=== PATIENT | male | born 1960 | race Caucasian/White ===

== ENCOUNTER 2016-07-09 07:22 | Outpatient (RCR) | payer SELFPAY ==
[~2016-07-09 07:22] MED LIST: AMLO10TA PO; AMLO10TA2 PO; AMLO10TA4 PO; ASPI-266 PO; ASPI-587 PO; ASPI-999 PO; ATEN100T88 PO; ATOR20TA66 PO; ATOR40TA PO; ATOR40TA70 PO; CEFU500T PO; CLON1PAT22 TD; CLOP75TA PO; CLOP75TA28 PO; CYCL10TA9 PO; DIPH25TA2 PO; DOXA2TAB2 PO; DXZS2T PO; DXZS4T PO; HYDR-3583 PO; HYDR-3714 PO; HYDR-3812 PO; HYDR25TA4 PO; IBUP-30 PO; LISI-552 PO; LISI1TAB8 PO; LISI40TA PO; LOVA40TA2 PO; LSNP20T PO; MELA1TAB9 PO; METH4TAB PO; METO-274 PO; METO-451 PO; METO100T2 PO; METO50TA2 PO; NAPR-591 PO; NEBI20TA2 PO; NF-MET200T PO; NFCHLORT25 PO; NITR0.4T SL; NITR0.4T3 SL; OMG1KC PO; PRD20T PO; SUCR1TAB36 PO; SULF1TAB38 PO; TRAM50TA2 PO; TRIA1CAP4 PO
--- NOTE | 2016-07-09 13:53 | Diagnostic Imaging Report ---
Renal duplex ultrasound. INDICATION: Uncontrolled hypertension. FINDINGS: The right kidney is 10.9 cm and the left kidney is 9.5 cm in length. There is no hydronephrosis or focal lesion. Renal artery velocities are on the right side 228, 196, and 176 cm/s from proximal to distal and on the left 205, 124, and 113 cm/s from proximal to distal. This compares to abdominal aortic flow velocity of 111 cm/s. Renal artery to aortic ratios are up to 2 on the right side and 1.8 on the left. The resistive index in the right kidney is in the range of 0.64-0.7 and on the left side 0.60-0.66. IMPRESSION: Elevated velocities in the renal arteries bilaterally suggestive of underlying mild renal artery stenosis. Dictated by: Dictated on workstation # [id number]
[2016-07-15] MEDS ORDERED: LISI40TA PO (13:07)
[2016-07-15] MEDS ORDERED: AMLO10TA2 PO (13:07)
[2016-09-28] MEDS ORDERED: ATOR40TA PO (17:17)
[2016-09-28] MEDS ORDERED: AMLO10TA4 PO (20:16)
[2016-10-05] MEDS ORDERED: AMLO10TA4 PO (01:12)
== END 2016-10-07 | disposition home or self-care (01) ==
LOC: RAD 07:22
PROVIDERS: ATTEND Internal Medicine Cardiovascular Disease
DX: I10 Essential (primary) hypertension (principal); I25.10 Atherosclerotic heart disease of native coronary artery without angina pectoris; I46.2 Cardiac arrest due to underlying cardiac condition; Z72.0 Tobacco use
CPT/HCPCS: 93975

== ENCOUNTER 2016-08-28 08:39 | Outpatient (RCR) | payer SELFPAY ==
[2016-08-28 09:24] LABS: ALANINE AMINOTRANSFERASE 27 U/L (0-55); ALBUMIN 4.2 G/DL (3.2-4.5); ANION GAP 9 MMOL/L (5-14); ASPARTATE AMINO TRANSFERASE 21 U/L (5-34); BILIRUBIN,TOTAL 0.3 MG/DL (0.1-1.0); BLOOD UREA NITROGEN 16 MG/DL (7-18); BUN/CREATININE RATIO 14; CARBON DIOXIDE 24 MMOL/L (21-32); CHLORIDE 106 MMOL/L (98-107); CREATININE SERUM 1.14 MG/DL (0.60-1.30); GFR ESTIMATED > 60; GLUCOSE 117 MG/DL (70-105); POTASSIUM 4.2 MMOL/L (3.6-5.0); SODIUM 139 MMOL/L (135-145); TOTAL PROTEIN 6.9 G/DL (6.4-8.2)
[2016-08-29 06:55] LABS: NUMBER HOURS COLLECT 24 HOURS; NUMBER HOURS COLLECTED 24 HOURS; UR VOL 1750 ML; URINE VOLUME CAT 1750 ML; URINE VOLUME REF 1750 ML
[2016-09-02 08:08] LABS: CREATININE SEROTONIN 1698 MG/D (800-2100)
[2016-09-02 08:09] LABS: 5 HIAA SEROTONIN URINE MG/L 2.3 MG/L; 5 HIAA SEROTONIN URINE RATIO 2 mg/gCR (0-14); 5HIAA CREATININE 97 MG/DL
[2016-09-02 08:10] LABS: 5 HIAA URINE INTERPRETATION SEE FOOTNOTE; VMA 24 HOUR URINE 2.2 MG/L; VMA/CREATININE 97 MG/DL
[2016-09-02 08:11] LABS: VMA CREATININE RATIO 2 MG/GCR (0-6); VMA URINE INTERPRETATION SEE FOOTNOTE
[2016-09-02 08:12] LABS: CREATININE VMA TIMED 24 HOUR 1698 MG/D (800-2100)
[2016-09-08 08:34] LABS: CREAT/CORTI URINE REF LAB 1820 MG/DAY (800-2100)
[2016-09-08 08:35] LABS: CORTISOL CREATININE RATIO URIN 27.12 ug/g CRT
[2016-09-08 08:36] LABS: CORTISOL INTERP SEE FOOTNOTE; CREATININE URINE REF MG/DL 104 MG/DL
[2016-09-09 11:27] LABS: EPINEPHERINE URINE 10 H UG/DAY (1-7)
[2016-09-09 11:28] LABS: NOREPINEPHRINE RATIO 48 H UG/G CRT (0-45)
[2016-09-09 11:29] LABS: CATECHOLAMINES URINE INTERP SEE FOOTNOTE; DOPAMINE RATIO 139 UG/G CRT (0-250)
[2016-09-09 11:31] LABS: CREATININE CAT FR MG/DL 102 MG/DL
[2016-09-09 11:33] LABS: CREATININE CATECHOLAMINES MG/D 1820 MG/D (800-2100)
[2016-09-09 11:44] LABS: NOREPINEPHRINE RANDOM URINE 47 ug/L
[2016-09-28] MEDS ORDERED: ATOR40TA PO (17:17)
[2016-09-28] MEDS ORDERED: AMLO10TA4 PO (20:16)
[2016-10-05] MEDS ORDERED: AMLO10TA4 PO (01:12)
== END 2016-11-24 | disposition home or self-care (01) ==
LOC: LAB 08:39
PROVIDERS: ATTEND Internal Medicine Cardiovascular Disease
DX: I10 Essential (primary) hypertension (principal); E78.4 Other hyperlipidemia; Z86.73 Personal history of transient ischemic attack (TIA), and cerebral infarction without residual deficits; I65.23 Occlusion and stenosis of bilateral carotid arteries; I25.10 Atherosclerotic heart disease of native coronary artery without angina pectoris; Z72.0 Tobacco use
CPT/HCPCS: 36415; 80053; 82088; 82384; 82530; 82570; 83497; 83789; 84585

== ENCOUNTER 2016-09-28 16:29 | Emergency (ER) | payer SELFPAY ==
[~2016-09-28] VITALS: Ht 182.9 cm; Wt 83.9 kg
[2016-09-28] MEDS ORDERED: ATOR40TA PO (17:17)
--- NOTE | 2016-09-28 17:59 | ED Headache ---
General Chief Complaint: Head/Cervical Problems Stated Complaint: HEADACHE Nursing Triage Note: AMB TO ROOM C/O CHRONIC HEADACH B/P UP TODAY CAN'T AFFORD ALL HIS MEDS HE SUPPOSE TO TAKE. Nursing Sepsis Screen: No Definite Risk Source: patient (AROLDO OREILLY DO) History of Present Illness Time seen by provider: 17:35 Initial Comments PT ARRIVES VIA POV FROM HOME C/O HEADACHE HAS CHRONIC HEADACHES FROM ELEVATED BP PT IS SUPPOSED TO BE ON MULTIPLE MEDICATIONS FOR BP, BUT CANNOT AFFORD ALL OF THEM, SO ONLY TAKES SOME OF THEM PT HAS BEEN HERE MULTIPLE TIMES FOR THIS SAME PROBLEM--LAST VISIT WAS 09/05/16, AND WAS SEEN AT [facility] ON 09/11/16, AND ALSO SAW DR. MCGARRY ON 09/11/16 FOR FOLLOW UP. HE WAS GIVEN AN ADDITIONAL 2 MORE RX'S, WHICH PT COULD NOT FILL. PT HAS BEEN PRESCRIBED DOXAZOSIN, AMLODIPINE, LISINOPRIL, TOPROL, TRIAM/HCTZ, ATORVASTATIN, CLOPIDOGREL, LIPITOR. HAS NOT BEEN ABLE TO FILL AMLODIPINE OR ATORVASTATIN, OR THE 2 NEW BP MEDICATIONS. HE ALSO HAS NOT FILLED HIS HYDROCODONE OR CYCLOBENZAPRINE. NO CHEST PAIN NO SHORTNESS OF BREATH NO DIZZINESS HAS HAD SOME BLURRED VISION HAS CHRONIC TINGLING IN FINGERS FROM NECK PROBLEMS NO NAUSEA/VOMITING PCP:[facility], DR. BELLA CARDIOLOGY: DR. MCGARRY (AROLDO OREILLY DO) Allergies and Home Medications Allergies Coded Allergies: clonidine (Verified Adverse Reaction, Unknown, 09/28/16) CATAPRESS PATCH HAS RED AREA AT SITE. Home Medications Amlodipine Besylate 10 Mg Tablet 10 MG PO DAILY (Reported) Amlodipine Besylate 10 Mg Tablet #30 10 MG PO DAILY Prescribed by: GISELLA ALFONSO on 09/28/16 2016 Aspirin 81 Mg Tab.chew 81 MG PO DAILY (Reported) Atorvastatin Calcium 40 Mg Tablet 40 MG PO HS (Reported) Atorvastatin Calcium 40 Mg Tablet 40 MG PO (Reported) Clopidogrel Bisulfate 75 Mg Tablet 75 MG PO DAILY (Reported) Diphenhydramine HCl 25 Mg Tablet 50 MG PO HS PRN PRN SLEEP (Reported) TAKES 2 (25 MG) TABLETS Doxazosin Mesylate 2 Mg Tablet 2 MG PO HS (Reported) Hydrocodone/Acetaminophen 1 Each Tablet 1 TAB PO Q6H PRN PRN PAIN (Reported) Lisinopril 40 Mg Tablet 40 MG PO DAILY (Reported) Metoprolol Succinate 200 Mg Tab 200 MG PO DAILY (Reported) Nitroglycerin 0.4 Mg Tab.subl 0.4 MG SL UD PRN PRN CHEST PAIN (Reported) Triamterene/Hydrochlorothiazid 1 Each Capsule 1 CAP PO DAILY (Reported) Constitutional: no symptoms reportedNo dizziness Eyes: See HPI Blurred Vision Ears, Nose, Mouth, Throat: no symptoms reported Respiratory: no symptoms reported Cardiovascular: no symptoms reported Gastrointestinal: no symptoms reported Genitourinary: no symptoms reported Musculoskeletal: no symptoms reported Skin: no symptoms reported Psychiatric/Neurological: See HPI HeadacheDenies Seizure (AROLDO OREILLY DO) Past Nwdhnbn-Pvensu-Qmyrpk Hx Patient Social History Alcohol Use: Past History (HISTORY OF ABUSE, NONE FOR YEARS) Recreational Drug Use: Yes (THC, COCAINE., METH IN PAST, DENIES IV USE) Smoking Status: Current Everyday Smoker (2 PPD IN PAST, NOW 1/2 PPD) Type Used: Cigarettes Recent Foreign Travel: No Contact w/Someone Who Travel: No Recent Infectious Disease Expo: No Recent Hopitalizations: Yes Physical Abuse Screen: No Sexual Abuse: No (AROLDO OREILLY DO) Immunizations Up To Date Tetanus Booster (TDap): Unknown Date of Influenza Vaccine: Jun 18, 2016 (AROLDO OREILLY DO) Seasonal Allergies Seasonal Allergies: No (AROLDO OREILLY DO) Surgeries HX Surgeries: Yes (BACK SURGERY ( ANTERIOR APPROACH) , CARPAL TUNNEL) Surgeries: Adenoidectomy, Cardiac, Defibrillator, Orthopedic, Pacemaker, Tonsillectomy, Vasectomy (AROLDO OREILLY DO) Respiratory Hx Respiratory Disorders: No (AROLDO OREILLY DO) Cardiovascular Hx Cardiac Disorders: Yes (heart catheter May 2015 with moderate disease- cardiac arrest with [place]) Cardiac Disorders: Coronary Artery Disease, Heart Attack, High Cholesterol, Hypertension (AROLDO OREILLY DO) Neurological Hx Neurological Disorders: Yes Neurological Disorders: Headaches /Migraines, TIA (AROLDO OREILLY DO) Reproductive System Hx Reproductive Disorders: No Sexually Transmitted Disease: No HIV/AIDS: No (AROLDO OREILLY DO) Genitourinary Hx Genitourinary Disorders: No (AROLDO OREILLY DO) Gastrointestinal Hx Gastrointestinal Disorders: Yes Gastrointestinal Disorders: Pancreatitis (AROLDO OREILLY DO) Musculoskeletal Hx Musculoskeletal Disorders: Yes (BACK PAIN, BACK SURGERY, CARPAL TUNNEL SURGERY) Musculoskeletal Disorders: Chronic Back Pain (AROLDO OREILLY DO) Endocrine Hx Endocrine Disorders: No (AROLDO OREILLY DO) HEENT HX ENT Disorders: No (AROLDO OREILLY DO) Cancer Hx Cancer: No (AROLDO OREILLY DO) Psychosocial Hx Psychiatric Problems: No (AROLDO OREILLY DO) Integumentary HX Skin/Integumentary Disorder: No (AROLDO OREILLY DO) Blood Transfusions Hx Blood Disorders: No Adverse Reaction to a Blood Tr: No (DENILSONAROLDOSedrick Alexandra DO) Family Medical History Significant Family History: No Pertinent Family Hx Family Medial History: Cardiovascular disease (AROLDO OREILLY DO) Family Medial History: Cardiovascular disease (GISELLA ALFONSO DO) Physical Exam Vital Signs Vital Sign - Last 12Hours 09/28/16 17:02 Temp 98.4 Pulse 82 Resp 18 B/P 238/136 Pulse Ox 97 O2 Delivery Room Air (GISELLA ALFONSO DO) Vital Signs Capillary Refill : Greater Than 3 Seconds (AROLDO OREILLY DO) General Appearance: WD/WN no apparent distress other (STRONG ODOR OF CIGARETTES) HEENT: other (POOR DENTITION) Neck: non-tender full range of motion supple normal inspection Cardiovascular: normal peripheral pulses regular rate, rhythm no edema no JVD no murmur Respiratory: chest non-tender normal breath sounds no respiratory distress no accessory muscle use Gastrointestinal: normal bowel sounds non tender soft no organomegaly no pulsatile mass Back: normal inspection no CVA tenderness no vertebral tenderness Extremities: normal range of motion non-tender normal inspection no pedal edema no calf tenderness normal capillary refill Psychiatric: alert oriented x 3 [place] Nerves: normal hearing normal speech PERRL Coordination/Gait: normal gait Motor/Sensory: no motor deficit no sensory deficit no pronator drift Skin: normal color warm/dry (AROLDO OREILLY DO) Date of ETT Placement: February 24, 2016 Time of ETT Placement: 1314 (AROLDO OREILLY DO) Progress/Results/Core Measures Results/Orders Lab Results Laboratory Tests Test 09/28/16 17:09 09/28/16 19:10 Range/Units Activated Partial Thromboplast Time 26 24-35 SEC Alanine Aminotransferase (ALT/SGPT) 40 0-55 U/L Albumin 4.5 3.2-4.5 G/DL Alkaline Phosphatase 109 40-136 U/L Anion Gap 12 5-14 MMOL/L Aspartate Amino Transf (AST/SGOT) 22 5-34 U/L BUN/Creatinine Ratio 17 Basophils # (Auto) 0.0 0.0-0.1 10^3/uL Basophils (%) (Auto) 0 0-10 % Blood Urea Nitrogen 17 7-18 MG/DL Calcium Level 9.1 8.5-10.1 MG/DL Carbon Dioxide Level 19 L 21-32 MMOL/L Chloride Level 108 H 98-107 MMOL/L Creatinine 1.02 0.60-1.30 MG/DL Eosinophils # (Auto) 0.1 0.0-0.3 10^3/uL Eosinophils (%) (Auto) 1 0-10 % Estimat Glomerular Filtration Rate > 60 Glucose Level 107 H 70-105 MG/DL Hematocrit 50 40-54 % Hemoglobin 17.1 13.3-17.7 G/DL INR Comment 0.9 0.8-1.4 Lymphocytes # (Auto) 3.5 1.0-4.0 X 10^3 Lymphocytes (%) (Auto) 35 12-44 % Magnesium Level 2.3 1.8-2.4 MG/DL Mean Corpuscular Hemoglobin 31 25-34 PG Mean Corpuscular Hemoglobin Concent 35 32-36 G/DL Mean Corpuscular Volume 90 80-99 FL Mean Platelet Volume 9.1 7.4-10.4 FL Monocytes # (Auto) 0.9 0.0-1.0 X 10^3 Monocytes (%) (Auto) 9 0-12 % Neutrophils # (Auto) 5.4 1.8-7.8 X 10^3 Neutrophils (%) (Auto) 54 42-75 % Platelet Count 369 130-400 10^3/uL Potassium Level 4.3 3.6-5.0 MMOL/L Prothrombin Time 11.4 L 12.2-14.7 SEC Red Blood Count 5.53 4.35-5.85 10^6/uL Red Cell Distribution Width 14.9 H 10.0-14.5 % Sodium Level 139 135-145 MMOL/L Total Bilirubin 0.3 0.1-1.0 MG/DL Total Protein 7.5 6.4-8.2 G/DL Troponin I < 0.30 <0.30 NG/ML White Blood Count 10.0 4.3-11.0 10^3/uL Urine Bacteria NEGATIVE /HPF Urine Bilirubin NEGATIVE NEGATIVE Urine Casts NONE /LPF Urine Clarity CLEAR Urine Color YELLOW Urine Crystals NONE /LPF Urine Culture Indicated NO Urine Glucose (UA) NEGATIVE NEGATIVE Urine Ketones NEGATIVE NEGATIVE Urine Leukocyte Esterase NEGATIVE NEGATIVE Urine Mucus NEGATIVE /LPF Urine Nitrite NEGATIVE NEGATIVE Urine Protein 2+ H NEGATIVE Urine RBC NONE /HPF Urine RBC (Auto) 1+ H NEGATIVE Urine Specific Page 1.020 1.016-1.022 Urine Squamous Epithelial Cells RARE /HPF Urine Urobilinogen NORMAL NORMAL MG/DL Urine WBC RARE /HPF Urine pH 5 5-9 (GISELLA ALFONSO DO) My Orders Orders-GISELLA ALFONSO DO Labetalol Injection (Normodyne Injection (09/28/16 19:00) Ketorolac Injection (Toradol Injection) (09/28/16 19:00) Amlodipine Tablet (Norvasc Tablet) (09/28/16 19:45) Butorphanol Injection (Stadol Injection) (09/28/16 19:45) (GISELLA ALFONSO DO) Medications Given in ED (GISELLA ALFONSO DO) Vital Signs/I&O Vital Sign - Last 12Hours 09/28/16 09/28/16 09/28/16 17:02 18:46 20:37 Temp 98.4 Pulse 82 73 75 Resp 18 18 18 B/P 238/136 188/115 Pulse Ox 97 98 98 O2 Delivery Room Air Room Air (GISELLA ALFONSO DO) Blood Pressure Mean: 170 Progress Note : Progress Note 1800--CARE TURNED OVER TO DR. ALFONSO, ALL STUDIES PENDING (AROLDO OREILLY DO) Progress Note : Progress Note Much improved p/ able to get BP down and c/ the Stadol. Really needs to get the Rx filled for the Norvasc and add it to his current regimen. Dose was given here prior to discharge. (GISELLA ALFONSO DO) ECG Initial ECG Impression Date: Sep 28, 2016 Initial ECG Impression Time: 18:20 Initial ECG Rate: 89 Initial ECG Rhythm: Normal Sinus Initial ECG Intervals: QT Initial ECG Comparisson: Unchanged Comment BRODIE; LVH (GISELLA ALFONSO DO) Departure Impression Impression: Primary Impression: Acute headache Additional Impression: Hypertensive urgency Disposition: 01 HOME, SELF-CARE Condition: Improved Departure-Patient Inst. Decision time for Depature: 20:15 (GISELLA ALFONSO DO) Referrals: MARGARITA BELLA MD (PCP/Family) Primary Care Physician Patient Instructions: Headache, Adult (DC), High Blood Pressure (DC) Scripts Amlodipine Besylate (Norvasc)10 Mg [id number] Mg PO DAILY #30 TAB Ref 0 Prov:GISELLA ALFONSO DO 09/28/16 AROLDO OREILLY DO Sep 28, 2016 17:59 GISELLA ALFONSO DO Sep 28, 2016 19:22 Impression Impression: Primary Impression: Acute headache Additional Impression: Hypertensive urgency Disposition: HOME, SELF-CARE Condition: Improved Departure-Patient Inst. Decision time for Depature: 20:15 (GISELLA ALFONSO DO) Referrals: MARGARITA BELLA MD (PCP/Family) Primary Care Physician Patient Instructions: Headache, Adult (DC), High Blood Pressure (DC) Scripts Amlodipine Besylate (Norvasc)10 Mg [id number] Mg PO DAILY #30 TAB Ref 0 Prov:GISELLA ALFONSO DO 09/28/16 AROLDO OREILLY DO Sep 28, 2016 17:59 GISELLA ALFONSO DO Sep 28, 2016 19:22
[2016-09-28] MEDS ORDERED: meTOprolol 5 MG/5 ML (LOPRESSOR) VIAL IV ONE (18:00)
[2016-09-28] MEDS ORDERED: ENALAPRILAT 2.5 MG/2 ML (VASOTEC) VIAL IV ONE (18:00)
[2016-09-28] MEDS ORDERED: LABETALOL HCL 20 MG/4 ML VIAL IV ONE ×2 (18:15→19:00)
[2016-09-28 18:16] LABS: BASOPHILS % (AUTO) 0 % (0-10); EOSINOPHILS # (AUTO) 0.1 10^3/uL (0.0-0.3); EOSINOPHILS % (AUTO) 1 % (0-10); LYMPHOCYTES # (AUTO) 3.5 X 10^3 (1.0-4.0); LYMPHOCYTES % (AUTO) 35 % (12-44); MEAN CORPUSCULAR HEMOGLOBIN 31 PG (25-34); MEAN CORPUSCULAR HGB CONC 35 G/DL (32-36); MEAN CORPUSCULAR VOLUME 90 FL (80-99); MEAN PLATELET VOLUME 9.1 FL (7.4-10.4); MONOCYTES # (AUTO) 0.9 X 10^3 (0.0-1.0); MONOCYTES % (AUTO) 9 % (0-12); NEUTROPHILS # (AUTO) 5.4 X 10^3 (1.8-7.8); NEUTROPHILS % (AUTO) 54 % (42-75); PLATELET COUNT 369 10^3/uL (130-400); RED BLOOD COUNT 5.53 10^6/uL (4.35-5.85); RED CELL DISTRIBUTION WIDTH 14.9 % (10.0-14.5)
[2016-09-28 18:25] LABS: INR 0.9 (0.8-1.4); PROTHROMBIN TIME PATIENT 11.4 SEC (12.2-14.7)
[2016-09-28 18:35] LABS: ALANINE AMINOTRANSFERASE 40 U/L (0-55); ALBUMIN 4.5 G/DL (3.2-4.5); ANION GAP 12 MMOL/L (5-14); ASPARTATE AMINO TRANSFERASE 22 U/L (5-34); BILIRUBIN,TOTAL 0.3 MG/DL (0.1-1.0); BLOOD UREA NITROGEN 17 MG/DL (7-18); BUN/CREATININE RATIO 17; CALCIUM 9.1 MG/DL (8.5-10.1); CARBON DIOXIDE 19 MMOL/L (21-32); CHLORIDE 108 MMOL/L (98-107); CREATININE SERUM 1.02 MG/DL (0.60-1.30); GFR ESTIMATED > 60; GLUCOSE 107 MG/DL (70-105); MAGNESIUM 2.3 MG/DL (1.8-2.4); POTASSIUM 4.3 MMOL/L (3.6-5.0); SODIUM 139 MMOL/L (135-145); TOTAL PROTEIN 7.5 G/DL (6.4-8.2)
[2016-09-28 18:41] LABS: TROPONIN I < 0.30 NG/ML (<0.30)
[2016-09-28 18:46] VITALS: BP 188/115
[2016-09-28] MEDS ORDERED: KETOROLAC 30 MG/ML VIAL IVP ONE (19:00)
[2016-09-28 19:20] LABS: BILIRUBIN,URINE NEGATIVE (NEGATIVE); KETONES,URINE NEGATIVE (NEGATIVE); LEUKOCYTE ESTERASE ,URINE NEGATIVE (NEGATIVE); NITRITE,URINE NEGATIVE (NEGATIVE); PH,URINE 5 (5-9); PROTEIN,URINE 2+ (NEGATIVE); UROBILINOGEN,URINE NORMAL (NORMAL)
[2016-09-28 19:29] LABS: SQUAMOUS EPITHELIAL CELL,UR RARE /HPF; WBC,URINE RARE /HPF
[2016-09-28] MEDS ORDERED: BUTORPHANOL INJ 2 MG/ML (STADOL) VIAL IV ONE (19:45)
[2016-09-28] MEDS ORDERED: amLODIPine 5 MG (NORVASC) TAB PO ONE (19:45)
[2016-09-28] MEDS ORDERED: AMLO10TA4 PO (20:16)
[2016-09-28 20:37] VITALS: BP 151/115
== END 2016-09-28 20:36 | disposition home or self-care (01) ==
LOC: EDUNIT# 16:29 → ER 16:30
DX: R51 Headache (principal); I16.0 Hypertensive urgency; I25.10 Atherosclerotic heart disease of native coronary artery without angina pectoris; F17.210 Nicotine dependence, cigarettes, uncomplicated; Z79.899 Other long term (current) drug therapy; Z95.810 Presence of automatic (implantable) cardiac defibrillator
CPT/HCPCS: 36415; 80053; 81000; 83735; 84484; 85025; 85610; 85730; 93005; 93041; 96374; 96375; 96376

== ENCOUNTER 2016-10-04 23:23 | Emergency (ER) | payer SELFPAY ==
[~2016-10-04] VITALS: Ht 182.9 cm; Wt 83.9 kg
--- NOTE | 2016-10-04 23:39 | ED Abdominal Pain ---
General Chief Complaint: Abdominal/GI Problems Stated Complaint: AB PAIN Source of Information: Patient, RN Notes Reviewed Exam Limitations: No Limitations History of Present Illness Time Seen By Provider: 23:39 Initial Comments Patient c/o upper abdominal pain that feels like his previous cases of pancreatitis. (+) N, but no vomiting. Patient well known for his hypertension and non-compliance c/ treatment/meds. Timing/Duration: 4-6 Hours Severity/Quality: Severe, Sharp, Stabbing Location: RUQ, LUQ, Epigastric Radiation: Back Activities at Onset: Rest Modifying Factors: Improves With Other (none) Associated Symptoms: Other ((+) nausea, (-) vomiting) Allergies and Home Medications Allergies Coded Allergies: clonidine (Verified Adverse Reaction, Unknown, 09/28/16) CATAPRESS PATCH HAS RED AREA AT SITE. Home Medications Amlodipine Besylate 10 Mg Tablet #30 10 MG PO DAILY Prescribed by: GISELLA ALFONSO on 09/28/162015 Amlodipine Besylate 10 Mg Tablet #30 10 MG PO DAILY Prescribed by: GISELLA ALFONSO on 10/05/16 0112 Aspirin 81 Mg Tab.chew 81 MG PO DAILY (Reported) Atorvastatin Calcium 40 Mg Tablet 40 MG PO HS (Reported) Clopidogrel Bisulfate 75 Mg Tablet 75 MG PO DAILY (Reported) Diphenhydramine HCl 25 Mg Tablet 50 MG PO HS PRN PRN SLEEP (Reported) TAKES 2 (25 MG) TABLETS Doxazosin Mesylate 2 Mg Tablet 2 MG PO HS (Reported) Hydrocodone/Acetaminophen 1 Each Tablet 1 TAB PO Q6H PRN PRN PAIN (Reported) Lisinopril 40 Mg Tablet 40 MG PO DAILY (Reported) Metoprolol Succinate 200 Mg Tab 200 MG PO DAILY (Reported) Nitroglycerin 0.4 Mg Tab.subl 0.4 MG SL UD PRN PRN CHEST PAIN (Reported) Triamterene/Hydrochlorothiazid 1 Each Capsule 1 CAP PO DAILY (Reported) Review of Systems Constitutional: see HPI Gastrointestinal: See HPI Abdominal Pain Nausea All Other Systems Reviewed Negative Unless Noted: Yes Past Jeesnng-Rpwklx-Fghffk Hx Patient Social History Type Used: Cigarettes Recent Foreign Travel: No Contact w/Someone Who Travel: No Recent Hopitalizations: Yes Immunizations Up To Date Tetanus Booster (TDap): Unknown Date of Influenza Vaccine: Jun 18, 2016 Seasonal Allergies Seasonal Allergies: No Surgeries HX Surgeries: Yes (BACK SURGERY ( ANTERIOR APPROACH) , CARPAL TUNNEL) Surgeries: Adenoidectomy, Cardiac, Defibrillator, Orthopedic, Pacemaker, Tonsillectomy, Vasectomy Respiratory Hx Respiratory Disorders: No Cardiovascular Hx Cardiac Disorders: Yes (heart catheter May 2015 with moderate disease- cardiac arrest with [place]) Cardiac Disorders: Coronary Artery Disease, Heart Attack, High Cholesterol, Hypertension Neurological Hx Neurological Disorders: Yes Neurological Disorders: Headaches /Migraines, TIA Reproductive System Hx Reproductive Disorders: No Sexually Transmitted Disease: No HIV/AIDS: No Genitourinary Hx Genitourinary Disorders: No Gastrointestinal Hx Gastrointestinal Disorders: Yes Gastrointestinal Disorders: Pancreatitis Musculoskeletal Hx Musculoskeletal Disorders: Yes (BACK PAIN, BACK SURGERY, CARPAL TUNNEL SURGERY) Musculoskeletal Disorders: Chronic Back Pain Endocrine Hx Endocrine Disorders: No HEENT HX ENT Disorders: No Cancer Hx Cancer: No Psychosocial Hx Psychiatric Problems: No Integumentary HX Skin/Integumentary Disorder: No Blood Transfusions Hx Blood Disorders: No Adverse Reaction to a Blood Tr: No Family Medical History Significant Family History: No Pertinent Family Hx Family Medial History: Cardiovascular disease Physical Exam Vital Signs Capillary Refill : General Appearance: WD/WN moderate distress Respiratory: no respiratory distress Cardiovascular: regular rate, rhythm Gastrointestinal: No distended, guarding (mild)No rebound, tenderness ( primarily epigastric) Rectal: deferred Neurologic/Psychiatric: no motor/sensory deficits alert oriented x 3 depressed affect Skin: warm/dry Date of ETT Placement: February 24, 2016 Time of ETT Placement: 1314 Progress/Results/Core Measures Results/Orders Lab Results Laboratory Tests Test 10/04/16 23:40 10/05/16 00:45 Range/Units Alanine Aminotransferase (ALT/SGPT) 34 0-55 U/L Albumin 4.5 3.2-4.5 G/DL Alkaline Phosphatase 116 40-136 U/L Anion Gap 12 5-14 MMOL/L Aspartate Amino Transf (AST/SGOT) 21 5-34 U/L BUN/Creatinine Ratio 19 Basophils # (Auto) 0.0 0.0-0.1 10^3/uL Basophils (%) (Auto) 0 0-10 % Blood Urea Nitrogen 23 H 7-18 MG/DL Calcium Level 9.8 8.5-10.1 MG/DL Carbon Dioxide Level 22 21-32 MMOL/L Chloride Level 106 98-107 MMOL/L Creatinine 1.19 0.60-1.30 MG/DL Eosinophils # (Auto) 0.2 0.0-0.3 10^3/uL Eosinophils (%) (Auto) 2 0-10 % Estimat Glomerular Filtration Rate > 60 Glucose Level 123 H 70-105 MG/DL Hematocrit 50 40-54 % Hemoglobin 16.7 13.3-17.7 G/DL Lipase 46 8-78 U/L Lymphocytes # (Auto) 4.6 H 1.0-4.0 X 10^3 Lymphocytes (%) (Auto) 34 12-44 % Mean Corpuscular Hemoglobin 30 25-34 PG Mean Corpuscular Hemoglobin Concent 34 32-36 G/DL Mean Corpuscular Volume 90 80-99 FL Mean Platelet Volume 9.3 7.4-10.4 FL Monocytes # (Auto) 1.2 H 0.0-1.0 X 10^3 Monocytes (%) (Auto) 9 0-12 % Neutrophils # (Auto) 7.7 1.8-7.8 X 10^3 Neutrophils (%) (Auto) 56 42-75 % Platelet Count 349 130-400 10^3/uL Potassium Level 4.0 3.6-5.0 MMOL/L Red Blood Count 5.50 4.35-5.85 10^6/uL Red Cell Distribution Width 15.0 H 10.0-14.5 % Sodium Level 140 135-145 MMOL/L Total Bilirubin 0.2 0.1-1.0 MG/DL Total Protein 7.5 6.4-8.2 G/DL White Blood Count 13.7 H 4.3-11.0 10^3/uL Urine Bacteria TRACE /HPF Urine Bilirubin NEGATIVE NEGATIVE Urine Casts NONE /LPF Urine Clarity CLEAR Urine Color YELLOW Urine Crystals NONE /LPF Urine Culture Indicated NO Urine Glucose (UA) NEGATIVE NEGATIVE Urine Ketones NEGATIVE NEGATIVE Urine Leukocyte Esterase 1+ H NEGATIVE Urine Mucus SMALL H /LPF Urine Nitrite NEGATIVE NEGATIVE Urine Protein 2+ H NEGATIVE Urine RBC NONE /HPF Urine RBC (Auto) NEGATIVE NEGATIVE Urine Specific [place] 1.025 H 1.016-1.022 Urine Squamous Epithelial Cells RARE /HPF Urine Urobilinogen NORMAL NORMAL MG/DL Urine WBC RARE /HPF Urine pH 5 5-9 My Orders Orders-GISELLA ALFONSO DO Saline Lock/Iv-Start (10/04/16 23:39) Cbc With Automated Diff (10/04/16 23:39) Comprehensive Metabolic Panel (10/04/16 23:39) Lipase (10/04/16 23:39) Ua Culture If Indicated (10/04/16 23:39) Hydralazine Injection (Apresoline Inject (10/05/16 00:00) Ketorolac Injection (Toradol Injection) (10/05/16 00:00) Iv Push Synthetic Filament Extruder Ed (10/04/16 ) Medications Given in ED Vital Signs/I&O Departure Impression Impression: Primary Impression: ABDOMINAL PAIN, UNSPECIFIED SITE Additional Impression: Hypertensive urgency Disposition: 01 HOME, SELF-CARE Condition: Stable Departure-Patient Inst. Decision time for Depature: 01:11 Referrals: MARGARITA BELLA MD (PCP/Family) Primary Care Physician Patient Instructions: Acute Abdomen (Belly Pain), Adult (DC) Scripts Amlodipine Besylate (Norvasc)10 Mg [id number] Mg PO DAILY #30 TAB Ref 0 Prov:GISELLA ALFONSO DO 10/05/16 GISELLA ALFONSO DO Oct 04, 2016 23:39 Temp 98.0 Pulse 85 Resp 18 B/P 235/131 Pulse Ox 98 Departure Impression Impression: Primary Impression: ABDOMINAL PAIN, UNSPECIFIED SITE Additional Impression: Hypertensive urgency Disposition: HOME, SELF-CARE Condition: Stable Departure-Patient Inst. Decision time for Depature: 01:11 Referrals: MARGARITA BELLA MD (PCP/Family) Primary Care Physician Patient Instructions: Acute Abdomen (Belly Pain), Adult (DC) Scripts Amlodipine Besylate (Norvasc)10 Mg [id number] Mg PO DAILY #30 TAB Ref 0 Prov:GISELLA ALFONSO DO 10/05/16 GISELLA ALFONSO DO Oct 04, 2016 23:39
[2016-10-05] MEDS ORDERED: KETOROLAC 30 MG/ML VIAL IVP ONE
[2016-10-05] MEDS ORDERED: hydrALAZINE (APESOLINE) 20 MG/ML VIAL IV ONE
[2016-10-05 00:06] LABS: BASOPHILS % (AUTO) 0 % (0-10); EOSINOPHILS # (AUTO) 0.2 10^3/uL (0.0-0.3); EOSINOPHILS % (AUTO) 2 % (0-10); LYMPHOCYTES # (AUTO) 4.6 X 10^3 (1.0-4.0); LYMPHOCYTES % (AUTO) 34 % (12-44); MEAN CORPUSCULAR HEMOGLOBIN 30 PG (25-34); MEAN CORPUSCULAR HGB CONC 34 G/DL (32-36); MEAN CORPUSCULAR VOLUME 90 FL (80-99); MEAN PLATELET VOLUME 9.3 FL (7.4-10.4); MONOCYTES # (AUTO) 1.2 X 10^3 (0.0-1.0); MONOCYTES % (AUTO) 9 % (0-12); NEUTROPHILS # (AUTO) 7.7 X 10^3 (1.8-7.8); NEUTROPHILS % (AUTO) 56 % (42-75); PLATELET COUNT 349 10^3/uL (130-400); WHITE BLOOD COUNT 13.7 10^3/uL (4.3-11.0)
[2016-10-05 00:17] LABS: CARBON DIOXIDE 22 MMOL/L (21-32); CHLORIDE 106 MMOL/L (98-107); SODIUM 140 MMOL/L (135-145)
[2016-10-05 00:18] LABS: ALANINE AMINOTRANSFERASE 34 U/L (0-55); ALBUMIN 4.5 G/DL (3.2-4.5); ANION GAP 12 MMOL/L (5-14); ASPARTATE AMINO TRANSFERASE 21 U/L (5-34); BILIRUBIN,TOTAL 0.2 MG/DL (0.1-1.0); BLOOD UREA NITROGEN 23 MG/DL (7-18); BUN/CREATININE RATIO 19; CALCIUM 9.8 MG/DL (8.5-10.1); CREATININE SERUM 1.19 MG/DL (0.60-1.30); GFR ESTIMATED > 60; GLUCOSE 123 MG/DL (70-105); LIPASE 46 U/L (8-78); TOTAL PROTEIN 7.5 G/DL (6.4-8.2)
[2016-10-05 00:53] LABS: BILIRUBIN,URINE NEGATIVE (NEGATIVE); KETONES,URINE NEGATIVE (NEGATIVE); LEUKOCYTE ESTERASE ,URINE 1+ (NEGATIVE); NITRITE,URINE NEGATIVE (NEGATIVE); PH,URINE 5 (5-9); PROTEIN,URINE 2+ (NEGATIVE); UROBILINOGEN,URINE NORMAL (NORMAL)
[2016-10-05 01:02] LABS: SQUAMOUS EPITHELIAL CELL,UR RARE /HPF; WBC,URINE RARE /HPF
[2016-10-05] MEDS ORDERED: AMLO10TA4 PO (01:12)
[2016-10-05 01:15] VITALS: BP 185/103
== END 2016-10-05 01:17 | disposition home or self-care (01) ==
LOC: EDUNIT# 23:23 → ER 23:25
DX: R10.84 Generalized abdominal pain (principal); I16.0 Hypertensive urgency; Z79.82 Long term (current) use of aspirin; Z79.02 Long term (current) use of antithrombotics/antiplatelets; Z79.899 Other long term (current) drug therapy; Z95.810 Presence of automatic (implantable) cardiac defibrillator
CPT/HCPCS: 36415; 80053; 81000; 83690; 85025; 96374; 96375

== ENCOUNTER 2018-01-02 14:08 | Day surgery (SDC) | payer OTHER ==
[~2018-01-02] VITALS: Ht 182.9 cm; Wt 92.1 kg
[~2018-01-02 14:08] MED LIST changes: +ACHD5005 PO; -HYDR-3812 PO; -METO-274 PO; +METO-395 PO; +METO100T12 PO; -METO100T2 PO; +METO50TA15 PO; -METO50TA2 PO; -NITR0.4T3 SL; +NITR0.4T42 SL
--- OUTSIDE RECORDS SUMMARY | 2018-01-02 14:12 | XMS REPORT ---
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 Active 487819367 Problem Cervical disc disease M50.90 Active 291595358 Problem Malignant hypertension I10 Active 17414319 Problem Hypertension I10 Active 99331209 Problem Coronary artery disease involving [place] coronary artery of [place] heart without angina pectoris I25.10 Active 4172656429208 Problem Hyperlipidemia E78.5 Active 27193914 ALLERGIES Unknown Allergies SOCIAL HISTORY No smoking Hx information available PLAN OF CARE VITAL SIGNS MEDICATIONS Medication Instructions Dosage Frequency Start Date End Date Duration Status Amlodipine Besylate 10 MG TAKE ONE TABLET BY MOUTH ONCE DAILY 30 Active Metoprolol Succinate ER 200 mg Orally 3 times a day 1 tablet 8h Active RESULTS No Results PROCEDURES No Known procedures IMMUNIZATIONS No Known Immunizations
--- OUTSIDE RECORDS SUMMARY | 2018-01-02 14:12 | XMS REPORT ---
Author Author MARGARITA BELLA [facility] Address [address] [place] [address] Care Team Providers Care Sales Project Manager Name Role Phone MARGARITA BELLA Unavailable PROBLEMS Type Condition ICD9-CM Code [id number] Code Onset Dates Condition Status SNOMED Code Problem Hypertension I10 Active 93891696 Problem Hyperlipidemia E78.5 Active 90970073 Problem Malignant hypertension I10 Active 00298245 Problem Other chronic pain G89.29 Active 46665121 Problem Lumbago with sciatica, right side M54.41 Active 887560987638949 Problem Cervical disc disease M50.90 Active 893467663 Problem Coronary artery disease involving [place] coronary artery of [place] heart without angina pectoris I25.10 Active 0210002806962 Problem Lumbago with sciatica, left side M54.42 Active 332983249 Problem Drug-induced erectile dysfunction N52.2 Active 270986133 ALLERGIES No Information SOCIAL HISTORY Never Assessed PLAN OF CARE VITAL SIGNS MEDICATIONS Unknown Medications RESULTS No Results PROCEDURES No Known procedures IMMUNIZATIONS No Known Immunizations MEDICAL (GENERAL) HISTORY Type Description Date Medical History headache Medical History hypertension Medical History cervical spine stenosis Medical History Myocardial Infarction Surgical History tonsillectomy Surgical History back surgery Surgical History neuroplasty with transposition of median nerve at carpal tunnel Surgical History defibrillator placement 2015 Hospitalization History back surgery 2005 Hospitalization History HTN 02/2014 Hospitalization History [facility] for a headache 12/2015 Hospitalization History HI 02/2016 Hospitalization History Uncontrolled HTN, chest pain. 06/20/2016 Hospitalization History Malignant HTN, Headache,Vomiting 06/24/2016
--- OUTSIDE RECORDS SUMMARY | 2018-01-02 14:12 | XMS REPORT ---
Author Author MARGARITA BELLA [facility] Address [address] [place] [address] Care Team Providers Care Nail Specialist Name Role Phone MARGARITA BELLA Unavailable PROBLEMS Type Condition ICD9-CM Code [id number] Code Onset Dates Condition Status SNOMED Code Problem Drug-induced erectile dysfunction N52.2 Active 016634924 Problem Cervical disc disease M50.90 Active 236442285 Problem Malignant hypertension I10 Active 07018040 Problem Hypertension I10 Active 72448850 Problem Coronary artery disease involving [place] coronary artery of [place] heart without angina pectoris I25.10 Active 9607806361506 Problem Hyperlipidemia E78.5 Active 08780199 ALLERGIES Unknown Allergies SOCIAL HISTORY No smoking Hx information available PLAN OF CARE VITAL SIGNS MEDICATIONS Medication Instructions Dosage Frequency Start Date End Date Duration Status Metoprolol Succinate ER 200 mg Orally 3 times a day 1 tablet 8h Active Amlodipine Besylate 5 MG Orally Once a day 2 tablet 24h Active Clopidogrel Bisulfate 75 MG Orally Once a day 1 tablet 24h Active Lipitor 40 mg Orally Once a day 1 tablet 24h Active Doxazosin Mesylate 2 MG Orally Once a day 1 tablet 24h Active Lisinopril 40 mg Orally Once a day 1 tablet 24h Active Triamterene-HCTZ 37.5-25 MG Orally Once a day 1 capsule in the morning 24h Active RESULTS No Results PROCEDURES No Known procedures IMMUNIZATIONS No Known Immunizations
--- OUTSIDE RECORDS SUMMARY | 2018-01-02 14:12 | XMS REPORT ---
Author Author GREG NEAL [facility] Address [address] [place] [address] Care Team Providers Care Rodeo Performer Name Role Phone GREG NEAL Unavailable PROBLEMS Type Condition ICD9-CM Code [id number] Code Onset Dates Condition Status SNOMED Code Problem Cervical disc disease M50.90 Active 227670007 Problem Coronary artery disease involving [place] coronary artery of [place] heart without angina pectoris I25.10 Active 6520370164048 Problem Hypertension I10 Active 13843665 Problem Hyperlipidemia E78.5 Active 56339207 Problem Malignant hypertension I10 Active 01920000 ALLERGIES Unknown Allergies SOCIAL HISTORY No smoking Hx information available PLAN OF CARE VITAL SIGNS MEDICATIONS Medication Instructions Dosage Frequency Start Date End Date Duration Status Clopidogrel Bisulfate 75 MG Orally Once a day 1 tablet 24h Active Lisinopril 40 MG TAKE ONE TABLET BY MOUTH ONCE DAILY 30 Active Amlodipine Besylate 10 MG Orally Once a day 1 tablet 24h 30 Active DiphenhydrAMINE HCl 50 mg Orally Once a day 2 tablets 24h Active Aspir-81 81 MG Orally Once a day 1 tablet 24h Active Hydrocodone-Acetaminophen 5-325 MG Orally 4 times a day 1 tablet as needed 6h 28 Active Lipitor 40 MG Orally Once a day 1 tablet 24h Active Nitrostat 0.4 MG Sublingual PRN chest pain, may repeat q 5 min x 1 1 tablet 3 times a day 30 days Active Doxazosin Mesylate 2 MG Orally Once a day 1 tablet 24h Active Metoprolol Succinate ER 100 MG Orally Once a day 1 tablet 24h Active RESULTS No Results PROCEDURES No Known procedures IMMUNIZATIONS No Known Immunizations
--- OUTSIDE RECORDS SUMMARY | 2018-01-02 14:13 | XMS REPORT ---
Author Author MARGARITA BELLA [facility] Address [address] [place] [address] Care Team Providers Care Government Service Executive Name Role Phone MARGARITA BELLA Unavailable PROBLEMS Type Condition ICD9-CM Code MFE14-CP Code Onset Dates Condition Status SNOMED Code Problem Hypertension I10 Active 30776793 Problem Hyperlipidemia E78.5 Active 04143017 Problem Malignant hypertension I10 Active 06551259 Problem Other chronic pain G89.29 Active 27350530 Problem Lumbago with sciatica, right side M54.41 Active 072171511395248 Problem Cervical disc disease M50.90 Active 741853268 Problem Coronary artery disease involving [place] coronary artery of [place] heart without angina pectoris I25.10 Active 3107166002180 Problem Lumbago with sciatica, left side M54.42 Active 352594806 Problem Drug-induced erectile dysfunction N52.2 Active 801520961 ALLERGIES No Information SOCIAL HISTORY Never Assessed PLAN OF CARE VITAL SIGNS MEDICATIONS Medication Instructions Dosage Frequency Start Date End Date Duration Status Hydrocodone-Acetaminophen 5-325 MG Orally every 6 hrs 1 tablet as needed 6h Feb, Mar, 28 days Active RESULTS No Results PROCEDURES No Known procedures IMMUNIZATIONS No Known Immunizations MEDICAL (GENERAL) HISTORY Type Description Date Medical History headache Medical History hypertension Medical History cervical spine stenosis Medical History Myocardial Infarction Surgical History tonsillectomy Surgical History back surgery Surgical History neuroplasty with transposition of median nerve at carpal tunnel Surgical History defibrillator placement 2016 Hospitalization History back surgery 2005 Hospitalization History HT[place] 02/2014 [facility]ization [facility] 12/2015 Hospitalization History [place] 02/2016 Hospitalization History Uncontrolled HTN, chest pain. 06/20/2016 Hospitalization History Malignant HTN, Headache,Vomiting 06/24/2016
--- OUTSIDE RECORDS SUMMARY | 2018-01-02 14:13 | XMS REPORT ---
Author MARGARITA Hatch [facility] eClinicalWorks Address Unknown Phone Unavailable Care Team Providers Care Gift Manager Name Role Phone MARGARITA BELLA CP Unavailable Allergies No Known Allergies Problems Problem Type Condition Code Onset Dates Condition Status Problem CAD (coronary artery disease) 414.00 Active Problem Hyperlipidemia 272.4 Active Problem Hypertension I10 Active Problem Nondependent tobacco use disorder 305.1 Active Assessment Other dorsalgia M54.89 Active Medications Medication Code System Code Instructions Start Date End Date Status Dosage Hydrocodone-Acetaminophen [facility] [address]-72 5-325 MG Orally, every 6 hrs 1 tablet as needed Results No Known Results Summary Purpose eClinicalWorks Submission
--- OUTSIDE RECORDS SUMMARY | 2018-01-02 14:14 | XMS REPORT ---
Author MARGARITA Hatch [facility] eClinicalWorks Address Unknown Phone Unavailable Care Team Providers Care Medical Records Receptionist Name Role Phone MARGARITA BELLA CP Unavailable Allergies, Adverse Reactions, Alerts Substance Reaction Event Type Morphine Sulfate vomiting Drug Allergy Seehcgrm-GFN-9 blisters, itching and redness Drug Allergy Problems Problem Type Condition Code Onset Dates Condition Status Assessment Malignant hypertension I10 Active Assessment Cervical disc disease M50.90 Active Problem Coronary artery disease involving [place] coronary artery of [place] heart without angina pectoris I25.10 Active Problem Hyperlipidemia E78.5 Active Problem Cervical disc disease M50.90 Active Assessment Hypertension I10 Active Assessment Hyperlipidemia E78.5 Active Problem Malignant hypertension I10 Active Problem Hypertension I10 Active Medications Medication Code System Code Instructions Start Date End Date Status Dosage Lisinopril [facility] 10517601267 40 MG TAKE ONE TABLET BY MOUTH ONCE DAILY Aspir-81 [facility] [address]-87 81 MG Orally Once a day 1 tablet Hydrocodone-Acetaminophen [facility] 60364856388 5-325 MG Orally 4 times a day 1 tablet as needed Lipitor [facility] [address]-02 40 MG Orally Once a day 1 tablet Clopidogrel Bisulfate [facility] [address]-23 75 MG Orally Once a day 1 tablet Doxazosin Mesylate [facility] [address]-80 2 MG Orally Once a day 1 tablet DiphenhydrAMINE HCl [facility] [address]-82 50 mg Orally Once a day 2 tablets Metoprolol Succinate ER [facility] [address]-87 200 MG Orally Once a day 1 tablet Cyclobenzaprine HCl [facility] [address]-20 10 mg Orally hs Jul 01, 2016 1 tablet Amlodipine Besylate [facility] 06229474550 10 MG Orally Once a day 1 tablet Triamterene-HCTZ [facility] [address]-75 37.5-25 MG Orally Once a day 1 capsule in the morning Nitrostat [facility] [address]-28 0.4 MG Sublingual PRN chest pain, may repeat q 5 min x 1 1 tablet 3 times a day Procedures Procedure Coding System Code Date Office Visit, Est Pt., Level 2 CPT-4 30671 Jul 01, 2016 Vital Signs Date/Time: Jul 01, 2016 Cardiac Monitoring Heart Rate 80 bpm Weight 186.3 lbs Height 72 in BMI 25.26 Index Blood Pressure Diastolic 94 mmHg Blood Pressure Systolic 164 mmHg Results No Known Results Summary Purpose eClinicalWorks Submission
--- OUTSIDE RECORDS SUMMARY | 2018-01-02 14:14 | XMS REPORT ---
Author Author MARGARITA BELLA [facility] eClinicalWorks Address Unknown Phone Unavailable Care Team Providers Care Cable Weaver Name Role Phone MARGARITA BELLA CP Unavailable Allergies No Known Allergies Problems Problem Type Condition ICD-9 Code Onset Dates Condition Status Problem Hyperlipidemia 272.4 Active Problem Nondependent tobacco use disorder 305.1 Active Problem CAD (coronary artery disease) 414.00 Active Problem Unspecified essential hypertension 401.9 Active Medications Medication Code System Code Instructions Start Date End Date Status Dosage Doxazosin Mesylate [facility] [address]-28 2 MG Orally Once a day 1/2 tablet Doxazosin Mesylate [facility] [address]-34 4 MG Orally Once a day 1 tablet in the pm Hydrochlorothiazide [facility] [address]-86 25 MG Orally Once a day May 23, 2015 1 tablet Nitrostat [facility] [address]-33 0.4 MG Sublingual PRN chest pain, may repeat q 5 min x 1 1 tablet 3 times a day Results No Known Results Summary Purpose eClinicalWorks Submission
--- OUTSIDE RECORDS SUMMARY | 2018-01-02 14:14 | XMS REPORT ---
Author MARGARITA Hatch Organization eClinicalWorks Address Unknown Phone Unavailable Care Team Providers Care Christmas Tree Grader Name Role Phone MARGARITA BELLA CP Unavailable Allergies, Adverse Reactions, Alerts Substance Reaction Event Type N.K.D.A. Info Not Available Non Drug Allergy Problems Problem Type Condition Code Onset Dates Condition Status Problem CAD (coronary artery disease) 414.00 Active Problem Hyperlipidemia 272.4 Active Problem Hypertension I10 Active Problem Nondependent tobacco use disorder 305.1 Active Assessment Hypertension I10 Active Medications Medication Code System Code Instructions Start Date End Date Status Dosage Nitrostat [facility] [address]-92 0.4 MG Sublingual PRN chest pain, may repeat q 5 min x 1 1 tablet 3 times a day Melatonin [facility] [address] 1 MG Orally Once a day 2 tablets at bedtime as needed with food Aspir-81 [facility] [address]-44 81 MG Orally Once a day 1 tablet Amlodipine Besylate [facility] [address]-17 10 MG Orally Once a day 1 tablet Lisinopril [facility] [address]-63 40 MG Orally Once a day 1 tablet Cyclobenzaprine HCl [facility] [address]-79 10 MG Orally Three times a day 1 tablet as needed Gmazalfu-PCL-6 [facility] [address]-79 0.3 MG/24HR Transdermal Weekly Oct 22, 2015 1 patch to skin Hydrocodone-Acetaminophen [facility] [address]-78 5-325 MG Orally, Must be seen for more refills every 6 hrs 1 tablet as needed Procedures Procedure Coding System Code Date Office Visit, Est Pt., Level 3 CPT-4 83797 Oct 22, 2015 Vital Signs Date/Time: Oct 22, 2015 Temperature 98.3 F Weight 195 lbs Height 72 in BMI 26.44 Index Blood Pressure Diastolic 110 mmHg Blood Pressure Systolic 210 mmHg Cardiac Monitoring Heart Rate 90 bpm Results No Known Results Summary Purpose eClinicalWorks Submission
--- OUTSIDE RECORDS SUMMARY | 2018-01-02 14:14 | XMS REPORT ---
Author Author MARGARITA BELLA [facility] Address [address] [place] [address] Care Team Providers Care Pourer Off Name Role Phone MARGARITA BELLA Unavailable PROBLEMS Type Condition ICD9-CM Code NDL89-NN Code Onset Dates Condition Status SNOMED Code Problem Hypertension I10 Active 30413628 Problem Hyperlipidemia E78.5 Active 23113614 Problem Malignant hypertension I10 Active 28029924 Problem Other chronic pain G89.29 Active 99934514 Problem Lumbago with sciatica, right side M54.41 Active 813548165455869 Problem Cervical disc disease M50.90 Active 986570568 Problem Coronary artery disease involving [place] coronary artery of [place] heart without angina pectoris I25.10 Active 0976273523654 Problem Lumbago with sciatica, left side M54.42 Active 197554116 Problem Drug-induced erectile dysfunction N52.2 Active 574322480 ALLERGIES Substance Reaction Event Type Date Status Morphine Sulfate vomiting Drug Allergy January, Active [place]-NFK-6 blisters, itching and redness Drug Allergy January, Active SOCIAL HISTORY Never Assessed PLAN OF CARE Activity Details Follow Up 6 Months Reason: VITAL SIGNS Height 72 in 2017-02-06 Weight 193.6 lbs 2017-02-06 Temperature 98.5 degrees Fahrenheit 2017-02-06 Heart Rate 92 bpm 2017-02-06 Respiratory Rate 18 2017-02-06 BMI 26.25 kg/m2 2017-02-06 Blood pressure systolic 190 mmHg 2017-02-06 Blood pressure diastolic 121 mmHg 2017-02-06 MEDICATIONS Medication Instructions Dosage Frequency Start Date End Date Duration Status Lisinopril 40 mg Orally Once a day 1 tablet 24h Active Lipitor 40 mg Orally Once a day 1 tablet 24h Active Amlodipine Besylate 5 MG Orally Once a day 2 tablet 24h Active Triamterene-HCTZ 37.5-25 MG Orally Once a day 1 capsule in the morning 24h Active Gabapentin 300 MG Orally Three times a day 1 capsule 8h 15 Aug, 2016 30 days Active Doxazosin Mesylate 2 MG [...] defibrillator placement 2015 Hospitalization History back surgery 2004 Hospitalization History [place] 02/2014 [facility] 12/2015 Hospitalization History [place] 02/2016 Hospitalization History Uncontrolled HTN, chest pain. 06/20/2016 Hospitalization History Malignant HTN, Headache,Vomiting 06/24/2016
--- OUTSIDE RECORDS SUMMARY | 2018-01-02 14:14 | XMS REPORT ---
Author MARGARITA Hatch [facility] eClinicalWorks Address Unknown Phone Unavailable Care Team Providers Care Stave Log Cut Off Saw Operator Name Role Phone MARGARITA BELLA CP Unavailable Allergies, Adverse Reactions, Alerts Substance Reaction Event Type Owcakmuf-DVH-2 blisters, itching and redness Drug Allergy Problems Problem Type Condition Code Onset Dates Condition Status Assessment Hyperlipidemia E78.5 Active Problem Malignant hypertension I10 Active Problem Hypertension I10 Active Problem Hyperlipidemia E78.5 Active Problem Nondependent tobacco use disorder 305.1 Active Assessment Hypertension I10 Active Problem CAD (coronary artery disease) 414.00 Active Problem Hyperlipidemia 272.4 Active Medications Medication Code System Code Instructions Start Date End Date Status Dosage Hydrocodone-Acetaminophen [facility] [address]-29 5-325 MG Orally, every 6 hrs 1 tablet as needed Nitrostat [facility] [address]-01 0.4 MG Sublingual PRN chest pain, may repeat q 5 min x 1 1 tablet 3 times a day Lisinopril [facility] [address]-22 40 MG Orally Once a day 1 tablet Cyclobenzaprine HCl [facility] [address]-98 10 MG Orally Three times a day 1 tablet as needed Melatonin [facility] [address]32 1 MG Orally Once a day 2 tablets at bedtime as needed with food Bystolic [facility] [address]-23 20 MG Orally Once a day December 18, 2015 1 tablet Aspir-81 [facility] [address]-10 81 MG Orally Once a day 1 tablet Amlodipine Besylate [facility] [address]-24 10 MG Orally Once a day 1 tablet Lovastatin [facility] [address]-04 40 mg Orally Once a day January 18, 2016 1 tablet with a meal Hydrochlorothiazide [facility] [address]-03 25 MG Orally Once a day December 18, 2015 1 tablet Procedures Procedure Coding System Code Date Office Visit, Est Pt., Level 3 CPT-4 09148 January 18, 2016 Vital Signs Date/Time: January 18, 2016 Temperature 98.3 F Weight 181.2 lbs Height 72 in BMI 24.57 Index Blood Pressure Diastolic 110 mmHg Blood Pressure Systolic 164 mmHg Cardiac Monitoring Heart Rate 96 bpm Results No Known Results Summary Purpose eClinicalWorks Submission
--- OUTSIDE RECORDS SUMMARY | 2018-01-02 14:14 | XMS REPORT ---
Author Author MARGARITA BELLA [facility] Address [address] [place] [address] Care Team Providers Care Supervisor Dog License Officer Name Role Phone MARGARITA BELLA Unavailable PROBLEMS Type Condition ICD9-CM Code EUY20-LS Code Onset Dates Condition Status SNOMED Code Problem Drug-induced erectile dysfunction N52.2 Active 207757007 Problem Cervical disc disease M50.90 Active 819086317 Problem Malignant hypertension I10 Active 59914415 Problem Hypertension I10 Active 52247578 Problem Coronary artery disease involving [place] coronary artery of [place] heart without angina pectoris I25.10 Active 1351637600669 Problem Hyperlipidemia E78.5 Active 61578131 ALLERGIES No Information SOCIAL HISTORY Never Assessed PLAN OF CARE VITAL SIGNS MEDICATIONS Medication Instructions Dosage Frequency Start Date End Date Duration Status Hydrocodone-Acetaminophen 5-325 MG Orally 4 times a day 1 tablet 6h Oct 28 Active RESULTS No Results PROCEDURES No Known [...] ER for a headache 12/2015 Hospitalization History [place] 02/2016 Hospitalization History Uncontrolled HTN, chest pain. 06/20/2016 Hospitalization History Malignant HTN, Headache,Vomiting 06/24/2016
--- OUTSIDE RECORDS SUMMARY | 2018-01-02 14:14 | XMS REPORT ---
Author Author MARGARITA BELLA [facility] eClinicalWorks Address Unknown Phone Unavailable Care Team Providers Care Vehicle Sales Professional Name Role Phone MARGARITA BELLA CP Unavailable Allergies No Known Allergies Problems Problem Type Condition Code Onset Dates Condition Status Problem Hyperlipidemia 272.4 Active Problem Nondependent tobacco use disorder 305.1 Active Problem CAD (coronary artery disease) 414.00 Active Problem Unspecified essential hypertension 401.9 Active Medications Medication Code System Code Instructions Start Date End Date Status Dosage Hydrocodone-Acetaminophen [facility] [address]-09 5-325 MG Orally every 6 hrs 1 tablet as needed Results No Known Results Summary Purpose eClinicalWorks Submission
--- OUTSIDE RECORDS SUMMARY | 2018-01-02 14:15 | XMS REPORT ---
Author Author AUBREY RAMOS Organization [facility] Address [address] [place] [address] Care Team Providers Care Ld Teacher Name Role Phone RICHARD AUBREY Unavailable PROBLEMS Type Condition ICD9-CM Code NPH79-FR Code Onset Dates Condition Status SNOMED Code Problem Cervical disc disease M50.90 Active 650455743 Problem Coronary artery disease involving [place] coronary artery of [place] heart without angina pectoris I25.10 Active 7653114881180 Problem Hypertension I10 Active 21895164 Problem Hyperlipidemia E78.5 Active 34036468 Problem Malignant hypertension I10 Active 78412693 ALLERGIES Unknown Allergies SOCIAL HISTORY No smoking Hx information available PLAN OF CARE VITAL SIGNS MEDICATIONS Medication Instructions Dosage Frequency Start Date End Date Duration Status Doxazosin Mesylate 2 MG Orally Once a day 1 tablet 24h Active Lipitor 40 MG Orally Once a day 1 tablet 24h Active Metoprolol Succinate ER 200 MG Orally Once a day 1 tablet 24h Active Lisinopril 40 MG TAKE ONE TABLET BY MOUTH ONCE DAILY 30 Active DiphenhydrAMINE HCl 50 mg Orally Once a day 2 tablets 24h Active Hydrocodone-Acetaminophen 5-325 MG Orally 4 times a day 1 tablet as needed 6h 28 Active Triamterene-HCTZ 37.5-25 MG Orally Once a day 1 capsule in the morning 24h Active Nitrostat 0.4 MG Sublingual PRN chest pain, may repeat q 5 min x 1 1 tablet 3 times a day 30 days Active Amlodipine Besylate 10 MG Orally Once a day 1 tablet 24h 30 Active Aspir-81 81 MG Orally Once a day 1 tablet 24h Active Clopidogrel Bisulfate 75 MG Orally Once a day 1 tablet 24h Active RESULTS No Results PROCEDURES No Known procedures IMMUNIZATIONS No Known Immunizations
--- OUTSIDE RECORDS SUMMARY | 2018-01-02 14:15 | XMS REPORT ---
Author MARGARITA Hatch [facility] eClinicalWorks Address Unknown Phone Unavailable Care Team Providers Care Teaching Specialists Name Role Phone MARGARITA BELLA CP Unavailable Allergies No Known Allergies Problems Problem Type Condition Code Onset Dates Condition Status Problem Coronary artery disease involving [place] coronary artery of [place] heart without angina pectoris I25.10 Active Problem Hyperlipidemia E78.5 Active Problem Cervical disc disease M50.90 Active Assessment Coronary artery disease involving [place] coronary artery of [place] heart without angina pectoris I25.10 Active Assessment Hypertension I10 Active Problem Malignant hypertension I10 Active Problem Hypertension I10 Active Medications No Known Medications Procedures Procedure Coding System Code Date ASSAY OF MAGNESIUM CPT-4 70015 Jul 03, 2016 VENIPUNCT, ROUTINE* CPT-4 32261 Jul 03, 2016 BASIC METABOLIC PANEL CPT-4 19034 Jul 03, 2016 Results Name Result Date Reference Range Unit Abnormality Flag BMP ----Calcium, Serum 9.2 [id number] 8.7-10.2 mg/dL ----Carbon Dioxide, Total 25 [id number] 18-29 mmol/L ----Creatinine, Serum 1.16 [id number] 0.76-1.27 mg/dL ----eGFR If NonAfricn Am 70 [id number] >59 mL/min/1.73 ----eGFR If Africn Am 81 [id number] >59 mL/min/1.73 ----BUN/Creatinine Ratio 12 [id number] 9-20 ----Sodium, Serum 140 [id number] 134-144 mmol/L ----Potassium, Serum 4.4 [id number] 3.5-5.2 mmol/L ----Chloride, Serum 99 97222275 97-108 mmol/L ----Glucose, Serum 116 [id number] 65-99 mg/dL H ----BUN 14 [id number] 6-24 mg/dL ROUTINE VENIPUNCTURE MAGNESIUM, SERUM ----Magnesium, Serum 2.3 [id number] 1.6-2.3 mg/dL Summary Purpose eClinicalWorks Submission
--- OUTSIDE RECORDS SUMMARY | 2018-01-02 14:15 | XMS REPORT ---
Author Author MARGARITA BELLA [facility] Address [address] [place] [address] Care Team Providers Care Prism Measurer Name Role Phone MARGARITA BELLA Unavailable PROBLEMS Type Condition ICD9-CM Code AAJ06-LF Code Onset Dates Condition Status SNOMED Code Problem Drug-induced erectile dysfunction N52.2 Active 903554779 Problem Cervical disc disease M50.90 Active 163975130 Problem Malignant hypertension I10 Active 75134050 Problem Hypertension I10 Active 05836606 Problem Coronary artery disease involving [place] coronary artery of [place] heart without angina pectoris I25.10 Active 5393886756702 Problem Hyperlipidemia E78.5 Active 59113069 ALLERGIES Substance Reaction Event Type Date Status Morphine Sulfate vomiting Drug Allergy Aug, Active Mgphtlgt-KWO-9 blisters, itching and redness Drug Allergy Aug, Active SOCIAL HISTORY No smoking Hx information available PLAN OF CARE Activity Details Follow Up 3 Months Reason: VITAL SIGNS Height 72 in 2016-09-11 Weight 194.6 lbs 2016-09-11 Temperature 98.1 degrees Fahrenheit 2016-09-11 Heart Rate 96 bpm 2016-09-11 Respiratory Rate 18 2016-09-11 BMI 26.39 kg/m2 2016-09-11 Blood pressure systolic 210 mmHg 2016-09-11 Blood pressure diastolic 140 mmHg 2016-09-11 MEDICATIONS Medication Instructions Dosage Frequency Start Date End Date Duration Status Clopidogrel Bisulfate 75 MG Orally Once a day 1 tablet 24h Active Doxazosin Mesylate 2 MG Orally Once a day 1 tablet 24h Active Aspir-81 81 MG Orally Once a day 1 tablet 24h Active Nitrostat 0.4 MG Sublingual PRN chest pain, may repeat q 5 min x 1 1 tablet 3 times a day 30 days Active Triamterene-HCTZ 37.5-25 MG Orally Once a day 1 capsule in the morning 24h Active Hydrocodone-Acetaminophen 5-325 MG Orally 4 times a day 1 tablet 6h 28 Active Melatonin 1 MG Orally Once a day 2 tablets at bedtime as needed with food 24h Active Lipitor 40 MG Orally Once a day 1 tablet 24h Active DiphenhydrAMINE HCl 50 mg Orally Once a day 2 tablets 24h Active Metoprolol Succinate ER 200 mg Orally 3 times a day 1 tablet 8h Active Lisinopril 40 MG TAKE ONE TABLET BY MOUTH ONCE DAILY 30 Active Cyclobenzaprine HCl 10 mg Orally hs 1 tablet Jun, Active Gabapentin 300 MG Orally Three times a day 1 capsule 8h Aug, Active Amlodipine Besylate 10 MG TAKE ONE TABLET BY MOUTH ONCE DAILY 30 Active RESULTS No Results PROCEDURES Procedure Date Ordered Related Diagnosis Body Site Office Visit, Est Pt., Level 2 Sep 11, 2016 IMMUNIZATIONS No Known Immunizations
--- OUTSIDE RECORDS SUMMARY | 2018-01-02 14:15 | XMS REPORT ---
Author MARGARITA Hatch [facility] eClinicalWorks Address Unknown Phone Unavailable Care Team Providers Care Cutting Department Supervisor Name Role Phone MARGARITA BELLA CP Unavailable Allergies No Known Allergies Problems Problem Type Condition Code Onset Dates Condition Status Problem Hyperlipidemia E78.5 Active Problem Malignant hypertension I10 Active Problem Coronary artery disease involving [place] coronary artery of [place] heart without angina pectoris I25.10 Active Problem Hypertension I10 Active Medications Medication Code System Code Instructions Start Date End Date Status Dosage Hydrocodone-Acetaminophen [facility] 63530724600 5-325 MG TAKE ONE TABLET BY MOUTH EVERY 6 HOURS NEEDED Results No Known Results Summary Purpose eClinicalWorks Submission
--- OUTSIDE RECORDS SUMMARY | 2018-01-02 14:15 | XMS REPORT ---
Author Author MARGARITA BELLA [facility] eClinicalWorks Address Unknown Phone Unavailable Care Team Providers Care Field Interviewer Name Role Phone MARGARITA BELLA CP Unavailable Allergies No Known Allergies Problems Problem Type Condition Code Onset Dates Condition Status Problem Hyperlipidemia 272.4 Active Problem Nondependent tobacco use disorder 305.1 Active Problem CAD (coronary artery disease) 414.00 Active Problem Unspecified essential hypertension 401.9 Active Medications Medication Code System Code Instructions Start Date End Date Status Dosage Hydrocodone-Acetaminophen [facility] [address]-83 5-325 MG Orally, Must be seen for more refills every 6 hrs 1 tablet as needed Results No Known Results Summary Purpose eClinicalWorks Submission
--- OUTSIDE RECORDS SUMMARY | 2018-01-02 14:16 | XMS REPORT ---
Author Author MARGARITA BELLA [facility] eClinicalWorks Address Unknown Phone Unavailable Care Team Providers Care Sprigger Name Role Phone MARGARITA BELLA CP Unavailable Allergies No Known Allergies Problems Problem Type Condition ICD-9 Code Onset Dates Condition Status Problem Hyperlipidemia 272.4 Active Problem Nondependent tobacco use disorder 305.1 Active Problem CAD (coronary artery disease) 414.00 Active Problem Unspecified essential hypertension 401.9 Active Medications Medication Code System Code Instructions Start Date End Date Status Dosage Hydrocodone-Acetaminophen [facility] [address]-16 5-325 MG Orally every 6 hrs 1 tablet as needed Results No Known Results Summary Purpose eClinicalWorks Submission
--- OUTSIDE RECORDS SUMMARY | 2018-01-02 14:16 | XMS REPORT ---
Author MARGARITA Hatch Organization eClinicalWorks Address Unknown Phone Unavailable Care Team Providers Care Sales Promotion Director Name Role Phone MARGARITA BELLA CP Unavailable Allergies No Known Allergies Problems Problem Type Condition Code Onset Dates Condition Status Problem CAD (coronary artery disease) 414.00 Active Problem Hyperlipidemia 272.4 Active Problem Hypertension I10 Active Problem Nondependent tobacco use disorder 305.1 Active Assessment Other dorsalgia M54.89 Active Medications No Known Medications Results No Known Results Summary Purpose eClinicalWorks Submission
--- OUTSIDE RECORDS SUMMARY | 2018-01-02 14:16 | XMS REPORT ---
Author Author MARGARITA BELLA [facility] eClinicalWorks Address Unknown Phone Unavailable Care Team Providers Care Copper Plate Lithographer Name Role Phone MARGARITA BELLA CP Unavailable Allergies No Known Allergies Problems Problem Type Condition ICD-9 Code Onset Dates Condition Status Problem Hyperlipidemia 272.4 Active Problem Nondependent tobacco use disorder 305.1 Active Problem CAD (coronary artery disease) 414.00 Active Problem Unspecified essential hypertension 401.9 Active Medications Medication Code System Code Instructions Start Date End Date Status Dosage Hydrocodone-Acetaminophen [facility] [address]-31 5-325 MG Orally every 6 hrs 1 tablet as needed Results No Known Results Summary Purpose eClinicalWorks Submission
--- OUTSIDE RECORDS SUMMARY | 2018-01-02 14:17 | XMS REPORT ---
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 295534041 Problem Cervical disc disease M50.90 Active 051612983 Problem Malignant hypertension I10 Active 72170138 Problem Hypertension I10 Active 22632857 Problem Coronary artery disease involving [place] coronary artery of [place] heart without angina pectoris I25.10 Active 8219767327529 Problem Hyperlipidemia E78.5 Active 96207586 ALLERGIES Unknown Allergies SOCIAL HISTORY No smoking Hx information available PLAN OF CARE VITAL SIGNS MEDICATIONS Medication Instructions Dosage Frequency Start Date End Date Duration Status Hydrocodone-Acetaminophen 5-325 MG Orally 4 times a day 1 tablet 6h 15 Aug 28 Active RESULTS No Results PROCEDURES No Known procedures IMMUNIZATIONS No Known Immunizations
--- OUTSIDE RECORDS SUMMARY | 2018-01-02 14:17 | XMS REPORT ---
Author MARGARITA Hatch [facility] eClinicalWorks Address Unknown Phone Unavailable Care Team Providers Care Quality Assurance Supervisor Trim Name Role Phone MARGARITA BELLA CP Unavailable Allergies No Known Allergies Problems Problem Type Condition Code Onset Dates Condition Status Problem Coronary artery disease involving [place] coronary artery of [place] heart without angina pectoris I25.10 Active Problem Hyperlipidemia E78.5 Active Problem Cervical disc disease M50.90 Active Problem Malignant hypertension I10 Active Problem Hypertension I10 Active Medications Medication Code System Code Instructions Start Date End Date Status Dosage Hydrocodone-Acetaminophen [facility] 73643515591 5-325 MG Orally 4 times a day 1 tablet as needed Results No Known Results Summary Purpose eClinicalWorks Submission
--- OUTSIDE RECORDS SUMMARY | 2018-01-02 14:17 | XMS REPORT ---
Author Author MARGARITA BELLA Organization eClinicalWorks Address Unknown Phone Unavailable Care Team Providers Care Software Programmer Name Role Phone MARGARITA BELLA CP Unavailable Allergies No Known Allergies Problems Problem Type Condition Code Onset Dates Condition Status Problem Hyperlipidemia 272.4 Active Problem Nondependent tobacco use disorder 305.1 Active Problem CAD (coronary artery disease) 414.00 Active Problem Unspecified essential hypertension 401.9 Active Medications No Known Medications Vital Signs Date/Time: May 23, 2015 Blood Pressure Diastolic 110 mmHg Blood Pressure Systolic 220 mmHg Height 72 in Results No Known Results Summary Purpose eClinicalWorks Submission
--- OUTSIDE RECORDS SUMMARY | 2018-01-02 14:18 | XMS REPORT ---
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 499216254 Problem Cervical disc disease M50.90 Active 684767939 Problem Malignant hypertension I10 Active 37723522 Problem Hypertension I10 Active 51736668 Problem Coronary artery disease involving [place] coronary artery of [place] heart without angina pectoris I25.10 Active 6899802481900 Problem Hyperlipidemia E78.5 Active 90902559 ALLERGIES Unknown Allergies SOCIAL HISTORY No smoking Hx information available PLAN OF CARE VITAL SIGNS MEDICATIONS Medication Instructions Dosage Frequency Start Date End Date Duration Status Hydrocodone-Acetaminophen 5-325 MG Orally 4 times a day 1 tablet 6h Sep 28 Active RESULTS No Results PROCEDURES No Known procedures IMMUNIZATIONS No Known Immunizations
--- OUTSIDE RECORDS SUMMARY | 2018-01-02 14:18 | XMS REPORT ---
Author Author MARGARITA BELLA [facility] Address [address] [place] [address] Care Team Providers Care Handle And Vent Machine Operator Name Role Phone MARGARITA BELLA Unavailable PROBLEMS Type Condition ICD9-CM Code [id number] Code Onset Dates Condition Status SNOMED Code Problem Coronary artery disease involving [place] coronary artery of [place] heart without angina pectoris I25.10 Active 1427617528794 Problem Hyperlipidemia E78.5 Active 34484262 Problem Malignant hypertension I10 Active 44142667 Problem Hypertension I10 Active 83269360 ALLERGIES Unknown Allergies SOCIAL HISTORY No smoking Hx information available PLAN OF CARE VITAL SIGNS MEDICATIONS Medication Instructions Dosage Frequency Start Date End Date Duration Status Hydrocodone-Acetaminophen 5-325 MG Orally 4 times a day 1 tablet as needed 6h 28 Active RESULTS No Results PROCEDURES No Known procedures IMMUNIZATIONS No Known Immunizations
--- OUTSIDE RECORDS SUMMARY | 2018-01-02 14:18 | XMS REPORT ---
Author Author MARGARITA BELLA [facility] eClinicalWorks Address Unknown Phone Unavailable Care Team Providers Care General Freight Agent Name Role Phone MARGARITA BELLA CP Unavailable Allergies, Adverse Reactions, Alerts Substance Reaction Event Type N.K.D.A. Info Not Available Non Drug Allergy Problems Problem Type Condition ICD-9 Code Onset Dates Condition Status Problem Hyperlipidemia 272.4 Active Problem Nondependent tobacco use disorder 305.1 Active Problem CAD (coronary artery disease) 414.00 Active Problem Unspecified essential hypertension 401.9 Active Assessment Unspecified essential hypertension 401.9 Active Medications Medication Code System Code Instructions Start Date End Date Status Dosage Amlodipine Besylate [facility] [address]-72 10 MG Orally Once a day 1 tablet Cyclobenzaprine HCl [facility] [address]-99 10 MG Orally Three times a day 1 tablet as needed Hydrochlorothiazide [facility] [address]-39 25 MG Orally Once a day May 23, 2015 1 tablet Doxazosin Mesylate [facility] [address]-02 2 MG Orally Once a day 1/2 tablet Melatonin [facility] 54484-[address]50 1 MG Orally Once a day 2 tablets at bedtime as needed with food Lovastatin [facility] [address]-63 40 MG Orally Once a day 1 tablet with evening meal Aspir-81 [facility] [address]-23 81 MG Orally Once a day 1 tablet Nitrostat [facility] [address]-14 0.4 MG Sublingual PRN chest pain, may repeat q 5 min x 1 1 tablet 3 times a day Hydrocodone-Acetaminophen [facility] [address]-14 5-325 MG Orally every 6 hrs 1 tablet as needed Doxazosin Mesylate [facility] [address]-00 4 MG Orally Once a day 1 tablet in the pm Atenolol [facility] [address]-12 100 MG Orally Once a day 1 tablet Lisinopril [facility] [address]-14 40 MG Orally Once a day 1 tablet Procedures Procedure Coding System Code Date Office Visit, Est Pt., Level 2 CPT-4 43138 May 25, 2015 Vital Signs Date/Time: May 25, 2015 Temperature 98.6 F Weight 182.4 lbs Height 72 in BMI 24.74 Index Blood Pressure Diastolic 120 mmHg Blood Pressure Systolic 190 mmHg Cardiac Monitoring Heart Rate 84 bpm Results No Known Results Summary Purpose eClinicalWorks Submission
--- OUTSIDE RECORDS SUMMARY | 2018-01-02 14:18 | XMS REPORT ---
Author MARGARITA Hatch [facility] eClinicalWorks Address Unknown Phone Unavailable Care Team Providers Care Director Of Officiating Name Role Phone MARGARITA BELLA CP Unavailable [...] Instructions Start Date End Date Status Dosage Aspir-81 [facility] [address]-56 81 MG Orally Once a day 1 tablet Nitrostat [facility] [address]-52 0.4 MG Sublingual PRN chest pain, may repeat q 5 min x 1 1 tablet 3 times a day Hydrocodone-Acetaminophen [facility] [address]-75 5-325 MG Orally, Must be seen for more refills every 6 hrs 1 tablet as needed Melatonin [facility] [address] 1 MG Orally Once a day 2 tablets at bedtime as needed with food Procedures Procedure Coding System Code Date Office Visit, Est Pt., Level 3 CPT-4 12162 Sep 17, 2015 Vital Signs Date/Time: Sep 17, 2015 Temperature 98.0 F Weight 166 lbs Height 72 in BMI 22.51 Index Blood Pressure Diastolic 118 mmHg Blood Pressure Systolic 210 mmHg Cardiac Monitoring Heart Rate 90 bpm Results No Known Results Summary Purpose eClinicalWorks Submission
--- OUTSIDE RECORDS SUMMARY | 2018-01-02 14:18 | XMS REPORT ---
Author MARGARITA Hatch [facility] eClinicalWorks Address Unknown Phone Unavailable Care Team Providers Care Target Aircraft Controller Name Role Phone MARGARITA BELLA CP Unavailable Allergies No Known Allergies Problems Problem Type Condition Code Onset Dates Condition Status Problem Hyperlipidemia E78.5 Active Problem Malignant hypertension I10 Active Problem Coronary artery disease involving [place] coronary artery of [place] heart without angina pectoris I25.10 Active Problem Hypertension I10 Active Assessment Other dorsalgia M54.89 Active Medications Medication Code System Code Instructions Start Date End Date Status Dosage Hydrocodone-Acetaminophen [facility] 29767406530 5-325 MG TAKE ONE TABLET BY MOUTH EVERY 6 HOURS NEEDED Results No Known Results Summary Purpose eClinicalWorks Submission
--- OUTSIDE RECORDS SUMMARY | 2018-01-02 14:18 | XMS REPORT ---
Author Author MARGARITA BELLA [facility] Address [address] [place] [address] Care Team Providers Care Solderer Assembler Name Role Phone MARGARITA BELLA Unavailable PROBLEMS Type Condition ICD9-CM Code INA86-YM Code Onset Dates Condition Status SNOMED Code Problem Hypertension I10 Active 66278161 Problem Hyperlipidemia E78.5 Active 87540150 Problem Malignant hypertension I10 Active 38939479 Problem Other chronic pain G89.29 Active 50799146 Problem Lumbago with sciatica, right side M54.41 Active 402436660659687 Problem Cervical disc disease M50.90 Active 251473572 Problem Coronary artery disease involving [place] coronary artery of [place] heart without angina pectoris I25.10 Active 6393388199900 Problem Lumbago with sciatica, left side M54.42 Active 142576859 Problem 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
--- OUTSIDE RECORDS SUMMARY | 2018-01-02 14:18 | XMS REPORT ---
Author Author MARGARITA BELLA [facility] eClinicalWorks Address Unknown Phone Unavailable Care Team Providers Care Assistant Merchandise Manager Name Role Phone MARGARITA BELLA CP Unavailable Allergies No Known Allergies Problems Problem Type Condition Code Onset Dates Condition Status Problem Hyperlipidemia 272.4 Active Problem Nondependent tobacco use disorder 305.1 Active Problem CAD (coronary artery disease) 414.00 Active Problem Unspecified essential hypertension 401.9 Active Medications Medication Code System Code Instructions Start Date End Date Status Dosage Hydrocodone-Acetaminophen [facility] [address]-22 5-325 MG Orally, Must be seen for more refills every 6 hrs 1 tablet as needed Results No Known Results Summary Purpose eClinicalWorks Submission
--- OUTSIDE RECORDS SUMMARY | 2018-01-02 14:19 | XMS REPORT ---
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 Name Role Phone MARGARITA BELLA Unavailable PROBLEMS Type Condition ICD9-CM Code DPI76-RY Code Onset Dates Condition Status SNOMED Code Problem Hypertension I10 Active 30601276 Problem Hyperlipidemia E78.5 Active 54254858 Problem Malignant hypertension I10 Active 82651996 Problem Other chronic pain G89.29 Active 55514747 Problem Lumbago with sciatica, right side M54.41 Active 493136490562959 Problem Cervical disc disease M50.90 Active 509008896 Problem Coronary artery disease involving [place] coronary artery of [place] heart without angina pectoris I25.10 Active 8411155396776 Problem Lumbago with sciatica, left side M54.42 Active 918527827 Problem Drug-induced erectile dysfunction N52.2 Active 524193165 ALLERGIES No Information ENCOUNTERS Encounter Location Date Diagnosis [place] [id number] [address] 92523- 7915 Nov, Malignant hypertension I10 [place] [id number] [place] [address] 65785- 1108 19 Nov, 2017 [place] [id number] [place] [address] 60316- 3267 Nov, Malignant hypertension I10 ; Hyperlipidemia E78.5 and Coronary artery disease involving [place] coronary artery of [place] heart without angina pectoris I25.10 [facility] [id number] [place] [address] 52639- 5242 14 Nov, 2017 Other dorsalgia M54.89 [place] [id number] [place] [address] 20298- 3137 15 Oct, 2017 Other dorsalgia M54.89 [place] [id number] [address] 6727 14 Oct, 2017 [facility] [id number] [address] 657717- 4262 Sep, Other dorsalgia M54.89 [facility] [id number] [place] [address] 98162 2546 Aug, Other dorsalgia M54.89 [facility] [id number] [place] [address] 44093- 2746 Jul, Other dorsalgia M54.89 [facility] [id number] [place] [address] 47961- 4626 Jun, Other dorsalgia M54.89 [facility] [id number] [place] [address] 42170- 0984 Jun, Cervical disc disease M50.90 ; Lumbago with sciatica, left side M54.42 ; Lumbago with sciatica, right side M54.41 and Other chronic pain G89.29 [facility] [id number] [place] [address] 14084- 0551 May, Other dorsalgia M54.89 [facility] [id number] [place] [address] 271855- 3687 Apr, Other dorsalgia M54.89 [facility] [id number] [place] [address] 678020- 5836 Apr, Other dorsalgia M54.89 [facility] [address], [place] [address]- 4531 Mar, Other dorsalgia M54.89 [facility] [id number] [place] [address] 333559- 9436 Feb, [facility] [address] 6[address] Feb, [facility] [id number] [place] [address] 54844- 8642 Feb, [facility] [address], [place] [address]- 5592 January, Cervical disc disease M50.90 ; Coronary artery disease involving [place] coronary artery of [place] heart without angina pectoris I25.10 and Drug-induced erectile dysfunction N52.2 [facility] [address], [place] [address]- 0359 Oct, Other dorsalgia M54.89 [facility] [address] [id number] [address]- 7915 Sep, Other dorsalgia M54.89 [facility] [address] [id number] [address] 7381 Aug, [facility] [place] [address] [facility] [id number] [place] [id number] Aug, [facility] [id number] [place] [address] 75651- 0553 Aug, Cervical disc disease M50.90 [facility] [address], [place] [address]- 8233 Aug, Other dorsalgia M54.89 [facility] [address], [place] [address]- 1368 Jun, [facility] [address], [place] [address]- 2774 Jun, Coronary artery disease involving [place] coronary artery of [place] heart without angina pectoris I25.10 and Hypertension I10 [facility] [id number] [address]- 5496 Jun, Hypertension I10 ; Hyperlipidemia E78.5 ; Malignant hypertension I10 and Cervical disc disease M50.90 [facility] [address], [place] [address]- 2983 May, [facility] [address], [place] [address]- 6193 May, [facility] [address], [place] [address]- 0664 May, [facility] [id number] [place] [address] 12625- 1225 Apr, [facility] [id number] [place] [address] 21855- 4487 Mar, Other dorsalgia M54.89 [facility] [id number] [place] [address] 93975- 8096 Mar, [facility] [id number] [place] [address] 25601- 9232 Feb, Other dorsalgia M54.89 [facility] [id number] [place] [address] 21399- 8525 Feb, Coronary artery disease involving [place] coronary artery of [place] heart without angina pectoris I25.10 and Hypertension I10 [facility] [id number] [place] [address] 35797- 3087 January, Other dorsalgia M54.89 [facility] [id number] [place] [address] 14797- 0260 Dec, Hypertension I10 and Hyperlipidemia E78.5 [facility] [id number] [place] [address] 42808- 9287 Dec, Other dorsalgia M54.89 [facility] [id number] [place] [address] 27805- 0449 Nov, Malignant hypertension I10 [facility] [id number] [place] [address] 32558- 4935 Nov, Other dorsalgia M54.89 [facility] [id number] [place] [address] 84427- 5394 Oct, Other dorsalgia M54.89 [facility] [address], [place] [address]- 2573 Sep, Hypertension I10 [facility] [address], [place] [address]- 5802 Sep, Other dorsalgia M54.89 [facility] [id number] [place] [address] 46506- 3136 Aug, Hypertension I10 [facility] [address], [place] [address] 2546 Aug, [facility] [id number] [place] [address] 56186 2546 Jul, [facility] [address], [place] [address] 2545 Jun, [facility] [id number] [address] 41632- 9196 May, [facility] [id number] [address] 40250- 3666 Apr, Unspecified essential hypertension 401.9 [facility] [address], [place] [address]- 7526 Apr, [facility] [id number] [place] [address] 11193- 7066 Apr, [facility] [address], [place] [address]- 1522 Apr, [facility] [address], [place] [address]- 8158 Mar, [facility] [address], [place] [address] 2547 Feb, [facility] [address], [place] [address]- 7212 Feb, Unspecified essential hypertension 401.9 and Pancreatitis 577.0 [facility] [address], [place] [address] 2546 Feb, [facility] [address], [place] [address]- 4796 January, CAD (coronary artery disease) 414.00 ; Hyperlipidemia 272.4 ; Unspecified essential hypertension 401.9 ; Chronic pancreatitis 577.1 and Chronic back pain 724.5 [facility] [address] [place] [address] 60589- 5666 January, CAD (coronary artery disease) 414.00 ; Chronic pancreatitis 577.1 ; Chronic back pain 724.5 ; Hyperlipidemia 272.4 and Unspecified essential hypertension 401.9 [facility] [id number] [place] [address] 52827- 9116 Dec, [facility] [address], [place] [address]- 8536 Dec, [facility] [id number] [address] 97385- 0966 Nov, [facility] [id number] [address] 83282- 1046 Nov, [facility] [id number] [address]- 1956 Nov, [facility] [address], [place] [address]- 2882 Nov, [facility] [address], [place] [address]- 0766 Nov, [facility] [address], [place] [address]- 1386 Oct, [facility] [address], [place] [address]- 7966 Oct, [facility] [address], [place] [address]- 9446 Oct, [facility] [address], [place] [address]- 4046 Oct, [facility] [address], [place] [address]- 5356 Oct, [facility] [place] [facility] [address] [id number] [place] [address]- 7857 Oct, 2014 [facility] [place] [facility] [address] [id number] [place] [address]- 3036 Oct, 2014 [facility] [place] [facility] [address] [id number] [place] 1466 Oct, 2014 [facility] [place] [facility] [address] [id number] [place] [address]- 0562 Oct, 2014 [facility] [place] [facility] [address] [id number] [place] [address]- 6734 Oct, 2014 [facility] [place] [facility] [address] [id number] [place] [address]- 9165 Oct, 2014 [facility] [place] [facility] [address] [id number] [place] [address]- 6190 Oct, [facility] [place] [facility] [address] [id number] [place] [address]- 8152 Sep, [facility] [place] [facility] [address] [id number] [place] [address]- 1169 Sep, [facility] [place] [facility] [address] [id number] [place] [address]- 8340 Sep, [facility] [place] [facility] [address] [id number] [place] [address]- 8048 Sep, [facility] [place] [facility] [address] [id number] [place] [address]- 7004 Sep, [facility] [place] [facility] [address] [id number] [place] [address]- 9697 Sep, [facility] [place] [facility] [address] [id number] [place] [address]- 6344 Sep, [facility] [place] [facility] [address] [id number] [place] 4109 Sep, [facility] [place] [facility] [address] [id number] [place] [address]- 9483 Sep, [facility] [place] [facility] [address] [id number] [place] [address]- 0073 Sep, [facility] [place] [facility] [address] [id number] [place] [address]- 0102 Jul, [facility] [place] [facility] [address] [id number] [place] [address]- 3489 Jul, [facility] [place] [facility] [address] [id number] [place] [address]- 5375 Jul, [facility] [place] [facility] [address] [id number] [place] [address]- 5242 Jul, [facility] [place] [facility] [address] [id number] [place] [address]- 8780 Jul, [facility] [place] [facility] [address] [id number] [place] [address]- 0118 Jul, [facility] [place] [facility] [address] [id number] [place] [address]- 9130 Jun, [facility] [place] [facility] [address] [id number] [place] [address]- 6631 Jun, [facility] [place] [facility] [address] [id number] [place] [address]- 5736 Jun, [facility] [place] [facility] [address] [id number] [place] [address]- 9187 Jun, [facility] [place] [facility] [address] [id number], [place] [address]- 7398 Jun, [facility] [place] [facility] [address] [id number] [place] [address]- 7698 Jun, [facility] [place] [facility] [address] [id number] [place] [address]- 0316 Jun, [facility] [place] [facility] [address] [id number], [place] [address]- 7769 Jun, [facility] [place] [facility] [address] [id number] [place] [address]- 0070 17 Jun, 2014 [facility] [place] [facility] [address] [id number] [place] [address]- 2162 Jun, [facility] [place] [facility] [address] [id number] [place] 4232 Jun, [facility] [place] [facility] [address] [id number] [place] [address]- 5353 Jun, [facility] [place] [facility] [address] [id number] [place] [address]- 7853 Jun, [facility] [place] [facility] [address] [id number] [place] [address]- 9367 Jun, [facility] [place] [facility] [address] [id number] [place] [address]- 9956 Jun, [facility] [place] [facility] [address] [id number] [place] [address]- 3400 May, [facility] [place] [facility] [address] [id number] [place] [address]- 7428 22 May, 2014 [facility] [place] [facility] [address] [id number] [place] [address]- 6526 15 May, 2014 [facility] [place] [facility] [address] [id number] [place] [address]- 0589 15 May, 2014 [facility] [place] [facility] [address] [id number] [place] [address]- 0855 Apr, [facility] [place] [facility] [address] [id number] [place] [address]- 7809 Apr, [facility] [place] [facility] [address] [id number] [place] [address]- 5115 Apr, [facility] [place] [facility] [address] [id number] [place] [address]- 5364 Apr, [facility] [place] [facility] [address] [id number] [place] [address]- 2724 Mar, [facility] [place] [facility] [address] [id number] [place] [address]- 5103 Mar, [facility] [place] [facility] [address] [id number] [place] [address]- 2769 Mar, [facility] [place] [facility] [address] [id number] [place] [address]- 4332 Mar, [facility] [place] [facility] [address] [id number] [place] [address]- 7460 Feb, [facility] [place] [facility] [address] [id number] [place] [address]- 2782 Feb, [facility] [place] [facility] [address] [id number] [place] [address]- 0442 Feb, [facility] [place] [facility] [address] [id number] [place] [address]- 4955 Feb, [facility] [place] [facility] [address] [id number] [place] [address]- 3710 Feb, [facility] [place] [facility] [address] [id number] [place] [address]- 0604 Feb, [facility] [place] [facility] [address] [id number] [place] [address]- 5535 Feb, [facility] [place] [facility] [address] [id number] [place] [address]- 7892 Feb, [facility] [place] [facility] [address] [id number], [place] [address]- 1591 Feb, [facility] [place] [facility] [address] [id number] [place] [address]- 4472 Feb, [facility] [place] [facility] [address] [id number] [place] [address]- 1818 January, [facility] [place] [facility] [address] [id number] [place] [address]- 1510 January, [facility] [place] [facility] [address] [id number] [place] [address]- 1922 January, [facility] [place] [facility] [address] [id number] [place] [address]- 9635 January, [facility] [place] [facility] [address] [id number] [place] [address]- 1740 January, [facility] [place] [facility] [address] [id number] [place] [address]- 6935 January, [facility] [place] [facility] [address] [id number] [place] [address]- 5050 January, [facility] [place] [facility] [address] [id number] [place] [address]- 3220 January, [facility] [place] [facility] [address] [id number] [place] [address]- 1793 Dec, [facility] [place] [facility] [address] [id number] [place] [address]- 6839 Dec, [facility] [place] [facility] [address] [id number] [place] [address]- 6050 Dec, [facility] [place] [facility] [address] [id number] [place] [address]- 0051 Dec, [facility] [place] [facility] [address] [id number] [place] [address]- 5107 Nov, [facility] [place] [facility] [address] [id number] [place] [address]- 7998 Nov, [facility] [place] [facility] [address] [id number] [place] [address]- 2242 Nov, [facility] [place] [facility] [address] [id number] [place] [address]- 1949 Nov, [facility] [place] [facility] [address] [id number] [place] [address]- 2394 Oct, [facility] [place] [facility] [address] [id number] [place] [address]- 6636 Oct, [facility] [id number] [address]- 4693 Oct, [facility] [address] [facility] [id number] [address]- 8987 Oct, [facility] [id number], [place] [address]- 4647 Sep, [facility] [address] [facility] [id number], [place] [address]- 3736 Sep, [facility] [id number], [place] [address]- 3862 Sep, [facility] [address] [facility] [id number]- 5377 Sep, [facility] [address] [place] [address]- 8573 Aug, [facility] [address], [place] [address]- 5720 Aug, [facility] [id number] [address]- 5794 Aug, [facility] [id number], [place] [address]- 9458 Aug, IMMUNIZATIONS No Known Immunizations SOCIAL HISTORY Never Assessed REASON FOR VISIT Controlled Med Refill PLAN OF CARE VITAL SIGNS MEDICATIONS Medication Instructions Dosage Frequency Start Date End Date Duration Status Hydrocodone-Acetaminophen 5-325 MG Orally every 6 hrs 1 tablet as needed 6h Mar, 28 days Active RESULTS No Results PROCEDURES No Known procedures INSTRUCTIONS MEDICATIONS ADMINISTERED No Known Medications MEDICAL (GENERAL) HISTORY Type Description Date Medical History headache Medical History hypertension Medical History cervical spine stenosis Medical History Myocardial Infarction Surgical History tonsillectomy Surgical History back surgery Surgical History neuroplasty with transposition of median nerve at carpal tunnel Surgical History defibrillator placement 2016 Hospitalization History back surgery 2005 Hospitalization History HTN 02/2014 Hospitalization History [facility] headache 12/2015 Hospitalization History [place] 02/2016 Hospitalization History Uncontrolled HTN, chest pain. 06/20/2016 Hospitalization History Malignant HTN, Headache,Vomiting 06/24/2016
--- OUTSIDE RECORDS SUMMARY | 2018-01-02 14:22 | XMS REPORT | Continuity of Care Document ---
Author Author [facility] Address Unknown Phone Unavailable Allergies Active Description Code Type Severity Reaction Onset Reported/Identified Relationship to Patient Clinical Status Yes No Known Drug Allergies [id number] Drug Allergy Unknown N/A 02/20/2010 Yes clonidine [id number] Drug Allergy Unknown N/A 09/28/2016 Medications There is no data. Problems Date Dx Coded Attending Type Code Diagnosis Diagnosed By 02/20/2010 Ot 680.1 CARBUNCLE OF NECK 02/20/2010 Ot 682.1 CELLULITIS OF NECK 02/20/2010 Ot 704.8 HAIR DISEASES NEC 02/20/2010 Ot V06.1 DIPHTHERIA- TETANUS-PERTUSSIS, COMBINED [ 09/15/2013 MARGARITA BELLA MD 305.1 NONDEPENDENT TOBACCO USE DISORDER 09/15/2013 MARGARITA BELLA MD 401.9 UNSPECIFIED ESSENTIAL HYPERTENSION 09/15/2013 MARGARITA BELLA MD 305.1 NONDEPENDENT TOBACCO USE DISORDER 09/15/2013 MARGARITA BELLA MD 401.9 UNSPECIFIED ESSENTIAL HYPERTENSION 09/15/2013 GREG NEAL DO K 305.1 NONDEPENDENT TOBACCO USE DISORDER 09/15/2013 GREG NEAL DO K 401.9 UNSPECIFIED ESSENTIAL HYPERTENSION 09/15/2013 MARGARITA BELLA MD 305.1 NONDEPENDENT TOBACCO USE DISORDER 09/15/2013 MARGARITA BELLA MD 401.9 UNSPECIFIED ESSENTIAL HYPERTENSION 09/15/2013 MARGARITA BELLA MD 305.1 NONDEPENDENT TOBACCO USE DISORDER 09/15/2013 MARGARITA BELLA MD 401.9 UNSPECIFIED ESSENTIAL HYPERTENSION 09/15/2013 MARGARITA BELLA MD 305.1 NONDEPENDENT TOBACCO USE DISORDER 09/15/2013 MARGARITA BELLA MD 401.9 UNSPECIFIED ESSENTIAL HYPERTENSION 09/15/2013 GREG NELA DO K 305.1 NONDEPENDENT TOBACCO USE DISORDER 09/15/2013 GREG NEAL DO K 401.9 UNSPECIFIED ESSENTIAL HYPERTENSION 09/15/2013 MARGARITA BELLA MD 305.1 NONDEPENDENT TOBACCO USE DISORDER 09/15/2013 SHAYNE HARE, MARGARITA 401.9 UNSPECIFIED ESSENTIAL HYPERTENSION 09/15/2013 MARGARITA BELLA MD 305.1 NONDEPENDENT TOBACCO USE DISORDER 09/15/2013 MARGARITA BELLA MD 401.9 UNSPECIFIED ESSENTIAL HYPERTENSION 09/15/2013 MARGARITA BELLA MD 305.1 NONDEPENDENT TOBACCO USE DISORDER 09/15/2013 MARGARITA BELLA MD 401.9 UNSPECIFIED ESSENTIAL HYPERTENSION 09/15/2013 MARGARITA BELLA MD 305.1 NONDEPENDENT TOBACCO USE DISORDER 09/15/2013 MARGARITA BELLA MD 401.9 UNSPECIFIED ESSENTIAL HYPERTENSION 09/15/2013 MARGARITA BELLA MD 305.1 NONDEPENDENT TOBACCO USE DISORDER 09/15/2013 MARGARITA BELLA MD 401.9 UNSPECIFIED ESSENTIAL HYPERTENSION 09/15/2013 MARGARITA BELLA MD 305.1 NONDEPENDENT TOBACCO USE DISORDER 09/15/2013 MARGARITA BELLA MD 401.9 UNSPECIFIED ESSENTIAL HYPERTENSION 09/15/2013 VAL JOHNSON GREG K 305.1 NONDEPENDENT TOBACCO USE DISORDER 09/15/2013 VAL JOHNSON GREG K 401.9 UNSPECIFIED ESSENTIAL HYPERTENSION 09/15/2013 MARGARITA BELLA MD 305.1 NONDEPENDENT TOBACCO USE DISORDER 09/15/2013 MARGARITA BELLA MD 401.9 UNSPECIFIED ESSENTIAL HYPERTENSION 09/15/2013 MARGARITA BELLA MD 305.1 NONDEPENDENT TOBACCO USE DISORDER 09/15/2013 MARGARITA BELLA MD 401.9 UNSPECIFIED ESSENTIAL HYPERTENSION 09/15/2013 MARGARITA BELLA MD 305.1 NONDEPENDENT TOBACCO USE DISORDER 09/15/2013 MARGARITA BELLA MD 401.9 UNSPECIFIED ESSENTIAL HYPERTENSION 09/15/2013 MARGARITA BELLA MD 305.1 NONDEPENDENT TOBACCO USE DISORDER 09/15/2013 MARGARITA BELLA MD 401.9 UNSPECIFIED ESSENTIAL HYPERTENSION 09/15/2013 MARGARITA BELLA MD 305.1 NONDEPENDENT TOBACCO USE DISORDER 09/15/2013 MARGARITA BELLA MD 401.9 UNSPECIFIED ESSENTIAL HYPERTENSION 10/17/2013 MARGARITA BELLA MD 786.50 UNSPECIFIED CHEST PAIN 10/17/2013 VAL JOHNSON GREG K 786.50 UNSPECIFIED CHEST PAIN 10/17/2013 MARGARITA BELLA MD 786.50 UNSPECIFIED CHEST PAIN 10/17/2013 SHAYNE HARE, MARGARITA 786.50 UNSPECIFIED CHEST PAIN 10/17/2013 SHAYNE HARE, MARGARITA 786.50 UNSPECIFIED CHEST PAIN 10/17/2013 GREG NEAL DO 786.50 UNSPECIFIED CHEST PAIN 10/17/2013 SHAYNE HARE, MARGARITA 786.50 UNSPECIFIED CHEST PAIN 10/17/2013 SHAYNE HARE, MARGARITA 786.50 UNSPECIFIED CHEST PAIN 10/17/2013 SHAYNE HARE, MARGARITA 786.50 UNSPECIFIED CHEST PAIN 10/17/2013 SHAYNE HARE, MARGARITA 786.50 UNSPECIFIED CHEST PAIN 10/17/2013 SHAYNE HARE, MARGARITA 786.50 UNSPECIFIED CHEST PAIN 10/17/2013 SHAYNE HARE, MARGARITA 786.50 UNSPECIFIED CHEST PAIN 10/17/2013 GREG ENAL DO 786.50 UNSPECIFIED CHEST PAIN 10/17/2013 SHAYNE HARE, MARGARITA 786.50 UNSPECIFIED CHEST PAIN 10/17/2013 SHAYNE HARE, MARGARITA 786.50 UNSPECIFIED CHEST PAIN 10/17/2013 SHAYNE HARE, MARGARITA 786.50 UNSPECIFIED CHEST PAIN 10/17/2013 SHAYNE HARE, MARGARITA 786.50 UNSPECIFIED CHEST PAIN 10/17/2013 SHAYNE HARE, MARGARITA 786.50 UNSPECIFIED CHEST PAIN 10/20/2013 VAL JOHNSON, GREG Nasrin Ot 272.4 HYPERLIPIDEMIA NEC/NOS 10/20/2013 VAL JOHNSON, GREG K Ot 288.60 LEUKOCYTOSIS, UNSPECIFIED 10/20/2013 VAL JOHNSON GREG K Ot 305.1 TOBACCO USE DISORDER 10/20/2013 VAL JOHNSON GREG K Ot 401.9 HYPERTENSION NOS 10/20/2013 VAL JOHNSON GREG K Ot 715.90 OSTEOARTHROS NOS-UNSPEC 10/20/2013 VAL JOHNSON GREG K Ot 786.59 CHEST PAIN NEC 10/20/2013 VAL JOHNSON GREG K Ot 790.29 OTHER ABNORMAL GLUCOSE 12/05/2013 MARGARITA BELLA MD 729.2 NEURALGIA NEURITIS AND RADICULITIS UNSPECIFIED 12/05/2013 MARGARITA BELLA MD 729.2 NEURALGIA NEURITIS AND RADICULITIS UNSPECIFIED 12/05/2013 GREG NEAL DO 729.2 NEURALGIA NEURITIS AND RADICULITIS UNSPECIFIED 12/05/2013 MARGARITA BELLA MD 729.2 NEURALGIA NEURITIS AND RADICULITIS UNSPECIFIED 12/05/2013 SHAYNE HARE, MARGARITA 729.2 NEURALGIA NEURITIS AND RADICULITIS UNSPECIFIED 12/05/2013 MARGARITA BELLA MD 729.2 NEURALGIA NEURITIS AND RADICULITIS UNSPECIFIED 12/05/2013 MARGARITA BELLA MD 729.2 NEURALGIA NEURITIS AND RADICULITIS UNSPECIFIED 12/05/2013 SHAYNE HARE, MARGARITA 729.2 NEURALGIA NEURITIS AND RADICULITIS UNSPECIFIED 12/05/2013 MARGARITA BELLA MD9.2 NEURALGIA NEURITIS AND RADICULITIS UNSPECIFIED 12/05/2013 GREG NEAL DO 729.2 NEURALGIA NEURITIS AND RADICULITIS UNSPECIFIED 12/05/2013 SHAYNE HARE, MARGARITA Pires9.2 NEURALGIA NEURITIS AND RADICULITIS UNSPECIFIED 12/05/2013 SHAYNE HARE, MARGARITA 729.2 NEURALGIA NEURITIS AND RADICULITIS UNSPECIFIED 12/05/2013 SHAYNE HARE, MARGARITA Pires9.2 NEURALGIA NEURITIS AND RADICULITIS UNSPECIFIED 12/05/2013 MARGARITA BELLA MD9.2 NEURALGIA NEURITIS AND RADICULITIS UNSPECIFIED 12/05/2013 MARGARITA BELLA MD9.2 NEURALGIA NEURITIS AND RADICULITIS UNSPECIFIED 02/23/2014 MARGARITA BELLA MD Ot 288.60 LEUKOCYTOSIS, UNSPECIFIED 02/23/2014 MARGARITA BELLA MD Ot 305.1 TOBACCO USE DISORDER 02/23/2014 MARGARITA BELLA MD Ot 401.9 HYPERTENSION NOS 02/23/2014 MARGARITA BELLA MD Ot 721.0 CERVICAL SPONDYLOSIS 02/23/2014 MARGARITA BELLA MD Ot 722.4 CERVICAL DISC DEGEN 03/10/2014 MARGARITA BELLA MD 578.1 BLOOD IN STOOL 03/10/2014 MARGARITA BELLA MD 578.1 BLOOD IN STOOL 03/10/2014 MARGARITA BELLA MD 578.1 BLOOD IN STOOL 03/10/2014 MARGARITA BELLA MD 578.1 BLOOD IN STOOL 03/10/2014 MARGARITA BELLA MD 578.1 BLOOD IN STOOL 03/10/2014 GREG NEAL DO 578.1 BLOOD IN STOOL 03/10/2014 MARGARITA BELLA MD 578.1 BLOOD IN STOOL 03/10/2014 MARGARITA BELLA MD 578.1 BLOOD IN STOOL 03/10/2014 MARGARITA BELLA MD 578.1 BLOOD IN STOOL 03/10/2014 MARGARITA BELLA MD 578.1 BLOOD IN STOOL 03/10/2014 MARGARITA BELLA MD 578.1 BLOOD IN STOOL 03/13/2014 MINGO MCBRIDE MD Ot 053.9 HERPES ZOSTER NOS 03/13/2014 MINGO MCBRIDE MD Ot 272.4 HYPERLIPIDEMIA NEC/NOS 03/13/2014 MINGO MCBRIDE MD Ot 276.1 HYPOSMOLALITY 03/13/2014 MINGO MCBRIDE MD Ot 288.60 LEUKOCYTOSIS, UNSPECIFIED 03/13/2014 MINGO MCBRIDE MD Ot 305.1 TOBACCO USE DISORDER 03/13/2014 MINGO MCBRIDE MD Ot 401.9 HYPERTENSION NOS 03/13/2014 MINGO MCBRIDE MD, Ot 789.06 ABDOMINAL PAIN, EPIGASTRIC 03/16/2014 MARGARITA BELLA MD 789.06 ABDOMINAL PAIN EPIGASTRIC 03/16/2014 MARGARITA BELLA MD 789.06 ABDOMINAL PAIN EPIGASTRIC 03/16/2014 MARGARITA BELLA MD 789.06 ABDOMINAL PAIN EPIGASTRIC 03/16/2014 MARGARITA BELLA MD 789.06 ABDOMINAL PAIN EPIGASTRIC 03/16/2014 MARGARITA BELLA MD 789.06 ABDOMINAL PAIN EPIGASTRIC 03/16/2014 GREG NEAL DO 789.06 ABDOMINAL PAIN EPIGASTRIC 03/16/2014 MARGARITA BELLA MD 789.06 ABDOMINAL PAIN EPIGASTRIC 03/16/2014 MARGARITA BELLA MD 789.06 ABDOMINAL PAIN EPIGASTRIC 03/16/2014 MARGARITA BELLA MD 789.06 ABDOMINAL PAIN EPIGASTRIC 03/16/2014 MARGARITA BELLA MD9.06 ABDOMINAL PAIN EPIGASTRIC 03/16/2014 MARGARITA BELLA MD 789.06 ABDOMINAL PAIN EPIGASTRIC 04/26/2014 MANDY CHARLTON DO Ot 569.3 RECTAL ANAL HEMORRHAGE 05/11/2014 MARGARITA BELLA MD 796.2 ELEVATED BLOOD PRESSURE READING WITHOUT DIAGNOSIS OF HYPERTENSION 05/11/2014 MARGARITA BELLA MD 796.2 ELEVATED BLOOD PRESSURE READING WITHOUT DIAGNOSIS OF HYPERTENSION 05/11/2014 GREG NEAL DO Nasrin 796.2 ELEVATED BLOOD PRESSURE READING WITHOUT DIAGNOSIS OF HYPERTENSION 05/11/2014 MARGARITA BELLA MD 796.2 ELEVATED BLOOD PRESSURE READING WITHOUT DIAGNOSIS OF HYPERTENSION 05/11/2014 MARGARITA BELLA MD 796.2 ELEVATED BLOOD PRESSURE READING WITHOUT DIAGNOSIS OF HYPERTENSION 05/11/2014 MARGARITA BELLA MD 796.2 ELEVATED BLOOD PRESSURE READING WITHOUT DIAGNOSIS OF HYPERTENSION 05/11/2014 MARGARITA BELLA MD 796.2 ELEVATED BLOOD PRESSURE READING WITHOUT DIAGNOSIS OF HYPERTENSION 05/11/2014 MARGARITA BELLA MD 796.2 ELEVATED BLOOD PRESSURE READING WITHOUT DIAGNOSIS OF HYPERTENSION 07/13/2014 GREG NEAL DO Nasrin 719.40 PAIN IN JOINT SITE UNSPECIFIED 07/13/2014 MARGARITA BELLA MD 719.40 PAIN IN JOINT SITE UNSPECIFIED 07/13/2014 MARGARITA BELLA MD 719.40 PAIN IN JOINT SITE UNSPECIFIED 07/13/2014 MARGARITA BELLA MD 719.40 PAIN IN JOINT SITE UNSPECIFIED 07/13/2014 MARGARITA BELLA MD 719.40 PAIN IN JOINT SITE UNSPECIFIED 07/13/2014 MARGARITA BELLA MD 719.40 PAIN IN JOINT SITE UNSPECIFIED 07/31/2014 MALATHI MCDONOUGH L Ot 288.60 LEUKOCYTOSIS, UNSPECIFIED 07/31/2014 MALATHI MCDONOUGH Ot 401.9 HYPERTENSION NOS 07/31/2014 MALATHI MCDONOUGH Ot 723.1 CERVICALGIA 07/31/2014 MALATHI MCDONOUGH Ot 784.0 HEADACHE 01/03/2015 ZEFERINO HARE FACMasoud, ALI FACP CCDS Ot 305.1 TOBACCO USE DISORDER 01/03/2015 ZEFERINO HARE FACMasoud, ALI FACP CCDS Ot 401.9 HYPERTENSION NOS 01/03/2015 ZEFERINO HARE FACC, ALI FACP CCDS Ot 414.01 CORONARY ATHEROSCLEROSIS OF [place] CORON 01/04/2015 MARGARITA BELLA MD 723.0 SPINAL STENOSIS IN CERVICAL REGION 01/11/2015 MARGARITA BELLA MD Ot 721.0 01/11/2015 MARGARITA BELLA MD Ot 729.2 01/11/2015 MARGARITA BELLA MD Ot 729.5 01/11/2015 MARGARITA BELLA MD Ot 782.0 01/11/2015 SHAYNE HARE, MARGARITA Johnsno Ot 793.7 01/11/2015 SHAYNE HARE, MARGARITA Johnson Ot 401.9 01/11/2015 SHAYNE HARE, MARGARITA Johnson Ot 575.8 01/11/2015 SHAYNE HARE, MARGARITA Johnson Ot 789.00 01/11/2015 SHAYNE HARE, MARGARITA Johnson Ot 577.0 01/11/2015 SHAYNE HARE, MARGARITA Johnson Ot 789.00 01/11/2015 LATESHA JOHNSON MANDY Martita Ot V72.84 01/11/2015 MARGARITA BELLA MD Ot 401.9 02/15/2015 AUBREY RAMOS MD Ot 272.4 02/15/2015 AUBREY RAMOS MD Ot 305.1 02/15/2015 AUBREY RAMOS MD Ot 401.9 02/15/2015 AUBREY RAMOS MD Ot 577.0 02/15/2015 AUBREY RAMOS MD Ot 790.29 02/16/2015 AUBREY RAMOS MD Ot 272.4 HYPERLIPIDEMIA NEC/NOS 02/16/2015 AUBREY RAMOS MD Ot 305.1 TOBACCO USE DISORDER 02/16/2015 AUBREY RAMOS MD Ot 401.9 HYPERTENSION NOS 02/16/2015 AUBREY RAMOS MD Ot 414.01 CORONARY ATHEROSCLEROSIS OF [place] CORON 02/16/2015 AUBREY RAMOS MD Ot 577.0 ACUTE PANCREATITIS 02/16/2015 AUBREY RAMOS MD Ot 790.29 OTHER ABNORMAL GLUCOSE 03/13/2015 MARGARITA BELLA MD Ot 401.9 03/22/2015 MARGARITA BELLA MD Ot 401.9 12/31/2015 Ot F17.210 NICOTINE DEPENDENCE, CIGARETTES, UNCOMPL 12/31/2015 Ot I10 ESSENTIAL ( PRIMARY) HYPERTENSION 12/31/2015 Ot R51 HEADACHE 02/22/2016 MARGARITA BELLA MD Ot 721.0 CERVICAL SPONDYLOSIS 02/22/2016 MARGARITA BELLA MD Ot 729.2 NEURALGIA/NEURITIS NOS 02/22/2016 MARGARITA BELLA MD Ot 729.5 PAIN IN LIMB 02/22/2016 HUERTER MD, MARGARITA F Ot 782.0 SKIN SENSATION DISTURB 02/22/2016 MARGARITA BELLA MD Ot 793.7 NOSP (ABN) FINDINGS ON RADIOLOGICAL OT 02/22/2016 MARGARITA BELLA MD Ot 401.9 HYPERTENSION NOS 02/22/2016 MARGARITA BELLA MD Ot 575.8 DIS OF GALLBLADDER NEC 02/22/2016 MARGARITA BELLA MD Ot 789.00 ABDOMINAL PAIN, UNSPECIFIED SITE 02/22/2016 MARGARITA BELLA MD Ot 577.0 ACUTE PANCREATITIS 02/22/2016 MARGARITA BELLA MD Ot 789.00 ABDOMINAL PAIN, UNSPECIFIED SITE 02/22/2016 MANDY CHARLTON DO Ot V72.84 EXAM PRE-OPERATIVE NOS 02/22/2016 MARGARITA BELLA MD Ot 401.9 HYPERTENSION NOS 02/24/2016 MARGARITA BELLA MD Ot 721.0 CERVICAL SPONDYLOSIS 02/24/2016 MARGARITA BELLA MD Ot 729.2 NEURALGIA/NEURITIS NOS 02/24/2016 MARGARITA BELLA MD Ot 729.5 PAIN IN LIMB 02/24/2016 MARGARITA BELLA MD Ot 782.0 SKIN SENSATION DISTURB 02/24/2016 MARGARITA BELLA MD Ot 793.7 NOSP (ABN) FINDINGS ON RADIOLOGICAL OT 02/24/2016 MARGARITA BELLA MD Ot 401.9 HYPERTENSION NOS 02/24/2016 MARGARITA BELLA MD Ot 575.8 DIS OF GALLBLADDER NEC 02/24/2016 MARGARITA BELLA MD Ot 789.00 ABDOMINAL PAIN, UNSPECIFIED SITE 02/24/2016 MARGARITA BELLA MD Ot 577.0 ACUTE PANCREATITIS 02/24/2016 MARGARITA BELLA MD Ot 789.00 ABDOMINAL PAIN, UNSPECIFIED SITE 02/24/2016 MANDY CHARLTON DO Ot V72.84 EXAM PRE-OPERATIVE NOS 02/24/2016 MARGARITA BELLA MD Ot 401.9 HYPERTENSION NOS 02/24/2016 MARGARITA BELLA MD Ot 721.0 CERVICAL SPONDYLOSIS 02/24/2016 MARGARITA BELLA MD Ot 729.2 NEURALGIA/NEURITIS NOS 02/24/2016 MARGARITA BELLA MD Ot 729.5 PAIN IN LIMB 02/24/2016 MARGARITA BELLA MD Ot 782.0 SKIN SENSATION DISTURB 02/24/2016 MARGARITA BELLA MD Ot 793.7 NOSP (ABN) FINDINGS ON RADIOLOGICAL OT 02/24/2016 MARGARITA BELLA MD Ot 401.9 HYPERTENSION NOS 02/24/2016 MARGARITA BELLA MD Ot 575.8 DIS OF GALLBLADDER NEC 02/24/2016 MARGARITA BELLA MD Ot 789.00 ABDOMINAL PAIN, UNSPECIFIED SITE 02/24/2016 MARGARITA BELLA MD Ot 577.0 ACUTE PANCREATITIS 02/24/2016 MARGARITA BELLA MD Ot 789.00 ABDOMINAL PAIN, UNSPECIFIED SITE 02/24/2016 LATESHA JOHNSON MANDY Martita Ot V72.84 EXAM PRE-OPERATIVE NOS 02/24/2016 MARGARTIA BELLA MD Ot 401.9 HYPERTENSION NOS 02/24/2016 ROBBIE ALDANA MD Ot E87.2 ACIDOSIS 02/24/2016 ROBBIE ALDANA MD Ot I46.9 CARDIAC ARREST, CAUSE UNSPECIFIED 02/24/2016 ROBBIE ALDANA MD Ot N28.9 DISORDER OF KIDNEY AND URETER, UNSPECIFI 02/24/2016 ROBBIE ALDANA MD Ot N39.0 URINARY TRACT INFECTION, SITE NOT SPECIF 02/24/2016 ROBBIE ALDANA MD Ot R68.0 HYPOTHERMIA, NOT ASSOCIATED W LOW ENVIRO 02/24/2016 ROBBIE ALDANA MD Ot R79.89 OTHER SPECIFIED ABNORMAL FINDINGS OF BLO 02/26/2016 ROBBIE ALDANA MD Ot E87.2 ACIDOSIS 02/26/2016 ROBBIE ALDANA MD Ot I46.9 CARDIAC ARREST, CAUSE UNSPECIFIED 02/26/2016 ROBBIE ALDANA MD Ot N28.9 DISORDER OF KIDNEY AND URETER, UNSPECIFI 02/26/2016 ROBBIE ALDANA MD Ot N39.0 URINARY TRACT INFECTION, SITE NOT SPECIF 02/26/2016 ROBBIE ALDANA MD Ot R68.0 HYPOTHERMIA, NOT ASSOCIATED W LOW ENVIRO 02/26/2016 ROBBIE ALDANA MD Ot R79.89 OTHER SPECIFIED ABNORMAL FINDINGS OF BLO 02/26/2016 ROBBIE ALDANA MD Ot E87.2 ACIDOSIS 02/26/2016 ROBBIE ALDANA MD Ot I46.9 CARDIAC ARREST, CAUSE UNSPECIFIED 02/26/2016 ROBBIE ALDANA MD Ot N28.9 DISORDER OF KIDNEY AND URETER, UNSPECIFI 02/26/2016 ROBBIE ALDANA MD Ot N39.0 URINARY TRACT INFECTION, SITE NOT SPECIF 02/26/2016 ROBBIE ALDANA MD Ot R68.0 HYPOTHERMIA, NOT ASSOCIATED W LOW ENVIRO 02/26/2016 ROBBIE ALDANA MD Ot R79.89 OTHER SPECIFIED ABNORMAL FINDINGS OF BLO 03/19/2016 ROBBIE ALDANA MD Ot E87.2 ACIDOSIS 03/19/2016 ROBBIE ALDANA MD Ot I46.9 CARDIAC ARREST, CAUSE UNSPECIFIED 03/19/2016 ROBBIE ALDANA MD Ot N28.9 DISORDER OF KIDNEY AND URETER, UNSPECIFI 03/19/2016 ROBBIE ALDANA MD Ot N39.0 URINARY TRACT INFECTION, SITE NOT SPECIF 03/19/2016 ROBBIE ALDANA MD Ot R68.0 HYPOTHERMIA, NOT ASSOCIATED W LOW ENVIRO 03/19/2016 ROBBIE ALDANA MD Ot R79.89 OTHER SPECIFIED ABNORMAL FINDINGS OF BLO 04/03/2016 MARGARITA BELLA MD Ot 721.0 CERVICAL SPONDYLOSIS 04/03/2016 MARGARITA BELLA MD Ot 729.2 NEURALGIA/NEURITIS NOS 04/03/2016 MARGARITA BELLA MD Ot 729.5 PAIN IN LIMB 04/03/2016 MARGARITA BELLA MD Ot 782.0 SKIN SENSATION DISTURB 04/03/2016 MARGARITA BELLA MD Ot 793.7 NOSP (ABN) FINDINGS ON RADIOLOGICAL OT 04/03/2016 MARGARITA BELLA MD Ot 401.9 HYPERTENSION NOS 04/03/2016 MARGARITA BELLA MD Ot 575.8 DIS OF GALLBLADDER NEC 04/03/2016 MARGARITA BELLA MD Ot 789.00 ABDOMINAL PAIN, UNSPECIFIED SITE 04/03/2016 MARGARITA BELLA MD Ot 577.0 ACUTE PANCREATITIS 04/03/2016 MARGARITA BELLA MD Ot 789.00 ABDOMINAL PAIN, UNSPECIFIED SITE 04/03/2016 MANDY CHARLTON DO Ot V72.84 EXAM PRE-OPERATIVE NOS 04/03/2016 MARGARITA BELLA MD Ot 401.9 HYPERTENSION NOS 04/03/2016 MARGARITA BELLA MD Ot 721.0 CERVICAL SPONDYLOSIS 04/03/2016 MARGARITA BELLA MD Ot 729.2 NEURALGIA/NEURITIS NOS 04/03/2016 MARGARITA BELLA MD Ot 729.5 PAIN IN LIMB 04/03/2016 MARGARITA BELLA MD Ot 782.0 SKIN SENSATION DISTURB 04/03/2016 MARGARITA BELLA MD Ot 793.7 NOSP (ABN) FINDINGS ON RADIOLOGICAL OT 04/03/2016 MARGARITA BELLA MD Ot 401.9 HYPERTENSION NOS 04/03/2016 MARGARITA BELLA MD Ot 575.8 DIS OF GALLBLADDER NEC 04/03/2016 MARGARITA EBLLA MD Ot 789.00 ABDOMINAL PAIN, UNSPECIFIED SITE 04/03/2016 MARGARITA BELLA MD Ot 577.0 ACUTE PANCREATITIS 04/03/2016 MARGARITA BELLA MD Ot 789.00 ABDOMINAL PAIN, UNSPECIFIED SITE 04/03/2016 MANDY CHARLTON DO Ot V72.84 EXAM PRE-OPERATIVE NOS 04/03/2016 SHAYNE HARE, MARGARITA Johnson Ot 401.9 HYPERTENSION NOS 04/04/2016 YORDY MOSES MD Ot E78.5 HYPERLIPIDEMIA, UNSPECIFIED 04/04/2016 YORDY MOSES MD Ot F17.210 NICOTINE DEPENDENCE, CIGARETTES, UNCOMPL 04/04/2016 YORDY MOSES MD Ot I12.9 HYPERTENSIVE CHRONIC KIDNEY DISEASE W ST 04/04/2016 YORDY MOSES MD Ot I25.10 ATHSCL HEART DISEASE OF [place] CORONARY 04/04/2016 OYRDY MOSES MD Ot N18.3 CHRONIC KIDNEY DISEASE, STAGE 3 (MODERAT 04/04/2016 MARGARITA BELLA MD Ot 721.0 CERVICAL SPONDYLOSIS 04/04/2016 MARGARITA BELLA MD Ot 729.2 NEURALGIA/NEURITIS NOS 04/04/2016 MARGARITA BELLA MD Ot 729.5 PAIN IN LIMB 04/04/2016 MARGARITA BELLA MD Ot 782.0 SKIN SENSATION DISTURB 04/04/2016 MARGARITA BELLA MD Ot 793.7 NOSP (ABN) FINDINGS ON RADIOLOGICAL OT 04/04/2016 MARGARITA BELLA MD Ot 401.9 HYPERTENSION NOS 04/04/2016 MARGARITA BELLA MD Ot 575.8 DIS OF GALLBLADDER NEC 04/04/2016 MARGARITA BELLA MD Ot 789.00 ABDOMINAL PAIN, UNSPECIFIED SITE 04/04/2016 MARGARITA BELLA MD Ot 577.0 ACUTE PANCREATITIS 04/04/2016 MARGARITA BELLA MD Ot 789.00 ABDOMINAL PAIN, UNSPECIFIED SITE 04/04/2016 MANDY CHARLTON DO Ot V72.84 EXAM PRE-OPERATIVE NOS 04/04/2016 MARGARITA BELLA MD Ot 401.9 HYPERTENSION NOS 04/04/2016 MARGARITA BELLA MD Ot 721.0 CERVICAL SPONDYLOSIS 04/04/2016 MARGARITA BELLA MD Ot 729.2 NEURALGIA/NEURITIS NOS 04/04/2016 MARGARITA BELLA MD Ot 729.5 PAIN IN LIMB 04/04/2016 MARGARITA BELLA MD Ot 782.0 SKIN SENSATION DISTURB 04/04/2016 MARGARITA BELLA MD Ot 793.7 NOSP (ABN) FINDINGS ON RADIOLOGICAL OT 04/04/2016 MAGRARITA BELLA MD Ot 401.9 HYPERTENSION NOS 04/04/2016 MARGARITA BELLA MD Ot 575.8 DIS OF GALLBLADDER NEC 04/04/2016 MARGARITA BELLA MD Ot 789.00 ABDOMINAL PAIN, UNSPECIFIED SITE 04/04/2016 MARGARITA BELLA MD Ot 577.0 ACUTE PANCREATITIS 04/04/2016 MARGARITA BELLA MD Ot 789.00 ABDOMINAL PAIN, UNSPECIFIED SITE 04/04/2016 MANDY CHARLTON DO Ot V72.84 EXAM PRE-OPERATIVE NOS 04/04/2016 MARGARITA BELLA MD Ot 401.9 HYPERTENSION NOS 04/05/2016 ROBBIE ALDANA MD Ot E87.2 ACIDOSIS 04/05/2016 ROBBIE ALDANA MD Ot I46.9 CARDIAC ARREST, CAUSE UNSPECIFIED 04/05/2016 ROBBIE ALDANA MD Ot N28.9 DISORDER OF KIDNEY AND URETER, UNSPECIFI 04/05/2016 ROBBIE ALDANA MD Ot N39.0 URINARY TRACT INFECTION, SITE NOT SPECIF 04/05/2016 ROBBIE ALDANA MD Ot R68.0 HYPOTHERMIA, NOT ASSOCIATED W LOW ENVIRO 04/05/2016 ROBBIE ALDANA MD Ot R79.89 OTHER SPECIFIED ABNORMAL FINDINGS OF BLO 04/10/2016 MARGARITA BELLA MD Ot 721.0 CERVICAL SPONDYLOSIS 04/10/2016 MARGARITA BELLA MD Ot 729.2 NEURALGIA/NEURITIS NOS 04/10/2016 MARGARITA BELLA MD Ot 729.5 PAIN IN LIMB 04/10/2016 MARGARITA BELLA MD Ot 782.0 SKIN SENSATION DISTURB 04/10/2016 MARGARITA BELLA MD Ot 793.7 NOSP (ABN) FINDINGS ON RADIOLOGICAL OT 04/10/2016 MARGARITA BELLA MD Ot 401.9 HYPERTENSION NOS 04/10/2016 MARGARITA BELLA MD Ot 575.8 DIS OF GALLBLADDER NEC 04/10/2016 MARGARITA BELLA MD Ot 789.00 ABDOMINAL PAIN, UNSPECIFIED SITE 04/10/2016 MARGARITA BELLA MD Ot 577.0 ACUTE PANCREATITIS 04/10/2016 MARGARITA BELLA MD Ot 789.00 ABDOMINAL PAIN, UNSPECIFIED SITE 04/10/2016 MANDY CHARLTON DO Ot V72.84 EXAM PRE-OPERATIVE NOS 04/10/2016 MARGARITA BELLA MD Ot 401.9 HYPERTENSION NOS 04/11/2016 ZEFERINO HARE FACC, DAMARIS FACP CCDS Ot I12.9 HYPERTENSIVE CHRONIC KIDNEY DISEASE W ST 04/11/2016 ZEFERINO HRAE FACC, DAMARIS MOP CCDS Ot I25.10 ATHSCL HEART DISEASE OF [place] CORONARY 04/11/2016 ZEFERINO HARE FACC, DAMARIS MOP CCDS Ot I49.01 VENTRICULAR FIBRILLATION 04/11/2016 ZEFERINO HARE FACC, DAMARIS MOP CCDS Ot N18.3 CHRONIC KIDNEY DISEASE, STAGE 3 (MODERAT 04/11/2016 ZEFERINO HARE FACC, DAMARIS MOP CCDS Ot Z72.0 TOBACCO USE 04/11/2016 ZEFERINO HARE FACC, DAMARIS FACP CCDS Ot Z79.899 OTHER PERINATAL EDUCATOR (CURRENT) DRUG THERAPY 04/11/2016 ZEFERINO HARE FACC, ALI FACP CCDS Ot 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 05/07/2016 ZEFERINO HARE FACC, ALI FACP CCDS Ot I12.9 HYPERTENSIVE CHRONIC KIDNEY DISEASE W ST 05/07/2016 ZEFERINO HARE FACC, ALI FACP CCDS Ot I25.10 ATHSCL HEART DISEASE OF [place] CORONARY 05/07/2016 ZEFERINO HARE FACC, ALI FACP CCDS Ot I49.01 VENTRICULAR FIBRILLATION 05/07/2016 ZEFERINO MD FACC, ALI FACP CCDS Ot N18.3 CHRONIC KIDNEY DISEASE, STAGE 3 (MODERAT 05/07/2016 ZEFERINO HARE FACC, ALI FACP CCDS Ot Z72.0 TOBACCO USE 05/07/2016 ZEFERINO HARE FACC, ALI FACP CCDS Ot Z79.899 OTHER PERINATAL EDUCATOR (CURRENT) DRUG THERAPY 05/07/2016 ZEFERINO HARE FACC, ALI FACP CCDS Ot 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 05/09/2016 ZEFERINO HARE FACC, ALI FACP CCDS Ot I12.9 HYPERTENSIVE CHRONIC KIDNEY DISEASE W ST 05/09/2016 ZEFERINO HARE FACC, ALI FACP CCDS Ot I25.10 ATHSCL HEART DISEASE OF [place] CORONARY 05/09/2016 ZEFERINO HARE FACC, ALI FACP CCDS Ot I49.01 VENTRICULAR FIBRILLATION 05/09/2016 ZEFERINO HARE FACC, ALI FACP CCDS Ot N18.3 CHRONIC KIDNEY DISEASE, STAGE 3 (MODERAT 05/09/2016 ZEFERINO HARE FACC, ALI FACP CCDS Ot Z72.0 TOBACCO USE 05/09/2016 ZEFERINO HARE FACC, ALI FACP CCDS Ot Z79.899 OTHER PERINATAL EDUCATOR (CURRENT) DRUG THERAPY 05/09/2016 ZEFERINO HARE FACC, ALI FACP CCDS Ot 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 06/14/2016 PANCHITO GONG LOOM SETTER FOURDRINIER Ot I10 ESSENTIAL (PRIMARY) HYPERTENSION 06/14/2016 PANCHITO GONG APRN Ot K29.70 GASTRITIS, UNSPECIFIED, WITHOUT BLEEDING 06/14/2016 PANCHITO GONG APRN Ot R10.13 EPIGASTRIC PAIN 06/14/2016 PANCHITO GONG LOOM SETTER FOURDRINIER Ot Z79.899 OTHER PERINATAL EDUCATOR (CURRENT) DRUG THERAPY 06/16/2016 PANCHITO GONG LOOM SETTER FOURDRINIER Ot I10 ESSENTIAL (PRIMARY) HYPERTENSION 06/16/2016 PANCHITO GONG LOOM SETTER FOURDRINIER Ot K29.70 GASTRITIS, UNSPECIFIED, WITHOUT BLEEDING 06/16/2016 PANCHITO GONG LOOM SETTER FOURDRINIER Ot R10.13 EPIGASTRIC PAIN 06/16/2016 PANCHITO GONG LOOM SETTER FOURDRINIER Ot Z79.899 OTHER JAIL (CURRENT) DRUG THERAPY 06/20/2016 MARGARITA BELLA MD Ot 721.0 CERVICAL SPONDYLOSIS 06/20/2016 MARGARITA BELLA MD Ot 729.2 NEURALGIA/NEURITIS NOS 06/20/2016 MARGARITA BELLA MD Ot 729.5 PAIN IN LIMB 06/20/2016 MARGARITA BELLA MD Ot 782.0 SKIN SENSATION DISTURB 06/20/2016 MARGARITA BELLA MD Ot 793.7 NOSP (ABN) FINDINGS ON RADIOLOGICAL OT 06/20/2016 MARGARITA BELLA MD Ot 401.9 HYPERTENSION NOS 06/20/2016 MARGARITA BELLA MD Ot 575.8 DIS OF GALLBLADDER NEC 06/20/2016 MARGARITA BELLA MD Ot 789.00 ABDOMINAL PAIN, UNSPECIFIED SITE 06/20/2016 MARGARITA BELLA MD Ot 577.0 ACUTE PANCREATITIS 06/20/2016 MARGARITA BELLA MD Ot 789.00 ABDOMINAL PAIN, UNSPECIFIED SITE 06/20/2016 MANDY CHARLTON DO Ot V72.84 EXAM PRE-OPERATIVE NOS 06/20/2016 MARGARITA BELLA MD Ot 401.9 HYPERTENSION NOS 06/20/2016 GREG NEAL DO Ot E78.5 HYPERLIPIDEMIA, UNSPECIFIED 06/20/2016 GREG NEAL DO Ot F17.210 NICOTINE DEPENDENCE, CIGARETTES, UNCOMPL 06/20/2016 GREG NEAL DO Ot I12.9 HYPERTENSIVE CHRONIC KIDNEY DISEASE W ST 06/20/2016 GREG NEAL DO Ot I25.10 ATHSCL HEART DISEASE OF [place] CORONARY 06/20/2016 GREG NEAL DO Ot I25.2 OLD MYOCARDIAL INFARCTION 06/20/2016 GREG NEAL DO Ot N18.2 CHRONIC KIDNEY DISEASE, STAGE 2 (MILD) 06/20/2016 GREG NEAL DO Ot R07.9 CHEST PAIN, UNSPECIFIED 06/20/2016 GREG NEAL DO Ot Z95.810 PRESENCE OF AUTOMATIC (IMPLANTABLE) CARD 06/25/2016 AUBREY RAMOS MD Ot E78.5 HYPERLIPIDEMIA, UNSPECIFIED 06/25/2016 AUBREY RAMOS MD Ot F17.210 NICOTINE DEPENDENCE, CIGARETTES, UNCOMPL 06/25/2016 AUBREY RAMOS MD Ot I12.9 HYPERTENSIVE CHRONIC KIDNEY DISEASE W ST 06/25/2016 AUBREY RAMOS MD Ot I25.10 ATHSCL HEART DISEASE OF [place] CORONARY 06/25/2016 AUBREY RAMOS MD Ot I25.2 OLD MYOCARDIAL INFARCTION 06/25/2016 AUBREY RAMOS MD Ot N18.3 CHRONIC KIDNEY DISEASE, STAGE 3 (MODERAT 07/11/2016 ZEFERINO HARE FACC, ALI FACP CCDS Ot I10 ESSENTIAL (PRIMARY) HYPERTENSION 07/11/2016 ZEFERINO HARE FACC, ALI FACP CCDS Ot I25.10 ATHSCL HEART DISEASE OF [place] CORONARY 07/11/2016 ZEFERINO HARE FACC, ALI FACP CCDS Ot I46.2 CARDIAC ARREST DUE TO UNDERLYING CARDIAC 07/11/2016 ZEFERINO HARE FACC, ALI FACP CCDS Ot Z72.0 TOBACCO USE 07/15/2016 ZEFERINO HARE FACC, ALI FACP CCDS Ot I10 ESSENTIAL (PRIMARY) HYPERTENSION 07/15/2016 ZEFERINO HARE FACC, ALI FACP CCDS Ot I25.10 ATHSCL HEART DISEASE OF [place] CORONARY 07/15/2016 ZEFERINO HARE FACC, ALI FACP CCDS Ot I46.2 CARDIAC ARREST DUE TO UNDERLYING CARDIAC 07/15/2016 ZEFERINO HARE FACC, ALI FACP CCDS Ot Z72.0 TOBACCO USE 07/15/2016 KAROLINA CHRISTOPHER [employer]ER STATION Ot F17.210 NICOTINE DEPENDENCE, CIGARETTES, UNCOMPL 07/15/2016 KAROLINA CHRISTOPHER [employer] STATION Ot I12.9 HYPERTENSIVE CHRONIC KIDNEY DISEASE W ST 07/15/2016 KAROLINA CHRISTOPHER L [employer]IE[employer] CONTR[employer]ER STATION Ot I25.10 ATHSCL HEART DISEASE OF [place] CORONARY 07/15/2016 KAROLINA CHRISTOPHER L [employer]IEF CONTRO[employer]ER STATION Ot I70.1 ATHEROSCLEROSIS OF RENAL ARTERY 07/15/2016 KAROLINA CHRISTOPHER L [employer]IE[employer]ER STATION Ot N18.3 CHRONIC KIDNEY DISEASE, STAGE 3 (MODERAT 07/15/2016 BAIMA, KAROLINA L [employer]IE[employer]ER STATION Ot Z79.899 OTHER JAIL (CURRENT) DRUG THERAPY 07/15/2016 BAIMA, KAROLINA L [employer]IE[employer]ER [employer] Ot Z86.73 PRSNL HX OF TIA (TIA), AND CEREB INFRC W 07/15/2016 BAIMA, KAROLINA L [employer]ER STATION Ot Z95.810 PRESENCE OF AUTOMATIC (IMPLANTABLE) CARD 08/15/2016 BAIMA, KAROLINA L [employer]IE[employer]ER [employer] Ot F17.210 NICOTINE DEPENDENCE, CIGARETTES, UNCOMPL 08/15/2016 BAIMA, KAROLINA L [employer]IEF CONTRO[employer]ER STATION Ot I12.9 HYPERTENSIVE CHRONIC KIDNEY DISEASE W ST 08/15/2016 BAIMA, KAROLINA L [employer]IEF CONTR[employer]ER STATION Ot I25.10 ATHSCL HEART DISEASE OF [place] CORONARY 08/15/2016 BAIMA, KAROLINA L [employer]IEF [employer]ER STATION Ot I70.1 ATHEROSCLEROSIS OF RENAL ARTERY 08/15/2016 BAIMA, KAROLINA L [employer]IEF CONTR[employer]ER STATION Ot N18.3 CHRONIC KIDNEY DISEASE, STAGE 3 (MODERAT 08/15/2016 BAIMA, KAROLINA L [employer]IE[employer]ER STATION Ot Z79.899 OTHER JAIL (CURRENT) DRUG THERAPY 08/15/2016 BAIMA, KAROLINA L [employer]IE[employer]ER [employer] Ot Z86.73 PRSNL HX OF TIA (TIA), AND CEREB INFRC W 08/15/2016 BAIMA, KAROLINA L [employer]IE[employer]ATION Ot Z95.810 PRESENCE OF AUTOMATIC (IMPLANTABLE) CARD 08/26/2016 ZEFERINO HARE FACC, DAMARIS FACP CCDS Ot I10 ESSENTIAL (PRIMARY) HYPERTENSION 08/26/2016 ZEFERINO HARE FACC, DAMARIS FACP CCDS Ot I25.10 ATHSCL HEART DISEASE OF [place] CORONARY 08/26/2016 ZEFERINO HARE FACC, DAMARIS FACP CCDS Ot I46.2 CARDIAC ARREST DUE TO UNDERLYING CARDIAC 08/26/2016 ZEFERINO HARE FACC, DAMARIS FACP CCDS Ot Z72.0 TOBACCO USE 09/05/2016 ROHANBARBARA Farmer [employer]ER STATION Ot F17.210 NICOTINE DEPENDENCE, CIGARETTES, UNCOMPL 09/05/2016 ROHAN, BARBARA [employer]ER ST[employer] Ot G44.209 TENSION-TYPE HEADACHE, UNSPECIFIED, NOT 09/05/2016 ROHAN, BARBARA [employer]IEF CONTR[employer]ER STATION Ot I10 ESSENTIAL (PRIMARY) HYPERTENSION 09/05/2016 ROHAN, BARBARA [employer]IEF CONTR[employer]ER STATION Ot R51 HEADACHE 09/05/2016 ROHAN, BARBARA [employer]IEF CONTR[employer]ER STATION Ot Z79.02 JAIL (CURRENT) USE OF ANTITHROMBOTI 09/05/2016 ROHAN, BARBARA [employer]IE[employer]ER STATION Ot Z79.82 PERINATAL EDUCATOR (CURRENT) USE OF ASPIRIN 09/05/2016 ROHAN, BARBARA [employer]IEF [employer]ER STATION Ot Z79.899 OTHER PERINATAL EDUCATOR (CURRENT) DRUG THERAPY 09/07/2016 ROHAN, BARBARA [employer]IE[employer]ER ST[employer] Ot F17.210 NICOTINE DEPENDENCE, CIGARETTES, UNCOMPL 09/07/2016 ROHAN, BARBARA [employer]ER STATION Ot G44.209 TENSION-TYPE HEADACHE, UNSPECIFIED, NOT 09/07/2016 ROHAN, BARBARA [employer]IEF CONTRO[employer]ER STATION Ot I10 ESSENTIAL (PRIMARY) HYPERTENSION 09/07/2016 ROHAN, BARBARA [employer]IEF CONTRO[employer]ER STATION Ot R51 HEADACHE 09/07/2016 ROHAN, BARBARA [employer]IEF CONTRO[employer]ER STATION Ot Z79.02 JAIL (CURRENT) USE OF ANTITHROMBOTI 09/07/2016 ROHAN, BARBARA [employer]IEF [employer]ER STATION Ot Z79.82 PERINATAL EDUCATOR (CURRENT) USE OF ASPIRIN 09/07/2016 ROHAN, BARBARA [employer]IEF CONTR[employer]ER STATION Ot Z79.899 OTHER PERINATAL EDUCATOR (CURRENT) DRUG THERAPY 09/16/2016 ZEFERINO HARE FACC, ALI FACP CCDS Ot E27.5 ADRENOMEDULLARY HYPERFUNCTION 09/16/2016 ZEFERINO HARE FACC, ALI FACP CCDS Ot F17.210 NICOTINE DEPENDENCE, CIGARETTES, UNCOMPL 09/16/2016 ZEFERINO HARE FACC, ALI FACP CCDS Ot I10 ESSENTIAL (PRIMARY) HYPERTENSION 09/16/2016 ZEFERINO HARE FACC, ALI FACP CCDS Ot I25.10 ATHSCL HEART DISEASE OF [place] CORONARY 09/16/2016 ZEFERINO HARE FACC, ALI FACP CCDS Ot I65.23 OCCLUSION AND STENOSIS OF [place]ILATERAL [place] 09/16/2016 ZEFERINO HARE FACC, ALI FACP CCDS Ot E27.5 ADRENOMEDULLARY HYPERFUNCTION 09/16/2016 ZEFERINO HARE FACC, ALI FACP CCDS Ot F17.210 NICOTINE DEPENDENCE, CIGARETTES, UNCOMPL 09/16/2016 ZEFERINO HARE FACC, ALI FACP CCDS Ot I10 ESSENTIAL (PRIMARY) HYPERTENSION 09/16/2016 ZEFERINO HARE FACC, ALI FACP CCDS Ot I25.10 ATHSCL HEART DISEASE OF [place] CORONARY 09/16/2016 ZEFERINO HARE FACC, ALI FACP CCDS Ot I65.23 OCCLUSION AND STENOSIS OF BILATERAL [place] 09/28/2016 AROLDO OREILLY DO Ot F17.210 NICOTINE DEPENDENCE, CIGARETTES, UNCOMPL 09/28/2016 DENILSON DO, AROLDO K Ot I16.0 HYPERTENSIVE URGENCY 09/28/2016 DENILSON DO, AROLDO K Ot I25.10 ATHSCL HEART DISEASE OF [place] CORONARY 09/28/2016 DENILSON DO, AROLDO K Ot R51 HEADACHE 09/28/2016 DENILSON DOBIENVENIDOA K Ot Z79.899 OTHER JAIL (CURRENT) DRUG THERAPY 09/28/2016 DENILSON DOBIENVENIDOA K Ot Z95.810 PRESENCE OF AUTOMATIC (IMPLANTABLE) CARD 09/30/2016 DENILSON DOBIENVENIDOA K Ot F17.210 NICOTINE DEPENDENCE, CIGARETTES, UNCOMPL 09/30/2016 DENILSON DOBIENVENIDOA K Ot I16.0 HYPERTENSIVE URGENCY 09/30/2016 DENILSON DO, AROLDO K Ot I25.10 ATHSCL HEART DISEASE OF [place] CORONARY 09/30/2016 DENILSON DOBIENVENIDOA K Ot R51 HEADACHE 09/30/2016 DENILSON DOBIENVENIDOA K Ot Z79.899 OTHER JAIL (CURRENT) DRUG THERAPY 09/30/2016 DENILSON DOBIENVENIDOA K Ot Z95.810 PRESENCE OF AUTOMATIC (IMPLANTABLE) CARD 10/05/2016 GISELLA ALFONSO DO Ot I16.0 HYPERTENSIVE URGENCY 10/05/2016 GISELLA ALFONSO DO Ot R10.84 GENERALIZED ABDOMINAL PAIN 10/05/2016 GISELLA ALFONSO DO Ot Z79.02 JAIL (CURRENT) USE OF ANTITHROMBOTI 10/05/2016 GISELLA ALFONSO DO Ot Z79.82 JAIL (CURRENT) USE OF ASPIRIN 10/05/2016 GISELLA ALFONSO DO, Ot Z79.899 OTHER PERINATAL EDUCATOR (CURRENT) DRUG THERAPY 10/05/2016 GISELLA ALFONSO DO Ot Z95.810 PRESENCE OF AUTOMATIC (IMPLANTABLE) CARD 10/06/2016 GISELLA ALFONSO DO Ot I16.0 HYPERTENSIVE URGENCY 10/06/2016 GISELLA ALFONSO DO Ot R10.84 GENERALIZED ABDOMINAL PAIN 10/06/2016 GISELLA ALFONSO DO Ot Z79.02 PERINATAL EDUCATOR (CURRENT) USE OF ANTITHROMBOTI 10/06/2016 GISELLA ALFONSO DO Ot Z79.82 JAIL (CURRENT) USE OF ASPIRIN 10/06/2016 GISELLA ALFONSO DO Ot Z79.899 OTHER JAIL (CURRENT) DRUG THERAPY 10/06/2016 NATY DO GISELLA Martita Ot Z95.810 PRESENCE OF AUTOMATIC (IMPLANTABLE) CARD 10/07/2016 ZEFERINO HARE FACC, DAMARIS FACP CCDS Ot I10 ESSENTIAL (PRIMARY) HYPERTENSION 10/07/2016 ZEFERINO HARE FACC, ALI FACP CCDS Ot I25.10 ATHSCL HEART DISEASE OF [place] CORONARY 10/07/2016 ZEFERINO HARE FACC, ALI FACP CCDS Ot I46.2 CARDIAC ARREST DUE TO UNDERLYING CARDIAC 10/07/2016 ZEFERINO HARE FACC, ALI FACP CCDS Ot Z72.0 TOBACCO USE 11/24/2016 ZEFERINO HARE FACC, ALI FACP CCDS Ot E78.4 OTHER HYPERLIPIDEMIA 11/24/2016 ZEFERINO HARE FACC, ALI FACP CCDS Ot I10 ESSENTIAL (PRIMARY) HYPERTENSION 11/24/2016 ZEFERINO HARE FACC, ALI FACP CCDS Ot I25.10 ATHSCL HEART DISEASE OF [place] CORONARY 11/24/2016 ZEFERINO HARE FACC, DAMARIS FACP CCDS Ot I65.23 OCCLUSION AND STENOSIS OF [place]ILATERAL [place] 11/24/2016 ZEFERINO HARE FACC, ALI FACP CCDS Ot Z72.0 TOBACCO USE 11/24/2016 ZEFERINO HARE FACC, ALI FACP CCDS Ot Z86.73 PRSNL HX OF TIA (TIA), AND CEREB INFRC W 11/25/2016 ZEFERINO HARE FACC ALI FACP CCDS Ot E78.4 OTHER HYPERLIPIDEMIA 11/25/2016 ZEFERINO HARE FACC, ALI FACP CCDS Ot I10 ESSENTIAL (PRIMARY) HYPERTENSION 11/25/2016 ZEFERINO HARE FACC, ALI FACP CCDS Ot I25.10 ATHSCL HEART DISEASE OF [place] CORONARY 11/25/2016 ZEFERINO HARE FACC, ALI FACP CCDS Ot I65.23 OCCLUSION AND STENOSIS OF [place]ILATERAL [place] 11/25/2016 ZEFERINO HARE FACC, ALI FACP CCDS Ot Z72.0 TOBACCO USE 11/25/2016 ZEFERINO HARE FACC, ALI FACP CCDS Ot Z86.73 PRSNL HX OF TIA (TIA), AND CEREB INFRC W 02/10/2017 ZEFERINO HARE FACC, ALI FACP CCDS Ot E27.5 ADRENOMEDULLARY HYPERFUNCTION 02/10/2017 ZEFERINO HARE FACC, ALI FACP CCDS Ot F17.210 NICOTINE DEPENDENCE, CIGARETTES, UNCOMPL 02/10/2017 ZEFERINO HARE [facility], ALI FACP CCDS Ot I10 ESSENTIAL (PRIMARY) HYPERTENSION 02/10/2017 ZEFERINO HARE [facility], ALI FACP CCDS Ot I25.10 ATHSCL HEART DISEASE OF [place] CORONARY 02/10/2017 ZEFERINO HARE [facility], ALI FACP CCDS Ot I65.23 OCCLUSION AND STENOSIS OF [place]ILATERAL [place] 02/13/2017 ZEFERINO HARE [facility], ALI FACP CCDS Ot E27.5 ADRENOMEDULLARY HYPERFUNCTION 02/13/2017 ZEFERINO MD [facility], ALI FACP CCDS Ot F17.210 NICOTINE DEPENDENCE, CIGARETTES, UNCOMPL 02/13/2017 ZEFERINO HARE [facility], ALI FACP CCDS Ot I10 ESSENTIAL (PRIMARY) HYPERTENSION 02/13/2017 ZEFERINO HARE [facility], ALI FACP CCDS Ot I25.10 ATHSCL HEART DISEASE OF [place] CORONARY 02/13/2017 ZEFERINO HARE [facility], ALI FACP CCDS Ot I65.23 OCCLUSION AND STENOSIS OF [place]ILATERAL [place] 03/14/2017 ROHAN, BARBARA CHIEF CONTROLLER STATION Ot F17.210 NICOTINE DEPENDENCE, CIGARETTES, UNCOMPL 03/14/2017 ROHAN, BARBARA [employer]IEF CONTRO[employer]ER STATION Ot G44.209 TENSION-TYPE HEADACHE, UNSPECIFIED, NOT 03/14/2017 ROHAN, BARBARA CHIEF CONTRO[employer]ER STATION Ot I10 ESSENTIAL (PRIMARY) HYPERTENSION 03/14/2017 ROHAN, BARBARA CHIEF CONTROLLER STATION Ot R51 HEADACHE 03/14/2017 ROHAN, BARBARA CHIEF CONTROLLER STATION Ot Z79.02 PERINATAL EDUCATOR (CURRENT) USE OF ANTITHROMBOTI 03/14/2017 ROHAN BARBARA CHIEF CONTROLLER STATION Ot Z79.82 JAIL (CURRENT) USE OF ASPIRIN 03/14/2017 ROHAN BARBARA CHIEF CONTROLLER STATION Ot Z79.899 OTHER PERINATAL EDUCATOR (CURRENT) DRUG THERAPY Procedures Code Description Performed By Performed On GFR CALC (RESULT ONLY) 09/15/2013 94772 CMP 09/15/2013 10624 ROUTINE VENIPUNCTURE 10/17/2013 86557 EKG, TRACING 10/17/[id number] GFR CALC (RESULT ONLY) 10/17/2013 53620 BMP 10/17/2013 32292 MRI SPINE (CERVICAL) W/O CONTRAST 12/26/2013 2000F BLOOD PRESSURE CHECK 02/16/2014 General S Mandy Charlton 03/10/2014 45915 HIDA SCAN 03/15/2014 66493 US GALLBLADDER ULTRASOUND 03/22/2014 85130 ROUTINE VENIPUNCTURE 07/13/2014 [id number] GFR CALC (RESULT ONLY) 07/14/2014 40637 CMP 07/14/2014 00492 CRP 07/14/2014 01378 ROUTINE VENIPUNCTURE 07/18/2014 57319 URIC ACID 07/18/2014 74701 CRP 07/18/2014 32303 RA FACTOR 07/19/2014 63601 ASO 07/19/2014 ANAANA TWYLA ANALYZER (SCREEN) 07/19/2014 28091 ROUTINE VENIPUNCTURE 08/01/2014 48792 US RENAL ARTERY DOPPLER 08/01/2014 86017 CBC 08/01/2014 Cardiolog Zeferino, Ali 11/13/2014 37.22 01/02/2015 88.45 01/02/2015 88.53 01/02/2015 88.56 01/02/2015 Results Test Result Range Complete blood count (CBC) with automated white blood cell (WBC) differential - 06/14/16 14:54 Blood leukocytes automated count (number/volume) 9.9 10*3/uL 4.3-11.0 Blood erythrocytes automated count (number/volume) 5.01 10*6/uL 4.35-5.85 Venous blood hemoglobin measurement (mass/volume) 15.3 g/dL 13.3-17.7 Blood hematocrit (volume fraction) 44 % 40-54 Automated erythrocyte mean corpuscular volume 89 [foz_us] 80-99 Automated erythrocyte mean corpuscular hemoglobin (mass per erythrocyte) 31 pg 25-34 Automated erythrocyte mean corpuscular hemoglobin concentration measurement ( mass/volume) 35 g/dL 32-36 Automated erythrocyte distribution width ratio 14.5 % 10.0-14.5 Automated blood platelet count (count/volume) 408 10*3/uL 130-400 Automated blood platelet mean volume measurement 8.8 [foz_us] 7.4-10.4 Automated blood neutrophils/100 leukocytes 66 % 42-75 Automated blood lymphocytes/100 leukocytes 27 % 12-44 Blood monocytes/100 leukocytes 6 % 0-12 Automated blood eosinophils/100 leukocytes 1 % 0-10 Automated blood basophils/100 leukocytes 0 % 0-10 Blood neutrophils automated count (number/volume) 6.5 10*3 1.8-7.8 Blood lymphocytes automated count (number/volume) 2.7 10*3 1.0-4.0 Blood monocytes automated count (number/volume) 0.6 10*3 0.0-1.0 Automated eosinophil count 0.1 10*3/uL 0.0-0.3 Automated blood basophil count (count/volume) 0.0 10*3/uL 0.0-0.1 Comprehensive metabolic panel - 06/14/16 14:54 Serum or plasma sodium measurement (moles/volume) 138 mmol/L 135-145 Serum or plasma potassium measurement (moles/volume) 4.0 mmol/L 3.6-5.0 Serum or plasma chloride measurement (moles/volume) 107 mmol/L 98-107 Carbon dioxide 19 mmol/L 21-32 Serum or plasma anion gap determination (moles/volume) 12 mmol/L 5-14 Serum or plasma urea nitrogen measurement (mass/volume) 11 mg/dL 7-18 Serum or plasma creatinine measurement (mass/volume) 1.08 mg/dL 0.60-1.30 Serum or plasma urea nitrogen/creatinine mass ratio 10 NRG Serum or plasma creatinine measurement with calculation of estimated glomerular filtration rate > NRG Serum or plasma glucose measurement (mass/volume) 154 mg/dL 70-105 Serum or plasma calcium measurement (mass/volume) 9.4 mg/dL 8.5-10.1 Serum or plasma total bilirubin measurement (mass/volume) 0.2 mg/dL 0.1-1.0 Serum or plasma alkaline phosphatase measurement (enzymatic activity/volume) 113 U/L 40-136 Serum or plasma aspartate aminotransferase measurement (enzymatic activity/ volume) 18 U/L 5-34 Serum or plasma alanine aminotransferase measurement (enzymatic activity/volume ) 27 U/L 0-55 Serum or plasma protein measurement (mass/volume) 7.6 g/dL 6.4-8.2 Serum or plasma albumin measurement (mass/volume) 4.5 g/dL 3.2-4.5 Serum or plasma troponin i.cardiac measurement (mass/volume) - 06/14/16 14:54 Serum or plasma troponin i.cardiac measurement (mass/volume) < ng/ mL <0.30 Serum or plasma amylase measurement (enzymatic activity/volume) - 06/14/16 14: 54 Serum or plasma amylase measurement (enzymatic activity/volume) 48 U /L 25-125 Lipase - 06/14/16 14:54 Lipase 10 U/L 8-78 Complete urinalysis with reflex to culture - 06/14/16 15:10 Urine color determination YELLOW NRG Urine clarity determination CLEAR NRG Urine pH measurement by test strip 6 5-9 Specific gravity of urine by test strip 1.010 1.016- 1.022 Urine protein assay by test strip, semi-quantitative NEGATIVE NEGATIVE Urine glucose detection by automated test strip NEGATIVE NEGATIVE Erythrocytes detection in urine sediment by light microscopy NEGATIVE NEGATIVE Urine ketones detection by automated test strip NEGATIVE NEGATIVE Urine nitrite detection by test strip NEGATIVE NEGATIVE Urine total bilirubin detection by test strip NEGATIVE NEGATIVE Urine urobilinogen measurement by automated test strip (mass/volume) NORMAL NORMAL Urine leukocyte esterase detection by dipstick NEGATIVE NEGATIVE Automated urine sediment erythrocyte count by microscopy (number/high power field) NONE NRG Automated urine sediment leukocyte count by microscopy (number/high power field ) NONE NRG Bacteria detection in urine sediment by light microscopy NEGATIVE NRG Squamous epithelial cells detection in urine sediment by light microscopy RARE NRG Crystals detection in urine sediment by light microscopy NONE NRG Casts detection in urine sediment by light microscopy NONE NRG Mucus detection in urine sediment by light microscopy NEGATIVE NRG Complete urinalysis with reflex to culture NO NRG PT panel in platelet poor plasma by coagulation assay - 06/19/16 16:50 Prothrombin time (PT) in platelet poor plasma by coagulation assay 12.4 s 12.2-14.7 INR in platelet poor plasma or blood by coagulation assay 1.0 0.8-1.4 Activated partial thromboplastin time (aPTT) in platelet poor plasma bycoagulation assay - 06/19/16 16:50 Activated partial thromboplastin time (aPTT) in platelet poor plasma bycoagulation assay 27 s 24-35 Serum or plasma ethanol measurement (mass/volume) - 06/19/16 16:50 Serum or plasma ethanol measurement (mass/volume) 15 mg/dL <10 Complete blood count (CBC) with automated white blood cell (WBC) differential - 06/19/16 16:56 Blood leukocytes automated count (number/volume) 10.8 10*3/uL 4.3-11.0 Blood erythrocytes automated count (number/volume) 4.86 10*6/uL 4.35-5.85 Venous blood hemoglobin measurement (mass/volume) 14.9 g/dL 13.3-17.7 Blood hematocrit (volume fraction) 43 % 40-54 Automated erythrocyte mean corpuscular volume 89 [foz_us] 80-99 Automated erythrocyte mean corpuscular hemoglobin (mass per erythrocyte) 31 pg 25-34 Automated erythrocyte mean corpuscular hemoglobin concentration measurement ( mass/volume) 35 g/dL 32-36 Automated erythrocyte distribution width ratio 14.5 % 10.0-14.5 Automated blood platelet count (count/volume) 437 10*3/uL 130-400 Automated blood platelet mean volume measurement 8.9 [foz_us] 7.4-10.4 Automated blood neutrophils/100 leukocytes 62 % 42-75 Automated blood lymphocytes/100 leukocytes 30 % 12-44 Blood monocytes/100 leukocytes 7 % 0-12 Automated blood eosinophils/100 leukocytes 1 % 0-10 Automated blood basophils/100 leukocytes 0 % 0-10 Blood neutrophils automated count (number/volume) 6.7 10*3 1.8-7.8 Blood lymphocytes automated count (number/volume) 3.3 10*3 1.0-4.0 Blood monocytes automated count (number/volume) 0.7 10*3 0.0-1.0 Automated eosinophil count 0.1 10*3/uL 0.0-0.3 Automated blood basophil count (count/volume) 0.0 10*3/uL 0.0-0.1 Comprehensive metabolic panel - 06/19/16 16:56 Serum or plasma sodium measurement (moles/volume) 139 mmol/L 135-145 Serum or plasma potassium measurement (moles/volume) 4.1 mmol/L 3.6-5.0 Serum or plasma chloride measurement (moles/volume) 107 mmol/L 98-107 Carbon dioxide 23 mmol/L 21-32 Serum or plasma anion gap determination (moles/volume) 9 mmol/L 5-14 Serum or plasma urea nitrogen measurement (mass/volume) 13 mg/dL 7-18 Serum or plasma creatinine measurement (mass/volume) 1.16 mg/dL 0.60-1.30 Serum or plasma urea nitrogen/creatinine mass ratio 11 NRG Serum or plasma creatinine measurement with calculation of estimated glomerular filtration rate > NRG Serum or plasma glucose measurement (mass/volume) 104 mg/dL 70-105 Serum or plasma calcium measurement (mass/volume) 9.5 mg/dL 8.5-10.1 Serum or plasma total bilirubin measurement (mass/volume) 0.3 mg/dL 0.1-1.0 Serum or plasma alkaline phosphatase measurement (enzymatic activity/volume) 99 U/L 40-136 Serum or plasma aspartate aminotransferase measurement (enzymatic activity/ volume) 13 U/L 5-34 Serum or plasma alanine aminotransferase measurement (enzymatic activity/volume ) 21 U/L 0-55 Serum or plasma protein measurement (mass/volume) 7.1 g/dL 6.4-8.2 Serum or plasma albumin measurement (mass/volume) 4.3 g/dL 3.2-4.5 Magnesium - 06/19/16 16:56 Magnesium 2.4 mg/dL 1.8-2.4 Serum or plasma creatine kinase measurement (enzymatic activity/volume) - 06/19 16:56 Serum or plasma creatine kinase measurement (enzymatic activity/volume) 55 U/L 30-200 Serum or plasma creatine kinase MB measurement (enzymatic activity/volume) - 16:56 Serum or plasma creatine kinase MB measurement (enzymatic activity/volume) 0.7 ng/mL <6.6 Serum or plasma troponin i.cardiac measurement (mass/volume) - 06/19/16 16:56 Serum or plasma troponin i.cardiac measurement (mass/volume) < ng/ mL <0.30 Serum or plasma amylase measurement (enzymatic activity/volume) - 06/19/16 16: 56 Serum or plasma amylase measurement (enzymatic activity/volume) 77 U /L 25-125 Serum or plasma lithium measurement (moles/volume) - 06/19/16 16:56 BNP level 27.8 pg/mL <100.0 Urine drug screening test - 06/19/16 18:45 Urine phencyclidine detection by screening method NEGATIVE NEGATIVE Urine benzodiazepines detection by screening method NEGATIVE NEGATIVE Urine cocaine detection NEGATIVE NEGATIVE Urine amphetamines detection by screening method NEGATIVE NEGATIVE Urine methamphetamine detection by screening method NEGATIVE NEGATIVE Urine cannabinoids detection by screening method NEGATIVE NEGATIVE Urine opiates detection by screening method POSITIVE NEGATIVE Urine barbiturates detection POSITIVE NEGATIVE Screening urine tricyclic antidepressants detection NEGATIVE NEGATIVE Urine methadone detection by screening method NEGATIVE NEGATIVE Urine oxycodone detection NEGATIVE NEGATIVE Urine propoxyphene detection NEGATIVE NEGATIVE Urine buprenophrine screen NEGATIVE NEGATIVE Complete urinalysis with reflex to culture - 06/19/16 18:45 Urine color determination YELLOW NRG Urine clarity determination CLEAR NRG Urine pH measurement by test strip 6 5-9 Specific gravity of urine by test strip 1.015 1.016- 1.022 Urine protein assay by test strip, semi-quantitative 1+ NEGATIVE Urine glucose detection by automated test strip NEGATIVE NEGATIVE Erythrocytes detection in urine sediment by light microscopy NEGATIVE NEGATIVE Urine ketones detection by automated test strip NEGATIVE NEGATIVE Urine nitrite detection by test strip NEGATIVE NEGATIVE Urine total bilirubin detection by test strip NEGATIVE NEGATIVE Urine urobilinogen measurement by automated test strip (mass/volume) NORMAL NORMAL Urine leukocyte esterase detection by dipstick NEGATIVE NEGATIVE Automated urine sediment erythrocyte count by microscopy (number/high power field) NONE NRG Automated urine sediment leukocyte count by microscopy (number/high power field ) NONE NRG Bacteria detection in urine sediment by light microscopy NONE NRG Crystals detection in urine sediment by light microscopy NONE NRG Casts detection in urine sediment by light microscopy NONE NRG Mucus detection in urine sediment by light microscopy TRACE NRG Complete urinalysis with reflex to culture NO NRG Serum or plasma troponin i.cardiac measurement (mass/volume) - 06/19/16 22:39 Serum or plasma troponin i.cardiac measurement (mass/volume) < ng/ mL <0.30 Myoglobin, serum - 06/19/16 22:39 Myoglobin, serum 32.8 ng/mL 10.0-92.0 Complete blood count (CBC) with automated white blood cell (WBC) differential - 06/20/16 03:28 Blood leukocytes automated count (number/volume) 12.1 10*3/uL 4.3-11.0 Blood erythrocytes automated count (number/volume) 4.84 10*6/uL 4.35-5.85 Venous blood hemoglobin measurement (mass/volume) 14.7 g/dL 13.3-17.7 Blood hematocrit (volume fraction) 43 % 40-54 Automated erythrocyte mean corpuscular volume 90 [foz_us] 80-99 Automated erythrocyte mean corpuscular hemoglobin (mass per erythrocyte) 30 pg 25-34 Automated erythrocyte mean corpuscular hemoglobin concentration measurement ( mass/volume) 34 g/dL 32-36 Automated erythrocyte distribution width ratio 14.9 % 10.0-14.5 Automated blood platelet count (count/volume) 429 10*3/uL 130-400 Automated blood platelet mean volume measurement 8.7 [foz_us] 7.4-10.4 Automated blood neutrophils/100 leukocytes 60 % 42-75 Automated blood lymphocytes/100 leukocytes 31 % 12-44 Blood monocytes/100 leukocytes 7 % 0-12 Automated blood eosinophils/100 leukocytes 1 % 0-10 Automated blood basophils/100 leukocytes 0 % 0-10 Blood neutrophils automated count (number/volume) 7.3 10*3 1.8-7.8 Blood lymphocytes automated count (number/volume) 3.7 10*3 1.0-4.0 Blood monocytes automated count (number/volume) 0.9 10*3 0.0-1.0 Automated eosinophil count 0.1 10*3/uL 0.0-0.3 Automated blood basophil count (count/volume) 0.0 10*3/uL 0.0-0.1 Comprehensive metabolic panel - 06/20/16 03:28 Serum or plasma sodium measurement (moles/volume) 142 mmol/L 135-145 Serum or plasma potassium measurement (moles/volume) 4.4 mmol/L 3.6-5.0 Serum or plasma chloride measurement (moles/volume) 104 mmol/L 98-107 Carbon dioxide 26 mmol/L 21-32 Serum or plasma anion gap determination (moles/volume) 12 mmol/L 5-14 Serum or plasma urea nitrogen measurement (mass/volume) 16 mg/dL 7-18 Serum or plasma creatinine measurement (mass/volume) 1.09 mg/dL 0.60-1.30 Serum or plasma urea nitrogen/creatinine mass ratio 15 NRG Serum or plasma creatinine measurement with calculation of estimated glomerular filtration rate > NRG Serum or plasma glucose measurement (mass/volume) 144 mg/dL 70-105 Serum or plasma calcium measurement (mass/volume) 9.4 mg/dL 8.5-10.1 Serum or plasma total bilirubin measurement (mass/volume) 0.3 mg/dL 0.1-1.0 Serum or plasma alkaline phosphatase measurement (enzymatic activity/volume) 94 U/L 40-136 Serum or plasma aspartate aminotransferase measurement (enzymatic activity/ volume) 15 U/L 5-34 Serum or plasma alanine aminotransferase measurement (enzymatic activity/volume ) 19 U/L 0-55 Serum or plasma protein measurement (mass/volume) 6.7 g/dL 6.4-8.2 Serum or plasma albumin measurement (mass/volume) 4.0 g/dL 3.2-4.5 Lipid 1996 panel - 06/20/16 03:28 Serum or plasma triglyceride measurement (mass/volume) 401 mg/dL <150 Serum or plasma cholesterol measurement (mass/volume) 258 mg/dL < 200 Serum or plasma cholesterol in HDL measurement (mass/volume) 31 mg/ dL 40-60 Cholesterol in LDL [mass/volume] in serum or plasma by direct assay 154 mg/dL 1-129 Serum or plasma cholesterol in VLDL measurement (mass/volume) 80 mg/ dL 5-40 Complete blood count (CBC) with automated white blood cell (WBC) differential - 06/24/16 19:12 Blood leukocytes automated count (number/volume) 12.8 10*3/uL 4.3-11.0 Blood erythrocytes automated count (number/volume) 5.15 10*6/uL 4.35-5.85 Venous blood hemoglobin measurement (mass/volume) 15.6 g/dL 13.3-17.7 Blood hematocrit (volume fraction) 45 % 40-54 Automated erythrocyte mean corpuscular volume 88 [foz_us] 80-99 Automated erythrocyte mean corpuscular hemoglobin (mass per erythrocyte) 30 pg 25-34 Automated erythrocyte mean corpuscular hemoglobin concentration measurement ( mass/volume) 35 g/dL 32-36 Automated erythrocyte distribution width ratio 14.7 % 10.0-14.5 Automated blood platelet count (count/volume) 414 10*3/uL 130-400 Automated blood platelet mean volume measurement 8.8 [foz_us] 7.4-10.4 Automated blood neutrophils/100 leukocytes 64 % 42-75 Automated blood lymphocytes/100 leukocytes 27 % 12-44 Blood monocytes/100 leukocytes 8 % 0-12 Automated blood eosinophils/100 leukocytes 1 % 0-10 Automated blood basophils/100 leukocytes 0 % 0-10 Blood neutrophils automated count (number/volume) 8.2 10*3 1.8-7.8 Blood lymphocytes automated count (number/volume) 3.4 10*3 1.0-4.0 Blood monocytes automated count (number/volume) 1.0 10*3 0.0-1.0 Automated eosinophil count 0.1 10*3/uL 0.0-0.3 Automated blood basophil count (count/volume) 0.0 10*3/uL 0.0-0.1 PT panel in platelet poor plasma by coagulation assay - 06/24/16 19:12 Prothrombin time (PT) in platelet poor plasma by coagulation assay 12.2 s 12.2-14.7 INR in platelet poor plasma or blood by coagulation assay 0.9 0.8-1.4 Activated partial thromboplastin time (aPTT) in platelet poor plasma bycoagulation assay - 06/24/16 19:12 Activated partial thromboplastin time (aPTT) in platelet poor plasma bycoagulation assay 29 s 24-35 Comprehensive metabolic panel - 06/24/16 19:12 Serum or plasma sodium measurement (moles/volume) 137 mmol/L 135-145 Serum or plasma potassium measurement (moles/volume) 4.3 mmol/L 3.6-5.0 Serum or plasma chloride measurement (moles/volume) 105 mmol/L 98-107 Carbon dioxide 20 mmol/L 21-32 Serum or plasma anion gap determination (moles/volume) 12 mmol/L 5-14 Serum or plasma urea nitrogen measurement (mass/volume) 10 mg/dL 7-18 Serum or plasma creatinine measurement (mass/volume) 1.09 mg/dL 0.60-1.30 Serum or plasma urea nitrogen/creatinine mass ratio 9 NRG Serum or plasma creatinine measurement with calculation of estimated glomerular filtration rate > NRG Serum or plasma glucose measurement (mass/volume) 108 mg/dL 70-105 Serum or plasma calcium measurement (mass/volume) 9.7 mg/dL 8.5-10.1 Serum or plasma total bilirubin measurement (mass/volume) 0.4 mg/dL 0.1-1.0 Serum or plasma alkaline phosphatase measurement (enzymatic activity/volume) 104 U/L 40-136 Serum or plasma aspartate aminotransferase measurement (enzymatic activity/ volume) 16 U/L 5-34 Serum or plasma alanine aminotransferase measurement (enzymatic activity/volume ) 19 U/L 0-55 Serum or plasma protein measurement (mass/volume) 7.7 g/dL 6.4-8.2 Serum or plasma albumin measurement (mass/volume) 4.6 g/dL 3.2-4.5 Magnesium - 06/24/16 19:12 Magnesium 2.5 mg/dL 1.8-2.4 Serum or plasma troponin i.cardiac measurement (mass/volume) - 06/24/16 19:12 Serum or plasma troponin i.cardiac measurement (mass/volume) < ng/ mL <0.30 Myoglobin, serum - 06/24/16 19:12 Myoglobin, serum 31.4 ng/mL 10.0-92.0 THYROID STIMULATING HORMONE - 06/24/16 19:12 THYROID STIMULATING HORMONE 0.47 u[iU]/mL 0.35-4.94 Serum or plasma thyroxine (T4) free measurement (mass/volume) - 06/24/16 19:12 Serum or plasma thyroxine (T4) free measurement (mass/volume) 1.19 ng/dL 0.70-1.48 Urine drug screening test - 06/24/16 19:45 Urine phencyclidine detection by screening method NEGATIVE NEGATIVE Urine benzodiazepines detection by screening method NEGATIVE NEGATIVE Urine cocaine detection NEGATIVE NEGATIVE Urine amphetamines detection by screening method NEGATIVE NEGATIVE Urine methamphetamine detection by screening method NEGATIVE NEGATIVE Urine cannabinoids detection by screening method NEGATIVE NEGATIVE Urine opiates detection by screening method POSITIVE NEGATIVE Urine barbiturates detection NEGATIVE NEGATIVE Screening urine tricyclic antidepressants detection NEGATIVE NEGATIVE Urine methadone detection by screening method NEGATIVE NEGATIVE Urine oxycodone detection NEGATIVE NEGATIVE Urine propoxyphene detection NEGATIVE NEGATIVE Urine buprenophrine screen NEGATIVE NEGATIVE Complete urinalysis with reflex to culture - 06/24/16 19:45 Urine color determination YELLOW NRG Urine clarity determination CLEAR NRG Urine pH measurement by test strip 7 5-9 Specific gravity of urine by test strip 1.005 1.016- 1.022 Urine protein assay by test strip, semi-quantitative NEGATIVE NEGATIVE Urine glucose detection by automated test strip NEGATIVE NEGATIVE Erythrocytes detection in urine sediment by light microscopy NEGATIVE NEGATIVE Urine ketones detection by automated test strip NEGATIVE NEGATIVE Urine nitrite detection by test strip NEGATIVE NEGATIVE Urine total bilirubin detection by test strip NEGATIVE NEGATIVE Urine urobilinogen measurement by automated test strip (mass/volume) NORMAL NORMAL Urine leukocyte esterase detection by dipstick NEGATIVE NEGATIVE Automated urine sediment erythrocyte count by microscopy (number/high power field) NONE NRG Automated urine sediment leukocyte count by microscopy (number/high power field ) RARE NRG Bacteria detection in urine sediment by light microscopy NEGATIVE NRG Squamous epithelial cells detection in urine sediment by light microscopy RARE NRG Crystals detection in urine sediment by light microscopy NONE NRG Casts detection in urine sediment by light microscopy NONE NRG Mucus detection in urine sediment by light microscopy NEGATIVE NRG Complete urinalysis with reflex to culture NO NRG Methicillin resistant Staphylococcus aureus (MRSA) screening culture - 00:10 Methicillin resistant Staphylococcus aureus (MRSA) screening culture NEG NRG Complete blood count (CBC) with automated white blood cell (WBC) differential - 06/25/16 04:20 Blood leukocytes automated count (number/volume) 9.6 10*3/uL 4.3-11.0 Blood erythrocytes automated count (number/volume) 4.83 10*6/uL 4.35-5.85 Venous blood hemoglobin measurement (mass/volume) 14.6 g/dL 13.3-17.7 Blood hematocrit (volume fraction) 43 % 40-54 Automated erythrocyte mean corpuscular volume 89 [foz_us] 80-99 Automated erythrocyte mean corpuscular hemoglobin (mass per erythrocyte) 30 pg 25-34 Automated erythrocyte mean corpuscular hemoglobin concentration measurement ( mass/volume) 34 g/dL 32-36 Automated erythrocyte distribution width ratio 14.8 % 10.0-14.5 Automated blood platelet count (count/volume) 421 10*3/uL 130-400 Automated blood platelet mean volume measurement 8.9 [foz_us] 7.4-10.4 Automated blood neutrophils/100 leukocytes 41 % 42-75 Automated blood lymphocytes/100 leukocytes 47 % 12-44 Blood monocytes/100 leukocytes 10 % 0-12 Automated blood eosinophils/100 leukocytes 2 % 0-10 Automated blood basophils/100 leukocytes 0 % 0-10 Blood neutrophils automated count (number/volume) 3.9 10*3 1.8-7.8 Blood lymphocytes automated count (number/volume) 4.5 10*3 1.0-4.0 Blood monocytes automated count (number/volume) 1.0 10*3 0.0-1.0 Automated eosinophil count 0.2 10*3/uL 0.0-0.3 Automated blood basophil count (count/volume) 0.0 10*3/uL 0.0-0.1 Whole blood basic metabolic panel - 06/25/16 04:20 Serum or plasma sodium measurement (moles/volume) 141 mmol/L 135-145 Serum or plasma potassium measurement (moles/volume) 3.7 mmol/L 3.6-5.0 Serum or plasma chloride measurement (moles/volume) 107 mmol/L 98-107 Carbon dioxide 22 mmol/L 21-32 Serum or plasma anion gap determination (moles/volume) 12 mmol/L 5-14 Serum or plasma urea nitrogen measurement (mass/volume) 12 mg/dL 7-18 Serum or plasma creatinine measurement (mass/volume) 1.02 mg/dL 0.60-1.30 Serum or plasma urea nitrogen/creatinine mass ratio 12 NRG Serum or plasma creatinine measurement with calculation of estimated glomerular filtration rate > NRG Serum or plasma glucose measurement (mass/volume) 109 mg/dL 70-105 Serum or plasma calcium measurement (mass/volume) 9.2 mg/dL 8.5-10.1 Serum or plasma phosphate measurement (mass/volume) - 06/25/16 04:20 Serum or plasma phosphate measurement (mass/volume) 3.5 mg/dL 2.3-4.7 Magnesium - 06/25/16 04:20 Magnesium 2.5 mg/dL 1.8-2.4 Lipid 1996 panel - 06/25/16 04:20 Serum or plasma triglyceride measurement (mass/volume) 326 mg/dL <150 Serum or plasma cholesterol measurement (mass/volume) 255 mg/dL < 200 Serum or plasma cholesterol in HDL measurement (mass/volume) 30 mg/ dL 40-60 Cholesterol in LDL [mass/volume] in serum or plasma by direct assay 162 mg/dL 1-129 Serum or plasma cholesterol in VLDL measurement (mass/volume) 65 mg/ dL 5-40 Basic Metabolic Panel (8) - 07/03/16 13:36 Glucose, Serum 116 mg/dL 65-99 BUN 14 mg/dL 6-24 Creatinine, Serum 1.16 mg/dL 0.76-1.27 eGFR If NonAfricn Am 70 mL/min/1.73 >59 eGFR If Africn Am 81 mL/min/1.73 >59 BUN/Creatinine Ratio 12 9-20 Sodium, Serum 140 mmol/L 134-144 Potassium, Serum 4.4 mmol/L 3.5-5.2 Chloride, Serum 99 mmol/L 97-108 Carbon Dioxide, Total 25 mmol/L 18-29 Calcium, Serum 9.2 mg/dL 8.7-10.2 Magnesium, Serum - 07/03/16 13:36 Magnesium, Serum 2.3 mg/dL 1.6-2.3 Automated blood complete blood count (hemogram) panel - 07/15/16 12:32 Blood leukocytes automated count (number/volume) 11.1 10*3/uL 4.3-11.0 Blood erythrocytes automated count (number/volume) 5.15 10*6/uL 4.35-5.85 Venous blood hemoglobin measurement (mass/volume) 15.9 g/dL 13.3-17.7 Blood hematocrit (volume fraction) 47 % 40-54 Automated erythrocyte mean corpuscular volume 91 [foz_us] 80-99 Automated erythrocyte mean corpuscular hemoglobin (mass per erythrocyte) 31 pg 25-34 Automated erythrocyte mean corpuscular hemoglobin concentration measurement ( mass/volume) 34 g/dL 32-36 Automated erythrocyte distribution width ratio 15.6 % 10.0-14.5 Automated blood platelet count (count/volume) 321 10*3/uL 130-400 Automated blood platelet mean volume measurement 8.9 [foz_us] 7.4-10.4 PT panel in platelet poor plasma by coagulation assay - 07/15/16 12:32 Prothrombin time (PT) in platelet poor plasma by coagulation assay 11.8 s 12.2-14.7 INR in platelet poor plasma or blood by coagulation assay 0.9 0.8-1.4 Activated partial thromboplastin time (aPTT) in platelet poor plasma bycoagulation assay - 07/15/16 12:32 Activated partial thromboplastin time (aPTT) in platelet poor plasma bycoagulation assay 26 s 24-35 Comprehensive metabolic panel - 07/15/16 12:32 Serum or plasma sodium measurement (moles/volume) 139 mmol/L 135-145 Serum or plasma potassium measurement (moles/volume) 4.3 mmol/L 3.6-5.0 Serum or plasma chloride measurement (moles/volume) 106 mmol/L 98-107 Carbon dioxide 23 mmol/L 21-32 Serum or plasma anion gap determination (moles/volume) 10 mmol/L 5-14 Serum or plasma urea nitrogen measurement (mass/volume) 15 mg/dL 7-18 Serum or plasma creatinine measurement (mass/volume) 1.05 mg/dL 0.60-1.30 Serum or plasma urea nitrogen/creatinine mass ratio 14 NRG Serum or plasma creatinine measurement with calculation of estimated glomerular filtration rate > NRG Serum or plasma glucose measurement (mass/volume) 103 mg/dL 70-105 Serum or plasma calcium measurement (mass/volume) 9.4 mg/dL 8.5-10.1 Serum or plasma total bilirubin measurement (mass/volume) 0.4 mg/dL 0.1-1.0 Serum or plasma alkaline phosphatase measurement (enzymatic activity/volume) 110 U/L 40-136 Serum or plasma aspartate aminotransferase measurement (enzymatic activity/ volume) 13 U/L 5-34 Serum or plasma alanine aminotransferase measurement (enzymatic activity/volume ) 24 U/L 0-55 Serum or plasma protein measurement (mass/volume) 7.3 g/dL 6.4-8.2 Serum or plasma albumin measurement (mass/volume) 4.3 g/dL 3.2-4.5 Lipid 1996 panel - 07/15/16 12:32 Serum or plasma triglyceride measurement (mass/volume) 327 mg/dL <150 Serum or plasma cholesterol measurement (mass/volume) 244 mg/dL < 200 Serum or plasma cholesterol in HDL measurement (mass/volume) 37 mg/ dL 40-60 Cholesterol in LDL [mass/volume] in serum or plasma by direct assay 142 mg/dL 1-129 Serum or plasma cholesterol in VLDL measurement (mass/volume) 65 mg/ dL 5-40 Methicillin resistant Staphylococcus aureus (MRSA) screening culture - 12:32 Methicillin resistant Staphylococcus aureus (MRSA) screening culture NEG NRG 24 hour urine cortisol free measurement (mass/volume) - 08/28/16 08:00 Urine creatinine measurement (mass/volume) 104 mg/dL NRG Timed urine creatinine measurement(moles/volume) 1820 mg 800-2100 Urine cortisol free measurement (mass/volume) 49.4 % <= 60.0 24 hour urine free cortisol measurement by radioimmunoassay (mass/time) 28.20 ug/L NRG Urine cortisol/creatinine ratio 27.12 ug/g{Cre} NRG Cortisol [interpretation] in serum or plasma--1 hour post dose corticotropin SEE FOOTNOTE NRG Complete blood count (CBC) with automated white blood cell (WBC) differential - 09/05/16 16:45 Blood leukocytes automated count (number/volume) 10.2 10*3/uL 4.3-11.0 Blood erythrocytes automated count (number/volume) 5.29 10*6/uL 4.35-5.85 Venous blood hemoglobin measurement (mass/volume) 16.2 g/dL 13.3-17.7 Blood hematocrit (volume fraction) 49 % 40-54 Automated erythrocyte mean corpuscular volume 92 [foz_us] 80-99 Automated erythrocyte mean corpuscular hemoglobin (mass per erythrocyte) 31 pg 25-34 Automated erythrocyte mean corpuscular hemoglobin concentration measurement ( mass/volume) 33 g/dL 32-36 Automated erythrocyte distribution width ratio 15.9 % 10.0-14.5 Automated blood platelet count (count/volume) 326 10*3/uL 130-400 Automated blood platelet mean volume measurement 9.1 [foz_us] 7.4-10.4 Automated blood neutrophils/100 leukocytes 60 % 42-75 Automated blood lymphocytes/100 leukocytes 32 % 12-44 Blood monocytes/100 leukocytes 8 % 0-12 Automated blood eosinophils/100 leukocytes 1 % 0-10 Automated blood basophils/100 leukocytes 0 % 0-10 Blood neutrophils automated count (number/volume) 6.1 10*3 1.8-7.8 Blood lymphocytes automated count (number/volume) 3.2 10*3 1.0-4.0 Blood monocytes automated count (number/volume) 0.8 10*3 0.0-1.0 Automated eosinophil count 0.1 10*3/uL 0.0-0.3 Automated blood basophil count (count/volume) 0.0 10*3/uL 0.0-0.1 PT panel in platelet poor plasma by coagulation assay - 09/05/16 16:45 Prothrombin time (PT) in platelet poor plasma by coagulation assay 13.4 s 12.2-14.7 INR in platelet poor plasma or blood by coagulation assay 1.1 0.8-1.4 Activated partial thromboplastin time (aPTT) in platelet poor plasma bycoagulation assay - 09/05/16 16:45 Activated partial thromboplastin time (aPTT) in platelet poor plasma bycoagulation assay 27 s 24-35 Comprehensive metabolic panel - 09/05/16 16:45 Serum or plasma sodium measurement (moles/volume) 138 mmol/L 135-145 Serum or plasma potassium measurement (moles/volume) 4.2 mmol/L 3.6-5.0 Serum or plasma chloride measurement (moles/volume) 107 mmol/L 98-107 Carbon dioxide 21 mmol/L 21-32 Serum or plasma anion gap determination (moles/volume) 10 mmol/L 5-14 Serum or plasma urea nitrogen measurement (mass/volume) 12 mg/dL 7-18 Serum or plasma creatinine measurement (mass/volume) 0.98 mg/dL 0.60-1.30 Serum or plasma urea nitrogen/creatinine mass ratio 12 NRG Serum or plasma creatinine measurement with calculation of estimated glomerular filtration rate > NRG Serum or plasma glucose measurement (mass/volume) 98 mg/dL 70-105 Serum or plasma calcium measurement (mass/volume) 9.3 mg/dL 8.5-10.1 Serum or plasma total bilirubin measurement (mass/volume) 0.5 mg/dL 0.1-1.0 Serum or plasma alkaline phosphatase measurement (enzymatic activity/volume) 105 U/L 40-136 Serum or plasma aspartate aminotransferase measurement (enzymatic activity/ volume) 22 U/L 5-34 Serum or plasma alanine aminotransferase measurement (enzymatic activity/volume ) 36 U/L 0-55 Serum or plasma protein measurement (mass/volume) 7.2 g/dL 6.4-8.2 Serum or plasma albumin measurement (mass/volume) 4.3 g/dL 3.2-4.5 Magnesium - 09/05/16 16:45 Magnesium 2.2 mg/dL 1.8-2.4 Serum or plasma creatine kinase measurement (enzymatic activity/volume) - 09/05 16:45 Serum or plasma creatine kinase measurement (enzymatic activity/volume) 69 U/L 30-200 Serum or plasma creatine kinase MB measurement (enzymatic activity/volume) - 16:45 Serum or plasma creatine kinase MB measurement (enzymatic activity/volume) 0.9 ng/mL <6.6 Serum or plasma troponin i.cardiac measurement (mass/volume) - 09/05/16 16:45 Serum or plasma troponin i.cardiac measurement (mass/volume) < ng/ mL <0.30 Serum or plasma thyrotropin measurement by detection limit <=0.05 miu/l (units/ volume) - 09/05/16 16:45 Serum or plasma thyrotropin measurement by detection limit <=0.05 miu/l (units/ volume) 0.52 u[iU]/mL 0.35-4.94 Complete blood count (CBC) with automated white blood cell (WBC) differential - 09/28/16 17:09 Blood leukocytes automated count (number/volume) 10.0 10*3/uL 4.3-11.0 Blood erythrocytes automated count (number/volume) 5.53 10*6/uL 4.35-5.85 Venous blood hemoglobin measurement (mass/volume) 17.1 g/dL 13.3-17.7 Blood hematocrit (volume fraction) 50 % 40-54 Automated erythrocyte mean corpuscular volume 90 [foz_us] 80-99 Automated erythrocyte mean corpuscular hemoglobin (mass per erythrocyte) 31 pg 25-34 Automated erythrocyte mean corpuscular hemoglobin concentration measurement ( mass/volume) 35 g/dL 32-36 Automated erythrocyte distribution width ratio 14.9 % 10.0-14.5 Automated blood platelet count (count/volume) 369 10*3/uL 130-400 Automated blood platelet mean volume measurement 9.1 [foz_us] 7.4-10.4 Automated blood neutrophils/100 leukocytes 54 % 42-75 Automated blood lymphocytes/100 leukocytes 35 % 12-44 Blood monocytes/100 leukocytes 9 % 0-12 Automated blood eosinophils/100 leukocytes 1 % 0-10 Automated blood basophils/100 leukocytes 0 % 0-10 Blood neutrophils automated count (number/volume) 5.4 10*3 1.8-7.8 Blood lymphocytes automated count (number/volume) 3.5 10*3 1.0-4.0 Blood monocytes automated count (number/volume) 0.9 10*3 0.0-1.0 Automated eosinophil count 0.1 10*3/uL 0.0-0.3 Automated blood basophil count (count/volume) 0.0 10*3/uL 0.0-0.1 PT panel in platelet poor plasma by coagulation assay - 09/28/16 17:09 Prothrombin time (PT) in platelet poor plasma by coagulation assay 11.4 s 12.2-14.7 INR in platelet poor plasma or blood by coagulation assay 0.9 0.8-1.4 Activated partial thromboplastin time (aPTT) in platelet poor plasma bycoagulation assay - 09/28/16 17:09 Activated partial thromboplastin time (aPTT) in platelet poor plasma bycoagulation assay 26 s 24-35 Comprehensive metabolic panel - 09/28/16 17:09 Serum or plasma sodium measurement (moles/volume) 139 mmol/L 135-145 Serum or plasma potassium measurement (moles/volume) 4.3 mmol/L 3.6-5.0 Serum or plasma chloride measurement (moles/volume) 108 mmol/L 98-107 Carbon dioxide 19 mmol/L 21-32 Serum or plasma anion gap determination (moles/volume) 12 mmol/L 5-14 Serum or plasma urea nitrogen measurement (mass/volume) 17 mg/dL 7-18 Serum or plasma creatinine measurement (mass/volume) 1.02 mg/dL 0.60-1.30 Serum or plasma urea nitrogen/creatinine mass ratio 17 NRG Serum or plasma creatinine measurement with calculation of estimated glomerular filtration rate > NRG Serum or plasma glucose measurement (mass/volume) 107 mg/dL 70-105 Serum or plasma calcium measurement (mass/volume) 9.1 mg/dL 8.5-10.1 Serum or plasma total bilirubin measurement (mass/volume) 0.3 mg/dL 0.1-1.0 Serum or plasma alkaline phosphatase measurement (enzymatic activity/volume) 109 U/L 40-136 Serum or plasma aspartate aminotransferase measurement (enzymatic activity/ volume) 22 U/L 5-34 Serum or plasma alanine aminotransferase measurement (enzymatic activity/volume ) 40 U/L 0-55 Serum or plasma protein measurement (mass/volume) 7.5 g/dL 6.4-8.2 Serum or plasma albumin measurement (mass/volume) 4.5 g/dL 3.2-4.5 Magnesium - 09/28/16 17:09 Magnesium 2.3 mg/dL 1.8-2.4 Serum or plasma troponin i.cardiac measurement (mass/volume) - 09/28/16 17:09 Serum or plasma troponin i.cardiac measurement (mass/volume) < ng/ mL <0.30 Complete urinalysis with reflex to culture - 09/28/16 19:10 Urine color determination YELLOW NRG Urine clarity determination CLEAR NRG Urine pH measurement by test strip 5 5-9 Specific gravity of urine by test strip 1.020 1.016- 1.022 Urine protein assay by test strip, semi-quantitative 2+ NEGATIVE Urine glucose detection by automated test strip NEGATIVE NEGATIVE Erythrocytes detection in urine sediment by light microscopy 1+ NEGATIVE Urine ketones detection by automated test strip NEGATIVE NEGATIVE Urine nitrite detection by test strip NEGATIVE NEGATIVE Urine total bilirubin detection by test strip NEGATIVE NEGATIVE Urine urobilinogen measurement by automated test strip (mass/volume) NORMAL NORMAL Urine leukocyte esterase detection by dipstick NEGATIVE NEGATIVE Automated urine sediment erythrocyte count by microscopy (number/high power field) NONE NRG Automated urine sediment leukocyte count by microscopy (number/high power field ) RARE NRG Bacteria detection in urine sediment by light microscopy NEGATIVE NRG Squamous epithelial cells detection in urine sediment by light microscopy RARE NRG Crystals detection in urine sediment by light microscopy NONE NRG Casts detection in urine sediment by light microscopy NONE NRG Mucus detection in urine sediment by light microscopy NEGATIVE NRG Complete urinalysis with reflex to culture NO NRG Complete blood count (CBC) with automated white blood cell (WBC) differential - 10/04/16 23:40 Blood leukocytes automated count (number/volume) 13.7 10*3/uL 4.3-11.0 Blood erythrocytes automated count (number/volume) 5.50 10*6/uL 4.35-5.85 Venous blood hemoglobin measurement (mass/volume) 16.7 g/dL 13.3-17.7 Blood hematocrit (volume fraction) 50 % 40-54 Automated erythrocyte mean corpuscular volume 90 [foz_us] 80-99 Automated erythrocyte mean corpuscular hemoglobin (mass per erythrocyte) 30 pg 25-34 Automated erythrocyte mean corpuscular hemoglobin concentration measurement ( mass/volume) 34 g/dL 32-36 Automated erythrocyte distribution width ratio 15.0 % 10.0-14.5 Automated blood platelet count (count/volume) 349 10*3/uL 130-400 Automated blood platelet mean volume measurement 9.3 [foz_us] 7.4-10.4 Automated blood neutrophils/100 leukocytes 56 % 42-75 Automated blood lymphocytes/100 leukocytes 34 % 12-44 Blood monocytes/100 leukocytes 9 % 0-12 Automated blood eosinophils/100 leukocytes 2 % 0-10 Automated blood basophils/100 leukocytes 0 % 0-10 Blood neutrophils automated count (number/volume) 7.7 10*3 1.8-7.8 Blood lymphocytes automated count (number/volume) 4.6 10*3 1.0-4.0 Blood monocytes automated count (number/volume) 1.2 10*3 0.0-1.0 Automated eosinophil count 0.2 10*3/uL 0.0-0.3 Automated blood basophil count (count/volume) 0.0 10*3/uL 0.0-0.1 Comprehensive metabolic panel - 10/04/16 23:40 Serum or plasma sodium measurement (moles/volume) 140 mmol/L 135-145 Serum or plasma potassium measurement (moles/volume) 4.0 mmol/L 3.6-5.0 Serum or plasma chloride measurement (moles/volume) 106 mmol/L 98-107 Carbon dioxide 22 mmol/L 21-32 Serum or plasma anion gap determination (moles/volume) 12 mmol/L 5-14 Serum or plasma urea nitrogen measurement (mass/volume) 23 mg/dL 7-18 Serum or plasma creatinine measurement (mass/volume) 1.19 mg/dL 0.60-1.30 Serum or plasma urea nitrogen/creatinine mass ratio 19 NRG Serum or plasma creatinine measurement with calculation of estimated glomerular filtration rate > NRG Serum or plasma glucose measurement (mass/volume) 123 mg/dL 70-105 Serum or plasma calcium measurement (mass/volume) 9.8 mg/dL 8.5-10.1 Serum or plasma total bilirubin measurement (mass/volume) 0.2 mg/dL 0.1-1.0 Serum or plasma alkaline phosphatase measurement (enzymatic activity/volume) 116 U/L 40-136 Serum or plasma aspartate aminotransferase measurement (enzymatic activity/ volume) 21 U/L 5-34 Serum or plasma alanine aminotransferase measurement (enzymatic activity/volume ) 34 U/L 0-55 Serum or plasma protein measurement (mass/volume) 7.5 g/dL 6.4-8.2 Serum or plasma albumin measurement (mass/volume) 4.5 g/dL 3.2-4.5 Lipase - 10/04/16 23:40 Lipase 46 U/L 8-78 Complete urinalysis with reflex to culture - 10/05/16 00:45 Urine color determination YELLOW NRG Urine clarity determination CLEAR NRG Urine pH measurement by test strip 5 5-9 Specific gravity of urine by test strip 1.025 1.016- 1.022 Urine protein assay by test strip, semi-quantitative 2+ NEGATIVE Urine glucose detection by automated test strip NEGATIVE NEGATIVE Erythrocytes detection in urine sediment by light microscopy NEGATIVE NEGATIVE Urine ketones detection by automated test strip NEGATIVE NEGATIVE Urine nitrite detection by test strip NEGATIVE NEGATIVE Urine total bilirubin detection by test strip NEGATIVE NEGATIVE Urine urobilinogen measurement by automated test strip (mass/volume) NORMAL NORMAL Urine leukocyte esterase detection by dipstick 1+ NEGATIVE Automated urine sediment erythrocyte count by microscopy (number/high power field) NONE NRG Automated urine sediment leukocyte count by microscopy (number/high power field ) RARE NRG Bacteria detection in urine sediment by light microscopy TRACE NRG Squamous epithelial cells detection in urine sediment by light microscopy RARE NRG Crystals detection in urine sediment by light microscopy NONE NRG Casts detection in urine sediment by light microscopy NONE NRG Mucus detection in urine sediment by light microscopy SMALL NRG Complete urinalysis with reflex to culture NO NRG [facility] - 12/14/17 11:54 GLUCOSE 102 mg/dL 65-99 UREA NITROGEN (BUN) 18 mg/dL 7-25 CREATININE 1.22 mg/dL 0.70-1.33 eGFR NON-AFR. YEMENI 65 mL/min/1.73m2 > OR=60 eGFR 75 mL/min/1.73m2 > OR=60 BUN/CREATININE RATIO NOT APPLICABLE (calc) 6-22 SODIUM 138 mmol/L 135-146 POTASSIUM 4.9 mmol/L 3.5-5.3 CHLORIDE 105 mmol/L 98-110 CARBON DIOXIDE 26 mmol/L 20-31 CALCIUM 9.9 mg/dL 8.6-10.3 PROTEIN, TOTAL 7.6 g/dL 6.1-8.1 ALBUMIN 4.5 g/dL 3.6-5.1 GLOBULIN 3.1 g/dL (calc) 1.9-3.7 ALBUMIN/GLOBULIN RATIO 1.5 (calc) 1.0-2.5 BILIRUBIN, TOTAL 0.4 mg/dL 0.2-1.2 ALKALINE PHOSPHATASE 108 U/L 40-115 AST 16 U/L 10-35 ALT 21 U/L 9-46 Encounters ACCT No. Visit Date/Time Discharge Status Pt. Type Provider Facility Loc./Unit Complaint [id number] 01/04/2015 15:01:00 01/04/2015 23:59:59 CLS Outpatient MARGARITA BELLA MD [id number] 11/13/2014 07:56:00 11/13/2014 23:59:59 CLS Outpatient MARGARITA BELLA MD [id number] 09/29/2014 13:47:00 09/29/2014 23:59:59 CLS Outpatient MARGARITA BELLA MD [id number] 08/01/2014 15:11:00 08/01/2014 23:59:59 CLS Outpatient MARGARITA BELLA MD [id number] 07/18/2014 16:07:00 07/18/2014 23:59:59 [place] Outpatient MARGARITA BELLA MD [id number] 07/13/2014 16:30:00 07/13/2014 23:59:59 CLS Outpatient GREG NEAL DO [id number] 06/19/2014 16:34:00 06/19/2014 23:59:59 CLS Outpatient MARGARITA BELLA MD [id number] 05/11/2014 10:36:00 05/11/2014 23:59:59 CLS Outpatient MARGARITA BELLA MD [id number] 04/06/2014 16:06:00 04/06/2014 23:59:59 CLS Outpatient MARGARITA BELLA MD [id number] 04/03/2014 09:44:00 04/03/2014 23:59:59 CLS Outpatient MARGARITA BELLA MD [id number] 03/10/2014 10:40:00 03/10/2014 23:59:59 CLS Outpatient MARGARITA BELLA MD [id number] 02/21/2014 16:21:00 02/21/2014 23:59:59 CLS Outpatient MARGARITA BELLA MD [id number] 02/16/2014 15:43:00 02/16/2014 23:59:59 CLS Outpatient GREG NEAL DO [id number] 12/26/2013 15:38:00 12/26/2013 23:59:59 CLS Outpatient MARGARITA BELLA MD [id number] 12/05/2013 13:13:00 12/05/2013 23:59:59 CLS Outpatient MARGARITA BELLA MD [id number] 11/14/2013 15:04:00 11/14/2013 23:59:59 CLS Outpatient MARGARITA BELLA MD [id number] 11/07/2013 11:34:00 11/07/2013 23:59:59 CLS Outpatient GREG NEAL DO [id number] 10/17/2013 14:52:00 10/17/2013 23:59:59 CLS Outpatient MARGARITA BELLA MD [id number] 09/15/2013 14:36:00 09/15/2013 23:59:59 [place] [id number] 12/14/2017 10:40:00 12/14/2017 23:59:59 CLS Outpatient MARGARITA BELLA MD [facility] [id number] 12/14/2017 10:40:00 Document Registration [id number] 11/25/2016 00:09:00 11/25/2016 23:59:59 CLS Preadmit ZEFERINO HARE FACC, DAMARIS FACToni CCDS [facility] LAB HTN,HLP,HX OF TIA'S,CAD,CAROTID ARTERIAL DISEASE [id number] 08/28/2016 08:39:00 11/24/2016 00:01:00 DIS Outpatient ZEFERINO HARE FACC, DAMARIS FACP CCDS [facility] LAB HTN,HLP,HX OF TIA'S,CAD,CAROTID ARTERIAL DISEASE [id number] 10/08/2016 07:00:00 10/08/2016 23:59:59 CLS Preadmit ZEFERINO HARE FACC, DAMARIS FACP CCDS [facility] RAD HTN,CAD,CARDIAC ARREST [id number] 07/09/2016 07:22:00 10/07/2016 00:01:00 DIS Outpatient ZEFERINO HARE FACC, DAMARIS FACP CCDS [facility] RAD HTN,CAD, CARDIAC ARREST [id number] 10/04/2016 23:25:00 10/05/2016 01:17:00 DIS Emergency NATY JOHNSONGISELLA [facility] ER AB PAIN [id number] 09/28/2016 16:30:00 09/28/2016 20:36:00 DIS Emergency DENILSON AROLDO JOHNSON [facility] ER HEADACHE [id number] 09/15/2016 07:57:00 09/15/2016 23:59:59 CLS Outpatient ZEFERINO HARE FACC, DAMARIS FACToni CCDS [facility] RAD PHEOCHROMOCYTOMA,HTN [id number] 09/05/2016 14:05:00 09/05/2016 20:25:00 DIS Outpatient BARBARA MADRIGALP [facility] ER ELEV BP/HEADACHE [id number] 07/15/2016 12:01:00 07/15/2016 18:05:00 DIS Outpatient KAROLINA CHRISTOPHER [employer] [facility] CATH UNCONTROLLED HTN, RENAL ARTERY STENOSIS [id number] 06/24/2016 22:25:00 06/25/2016 15:37:00 DIS Inpatient AUBREY RAMOS MD [facility] ICU MALIGNENT HTN,HEADACHE, VOMITING [id number] 06/19/2016 19:30:00 06/20/2016 14:40:00 DIS Inpatient GREG NEAL DO [facility] ICU UNCONTROLLED HTN,CHEST PAIN [id number] 06/14/2016 14:33:00 06/14/2016 17:01:00 DIS Emergency PANCHITO GONG LOOM SETTER FOURDRINIER [facility] ER ABD PAIN/HIGH BP [id number] 04/10/2016 07:04:00 04/11/2016 13:52:00 DIS Outpatient ZEFERINO HARE FACC, DAMARIS MEDINA CCDS [facility] CARDIAC ARREST D/T VENTRICULAR FIBRILLATION,CAD [id number] 04/03/2016 21:03:00 04/04/2016 13:35:00 DIS Inpatient YORDY MOSES MD [facility] ICU MALIGNANT HDV [id number] 02/24/2016 12:52:00 02/24/2016 15:42:00 DIS Emergency ROBBIE ALDANA MD [facility] ER POST CODE [id number] 02/14/2015 17:09:00 02/16/2015 11:45:00 DIS Inpatient AUBREY RAMOS MD [facility] 4TH ACUTE PANCREATITIS, UNCONTROLLED HTN [id number] 01/02/2015 16:28:00 01/03/2015 14:35:00 DIS Inpatient ZEFERINO HARE FACC, DAMARIS MEDINA CCDS [facility] CSD CP,HTN,HLP [id number] 08/10/2014 09:52:00 08/10/2014 23:59:59 CLS Outpatient MARGARITA BELLA MD [facility] RAD RESISTANT HTN,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 [id number] 07/31/2014 09:37:00 07/31/2014 14:26:00 DIS Emergency MALATHI MCDONOUGH [facility] ER HEADACHE [id number] 04/26/2014 12:09:00 04/26/2014 15:35:00 DIS Outpatient MANDY CHARLTON DO [facility] RECTAL BLEEDING [id number] 04/20/2014 07:30:00 04/20/2014 23:59:59 CLS Outpatient MANDY CHARLTON DO [facility] PREOP RECTAL BLEEDING [id number] 03/22/2014 07:59:00 03/22/2014 23:59:59 CLS Outpatient MARGARITA BELLA MD [facility] RAD PANCREATITIS [id number] 03/15/2014 11:38:00 03/15/2014 23:59:59 CLS Outpatient MARGARITA BELLA MD [facility] CARD ACUTE PANCREATITIS,ABD PAIN,HYPERTENSION [id number] 03/11/2014 21:05:00 03/13/2014 12:03:00 DIS Inpatient MINGO MCBRIDE MD [facility] 4TH ACUTE PANCREATITIS [id number] 02/21/2014 18:14:00 02/23/2014 14:30:00 DIS Inpatient MARGARITA BELLA MD [facility] CSD HYPERTENSION [id number] 01/03/2014 15:15:00 01/03/2014 23:59:59 CLS Outpatient MARGARITA BELLA MD [facility] RAD NECK PAIN,PAIN AND PARAESTHIESIA L ARM [id number] 10/19/2013 12:07:00 10/20/2013 18:20:00 DIS Inpatient GREG NEAL DO [facility] CSD CHEST PAIN HTN [id number] 01/02/2018 14:09:00 ACT Emergency JOVAN HARE, ROBBIE Gomes [facility] ER CP [id number] 12/31/2015 05:56:00 Document Registration [id number] 02/20/2010 17:08:00 Document Registration [id number] 07/04/2016 10:05:00 Document Registration
[2018-01-02 14:37] LABS: BASOPHILS % (AUTO) 0 % (0-10); EOSINOPHILS # (AUTO) 0.1 10^3/uL (0.0-0.3); EOSINOPHILS % (AUTO) 1 % (0-10); HEMATOCRIT 45 % (40-54); HEMOGLOBIN 15.2 G/DL (13.3-17.7); LYMPHOCYTES # (AUTO) 3.6 X 10^3 (1.0-4.0); LYMPHOCYTES % (AUTO) 39 % (12-44); MEAN CORPUSCULAR HEMOGLOBIN 31 PG (25-34); MEAN CORPUSCULAR HGB CONC 34 G/DL (32-36); MEAN CORPUSCULAR VOLUME 91 FL (80-99); MEAN PLATELET VOLUME 8.8 FL (7.4-10.4); MONOCYTES # (AUTO) 0.5 X 10^3 (0.0-1.0); MONOCYTES % (AUTO) 6 % (0-12); NEUTROPHILS % (AUTO) 54 % (42-75); PLATELET COUNT 358 10^3/uL (130-400); RED BLOOD COUNT 4.96 10^6/uL (4.35-5.85); RED CELL DISTRIBUTION WIDTH 14.4 % (10.0-14.5); WHITE BLOOD COUNT 9.2 10^3/uL (4.3-11.0)
[2018-01-02 14:41] LABS: PROTHROMBIN TIME PATIENT 13.1 SEC (12.2-14.7)
[2018-01-02 14:51] LABS: ALANINE AMINOTRANSFERASE 59 U/L (0-55); ALBUMIN 4.5 GM/DL (3.2-4.5); ALKALINE PHOSPHATASE 113 U/L (40-136); BILIRUBIN,TOTAL 0.4 MG/DL (0.1-1.0); BUN/CREATININE RATIO 14; CALCIUM 9.6 MG/DL (8.5-10.1); CARBON DIOXIDE 23 MMOL/L (21-32); CHLORIDE 107 MMOL/L (98-107); CREATININE SERUM 1.08 MG/DL (0.60-1.30); GFR ESTIMATED > 60; GLUCOSE 112 MG/DL (70-105); MAGNESIUM 2.2 MG/DL (1.8-2.4); SODIUM 141 MMOL/L (135-145); TOTAL PROTEIN 7.4 GM/DL (6.4-8.2)
[2018-01-02 14:58] LABS: MYOGLOBIN SERUM 45.4 NG/ML (10.0-92.0)
[2018-01-02] MEDS ORDERED: ASPIRIN 81 MG CHEW (CHILDREN'S ASA) PO ONE (15:15)
--- NOTE | 2018-01-02 15:24 | Diagnostic Imaging Report ---
Portable erect AP chest at 3:06 p.m. INDICATION: Chest pain. FINDINGS: The mild cardiomegaly noted on the prior exam of 06/25/2016 is again evident and no different. The left-sided defibrillator device seen previously also appears stable. The lungs are clear. There is no evidence for failure, pneumonia or pleural effusion. Mediastinum is not widened. The osseous structures are intact. IMPRESSION: There is no evidence for an acute cardiopulmonary abnormality. Dictated by: Dictated on workstation # [id number]
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
--- NOTE | 2018-01-02 16:34 | Consultation-Cardiology ---
HPI-Cardiology Cardiology Consultation Date of Consultation 01/02/18 Date of Admission Time Seen by Provider: 16:33 Indication: chest pain HPI 57 years old gentleman with history of ventricular fibrillation and sudden cardiac , for the last week has been having recurrent episodes of chest pain, had a syncopal episode last week and appeared to be secondary to ventricular fibrillation and received a shock from his defibrillator, yesterday he was called by Dr. Bernal staff and asked to go to the emergency room, patient went to where he was advised to be transferred to [place]. Patient signed AGAINST MEDICAL ADVICE and drove himself here. He is not having active chest pain but has been having recurrent episodes of chest pain described it as dull in nature in the retrosternal area not related to exertion, having shortness of breath and dizziness and lightheadedness. One syncopal episode last week Home Medications & Allergies Allergies: Coded Allergies: clonidine (Verified Adverse Reaction, Unknown, 09/28/16) CATAPRESS PATCH HAS RED AREA AT SITE. Home Medication List Reviewed: Yes [id number] Hx Patient Social History Alcohol Use: Denies Use Recreational Drug Use: No Smoking Status: Current Everyday Smoker Type Used: Cigarettes Recent Foreign Travel: No Recent Infectious Disease Expo: No Recent Hopitalizations: No Immunizations Up To Date Tetanus Booster (TDap): Unknown Date of Influenza Vaccine: Jun 18, 2016 Past Medical History Past medical history as discussed below Family Medical History Significant Family History: No Pertinent Family Hx Family Medical Hx Noncontributory to his current condition Family History: Cardiovascular disease Constitutional: see HPI, malaise EENTM: see HPI, no symptoms reported Respiratory: see HPI, No cough, dyspnea on exertion, No hemoptysis, No orthopnea, No phlegm, No short of breath, No stridor, No wheezing, No other Cardiovascular: see HPI, chest pain, No edema, No Hx of Intervention, No palpitations, syncope, No vascular heart diseas, No other Gastrointestinal: no symptoms reported, see HPI Genitourinary: no symptoms reported, see HPI Musculoskeletal: see HPI Skin: no symptoms reported, see HPI Psychiatric/Neurological: No Symptoms Reported, See HPI Reviewed Test Results Reviewed Test Results Lab Laboratory Tests Test 01/02/18 14:24 Range/Units White Blood Count 9.2 4.3-11.0 10^3/uL Red Blood Count 4.96 4.35-5.85 10^6/uL Hemoglobin 15.2 13.3-17.7 G/DL Hematocrit 45 40-54 % Mean Corpuscular Volume 91 80-99 FL Mean Corpuscular Hemoglobin 31 25-34 PG Mean Corpuscular Hemoglobin Concent 34 32-36 G/DL Red Cell Distribution Width 14.4 10.0-14.5 % Platelet Count 358 130-400 10^3/uL Mean Platelet Volume 8.8 7.4-10.4 FL Neutrophils (%) (Auto) 54 42-75 % Lymphocytes (%) (Auto) 39 12-44 % Monocytes (%) (Auto) 6 0-12 % Eosinophils (%) (Auto) 1 0-10 % Basophils (%) (Auto) 0 0-10 % Neutrophils # (Auto) 5.0 1.8-7.8 X 10^3 Lymphocytes # (Auto) 3.6 1.0-4.0 X 10^3 Monocytes # (Auto) 0.5 0.0-1.0 X 10^3 Eosinophils # (Auto) 0.1 0.0-0.3 10^3/uL Basophils # (Auto) 0.0 0.0-0.1 10^3/uL Prothrombin Time 13.1 12.2-14.7 SEC INR Comment 1.0 0.8-1.4 Activated Partial Thromboplast Time 28 24-35 SEC Sodium Level 141 135-145 MMOL/L Potassium Level 4.0 3.6-5.0 MMOL/L Chloride Level 107 98-107 MMOL/L Carbon Dioxide Level 23 21-32 MMOL/L Anion Gap 11 5-14 MMOL/L Blood Urea Nitrogen 15 7-18 MG/DL Creatinine 1.08 0.60-1.30 MG/DL Estimat Glomerular Filtration Rate > 60 BUN/Creatinine Ratio 14 Glucose Level 112 H 70-105 MG/DL Calcium Level 9.6 8.5-10.1 MG/DL Magnesium Level 2.2 1.8-2.4 MG/DL Total Bilirubin 0.4 0.1-1.0 MG/DL Aspartate Amino Transf (AST/SGOT) 25 5-34 U/L Alanine Aminotransferase (ALT/SGPT) 59 H 0-55 U/L Alkaline Phosphatase 113 40-136 U/L Myoglobin 45.4 10.0-92.0 NG/ML Troponin I < 0.30 <0.30 NG/ML Total Protein 7.4 6.4-8.2 GM/DL Albumin 4.5 3.2-4.5 GM/DL Physical Exam Vital Signs Vital Signs - First Documented 01/02/18 14:08 Temp 98.0 Pulse 90 Resp 18 B/P (MAP) 136/102 (113) Pulse Ox 100 O2 Delivery Room Air Capillary Refill : Less Than 3 Seconds General Appearance: No Apparent Distress, WD/WN Eyes: Bilateral Eye Normal Inspection, Bilateral Eye PERRL, Bilateral Eye EOMI HEENT: PERRL/EOMI, TMs Normal, Normal ENT Inspection, Pharynx Normal Neck: Full Range of Motion, Normal Inspection, Non Tender, Supple, Carotid Bruit Respiratory: Chest Non Tender, Lungs Clear, Normal Breath Sounds, No Accessory Muscle Use, No Respiratory Distress Cardiovascular: Regular Rate, Rhythm, No Edema, No Gallop, No JVD, No Murmur, Normal Peripheral Pulses Gastrointestinal: Normal Bowel Sounds, No Organomegaly, No Pulsatile Mass, Non Tender, Soft Back: Normal Inspection, No CVA Tenderness, No Vertebral Tenderness Extremity: Normal Capillary Refill, Normal Inspection, Normal Range of Motion, Non Tender, No Calf Tenderness, No Pedal Edema Neurologic/Psychiatric: Alert, Oriented x3, No Motor/Sensory Deficits, Normal Mood/Affect Skin: Normal Color, Warm/Dry Lymphatic: No Adenopathy A/P-Cardiology Admission Diagnosis Chest pain nonspecific etiology Ventricular fibrillation Coronary artery disease Hypertension Hyperlipidemia Assessment/Plan Chest pain nonspecific etiology, has been having recurrent episodes of chest pain for the past few days. Status post syncope. Syncope, patient had ventricular fibrillation and a shock from his defibrillator occurred last week. Since then has been having chest pain on and off Coronary artery disease, had a cardiac catheterization done by Dr. Claudy STANLEY at [place] on February 27, 2016 showing moderate noncritical coronary artery disease with ejection fraction 40% History of ventricular fibrillation and cardiac arrest in January 2016 with prolonged hospitalization in [place]. History of hypertension, difficult to control with history of noncompliance with medication, questionable history of pheochromocytoma with elevated epinephrine and norepinephrine in 24 hour urine collection, patient was referred for endocrinology evaluation. History of renal artery stenosis mild to moderate by angiogram done by Dr. Bernal Chronic kidney disease stage II to 3, continue to monitor renal function Tobaccoism, patient was educated on smoking cessation History of TIA reported to have an episode in 2011. No recent episodes. Hyperlipidemia, continue to monitor lipids History of mild carotid stenosis, nonobstructive disease YORDY MOSES MD Jan 02, 2018 16:34
--- OUTSIDE RECORDS SUMMARY | 2018-01-02 16:42 | XMS REPORT | Continuity of Care Document ---
Author Author [facility] Address Unknown Phone Unavailable Allergies Active Description Code Type Severity Reaction Onset Reported/Identified Relationship to Patient Clinical Status Yes No Known Drug Allergies [id number] Drug Allergy Unknown N/A 02/20/2010 Yes clonidine [id number] Drug Allergy Unknown N/A 09/28/2016 Medications There [...] NONDEPENDENT TOBACCO USE DISORDER 09/15/2013 SHAYNE HARE, MAGRARITA 401.9 UNSPECIFIED ESSENTIAL HYPERTENSION 09/15/2013 MARGARITA BELLA [...] FACP CCDS Ot 414.01 CORONARY ATHEROSCLEROSIS OF [place] CORON 01/04/2015 MARGARITA BLELA MD 723.0 SPINAL STENOSIS IN CERVICAL REGION 01/11/2015 MARGARITA BELLA MD Ot 721.0 01/11/2015 MARGARITA BELLA MD Ot 729.2 01/11/2015 MARGARITA BELLA MD Ot 729.5 01/11/2015 MARGARITA BELLA MD Ot 782.0 01/11/2015 SHAYNE HARE, MARGARITA Johnson Ot 793.7 01/11/2015 SHAYNE HARE, MARGARITA Johnson [...] RAMOS MD Ot 414.01 CORONARY ATHEROSCLEROSIS OF [place] CORON 02/16/2015 AUBREY RAMOS MD Ot 577.0 [...] Martita Ot V72.84 EXAM PRE-OPERATIVE NOS 02/24/2016 MARGARITA [...] MD Ot I25.10 ATHSCL HEART DISEASE OF [place] CORONARY 04/04/2016 YORDY MOSES MD Ot N18.3 CHRONIC KIDNEY DISEASE, [...] 401.9 HYPERTENSION NOS 04/11/2016 ZEFERINO HARE FACC, KAYLEE FACP CCDS Ot I12.9 HYPERTENSIVE CHRONIC KIDNEY DISEASE W ST 04/11/2016 ZEFERINO HARE FACC, KAYLEE MOP CCDS Ot I25.10 ATHSCL HEART DISEASE OF [place] CORONARY 04/11/2016 ZEFERINO HARE FACC, KAYLEE MOP CCDS Ot I49.01 VENTRICULAR FIBRILLATION 04/11/2016 ZEFERINO HARE FACC, KAYLEE MOP CCDS Ot N18.3 CHRONIC KIDNEY DISEASE, STAGE 3 (MODERAT 04/11/2016 ZEFERINO HARE FACC, KAYLEE MOP CCDS Ot Z72.0 TOBACCO USE 04/11/2016 ZEFERINO HARE FACC, KAYLEE FACP CCDS Ot Z79.899 OTHER DIRECTOR OF PROPERTY MANAGEMENT (CURRENT) DRUG THERAPY 04/11/2016 ZEFERINO HARE FACC, ALI FACP CCDS Ot 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 05/07/2016 ZEFERINO HARE FACC, ALI FACP CCDS Ot I12.9 HYPERTENSIVE CHRONIC KIDNEY DISEASE W ST 05/07/2016 ZEFERINO HARE FACC, ALI FACP CCDS Ot I25.10 ATHSCL HEART DISEASE OF [place] CORONARY 05/07/2016 ZEFERINO HARE FACC, ALI FACP CCDS Ot I49.01 VENTRICULAR FIBRILLATION 05/07/2016 ZEFERINO MD FACC, ALI FACP CCDS Ot N18.3 CHRONIC KIDNEY DISEASE, STAGE 3 (MODERAT 05/07/2016 ZEFERINO HARE FACC, ALI FACP CCDS Ot Z72.0 TOBACCO USE 05/07/2016 ZEFERINO HARE FACC, ALI FACP CCDS Ot Z79.899 OTHER DIRECTOR OF PROPERTY MANAGEMENT (CURRENT) DRUG THERAPY 05/07/2016 ZEFERINO HARE FACC, ALI FACP CCDS Ot 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 05/09/2016 ZEFERINO HARE FACC, ALI FACP CCDS Ot I12.9 HYPERTENSIVE CHRONIC KIDNEY DISEASE W ST 05/09/2016 ZEFERINO HARE FACC, ALI FACP CCDS Ot I25.10 ATHSCL HEART DISEASE OF [place] CORONARY 05/09/2016 ZEFERINO HARE FACC, ALI FACP CCDS Ot I49.01 VENTRICULAR FIBRILLATION 05/09/2016 ZEFERINO HARE FACC, ALI FACP CCDS Ot N18.3 CHRONIC KIDNEY DISEASE, STAGE 3 (MODERAT 05/09/2016 ZEFERINO HARE FACC, ALI FACP CCDS Ot Z72.0 TOBACCO USE 05/09/2016 ZEFERINO HARE FACC, ALI FACP CCDS Ot Z79.899 OTHER DIRECTOR OF PROPERTY MANAGEMENT (CURRENT) DRUG THERAPY 05/09/2016 ZEFERINO HARE FACC, ALI FACP CCDS Ot 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 06/14/2016 PANCHITO GONG BOWLING ALLEY MANAGER Ot I10 ESSENTIAL (PRIMARY) HYPERTENSION 06/14/2016 PANCHITO GONG APRN Ot K29.70 GASTRITIS, UNSPECIFIED, WITHOUT BLEEDING 06/14/2016 PANCHITO GONG APRN Ot R10.13 EPIGASTRIC PAIN 06/14/2016 PANCHITO GONG BOWLING ALLEY MANAGER Ot Z79.899 OTHER DIRECTOR OF PROPERTY MANAGEMENT (CURRENT) DRUG THERAPY 06/16/2016 PANCHITO GONG BOWLING ALLEY MANAGER Ot I10 ESSENTIAL (PRIMARY) HYPERTENSION 06/16/2016 PANCHITO GONG BOWLING ALLEY MANAGER Ot K29.70 GASTRITIS, UNSPECIFIED, WITHOUT BLEEDING 06/16/2016 PANCHITO GONG BOWLING ALLEY MANAGER Ot R10.13 EPIGASTRIC PAIN 06/16/2016 PANCHITO GONG BOWLING ALLEY MANAGER Ot Z79.899 OTHER [facility] (CURRENT) DRUG THERAPY 06/20/2016 MARGARITA BELLA MD [...] DO Ot I25.10 ATHSCL HEART DISEASE OF [place] CORONARY 06/20/2016 GREG NEAL DO Ot I25.2 [...] MD Ot I25.10 ATHSCL HEART DISEASE OF [place] CORONARY 06/25/2016 AUBREY RAMOS MD Ot I25.2 OLD MYOCARDIAL INFARCTION 06/25/2016 AUBREY RAMOS MD Ot N18.3 CHRONIC KIDNEY DISEASE, STAGE 3 (MODERAT 07/11/2016 ZEFERINO HARE FACC, ALI FACP CCDS Ot I10 ESSENTIAL (PRIMARY) HYPERTENSION 07/11/2016 ZEFERINO HARE FACC, ALI FACP CCDS Ot I25.10 ATHSCL HEART DISEASE OF [place] CORONARY 07/11/2016 ZEFERINO HARE FACC, ALI FACP CCDS Ot I46.2 CARDIAC ARREST DUE TO UNDERLYING CARDIAC 07/11/2016 ZEFERINO HARE FACC, ALI FACP CCDS Ot Z72.0 TOBACCO USE 07/15/2016 ZEFERINO HARE FACC, ALI FACP CCDS Ot I10 ESSENTIAL (PRIMARY) HYPERTENSION 07/15/2016 ZEFERINO HARE FACC, ALI FACP CCDS Ot I25.10 ATHSCL HEART DISEASE OF [place] CORONARY 07/15/2016 ZEFERINO HARE FACC, ALI FACP CCDS Ot I46.2 CARDIAC ARREST DUE TO UNDERLYING CARDIAC 07/15/2016 ZEFERINO HARE FACC, ALI FACP CCDS Ot Z72.0 TOBACCO USE 07/15/2016 KAROLINA CHRISTOPHER SHIP RIGGER Ot F17.210 NICOTINE DEPENDENCE, CIGARETTES, UNCOMPL 07/15/2016 KAROLINA CHRISTOPHER SHIP RIGGER Ot I12.9 HYPERTENSIVE CHRONIC KIDNEY DISEASE W ST 07/15/2016 KAROLINA CHRISTOPHER L SHIP RIGGER Ot I25.10 ATHSCL HEART DISEASE OF [place] CORONARY 07/15/2016 KAROLINA CHRISTOPHER L SHIP RIGGER Ot I70.1 ATHEROSCLEROSIS OF RENAL ARTERY 07/15/2016 KAROLINA CHRISTOPHER L SHIP RIGGER Ot N18.3 CHRONIC KIDNEY DISEASE, STAGE 3 (MODERAT 07/15/2016 BAIMA, KAROLINA L SHIP RIGGER Ot Z79.899 OTHER [facility] (CURRENT) DRUG THERAPY 07/15/2016 BAIMA, KAROLINA L SHIP RIGGER Ot Z86.73 PRSNL HX OF TIA (TIA), AND CEREB INFRC W 07/15/2016 BAIMA, KAROLINA L SHIP RIGGER Ot Z95.810 PRESENCE OF AUTOMATIC (IMPLANTABLE) CARD 08/15/2016 BAIMA, KAROLINA L SHIP RIGGER Ot F17.210 NICOTINE DEPENDENCE, CIGARETTES, UNCOMPL 08/15/2016 BAIMA, KAROLINA L SHIP RIGGER Ot I12.9 HYPERTENSIVE CHRONIC KIDNEY DISEASE W ST 08/15/2016 BAIMA, KAROLINA L SHIP RIGGER Ot I25.10 ATHSCL HEART DISEASE OF [place] CORONARY 08/15/2016 BAIMA, KAROLINA L SHIP RIGGER Ot I70.1 ATHEROSCLEROSIS OF RENAL ARTERY 08/15/2016 BAIMA, KAROLINA L SHIP RIGGER Ot N18.3 CHRONIC KIDNEY DISEASE, STAGE 3 (MODERAT 08/15/2016 BAIMA, KAROLINA L SHIP RIGGER Ot Z79.899 OTHER [facility] (CURRENT) DRUG THERAPY 08/15/2016 BAIMA, KAROLINA L SHIP RIGGER Ot Z86.73 PRSNL HX OF TIA (TIA), AND CEREB INFRC W 08/15/2016 BAIMA, KAROLINA L SHIP RIGGER Ot Z95.810 PRESENCE OF AUTOMATIC (IMPLANTABLE) CARD 08/26/2016 ZEFERINO HARE FACC, KAYLEE FACP CCDS Ot I10 ESSENTIAL (PRIMARY) HYPERTENSION 08/26/2016 ZEFERINO HARE FACC, KAYLEE FACP CCDS Ot I25.10 ATHSCL HEART DISEASE OF [place] CORONARY 08/26/2016 ZEFERINO HARE FACC, KAYLEE FACP CCDS Ot I46.2 CARDIAC ARREST DUE TO UNDERLYING CARDIAC 08/26/2016 ZEFERINO HARE FACC, KAYLEE FACP CCDS Ot Z72.0 TOBACCO USE 09/05/2016 ROHANBARBARA Farmer SHIP RIGGER Ot F17.210 NICOTINE DEPENDENCE, CIGARETTES, UNCOMPL 09/05/2016 ROHAN, BARBARA SHIP RIGGER Ot G44.209 TENSION-TYPE HEADACHE, UNSPECIFIED, NOT 09/05/2016 ROHAN, BARBARA SHIP RIGGER Ot I10 ESSENTIAL (PRIMARY) HYPERTENSION 09/05/2016 ROHAN, BARBARA SHIP RIGGER Ot R51 HEADACHE 09/05/2016 ROHAN, BARBARA SHIP RIGGER Ot Z79.02 [facility] (CURRENT) USE OF ANTITHROMBOTI 09/05/2016 ROHAN, BARBARA SHIP RIGGER Ot Z79.82 DIRECTOR OF PROPERTY MANAGEMENT (CURRENT) USE OF ASPIRIN 09/05/2016 ROHAN, BARBARA SHIP RIGGER Ot Z79.899 OTHER DIRECTOR OF PROPERTY MANAGEMENT (CURRENT) DRUG THERAPY 09/07/2016 ROHAN, BARBARA SHIP RIGGER Ot F17.210 NICOTINE DEPENDENCE, CIGARETTES, UNCOMPL 09/07/2016 ROHAN, BARBARA SHIP RIGGER Ot G44.209 TENSION-TYPE HEADACHE, UNSPECIFIED, NOT 09/07/2016 ROHAN, BARBARA SHIP RIGGER Ot I10 ESSENTIAL (PRIMARY) HYPERTENSION 09/07/2016 ROHAN, BARBARA SHIP RIGGER Ot R51 HEADACHE 09/07/2016 ROHAN, BARBARA SHIP RIGGER Ot Z79.02 [facility] (CURRENT) USE OF ANTITHROMBOTI 09/07/2016 ROHAN, BARBARA SHIP RIGGER Ot Z79.82 DIRECTOR OF PROPERTY MANAGEMENT (CURRENT) USE OF ASPIRIN 09/07/2016 ROHAN, BARBARA SHIP RIGGER Ot Z79.899 OTHER DIRECTOR OF PROPERTY MANAGEMENT (CURRENT) DRUG THERAPY 09/16/2016 ZEFERINO HARE FACC, ALI FACP CCDS Ot E27.5 ADRENOMEDULLARY HYPERFUNCTION 09/16/2016 ZEFERINO HARE FACC, ALI FACP CCDS Ot F17.210 NICOTINE DEPENDENCE, CIGARETTES, UNCOMPL 09/16/2016 ZEFERINO HARE FACC, ALI FACP CCDS Ot I10 ESSENTIAL (PRIMARY) HYPERTENSION 09/16/2016 ZEFERINO HARE FACC, ALI FACP CCDS Ot I25.10 ATHSCL HEART DISEASE OF [place] CORONARY 09/16/2016 ZEFERINO HARE FACC, ALI FACP [...] CCDS Ot I25.10 ATHSCL HEART DISEASE OF [place] CORONARY 09/16/2016 ZEFERINO HARE FACC, ALI FACP CCDS Ot I65.23 OCCLUSION AND STENOSIS OF BILATERAL [place] 09/28/2016 AROLDO OREILLY DO Ot F17.210 NICOTINE DEPENDENCE, CIGARETTES, UNCOMPL 09/28/2016 DENILSON DO, AROLDO K Ot I16.0 HYPERTENSIVE URGENCY 09/28/2016 DENILSON DO, AROLDO K Ot I25.10 ATHSCL HEART DISEASE OF [place] CORONARY 09/28/2016 DENILSON DO, AROLDO K Ot R51 HEADACHE 09/28/2016 DENILSON DOBIENVENIDOA K Ot Z79.899 OTHER [facility] (CURRENT) DRUG THERAPY 09/28/2016 DENILSON DOBIENVENIDOA K Ot Z95.810 PRESENCE OF AUTOMATIC (IMPLANTABLE) CARD 09/30/2016 DENILSON DOBIENVENIDOA K Ot F17.210 NICOTINE DEPENDENCE, CIGARETTES, UNCOMPL 09/30/2016 DENILSON DOBIENVENIDOA K Ot I16.0 HYPERTENSIVE URGENCY 09/30/2016 DENILSON DO, AROLDO K Ot I25.10 ATHSCL HEART DISEASE OF [place] CORONARY 09/30/2016 DENILSON DOBIENVENIDOA K Ot R51 HEADACHE 09/30/2016 DENILSON DOBIENVENIDOA K Ot Z79.899 OTHER [facility] (CURRENT) DRUG THERAPY 09/30/2016 DENILSON DOBIENVENIDOA K Ot Z95.810 PRESENCE OF AUTOMATIC (IMPLANTABLE) CARD 10/05/2016 GISELLA ALFONSO DO Ot I16.0 HYPERTENSIVE URGENCY 10/05/2016 GISELLA ALFONSO DO Ot R10.84 GENERALIZED ABDOMINAL PAIN 10/05/2016 GISELLA ALFONSO DO Ot Z79.02 [facility] (CURRENT) USE OF ANTITHROMBOTI 10/05/2016 GISELLA ALFONSO DO Ot Z79.82 [facility] (CURRENT) USE OF ASPIRIN 10/05/2016 GISELLA ALFONSO DO, Ot Z79.899 OTHER DIRECTOR OF PROPERTY MANAGEMENT (CURRENT) DRUG THERAPY 10/05/2016 GISELLA ALFONSO DO Ot Z95.810 PRESENCE OF AUTOMATIC (IMPLANTABLE) CARD 10/06/2016 GISELLA ALFONSO DO Ot I16.0 HYPERTENSIVE URGENCY 10/06/2016 GISELLA ALFONSO DO Ot R10.84 GENERALIZED ABDOMINAL PAIN 10/06/2016 GISELLA ALFONSO DO Ot Z79.02 DIRECTOR OF PROPERTY MANAGEMENT (CURRENT) USE OF ANTITHROMBOTI 10/06/2016 GISELLA ALFONSO DO Ot Z79.82 [facility] (CURRENT) USE OF ASPIRIN 10/06/2016 GISELLA ALFONSO DO Ot Z79.899 OTHER [facility] (CURRENT) DRUG THERAPY 10/06/2016 NATY DO GISELLA Martita Ot Z95.810 PRESENCE OF AUTOMATIC (IMPLANTABLE) CARD 10/07/2016 ZEFERINO HARE FACC, KAYLEE FACP CCDS Ot I10 ESSENTIAL (PRIMARY) HYPERTENSION 10/07/2016 ZEFERINO HARE FACC, ALI FACP CCDS Ot I25.10 ATHSCL HEART DISEASE OF [place] CORONARY 10/07/2016 ZEFERINO HARE FACC, ALI FACP CCDS Ot I46.2 CARDIAC ARREST DUE TO UNDERLYING CARDIAC 10/07/2016 ZEFERINO HARE FACC, ALI FACP CCDS Ot Z72.0 TOBACCO USE 11/24/2016 ZEFERINO HARE FACC, ALI FACP CCDS Ot E78.4 OTHER HYPERLIPIDEMIA 11/24/2016 ZEFERINO HARE FACC, ALI FACP CCDS Ot I10 ESSENTIAL (PRIMARY) HYPERTENSION 11/24/2016 ZEFERINO HARE FACC, ALI FACP CCDS Ot I25.10 ATHSCL HEART DISEASE OF [place] CORONARY 11/24/2016 ZEFERINO HARE FACC, KAYLEE FACP CCDS Ot I65.23 OCCLUSION AND STENOSIS [...] CCDS Ot I25.10 ATHSCL HEART DISEASE OF [place] CORONARY 11/25/2016 ZEFERINO HARE FACC, ALI FACP [...] NICOTINE DEPENDENCE, CIGARETTES, UNCOMPL 02/10/2017 ZEFERINO HARE FACC, KAYLEE FACP CCDS Ot I10 ESSENTIAL (PRIMARY) HYPERTENSION 02/10/2017 ZEFERINO HARE FACC, KAYLEE FACP CCDS Ot I25.10 ATHSCL HEART DISEASE OF [place] CORONARY 02/10/2017 ZEFERINO HARE FACC, KAYLEE FACP CCDS Ot I65.23 OCCLUSION AND STENOSIS OF BILATERAL [place] 02/13/2017 ZEFERINO HARE FACC, KAYLEE FACP CCDS Ot E27.5 ADRENOMEDULLARY HYPERFUNCTION 02/13/2017 ZEFERINO HARE FACC, ALI FACP CCDS Ot F17.210 NICOTINE DEPENDENCE, CIGARETTES, UNCOMPL 02/13/2017 ZEFERINO AHRE FACC, ALI FACP CCDS Ot I10 ESSENTIAL (PRIMARY) HYPERTENSION 02/13/2017 ZEFERINO HARE FACC, KAYLEE FACP CCDS Ot I25.10 ATHSCL HEART DISEASE OF [place] CORONARY 02/13/2017 ZEFERINO HARE FACC, KAYLEE FACP CCDS Ot I65.23 OCCLUSION AND STENOSIS OF BILATERAL [place] 03/14/2017 ROHAN BARBARA SHIP RIGGER Ot F17.210 NICOTINE DEPENDENCE, CIGARETTES, UNCOMPL 03/14/2017 ROHAN, BARBARA SHIP RIGGER Ot G44.209 TENSION-TYPE HEADACHE, UNSPECIFIED, NOT 03/14/2017 ROHAN, BARBARA SHIP RIGGER Ot I10 ESSENTIAL (PRIMARY) HYPERTENSION 03/14/2017 ROHAN BARBARA SHIP RIGGER Ot R51 HEADACHE 03/14/2017 ROHAN, BARBARA SHIP RIGGER Ot Z79.02 DIRECTOR OF PROPERTY MANAGEMENT (CURRENT) USE OF ANTITHROMBOTI 03/14/2017 ROHAN BARBARA SHIP RIGGER Ot Z79.82 [facility] (CURRENT) USE OF ASPIRIN 03/14/2017 ROHAN BARBARA SHIP RIGGER Ot Z79.899 OTHER DIRECTOR OF PROPERTY MANAGEMENT (CURRENT) DRUG THERAPY 01/02/2018 ZEFERINO HARE FACC, KAYLEE MOP CCDS Ot I10 ESSENTIAL (PRIMARY) HYPERTENSION 01/02/2018 ZEFERINO HARE FACC, KAYLEE FACP CCDS Ot I25.10 ATHSCL HEART DISEASE OF [place] CORONARY 01/02/2018 ZEFERINO HARE FACC, KAYLEE FACP CCDS Ot I46.2 CARDIAC ARREST DUE TO UNDERLYING CARDIAC 01/02/2018 ZEFERINO HARE FACC, KAYLEE FACP CCDS Ot Z72.0 TOBACCO USE 01/02/2018 ZEFERINO HARE FACC, KAYLEE FACP CCDS Ot E78.4 OTHER HYPERLIPIDEMIA 01/02/2018 ZEFERINO HARE FACC, [facility]E [facility] I10 ESSENTIAL (PRIMARY) HYPERTENSION 01/02/2018 ZEFERINO HARE FACC, [facility] Ot I25.10 ATHSCL HEART DISEASE OF [place] CORONARY 01/02/2018 KAYLEE BERNAL MD, FACC [facility] CCDS Ot I65.23 OCCLUSION AND STENOSIS OF BILATERAL [place] 01/02/2018 KAYLEE BERNAL MD, FACC, FACP CCDS Ot Z72.0 TOBACCO USE 01/02/2018 ZEFERINO HARE FACC, [facility]E [facility] Ot Z86.73 PRSNL HX OF TIA (TIA), AND CEREB INFRC W Procedures Code Description Performed By Performed On GFR CALC (RESULT ONLY) 09/15/2013 10770 CMP 09/15/2013 59850 ROUTINE VENIPUNCTURE 10/17/2013 24738 EKG, TRACING 10/17/20130461752 GFR CALC (RESULT ONLY) 10/17/2013 68866 BMP 10/17/2013 63217 MRI SPINE (CERVICAL) W/O CONTRAST 12/26/2013 2000F BLOOD PRESSURE CHECK 02/16/2014 General S Mandy Charlton 03/10/2014 98081 HIDA SCAN 03/15/2014 01628 US GALLBLADDER ULTRASOUND 03/22/2014 35278 ROUTINE VENIPUNCTURE 07/13/20143946202 GFR CALC (RESULT ONLY) 07/14/2014 06552 CMP 07/14/2014 66975 CRP 07/14/2014 21866 ROUTINE VENIPUNCTURE 07/18/2014 44442 URIC ACID 07/18/2014 28475 CRP 07/18/2014 67176 RA FACTOR 07/19/2014 33865 ASO 07/19/2014 ANAANA TWYLA ANALYZER (SCREEN) 07/19/2014 45361 ROUTINE VENIPUNCTURE 08/01/2014 73576 US RENAL ARTERY DOPPLER 08/01/2014 20500 CBC 08/01/2014 Cardiolog Kaylee Bernal 11/13/2014 37.22 01/02/2015 88.45 01/02/2015 88.53 01/02/2015 [...] urinalysis with reflex to culture NO NRG CMP - 12/14/17 11:54 GLUCOSE 102 mg/dL 65-99 [...] 16 U/L 10-35 ALT 21 U/L 9-46 Complete blood count (CBC) with automated white blood cell (WBC) differential - 01/02/18 14:24 Blood leukocytes automated count (number/volume) 9.2 10*3/uL 4.3-11.0 Blood erythrocytes automated count (number/volume) 4.96 10*6/uL 4.35-5.85 Venous blood hemoglobin measurement (mass/volume) 15.2 g/dL 13.3-17.7 Blood hematocrit (volume fraction) 45 % 40-54 Automated erythrocyte mean corpuscular volume 91 [foz_us] 80-99 Automated erythrocyte mean corpuscular hemoglobin (mass per erythrocyte) 31 pg 25-34 Automated erythrocyte mean corpuscular hemoglobin concentration measurement ( mass/volume) 34 g/dL 32-36 Automated erythrocyte distribution width ratio 14.4 % 10.0-14.5 Automated blood platelet count (count/volume) 358 10*3/uL 130-400 Automated blood platelet mean volume measurement 8.8 [foz_us] 7.4-10.4 Automated blood neutrophils/100 leukocytes 54 % 42-75 Automated blood lymphocytes/100 leukocytes 39 % 12-44 Blood monocytes/100 leukocytes 6 % 0-12 Automated blood eosinophils/100 leukocytes 1 % 0-10 Automated blood basophils/100 leukocytes 0 % 0-10 Blood neutrophils automated count (number/volume) 5.0 10*3 1.8-7.8 Blood lymphocytes automated count (number/volume) 3.6 10*3 1.0-4.0 Blood monocytes automated count (number/volume) 0.5 10*3 0.0-1.0 Automated eosinophil count 0.1 10*3/uL 0.0-0.3 Automated blood basophil count (count/volume) 0.0 10*3/uL 0.0-0.1 PT panel in platelet poor plasma by coagulation assay - 01/02/18 14:24 Prothrombin time (PT) in platelet poor plasma by coagulation assay 13.1 s 12.2-14.7 INR in platelet poor plasma or blood by coagulation assay 1.0 0.8-1.4 Activated partial thromboplastin time (aPTT) in platelet poor plasma bycoagulation assay - 01/02/18 14:24 Activated partial thromboplastin time (aPTT) in platelet poor plasma bycoagulation assay 28 s 24-35 Comprehensive metabolic panel - 01/02/18 14:24 Serum or plasma sodium measurement (moles/volume) 141 mmol/L 135-145 Serum or plasma potassium measurement (moles/volume) 4.0 mmol/L 3.6-5.0 Serum or plasma chloride measurement (moles/volume) 107 mmol/L 98-107 Carbon dioxide 23 mmol/L 21-32 Serum or plasma anion gap determination (moles/volume) 11 mmol/L 5-14 Serum or plasma urea nitrogen measurement (mass/volume) 15 mg/dL 7-18 Serum or plasma creatinine measurement (mass/volume) 1.08 mg/dL 0.60-1.30 Serum or plasma urea nitrogen/creatinine mass ratio 14 NRG Serum or plasma creatinine measurement with calculation of estimated glomerular filtration rate > NRG Serum or plasma glucose measurement (mass/volume) 112 mg/dL 70-105 Serum or plasma calcium measurement (mass/volume) 9.6 mg/dL 8.5-10.1 Serum or plasma total bilirubin measurement (mass/volume) 0.4 mg/dL 0.1-1.0 Serum or plasma alkaline phosphatase measurement (enzymatic activity/volume) 113 U/L 40-136 Serum or plasma aspartate aminotransferase measurement (enzymatic activity/ volume) 25 U/L 5-34 Serum or plasma alanine aminotransferase measurement (enzymatic activity/volume ) 59 U/L 0-55 Serum or plasma protein measurement (mass/volume) 7.4 g/dL 6.4-8.2 Serum or plasma albumin measurement (mass/volume) 4.5 g/dL 3.2-4.5 Magnesium - 01/02/18 14:24 Magnesium 2.2 mg/dL 1.8-2.4 Serum or plasma troponin i.cardiac measurement (mass/volume) - 01/02/18 14:24 Serum or plasma troponin i.cardiac measurement (mass/volume) < ng/ mL <0.30 Myoglobin, serum - 01/02/18 14:24 Myoglobin, serum 45.4 ng/mL 10.0-92.0 Encounters ACCT No. Visit Date/Time Discharge Status Pt. Type Provider Facility Loc./Unit Complaint [id number] 01/04/2015 15:01:00 01/04/2015 23:59:59 CLS Outpatient MARGARITA BELLA MD [id number] 11/13/2014 07:56:00 11/13/2014 23:59:59 CLS Outpatient MARGARITA BELLA MD [id number] 09/29/2014 13:47:00 09/29/2014 23:59:59 CLS Outpatient MARGARITA BELLA MD [id number] 08/01/2014 15:11:00 08/01/2014 23:59:59 CLS Outpatient MARGARITA BELLA MD [id number] 07/18/2014 16:07:00 07/18/2014 23:59:59 CLS Outpatient MARGARITA BELLA MD [id number] 07/13/2014 16:30:00 07/13/2014 23:59:59 CLS Outpatient GREG NEAL DO [id number] 06/19/2014 16:34:00 06/19/2014 23:59:59 CLS Outpatient MARGARITA BELLA MD [id number] 05/11/2014 10:36:00 05/11/2014 23:59:59 CLS Outpatient MARGARITA BELLA MD [id number] 04/06/2014 16:06:00 04/06/2014 23:59:59 CLS Outpatient MARGARITA BELLA MD [id number] 04/03/2014 09:44:00 04/03/2014 23:59:59 CLS Outpatient MARGARITA BELLA MD [id number] 03/10/2014 10:40:00 03/10/2014 23:59:59 CLS Outpatient MARGARITA BELLA MD [id number] 02/21/2014 16:21:00 02/21/2014 23:59:59 CLS Outpatient MARGARITA BELLA MD [id number] 02/16/2014 15:43:00 02/16/2014 23:59:59 CLS Outpatient GREG NEAL DO [id number] 12/26/2013 15:38:00 12/26/2013 23:59:59 CLS Outpatient MARGARITA BELLA MD [id number] 12/05/2013 13:13:00 12/05/2013 23:59:59 CLS Outpatient MARGARITA BELLA MD [id number] 11/14/2013 15:04:00 11/14/2013 23:59:59 CLS Outpatient MARGARITA BELLA MD [id number] 11/07/2013 11:34:00 11/07/2013 23:59:59 CLS Outpatient GREG NEAL DO [id number] 10/17/2013 14:52:00 10/17/2013 23:59:59 CLS Outpatient MARGARITA BELLA MD [id number] 09/15/2013 14:36:00 09/15/2013 23:59:59 [place] [id number] 12/14/2017 10:40:00 12/14/2017 23:59:59 CLS Outpatient MARGARITA BELLA MD [facility] [id number] 12/14/2017 10:40:00 Document Registration [id number] 11/25/2016 00:09:00 11/25/2016 23:59:59 CLS Preadmit ZEFERINO HARE FACC, KAYLEE MEDINA CCDS [facility] LAB HTN,HLP,HX OF TIA'S,CAD,CAROTID ARTERIAL DISEASE [id number] 08/28/2016 08:39:00 11/24/2016 00:01:00 DIS Outpatient ZEFERINO HARE FACC, KAYLEE MEDINA CCDS [facility] LAB HTN,HLP,HX OF TIA'S,CAD,CAROTID ARTERIAL DISEASE [id number] 10/08/2016 07:00:00 10/08/2016 23:59:59 CLS Preadmit ZEFERINO HARE FACC, KAYLEE MEDINA CCDS [facility] RAD HTN,CAD,CARDIAC ARREST [id number] 07/09/2016 07:22:00 10/07/2016 00:01:00 DIS Outpatient ZEFERINO HARE FACC, KAYLEE FACP CCDS [facility] RAD HTN,CAD, CARDIAC ARREST [id number] 10/04/2016 23:25:00 10/05/2016 01:17:00 DIS Emergency NATY DOGISELLA [facility] ER AB PAIN [id number] 09/28/2016 16:30:00 09/28/2016 20:36:00 DIS Emergency DENILSON JOHNSON AROLDO Nasrin [facility] ER HEADACHE [id number] 09/15/2016 07:57:00 09/15/2016 23:59:59 CLS Outpatient ZEFERINO HARE FACC, KAYLEE FACToni CCDS [facility] RAD PHEOCHROMOCYTOMA,HTN [id number] 09/05/2016 14:05:00 09/05/2016 20:25:00 DIS Outpatient BARBARA MARDIGAL [facility] ER ELEV BP/HEADACHE [id number] 07/15/2016 12:01:00 07/15/2016 18:05:00 DIS Outpatient KAROLINA CHRISTOPHERP [facility] CATH UNCONTROLLED HTN, RENAL ARTERY STENOSIS [id number] 06/24/2016 22:25:00 06/25/2016 15:37:00 DIS Inpatient AUBREY RAMOS MD [facility] ICU MALIGNENT HTN,HEADACHE, VOMITING [id number] 06/19/2016 19:30:00 06/20/2016 14:40:00 DIS Inpatient GREG NEAL DO [facility] ICU UNCONTROLLED HTN,CHEST PAIN [id number] 06/14/2016 14:33:00 06/14/2016 17:01:00 DIS Emergency PANCHITO GONG APRN [facility] ER ABD PAIN/HIGH BP [id number] 04/10/2016 07:04:00 04/11/2016 13:52:00 DIS Outpatient ZEFERINO HARE FACC, KAYLEE MEDINA CCDS [facility] SDC CARDIAC ARREST D/T VENTRICULAR FIBRILLATION,CAD [id number] 04/03/2016 21:03:00 04/04/2016 13:35:00 DIS Inpatient YORDY MOSES MD [facility] ICU MALIGNANT HDV [id number] 02/24/2016 12:52:00 02/24/2016 15:42:00 DIS Emergency ROBBIE ALDANA MD [facility] ER POST CODE [id number] 02/14/2015 17:09:00 02/16/2015 11:45:00 DIS Inpatient AUBREY RAMOS MD [facility] 4TH ACUTE PANCREATITIS, UNCONTROLLED HTN [id number] 01/02/2015 16:28:00 01/03/2015 14:35:00 DIS Inpatient KAYLEE BERNAL MD, FACC, FACP CCDS [facility] CSD CP,HTN,HLP [id number] 08/10/2014 09:52:00 08/10/2014 23:59:59 CLS Outpatient MARGARITA BELLA MD [facility] RAD RESISTANT HTN,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 [id number] 07/31/2014 09:37:00 07/31/2014 14:26:00 DIS Emergency SARAH CARVALHOMALATHI [facility] ER HEADACHE [id number] 04/26/2014 12:09:00 04/26/2014 15:35:00 DIS Outpatient MANDY CHARLTON DO [facility] SDC RECTAL BLEEDING [id number] 04/20/2014 07:30:00 04/20/2014 23:59:59 CLS Outpatient CHARLTON MANDY JOHNSON [facility] PREOP RECTAL BLEEDING [id number] 03/22/2014 07:59:00 03/22/2014 23:59:59 CLS Outpatient MARGARITA BELLA MD [facility] RAD PANCREATITIS [id number] 03/15/2014 11:38:00 03/15/2014 23:59:59 CLS Outpatient MARGARITA BELLA MD [facility] CARD ACUTE PANCREATITIS,ABD PAIN,HYPERTENSION [id number] 03/11/2014 21:05:00 03/13/2014 12:03:00 DIS Inpatient MINGO MCBRIDE MD [facility] 4TH ACUTE PANCREATITIS [id number] 02/21/2014 18:14:00 02/23/2014 14:30:00 DIS Inpatient MARGARITA BELLA MD [facility] CSD HYPERTENSION [id number] 01/03/2014 15:15:00 01/03/2014 23:59:59 CLS Outpatient MARGARITA BELLA MD [facility] RAD NECK PAIN,PAIN AND PARAESTHIESIA L ARM [id number] 10/19/2013 12:07:00 10/20/2013 18:20:00 DIS Inpatient GREG NEAL DO [facility] CSD CHEST PAIN HTN [id number] 01/02/2018 16:24:00 ACT Inpatient GREG NEAL DO [facility] ICU DEFIBRILLATOR DISCHARGE [id number] 12/31/2015 05:56:00 Document Registration [id number] 02/20/2010 17:08:00 Document Registration [id number] 07/04/2016 10:05:00 Document Registration
[2018-01-02 17:20] VITALS: BP 188/103
[2018-01-02] MEDS: CARVEDILOL 12.5 MG (COREG) TABLET PO SCH (17:35)
[2018-01-02] MEDS ORDERED: NEBI20TA2 PO (17:48)
[2018-01-02] MEDS ORDERED: GABA600T2 PO (17:48)
[2018-01-02 18:30] VITALS: BP 169/92
[2018-01-02 20:00] VITALS: BP 124/70
[2018-01-02 23:55] VITALS: BP 137/69
[2018-01-03] VITALS (13 sets, daily range): BP systolic 137–169; BP diastolic 68–93
[2018-01-03] MEDS ORDERED: HYDROcodone/APAP 5 MG/325 MG (LORTAB) TAB PO PRN (03:45)
[2018-01-03 04:11] LABS: HEMOGLOBIN 14.3 G/DL (13.3-17.7); MEAN PLATELET VOLUME 9.2 FL (7.4-10.4); RED BLOOD COUNT 4.72 10^6/uL (4.35-5.85); RED CELL DISTRIBUTION WIDTH 14.3 % (10.0-14.5); WHITE BLOOD COUNT 8.6 10^3/uL (4.3-11.0)
[2018-01-03 04:26] LABS: PROTHROMBIN TIME PATIENT 13.2 SEC (12.2-14.7)
[2018-01-03 04:37] LABS: ALANINE AMINOTRANSFERASE 45 U/L (0-55); ALKALINE PHOSPHATASE 96 U/L (40-136); BILIRUBIN,TOTAL 0.3 MG/DL (0.1-1.0); BUN/CREATININE RATIO 14; CARBON DIOXIDE 24 MMOL/L (21-32); CHLORIDE 107 MMOL/L (98-107); CHOLESTEROL 186 MG/DL (< 200); CREATININE SERUM 1.16 MG/DL (0.60-1.30); GFR ESTIMATED > 60; GLUCOSE 98 MG/DL (70-105); HDL CHOLESTEROL 33 MG/DL (40-60); MAGNESIUM 2.2 MG/DL (1.8-2.4); POTASSIUM 4.3 MMOL/L (3.6-5.0); SODIUM 140 MMOL/L (135-145); TOTAL PROTEIN 6.5 GM/DL (6.4-8.2); TRIGLYCERIDES 153 MG/DL (<150); VLDL CHOLESTEROL 31 MG/DL (5-40)
[2018-01-03] MEDS ORDERED: NS IV 1000 ML 1,000 ML IV SCH (08:15)
--- NOTE | 2018-01-03 08:20 | Cardiology Progress Note ---
Subjective Date Seen by Provider: Jan 03, 2018 Time Seen by Provider: 08:17 Subjective/Events-last exam Patient is sitting in a chair, feeling well. Denied any chest pain at this time. ICD interrogation reviewed and appear that he had appropriate shock for sudden episode. Review of Systems General: No Chills, No Night Sweats, No Fatigue, No Malaise, No Appetite, No Other HEENT: No Head Aches, No Visual Changes, No Eye Pain, No Ear Pain, No Dysphasia , No Sinus Congestion, No Post Nasal Drip, No Sore Throat, No Other Pulmonary: No Dyspnea, No Cough, No Pleuritic Chest Pain, No Other Cardiovascular: No: Chest Pain, Palpitations, Orthopnea, Paroxysmal Noc. Dyspnea, Edema, Lt Headedness, Other Objective-Cardiology Exam Last Set of Vital Signs Vital Signs 01/03/18 01/03/18 03:55 04:00 Temp 97.4 Pulse 55 Resp 16 B/P (MAP) 137/74 (95) Pulse Ox 94 O2 Delivery Room Air Capillary Refill : Less Than 3 Seconds I&O Intake and Output 01/03/18 00:00 Intake Total 350 ml Balance 350 ml Intake Oral 350 ml # Voids 2 Daily Weight Change No General: Alert, Oriented X3, Cooperative HEENT: Atraumatic, PERRLA Neck: Supple, No JVD, No Thyromegaly Lungs: Clear to Auscultation, Normal Air Movement Heart: Regular Rate, Normal S1, Normal S2, No Murmurs Abdomen: Normal Bowel Sounds, Soft, No Tenderness, No Hepatosplenomegaly, No Masses Extremities: No Clubbing, No Cyanosis, No Edema, Normal Pulses, No Tenderness/ Swelling Skin: No Rashes, No Breakdown, No Significant Lesion Neuro: Normal Gait, Normal Speech, Strength at 5/5 X4 Ext, Normal Tone, Sensation Intact Psych/Mental Status: Mental Status NL, Mood NL Results Lab Laboratory Tests 01/02/18 14:24 01/03/18 03:45 A/P-Cardiology Admission Diagnosis Chest pain nonspecific etiology Ventricular fibrillation Coronary artery disease Hypertension Hyperlipidemia Assessment/Plan Chest pain nonspecific etiology, has been having recurrent episodes of chest pain for the past few days. Status post syncope secondary to ventricular fibrillation and shock from his defibrillator. Planning to proceed with cardiac catheterization Syncope, patient had ventricular fibrillation and a shock from his defibrillator occurred on December 30, 2017 received appropriate shock from his defibrillator. Coronary artery disease, had a cardiac catheterization done by Dr. Nieves at [place] on February 27, 2016 showing moderate noncritical coronary artery disease with ejection fraction 40%, planning to repeat cardiac catheterization History of ventricular fibrillation and cardiac arrest in January 2016 with prolonged hospitalization in [place], another episode occurred on December 30, 2017 , received appropriate shock. History of hypertension, difficult to control with history of noncompliance with medication, questionable history of pheochromocytoma with elevated epinephrine and norepinephrine in 24 hour urine collection, patient was referred for endocrinology evaluation. History of renal artery stenosis mild to moderate by angiogram done by Dr. Bernal Chronic kidney disease stage II to 3, continue to monitor renal function Tobaccoism, patient was educated on smoking cessation History of TIA reported to have an episode in 2011. No recent episodes. Hyperlipidemia, continue to monitor lipids History of mild carotid stenosis, nonobstructive disease History of noncompliance with medications Clinical Quality Measures DVT/VTE Risk/Contraindication: Risk Factor Score Per Nursin RFS Level Per Nursing on Admit: 2=Moderate YORDY MOSES MD Jan 03, 2018 08:20
--- NOTE | 2018-01-03 08:21 | Cardiac Procedure Note-CS/ASA ---
Pre-Procedure Note Pre-Op Procedure Note H&P Reviewed The H&P was reviewed, patient examined and no changes noted. Date H&P Reviewed: Jan 03, 2018 Time H&P Reviewed: 08:20 Conscious Sedation Pre-Proced Time Reviewed: 08:20 ASA Class: 3 Airway Mallampati Classification: (barrow appropriate class) I. II. III, IV Lungs Heart ASA score ASA 1: a normal healthy patient ASA 2: a patient with a mild systemic disease (mid diabetes, controlled hypertension, obesity x ASA 3: a patient with a severe systemic disease that limits activity (angina , COPD, prior Myocardial infarction) ASA 4: a patient with an incapacitating disease that is a constant threat to life (CHF, renal failure) ASA 5: a moribund patient not expected to survive 24 hrs. (ruptured aneurysm) ASA 6: a declared brain patient whose organs are being harvested. For emergent operations, add the letter E after the classification Grade 3 Sedation Plan: Analgesia, Amnesia, Plan communicated to team members, Discussed options with patient/fam, Discussed risks with patient/fam Note The patient is an appropriate candidate to undergo the planned procedure, sedation, and anesthesia. The patient immediately re-assessed prior to indication. YORDY MOSES MD Jan 03, 2018 08:21
[2018-01-03] MEDS ORDERED: LIDOCAINE 1% INJ 50 ML (XYLOCAINE) VIAL ONE (08:25)
[2018-01-03] MEDS ORDERED: MIDAZOLAM 5 MG/5 ML (VERSED) VIAL ONE (08:26)
[2018-01-03] MEDS ORDERED: VERAPAMIL 5 MG/2 ML (CALAN) VIAL IV ONE (08:26)
[2018-01-03] MEDS ORDERED: fentaNYL INJECTION 100 MCG/2 ML AMP ONE (08:26)
[2018-01-03] MEDS ORDERED: HEParin 1000 UNIT/ML (10ML VIAL) FOR BOLUS ONE (08:26)
[2018-01-03] MEDS ORDERED: HEParin (CATH LAB) 2,000 ML IV ONE (08:26)
[2018-01-03] MEDS ORDERED: NITRO DRIP 25000 MCG/D5W 250 ML IV ONE (08:27)
[2018-01-03] MEDS: CARVEDILOL 12.5 MG (COREG) TABLET PO SCH ×2 (09:00→20:08)
[2018-01-03] MEDS ORDERED: GABAPENTIN 600 MG (NEURONTIN) TAB PO SCH ×2 (09:00→13:00)
[2018-01-03] MEDS ORDERED: ASPIRIN E.C. 325 MG (ECOTRIN) TABLET PO SCH (09:00)
[2018-01-03] MEDS ORDERED: ENOXAPARIN 100 MG/1 ML (LOVENOX) SYR ONE (09:39)
[2018-01-03] MEDS ORDERED: CLOPIDOGREL 300 MG (PLAVIX) TABLET PO ONE (10:38)
[2018-01-03] MEDS ORDERED: ASPIRIN 81 MG CHEW (CHILDREN'S ASA) ONE (10:39)
[2018-01-03] MEDS: NS IV 1000 ML 1,000 ML IV SCH ×2 (10:41→20:10)
[2018-01-03] MEDS ORDERED: NITROGLYCERIN 0.4 MG SL TABS BTL 25'S SL PRN (10:45)
[2018-01-03] MEDS ORDERED: PATIENT MAY USE OWN MEDS, ALL PO SCH (10:45)
--- NOTE | 2018-01-03 10:53 | Cardiac Cath Report ---
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 The patient signed the consent and then he was placed on the cardiac catheterization laboratory. Groin and wrist was prepped SL fashion local anesthesia was used. Sheath placed in the radial artery, diagnostic angiogram was done using Ronald catheter, left ventriculogram was done. Patient had subtotal occlusion of the right coronary artery decided to proceed with percutaneous intervention. I was unable to advance the guide through the brachial area, I decided to proceed from the groin, 6 [place] sheath was placed in the right femoral artery, patient was given 70 mg of Lovenox IV FR guide was used to access the right coronary artery, I was unable to advance the wire through the subtotal occlusion, used BMW wire. I used 2.020 mm balloon for support, I was able to advance the wire to the distal right coronary artery but was unable to advance the balloon. After multiple attempts I exchanged the balloon into 1.5 x12 millimeter bur balloon, advanced with multiple inflation then I used 2.520 mm balloon and did multiple inflation then proceeded with the first stent deployment at the distal right coronary artery using Alpine 2.533 mm deployed successfully, proximal to the stent there was still significant stenosis at used 2.528 mm overlapping stent, kept having dampening of the pressure at the ostium of the right coronary artery I decided to deploy a third stent 2.7528 extending from the ostium, postdilatation proximally was up to 3 mm and distally up to 2.75 mm with excellent results. I used total of 190 ml of contrast, decided to stage the LAD for later point At the end of the procedure the sheath was removed. Closure device Was used of the groin, vascular band was used to the wrist. FINDINGS: Hemodynamics LV 142/22, end-diastolic pressure of 22 Aorta 156/85 mean of 110 ANATOMY: Left Main has mild disease nonobstructive disease Left Anterior Descending has moderate to severe stenosis at the proximal/ostial LAD, will need intervention at a later point Left Circumflex has mfmi-ay-yuvkjhlf disease nonobstructive disease Right Coronory Artery his dominant artery with subtotal occlusion, collateral filling the distal right from the left system. Complex intervention with multiple balloons and stent, using 3 overlapping alpine stent extending from the ostium to the distal right coronary artery starting with 2.7528 followed by 2.5 x 28 and 2.5 x 33 with excellent results. Moderate disease at the distal small branches. LV Gram was done showing prominent left ventricle with mild diffuse left ventricular hypokinesia estimated ejection fraction 45 percent CONCLUSION: 1. Subtotal occlusion of the right coronary artery, complex intervention with multiple balloons and stent deployment extending from the ostium of the right coronary artery to the distal portion using 3 Alpine stents at the ostium 2.75 28, mid 2.5 x 28 and distal 2.5 x 33 expanded at the ostium to 3.0 mm and distally to 2.75 with excellent result, mild to moderate disease distally. 2. Moderate to severe proximal/ostial LAD stenosis that was staged to be intervened on at a later point during this admission 3. Qmhd-yc-dpaqtbqa disease otherwise 4. Prominent left ventricle with mild diffuse left ventricular hypokinesia, ejection fraction 45% 5. Severe hypertension during procedure DISCUSSION AND RECOMMENDATION: Continue maximizing medical therapy, patient will need evaluation for the LAD, possible FFR in addition to maximizing medical therapy Anesthesia Type: Conscious Sedation Estimated blood loss (mL): 20 ml Contrast Amount: 191 ml Total Radiation Dose: 2215 mGy Post-Procedure Diagnosis Post-operative diagnosis: Intraocular fibrillation Sudden cardiac Coronary artery disease Congestive heart failure, chronic left ventricle systolic dysfunction, ischemic cardiomyopathy YORDY MOSES MD Jan 03, 2018 10:53
[2018-01-03] MEDS: CLOPIDOGREL 75 MG (PLAVIX) TABLET PO SCH (12:16)
[2018-01-03] MEDS: GABAPENTIN 600 MG (NEURONTIN) TAB PO SCH ×2 (13:00→20:08)
--- NOTE | 2018-01-03 13:47 | History & Physicial (CHS) ---
HPI History of Present Illness: This is a 57 yo male with hx of CAD s/p cardiac arrest following AMI. 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 He does not remember the details of the event. He was contacted by Dr. Bernal's office and told that his defibrillator had discharge. Pt went to [facility] ER and left AMA and game to ER. He reports intermittent chest pain for the past couple of weeks. He has been admitted with plans for heart cath today by Dr. Flores. Source: patient Exam Limitations: no limitations Date seen by provider: Jan 03, 2018 Time Seen by Provider: 07:05 Attending Physician Klarissa Mathis DO PCP [place] MD Consult Date of Admission Jan 02, 2018 at 16:24 Home Medications Home Medications Reviewed patient Home Medication Reconciliation performed by pharmacy medication reconciliations insulation technician and/or nursing. Patients Allergies have been reviewed. Allergies Coded Allergies: clonidine (Verified Adverse Reaction, Unknown, 09/28/16) CATAPRESS PATCH HAS RED AREA AT SITE. WPO-[id number]-Lelcsv Hx Patient Social History Alcohol Use: Denies Use Recreational Drug Use: No Smoking Status: Current Everyday Smoker Type Used: Cigarettes Recent Foreign Travel: No Contact w/other who traveled: No Recent Hopitalizations: No Recent Infectious Disease Expo: No Physical Abuse Screen: No Sexual Abuse: No Immunizations Up To Date Tetanus Booster (TDap): Unknown Date of Influenza Vaccine: Jun 18, 2016 Past Medical History Past Medical History 1. HTN 2. DJD 3. Headache 4. Tobaccoism 5. Hx alcohol and illicit drug use 6. Coronary Artery Disease 7. 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 Hyperlipidemia 9. Reported history of rectal bleeding with normal colonoscopy with [facility] 04/10 10. Prediabetes- HgA1C 6.2 10/11 11. hx of cardiac arrest 01/2016; defibrillator placed Past Surgical History 1. Left Carpal tunnel with median nerve transposition 2. Tonsillectomy 3. Back surgery 2004 4.Cardiac Cath 01/[address] Bernal demonstrating moderate coronary artery disease without intervention required. 5. Colonsocopy- [facility] normal Family Medical History Significant Family History: No Pertinent Family Hx Family History: Cardiovascular disease Review of Systems (CHC) Constitutional: see HPI Reviewed Test Results Reviewed Test Results Lab Laboratory Tests 01/02/18 14:24: White Blood Count 9.2, Red Blood Count 4.96, Hemoglobin 15.2, Hematocrit 45, Mean Corpuscular Volume 91, Mean Corpuscular Hemoglobin 31, Mean Corpuscular Hemoglobin Concent 34, Red Cell Distribution Width 14.4, Platelet Count 358, Mean Platelet Volume 8.8, Neutrophils (%) (Auto) 54, Lymphocytes (%) (Auto) 39, Monocytes (%) (Auto) 6, Eosinophils (%) (Auto) 1, Basophils (%) (Auto) 0, Neutrophils # (Auto) 5.0, Lymphocytes # (Auto) 3.6, Monocytes # (Auto) 0.5, Eosinophils # (Auto) 0.1, Basophils # (Auto) 0.0, Prothrombin Time 13.1, INR Comment 1.0, Activated Partial Thromboplast Time 28, Sodium Level 141, Potassium Level 4.0, Chloride Level 107, Carbon Dioxide Level 23, Anion Gap 11, Blood Urea Nitrogen 15, Creatinine 1.08, Estimat Glomerular Filtration Rate > 60 , BUN/Creatinine Ratio 14, Glucose Level 112H, Calcium Level 9.6, Magnesium Level 2.2, Total Bilirubin 0.4, Aspartate Amino Transf (AST/SGOT) 25, Alanine Aminotransferase (ALT/SGPT) 59H, Alkaline Phosphatase 113, Myoglobin 45.4, Troponin I < 0.30, Total Protein 7.4, Albumin 4.5 01/02/18 23:15: Troponin I < 0.30 01/03/18 03:45: White Blood Count 8.6, Red Blood Count 4.72, Hemoglobin 14.3, Hematocrit 44, Mean Corpuscular Volume 92, Mean Corpuscular Hemoglobin 30, Mean Corpuscular Hemoglobin Concent 33, Red Cell Distribution Width 14.3, Platelet Count 360, Mean Platelet Volume 9.2, Prothrombin Time 13.2, INR Comment 1.0, Activated Partial Thromboplast Time 29, Sodium Level 140, Potassium Level 4.3, Chloride Level 107, Carbon Dioxide Level 24, Anion Gap 9, Blood Urea Nitrogen 16, Creatinine 1.16, Estimat Glomerular Filtration Rate > 60, BUN/Creatinine Ratio 14, Glucose Level 98, Calcium Level 9.0, Magnesium Level 2.2, Total Bilirubin 0.3, Aspartate Amino Transf (AST/SGOT) 20, Alanine Aminotransferase (ALT/SGPT) 45, Alkaline Phosphatase 96, Troponin I < 0.30, Total Protein 6.5, Albumin 4.0, Triglycerides Level 153H, Cholesterol Level 186, LDL Cholesterol Direct 130H, VLDL Cholesterol 31, HDL Cholesterol 33L Physical Exam-([facility]) Physical Exam Vital Signs VS - Last 72 Hours, by Label 01/02/18 01/02/18 01/02/18 01/02/18 14:08 16:34 17:20 18:30 Temp 98.0 98.1 Pulse 90 56 59 Resp 18 18 16 B/P (MAP) 136/102 (113) 171/96 188/103 (131) 169/92 (117) Pulse Ox 100 99 98 O2 Delivery Room Air Room Air 01/02/18 01/02/18 01/02/18 01/02/18 19:00 20:00 20:00 21:00 Temp 97.8 Pulse 63 59 Resp 18 B/P (MAP) 124/70 (88) Pulse Ox 96 96 96 O2 Delivery Room Air Room Air Room Air 01/02/18 01/02/18 01/03/18 01/03/18 23:55 23:55 01:00 03:55 Temp 97.2 97.4 Pulse 59 59 55 Resp 18 16 B/P (MAP) 137/69 (91) 137/74 (95) Pulse Ox 97 97 94 O2 Delivery Room Air Room Air Room Air 01/03/18 01/03/18 04:00 07:00 Pulse 57 Pulse Ox 94 O2 Delivery Room Air Capillary Refill : Less Than 3 Seconds General Appearance: WD/WN HEENT: PERRL/EOMI Respiratory: lungs clear, normal breath sounds Cardiovascular: regular rate, rhythm, no edema Gastrointestinal: non tender, soft Neurologic/Psychiatric: alert, normal mood/affect, oriented x 3 Assessment/Plan Assessment/Plan Admission Dx 1. Chest pain 2. CAD s/p cardiac arrest w/ defibrillator placement 3. ICD discharge this week Admission Status: Observation Assessment & Plan 1. Chest pain 2. CAD s/p cardiac arrest w/ defibrillator placement 3. ICD discharge this week Heart cath per Dr. Flores today. Home medications restarted by Dr. Flores. Clinical Quality Measures DVT/VTE Risk/Contraindication: Risk Factor Score Per Nursin RFS Level Per Nursing on Admit: 2=Moderate KLARISSA MATHIS DO Jan 03, 2018 13:47
[2018-01-03] MEDS ORDERED: ATOR20TA66 PO (14:58)
[2018-01-03] MEDS ORDERED: DOXA8TAB73 PO (14:58)
[2018-01-03] MEDS ORDERED: AMLO10TA2 PO (14:58)
[2018-01-03] MEDS ORDERED: HYDR-3816 PO (14:58)
[2018-01-03] MEDS ORDERED: NEBI20TA2 PO (14:58)
[2018-01-03] MEDS: HYDROcodone/APAP 7.5 MG/325 MG (LORTAB, LORCET PLUS) TABLET PO PRN (18:50)
[2018-01-03] MEDS: ATORVASTATIN 20 MG (LIPITOR) TABLET PO SCH (20:09)
[2018-01-03] MEDS: ATORVASTATIN 40 MG (LIPITOR) TABLET PO SCH (20:09)
[2018-01-03] MEDS ORDERED: ATORVASTATIN 40 MG (LIPITOR) TABLET PO SCH (21:00)
[2018-01-04] VITALS: BP 152/77
[2018-01-04 03:25] VITALS: BP 154/84
[2018-01-04 03:31] LABS: HEMOGLOBIN 14.3 G/DL (13.3-17.7); MEAN PLATELET VOLUME 8.7 FL (7.4-10.4); RED BLOOD COUNT 4.68 10^6/uL (4.35-5.85); WHITE BLOOD COUNT 7.3 10^3/uL (4.3-11.0)
[2018-01-04 03:49] LABS: CALCIUM 8.8 MG/DL (8.5-10.1); CREATININE SERUM 1.25 MG/DL (0.60-1.30); POTASSIUM 4.1 MMOL/L (3.6-5.0)
[2018-01-04] MEDS: GABAPENTIN 600 MG (NEURONTIN) TAB PO SCH ×3 (05:06→20:50)
[2018-01-04] MEDS: HYDROcodone/APAP 7.5 MG/325 MG (LORTAB, LORCET PLUS) TABLET PO PRN ×3 (05:06→20:48)
[2018-01-04] MEDS: NS IV 1000 ML 1,000 ML IV SCH ×2 (05:38→20:55)
[2018-01-04 08:00] VITALS: BP 136/79
[2018-01-04] MEDS: CARVEDILOL 12.5 MG (COREG) TABLET PO SCH ×2 (08:34→20:48)
[2018-01-04] MEDS: CLOPIDOGREL 75 MG (PLAVIX) TABLET PO SCH (08:34)
[2018-01-04] MEDS: ASPIRIN E.C. 81 MG (ECOTRIN) TAB PO SCH (08:34)
[2018-01-04] MEDS: lisINopril 40 MG (PRINIVIL) TABLET PO SCH (08:35)
[2018-01-04] MEDS: amLODIPine 10 MG (NORVASC) TAB PO SCH (08:35)
--- NOTE | 2018-01-04 08:48 | Progress Note-Cardiology ---
Cardiology SOAP Progress Note Subjective: In bed. Reports he is feeling better than at the time of admission. No c/o CP , palpitations, syncope or near syncope. C/O some mild to mod dyspnea with exertion. No c/o right groin discomfort. Objective: I&O/Vital Signs 01/04/18 01/04/18 01/04/18 01/04/18 07:00 08:00 08:30 08:30 Temp 97.2 Pulse 65 75 Resp 18 B/P (MAP) 136/79 (98) Pulse Ox 98 O2 Delivery Room Air Room Air Room Air 01/04/18 01/04/18 01/04/18 01/04/18 12:00 12:05 13:00 16:15 Temp 97.7 Pulse 62 62 Resp 18 B/P (MAP) 159/61 (93) Pulse Ox 97 O2 Delivery Room Air Room Air Room Air 01/04/18 16:40 Temp 97.5 Pulse 61 Resp 18 B/P (MAP) 157/90 (112) Pulse Ox 96 O2 Delivery Room Air 01/04/18 00:00 Intake Total 385 ml Output Total 950 ml Balance -565 ml Weight (Pounds): 209 Weight (Ounces): 0.0 Weight (Calculated Kilograms): 94.848123 Side: right Groin site without hematoma: Yes Condition: DP/PT pulses palpable, extremity w/d/p Bruising: mild bruising Constitutional: AAO x 3 Respiratory: No accessory muscle use, No respiratory distress, wheezing (exp), other (prolonged expiratory phase) Cardiovascular: regular rate-rhythm, No JVD, S1 and S2 Gastrointestional: No tender, soft, audible bowel sounds Extremities: no lower extremity edema bilateral Neurologic/Psychiatric: grossly intact Skin: No rash, No ulcerations Results/Procedures: Labs Laboratory Tests 01/04/18 03:20: White Blood Count 7.3, Red Blood Count 4.68, Hemoglobin 14.3, Hematocrit 43, Mean Corpuscular Volume 91, Mean Corpuscular Hemoglobin 31, Mean Corpuscular Hemoglobin Concent 34, Red Cell Distribution Width 14.0, Platelet Count 346, Mean Platelet Volume 8.7, Sodium Level 140, Potassium Level 4.1, Chloride Level 107, Carbon Dioxide Level 22, Anion Gap 11, Blood Urea Nitrogen 18, Creatinine 1.25, Estimat Glomerular Filtration Rate 59, BUN/Creatinine Ratio 14, Glucose Level 100, Calcium Level 8.8 Laboratory Tests 01/03/18 03:45 01/04/18 03:20 Procedures S/P cardiac cath with successful intervention on 01-03-[address] Flores A/P: Assessment: CAD - Cardiac cath of 01-03-[address] Flores: Subtotal occlusion of the right coronary artery, treated with 3 Alpine Xience stents 2.7528 ostial/prox, 2.5 x 28 mid, and 2.5 x 33 distal, expanded at the ostium to 3.0 mm and distally to 2.75; moderate disease in distal RCA. Moderate to severe proximal/ostial LAD and severe prox/mid stenoses of BINTA. Prominent left ventricle with mild diffuse left ventricular hypokinesia, ejection fraction 45%. Severe hypertension during procedure Syncope, patient had ventricular fibrillation and a shock from his defibrillator occurred on December 30, 2017 received appropriate shock from his defibrillator. History of ventricular fibrillation and cardiac arrest in January 2016 with prolonged hospitalization in [place], another episode occurred on December 30, 2017 , received appropriate shock. History of hypertension, difficult to control with history of noncompliance with medication, questionable history of pheochromocytoma with elevated epinephrine and norepinephrine in 24 hour urine collection, patient was referred for endocrinology evaluation. History of renal artery stenosis mild to moderate by angiogram done by Dr. Bernal Chronic kidney disease stage 2 to 3, continue to monitor renal function Tobaccoism, patient was educated on smoking cessation History of TIA reported to have an episode in 2011. No recent episodes. Hyperlipidemia - statin tx History of mild carotid stenosis, nonobstructive disease History of noncompliance with medications and medical instructions Plan: Continue current regimen including ASA, Plavix and statin Discussed his CV status with him and answered questions Intervention to LAD planned for tomorrow Discussed importance of medication and medical instruction compliance Advised immediate and complete smoking cessation Resume anti-hypertensive regimen - BB, CALLIE (-), and calcium channel venancio - adjust antihypertensives as indicated Monitor lab closely Physician Assessment Physician Assessment No cp or palp or syncope Lungs: good bilat air entry Cor: reg R wrist: swelling and bruising at site of radial a access R groin: swelling and bruising at site of fem a access A&R * As documented in our note above that I updated (italics) and as noted below * I reviewed his records and his cath films * I spoke with him and answered questions and discussed cath findings and interventions undertaken and interventions planned * Plan LAD intervention tomorrow and LCX intervention at a later date * Rationale, procedure, risks, benefits, potential complications, and alternatives of cath/PCI reviewed, including his additional risk of contrast nephropathy (given baseline CKD). He understands and provides informed consent KAROLINA CHRISTOPHER [facility] Jan 04, 2018 08:47 DAMARIS BERNAL MD [facility] Jan 04, 2018 18:42
[2018-01-04] MEDS ORDERED: lisINopril 40 MG (PRINIVIL) TABLET PO SCH (09:00)
[2018-01-04] MEDS ORDERED: amLODIPine 10 MG (NORVASC) TAB PO SCH (09:00)
[2018-01-04] MEDS: NICOTINE 21 MG (NICODERM) PATCH TD SCH (09:03)
[2018-01-04 12:00] VITALS: BP 159/61
--- NOTE | 2018-01-04 16:15 | Progress Note (SOAP) ---
Subjective Subjective/Events-last exam 57 yo M with known CAD with h/o IN with Cardiac Arrest that presented with worsening chest pain. Today states that pain is resolved and he is feeling much better. Has been up walking around ICU. Tolerating PO diet. Review of Systems Date Seen by Provider: Jan 04, 2018 Time Seen by Provider: 10:00 Pulmonary: No Dyspnea Cardiovascular: No: Chest Pain, Palpitations Musculoskeletal: arm pain (Right Arm from Cath site) Objective Exam Last Set of Vital Signs Vital Signs Date Time Temp Pulse Resp B/P (MAP) Pulse Ox O2 Delivery O2 Flow Rate FiO2 01/04/18 13:00 62 01/04/18 12:05 Room Air 01/04/18 12:00 97.7 18 159/61 (93) 97 Capillary Refill : Less Than 3 Seconds I&O Intake and Output 01/04/18 00:00 Intake Total 520 ml Output Total 950 ml Balance -430 ml Intake Oral 520 ml Output Urine Total 950 ml # Voids 3 General: Alert, Oriented X3, Cooperative, No Acute Distress Lungs: Clear to Auscultation, Normal Air Movement Heart: Regular Rate, No Murmurs Abdomen: Normal Bowel Sounds, Soft, No Tenderness, No Hepatosplenomegaly, No Masses Extremities: No Edema, No Tenderness/Swelling Skin: Other (Cath site C/D/I w/o hematoma) Results/Procedures Lab Laboratory Tests 01/04/18 03:20: White Blood Count 7.3, Red Blood Count 4.68, Hemoglobin 14.3, Hematocrit 43, Mean Corpuscular Volume 91, Mean Corpuscular Hemoglobin 31, Mean Corpuscular Hemoglobin Concent 34, Red Cell Distribution Width 14.0, Platelet Count 346, Mean Platelet Volume 8.7, Sodium Level 140, Potassium Level 4.1, Chloride Level 107, Carbon Dioxide Level 22, Anion Gap 11, Blood Urea Nitrogen 18, Creatinine 1.25, Estimat Glomerular Filtration Rate 59, BUN/Creatinine Ratio 14, Glucose Level 100, Calcium Level 8.8 Assessment/Plan Assessment/Plan Admission Status: Inpatient Order (span 2 midnights) Reason for Inpatient Admission: Requires additional cardiac procedures for stenting (1) Chest pain Status: Acute Assessment & Plan: - Known CAD with stenting yesterday, Dr Bernal plans to stent LAD tomorrow Qualifiers: (2) CAD (coronary artery disease) Status: Chronic Assessment & Plan: - See Above, Cardiology managing Qualifiers: Qualified Codes: I25.110 - Atherosclerotic heart disease of [place] coronary artery with unstable angina pectoris (3) CKD (chronic kidney disease) stage 2, GFR 60-89 ml/min Status: Chronic Assessment & Plan: - Given a large amount on contrast today - Discussed the importance of hydration today to help flush out contrast - Repeat BMP in AM (4) Hyperlipemia Status: Acute (5) Uncontrolled hypertension Status: Chronic (6) Tobacco abuse Status: Chronic Assessment & Plan: - Discussed the importance of cessation given severity of CAD Clinical Quality Measures DVT/VTE Risk/Contraindication: Risk Factor Score Per Nursin RFS Level Per Nursing on Admit: 2=Moderate POLINA BELTRAN MD Jan 04, 2018 16:15
[2018-01-04 16:40] VITALS: BP 157/90
[2018-01-04 20:00] VITALS: BP 139/69
[2018-01-04] MEDS: ATORVASTATIN 20 MG (LIPITOR) TABLET PO SCH (20:49)
[2018-01-04] MEDS: ATORVASTATIN 40 MG (LIPITOR) TABLET PO SCH (22:38)
[2018-01-05] VITALS (16 sets, daily range): BP systolic 108–169; BP diastolic 68–98
[2018-01-05 04:01] LABS: HEMOGLOBIN 14.8 G/DL (13.3-17.7); MEAN PLATELET VOLUME 9.2 FL (7.4-10.4); RED BLOOD COUNT 4.85 10^6/uL (4.35-5.85); RED CELL DISTRIBUTION WIDTH 13.9 % (10.0-14.5); WHITE BLOOD COUNT 7.5 10^3/uL (4.3-11.0)
[2018-01-05 04:19] LABS: BUN/CREATININE RATIO 17; CALCIUM 8.8 MG/DL (8.5-10.1); CARBON DIOXIDE 24 MMOL/L (21-32); CHLORIDE 109 MMOL/L (98-107); CREATININE SERUM 1.16 MG/DL (0.60-1.30); GFR ESTIMATED > 60; GLUCOSE 95 MG/DL (70-105); SODIUM 141 MMOL/L (135-145)
[2018-01-05] MEDS ORDERED: NS IV 1000 ML 1,000 ML IV SCH (06:00)
[2018-01-05] MEDS: CARVEDILOL 12.5 MG (COREG) TABLET PO SCH ×2 (08:31→20:21)
[2018-01-05] MEDS: NICOTINE 21 MG (NICODERM) PATCH TD SCH (08:31)
[2018-01-05] MEDS: ASPIRIN E.C. 81 MG (ECOTRIN) TAB PO SCH (08:32)
[2018-01-05] MEDS: NICOTINE PATCH REMOVAL TP SCH (08:33)
[2018-01-05] MEDS: CLOPIDOGREL 75 MG (PLAVIX) TABLET PO SCH (08:33)
[2018-01-05] MEDS: amLODIPine 10 MG (NORVASC) TAB PO SCH (08:39)
[2018-01-05] MEDS: lisINopril 40 MG (PRINIVIL) TABLET PO SCH (08:39)
[2018-01-05] MEDS: GABAPENTIN 600 MG (NEURONTIN) TAB PO SCH ×3 (08:40→20:20)
[2018-01-05] MEDS: NS IV 1000 ML 1,000 ML IV SCH ×3 (08:40→11:15)
[2018-01-05] MEDS: HYDROcodone/APAP 7.5 MG/325 MG (LORTAB, LORCET PLUS) TABLET PO PRN ×2 (08:52→20:21)
[2018-01-05] MEDS ORDERED: HEParin (CATH LAB) 2,000 ML IV ONE (09:06)
[2018-01-05] MEDS ORDERED: LIDOCAINE 1% INJ 50 ML (XYLOCAINE) VIAL ONE (09:08)
[2018-01-05] MEDS ORDERED: HEParin 1000 UNIT/ML (10ML VIAL) FOR BOLUS ONE (09:40)
[2018-01-05] MEDS ORDERED: diphenhydrAMINE 50 MG/ML INJ (BENADRYL) ONE (09:40)
[2018-01-05] MEDS ORDERED: MIDAZOLAM 5 MG/5 ML (VERSED) VIAL ONE (09:40)
[2018-01-05] MEDS ORDERED: fentaNYL INJECTION 100 MCG/2 ML AMP ONE (09:40)
[2018-01-05] MEDS ORDERED: NS IV 1000 ML 1,000 ML ONE (09:47)
--- NOTE | 2018-01-05 10:00 | Cardiac Procedure Note-CS/ASA ---
Pre-Procedure Note Pre-Op Procedure Note H&P Reviewed The H&P was reviewed, patient examined and no changes noted. Date H&P Reviewed: Jan 05, 2018 Time H&P Reviewed: 10:00 Conscious Sedation Pre-Proced Time Reviewed: 10:00 ASA Class: 3 Airway Mallampati Classification: ([place] appropriate class) I. II. III, IV Lungs Heart ASA score ASA 1: a normal healthy patient ASA 2: a patient with a mild systemic disease (mid diabetes, controlled hypertension, obesity ASA 3: a patient with a severe systemic disease that limits activity (angina , COPD, prior Myocardial infarction) ASA 4: a patient with an incapacitating disease that is a constant threat to life (CHF, renal failure) ASA 5: a moribund patient not expected to survive 24 hrs. (ruptured aneurysm) ASA 6: a declared brain patient whose organs are being harvested. For emergent operations, add the letter E after the classification Grade 2 Sedation Plan: Analgesia, Amnesia, Plan communicated to team members, Discussed options with patient/fam, Discussed risks with patient/fam Note The patient is an appropriate candidate to undergo the planned procedure, sedation, and anesthesia. The patient immediately re-assessed prior to indication. DAMARIS MCGARRY MD FACP FAC CCDS Jan 05, 2018 10:00
[2018-01-05] MEDS ORDERED: EPTIFIBATIDE BOLUS 20 ML IV ONE (10:13)
--- NOTE | 2018-01-05 10:35 | Progress Note (SOAP) ---
Subjective Subjective/Events-last exam No complaints of chest pain of shortness of breath this AM. Has been up walking around unit. NPO for procedure today Review of Systems Date Seen by Provider: Jan 05, 2018 Time Seen by Provider: 09:15 Pulmonary: No Dyspnea, No Cough Cardiovascular: No: Chest Pain, Palpitations, Edema Genitourinary: No Dysuria, Frequency, No Hematuria Musculoskeletal: No: shoulder pain, arm pain Objective Exam Last Set of Vital Signs Vital Signs Date Time Temp Pulse Resp B/P (MAP) Pulse Ox O2 Delivery O2 Flow Rate FiO2 01/05/18 08:02 Room Air 01/05/18 08:00 96.6 57 18 169/78 (108) 97 Capillary Refill : Less Than 3 Seconds I&O Intake and Output 01/05/18 00:00 Intake Total 1695 ml Balance 1695 ml Intake Oral 1695 ml # Voids 11 General: Alert, Oriented X3, Cooperative, No Acute Distress, Mild Distress Lungs: Clear to Auscultation, Normal Air Movement Heart: Regular Rate, No Murmurs Abdomen: Normal Bowel Sounds, Soft, No Tenderness, No Hepatosplenomegaly, No Masses Extremities: No Edema, No Tenderness/Swelling Results/Procedures Lab Laboratory Tests 01/05/18 03:00: White Blood Count 7.5, Red Blood Count 4.85, Hemoglobin 14.8, Hematocrit 44, Mean Corpuscular Volume 91, Mean Corpuscular Hemoglobin 31, Mean Corpuscular Hemoglobin Concent 34, Red Cell Distribution Width 13.9, Platelet Count 377, Mean Platelet Volume 9.2, Sodium Level 141, Potassium Level 4.0, Chloride Level 109H, Carbon Dioxide Level 24, Anion Gap 8, Blood Urea Nitrogen 20H, Creatinine 1.16, Estimat Glomerular Filtration Rate > 60, BUN/Creatinine Ratio 17, Glucose Level 95, Calcium Level 8.8 Assessment/Plan Assessment/Plan (1) Chest pain Status: Acute Assessment & Plan: - Cath today with Dr Bernal for LAD intervention Qualifiers: (2) CAD (coronary artery disease) Status: Chronic Assessment & Plan: - See Above, Cardiology managing Qualifiers: Qualified Codes: I25.110 - Atherosclerotic heart disease of [place] coronary artery with unstable angina pectoris (3) CKD (chronic kidney disease) stage 2, GFR 60-89 ml/min Status: Chronic Assessment & Plan: - Cr stable, will get contrast again today, Monitor Cr in AM (4) Hyperlipemia Status: Acute Assessment & Plan: - Continue daily Statin (5) Uncontrolled hypertension Status: Chronic (6) Tobacco abuse Status: Chronic Assessment & Plan: - Discussed the importance of cessation given severity of CAD Clinical Quality Measures DVT/VTE Risk/Contraindication: Risk Factor Score Per Nursin RFS Level Per Nursing on Admit: 2=Moderate POLINA BELTRAN MD Jan 05, 2018 10:35
[2018-01-05] MEDS ORDERED: NITRO DRIP 25000 MCG/D5W 250 ML IV ONE (10:40)
[2018-01-05] MEDS ORDERED: CLOPIDOGREL 75 MG (PLAVIX) TABLET ONE (11:05)
[2018-01-05] MEDS ORDERED: ASPIRIN 81 MG CHEW (CHILDREN'S ASA) ONE (11:06)
--- NOTE | 2018-01-05 11:08 | Progress Note-Cardiology ---
Cardiology SOAP Progress Note Subjective: No cp or palp or syncope Chronic exertional shortness of breath Chronic poor stamina and malaise Objective: I&O/Vital Signs 01/05/18 01/05/18 01/05/18 01/05/18 00:00 00:00 01:00 04:00 Temp 98.2 Pulse 58 60 Resp 18 B/P (MAP) 141/68 (92) Pulse Ox 97 O2 Delivery Room Air Room Air Room Air 01/05/18 01/05/18 01/05/18 01/05/18 04:00 07:00 08:00 08:00 Temp 97.8 96.6 Pulse 61 52 57 Resp 20 18 B/P (MAP) 146/70 (95) 169/78 (108) Pulse Ox 96 97 O2 Delivery Room Air Room Air Room Air 01/05/18 08:02 O2 Delivery Room Air 01/05/18 00:00 Intake Total 1270 ml Balance 1270 ml Weight (Pounds): 209 Weight (Ounces): 0.0 Weight (Calculated Kilograms): 94.828498 Side: right Groin site without hematoma: Yes Condition: DP/PT pulses palpable, extremity w/d/p Bruising: mild bruising Constitutional: AAO x 3 Respiratory: No accessory muscle use, No respiratory distress, wheezing (exp), other (prolonged expiratory phase) Cardiovascular: regular rate-rhythm, No JVD, S1 and S2 Gastrointestional: No tender, soft, audible bowel sounds Extremities: no lower extremity edema bilateral Neurologic/Psychiatric: grossly intact Skin: No rash, No ulcerations Results/Procedures: Labs Laboratory Tests 01/05/18 03:00: White Blood Count 7.5, Red Blood Count 4.85, Hemoglobin 14.8, Hematocrit 44, Mean Corpuscular Volume 91, Mean Corpuscular Hemoglobin 31, Mean Corpuscular Hemoglobin Concent 34, Red Cell Distribution Width 13.9, Platelet Count 377, Mean Platelet Volume 9.2, Sodium Level 141, Potassium Level 4.0, Chloride Level 109H, Carbon Dioxide Level 24, Anion Gap 8, Blood Urea Nitrogen 20H, Creatinine 1.16, Estimat Glomerular Filtration Rate > 60, BUN/Creatinine Ratio 17, Glucose Level 95, Calcium Level 8.8 Laboratory Tests 01/04/18 03:20 01/05/18 03:00 A/P: Assessment: CAD - Cardiac cath of 01-03-[address] Flores: Subtotal occlusion of the right coronary artery, treated with 3 Alpine Xience stents 2.7528 ostial/prox, 2.5 x 28 mid, and 2.5 x 33 distal, expanded at the ostium to 3.0 mm and distally to 2.75; moderate disease in distal RCA. Moderate to severe proximal/ostial LAD and mod to mod-sev prox/mid stenoses of [place]. Prominent left ventricle with mild diffuse left ventricular hypokinesia, ejection fraction 45%. Card cath 01-05-18: 90-95% prox/ostial LAD stenosis treated with Alp Xience 3x23 mm stent with good results; 60% mid to distal LAD not intervened on History of ventricular fibrillation and cardiac arrest in January 2016 with prolonged hospitalization in [place], another episode occurred on December 30, 2017 for which he received an appropriate shock. S/p ICD (single ch VDD) on 04/10/16, after cardiac cath by Dr Dr Aguilera at [facility] on 02/27/16 was reported to have shown moderate, noncritical CAD and LVEF approx 40%. The device is functioning normally on interrogation of Aug 2017 History of hypertension, difficult to control with history of noncompliance with medication, questionable history of pheochromocytoma with elevated epinephrine and norepinephrine in 24 hour urine collection, patient was referred for endocrinology evaluation. History of renal artery stenosis mild to moderate by angiogram done by Dr. Bernal Chronic kidney disease stage 2 to 3 Chronic tobacco use History of TIA reported to have an episode in 2011. No recent episodes. Hyperlipidemia - statin tx History of mild carotid stenosis, nonobstructive disease History of noncompliance with medications and medical instructions Plan: Continue current card regimen Risk factor mod reviewed Again advised to quit smoking Med compliance advised Continue tobias-cath hydration to reduce risk of contrast nephropathy Monitor labs DAMARIS BERNAL MD FACP FAC CCDS Jan 05, 2018 11:08
[2018-01-05] MEDS ORDERED: PATIENT MAY USE OWN MEDS, ALL PO SCH (11:30)
--- NOTE | 2018-01-05 14:23 | STRESS TEST ---
DATE OF SERVICE: 01/05/2018 The patient is a 57-year-old man who has had a history of cardiac arrest. Following most recent episode of ventricular fibrillation, from which he was appropriately resuscitated by his defibrillator, he underwent cardiac catheterization on 01/03/2018, which showed multivessel coronary artery disease. On 01/03/2018, he underwent multiple stent placements in a subtotally occluded right coronary artery with good results. He was also noted to have ostial and proximal left anterior descending artery stenosis for which he comes in for intervention today. Informed consent was obtained. DESCRIPTION OF PROCEDURE: He was brought to the cardiac catheterization laboratory in a fasting state. Right groin was prepared and draped in usual sterile fashion. Lidocaine 1% was used as local anesthesia. Modified Seldinger technique was used to advance a 7-Serbian sheath in the right femoral artery. A 7-Serbian JL4 guide catheter was used to engage the left coronary artery. We gave 8000 units of intravenous heparin and double bolus of Integrilin during the procedure. We advanced a BMW wire with moderate difficulty across the ostial and proximal lesion in the left anterior descending artery and the tip was placed in the distal vessel. We advanced a choice floppy wire into the left circumflex artery, obtuse marginal system and the tip was placed in the distal vessel. The left circumflex artery was wired because the left anterior descending artery lesion extends to the ostium of the left anterior descending artery and we wanted to protect the left circumflex, in case of complication. We carried out balloon angioplasty of the ostium and proximal left anterior descending artery with Emerge 2.5 x 30 mm balloon, which reduced the stenosis from approximately 95% to approximately 50%. The balloon was removed. We advanced Alpine Xience 3.0 x 23 mm stent. This was carefully positioned to cover the ostial and proximal left anterior descending artery without extending into the left anterior descending artery. The stent was deployed at 14 atmospheres. Subsequent angiography revealed 0% residual stenosis at the previous site of up to 95% stenosis in the ostial/proximal left anterior descending artery. The mid to distal left anterior descending artery has approximately 60% stenosis, which was not intervened on. The angioplasty equipment was removed. Angiography of the right femoral artery was carried out through the sheath. Mynx was used to achieve hemostasis. The patient tolerated the procedure well. CONCLUSIONS: Successful balloon angioplasty followed by drug-eluting stenting of the ostial and proximal left anterior descending artery. Alpine Xience 3.0 x 23 mm stent was used. Job ID: [id number] DocumentID: [id number] Dictated Date: 01/05/2018 11:29:10 Crown Pouncer Date: 01/05/2018 14:22:51 Dictated By: DAMARIS MCGARRY MD, MA, FACP, FACC,
[2018-01-05] MEDS: ATORVASTATIN 20 MG (LIPITOR) TABLET PO SCH (20:20)
[2018-01-05] MEDS: ATORVASTATIN 40 MG (LIPITOR) TABLET PO SCH (21:45)
[2018-01-06] VITALS: BP 141/82
[2018-01-06] MEDS: NS IV 1000 ML 1,000 ML IV SCH (03:22)
[2018-01-06 04:00] VITALS: BP 125/67
[2018-01-06 04:29] LABS: BASOPHILS % (AUTO) 0 % (0-10); EOSINOPHILS # (AUTO) 0.2 10^3/uL (0.0-0.3); EOSINOPHILS % (AUTO) 2 % (0-10); HEMATOCRIT 45 % (40-54); HEMOGLOBIN 15.2 G/DL (13.3-17.7); LYMPHOCYTES # (AUTO) 2.8 X 10^3 (1.0-4.0); LYMPHOCYTES % (AUTO) 31 % (12-44); MEAN CORPUSCULAR HEMOGLOBIN 31 PG (25-34); MEAN CORPUSCULAR HGB CONC 34 G/DL (32-36); MEAN CORPUSCULAR VOLUME 91 FL (80-99); MEAN PLATELET VOLUME 9.2 FL (7.4-10.4); MONOCYTES % (AUTO) 11 % (0-12); NEUTROPHILS % (AUTO) 55 % (42-75); PLATELET COUNT 363 10^3/uL (130-400); RED BLOOD COUNT 4.94 10^6/uL (4.35-5.85); RED CELL DISTRIBUTION WIDTH 13.8 % (10.0-14.5)
[2018-01-06 04:34] LABS: PROTHROMBIN TIME PATIENT 12.9 SEC (12.2-14.7)
[2018-01-06] MEDS: HYDROcodone/APAP 7.5 MG/325 MG (LORTAB, LORCET PLUS) TABLET PO PRN (04:35)
[2018-01-06 04:48] LABS: BILIRUBIN,TOTAL 0.4 MG/DL (0.1-1.0); CALCIUM 9.2 MG/DL (8.5-10.1); CREATININE SERUM 1.23 MG/DL (0.60-1.30); TOTAL PROTEIN 6.7 GM/DL (6.4-8.2)
[2018-01-06 07:00] VITALS: BP 131/69
--- NOTE | 2018-01-06 08:37 | Progress Note-Cardiology ---
Cardiology SOAP Progress Note Subjective: Feels well. No cp or palp or syncope Denies any significant groin or wrist or hand discomfort Objective: I&O/Vital Signs 01/05/18 01/06/18 01/06/18 01/06/18 21:00 00:00 00:00 01:00 Temp 96.9 Pulse 57 53 Resp 19 B/P (MAP) 141/82 (101) Pulse Ox 94 O2 Delivery Room Air Room Air Room Air 01/06/18 01/06/18 01/06/18 01/06/18 04:00 04:00 07:00 07:00 Temp 96.8 97.4 Pulse 60 65 65 Resp 19 20 B/P (MAP) 125/67 (86) 131/69 (89) Pulse Ox 96 98 O2 Delivery Room Air Room Air Room Air 01/06/18 00:00 Intake Total 1422 ml Output Total 1400 ml Balance 22 ml Weight (Pounds): 203 Weight (Ounces): 0.0 Weight (Calculated Kilograms): 92.742582 Side: right Groin site without hematoma: Yes Condition: DP/PT pulses palpable, extremity w/d/p Bruising: mild bruising Constitutional: AAO x 3 Respiratory: No accessory muscle use, No respiratory distress; wheezing (exp), other (prolonged expiratory phase) Cardiovascular: regular rate-rhythm; No JVD; S1 and S2 Gastrointestional: No tender; soft, audible bowel sounds Extremities: no lower extremity edema bilateral Neurologic/Psychiatric: grossly intact Skin: No rash, No ulcerations Results/Procedures: Labs Laboratory Tests 01/06/18 03:55: White Blood Count 9.0, Red Blood Count 4.94, Hemoglobin 15.2, Hematocrit 45, Mean Corpuscular Volume 91, Mean Corpuscular Hemoglobin 31, Mean Corpuscular Hemoglobin Concent 34, Red Cell Distribution Width 13.8, Platelet Count 363, Mean Platelet Volume 9.2, Neutrophils (%) (Auto) 55, Lymphocytes (%) (Auto) 31, Monocytes (%) (Auto) 11, Eosinophils (%) (Auto) 2, Basophils (%) (Auto) 0, Neutrophils # (Auto) 5.0, Lymphocytes # (Auto) 2.8, Monocytes # (Auto) 1.0, Eosinophils # (Auto) 0.2, Basophils # (Auto) 0.0, Prothrombin Time 12.9, INR Comment 1.0, Activated Partial Thromboplast Time 29, Sodium Level 140, Potassium Level 4.0, Chloride Level 108H, Carbon Dioxide Level 22, Anion Gap 10 , Blood Urea Nitrogen 21H, Creatinine 1.23, Estimat Glomerular Filtration Rate 60, BUN/Creatinine Ratio 17, Glucose Level 110H, Calcium Level 9.2, Total Bilirubin 0.4, Aspartate Amino Transf (AST/SGOT) 12, Alanine Aminotransferase ( ALT/SGPT) 25, Alkaline Phosphatase 89, Total Protein 6.7, Albumin 4.0 Laboratory Tests 01/05/18 03:00 01/06/18 03:55 A/P: Assessment: CAD - Cardiac cath of 01-03-[address] Flores (R radial and R fem access): Subtotal occlusion of the right coronary artery, treated with 3 Alpine Xience stents 2.75 x 28 ostial/prox, 2.5 x 28 mid, and 2.5 x 33 distal; moderate disease in distal RCA. Moderate to severe proximal/ostial LAD and mod to mod- sev prox/mid stenoses of [place]. Prominent left ventricle with mild diffuse left ventricular hypokinesia, ejection fraction 45%. Card cath 01-05-18: 90-95% prox/ ostial LAD stenosis treated with Alp Xience 3x23 mm stent with good results; 60 % mid to distal LAD not intervened on History of ventricular fibrillation and cardiac arrest in January 2016 with prolonged hospitalization in [place], another episode occurred on December 30, 2017 for which he received an appropriate shock. S/p ICD (single ch VDD) on 04/10/16, after cardiac cath by Dr Dr Aguilera at [facility] on 02/27/16 was reported to have shown moderate, noncritical CAD and LVEF approx 40%. The device is functioning normally on interrogation of Aug 2017 History of hypertension, difficult to control with history of noncompliance with medication, questionable history of pheochromocytoma with elevated epinephrine and norepinephrine in 24 hour urine collection, patient was referred for endocrinology evaluation. History of renal artery stenosis mild to moderate by angiogram done by Dr. Bernal Chronic kidney disease stage 2 to 3 Chronic tobacco use History of TIA reported to have an episode in 2011. No recent episodes. Hyperlipidemia - statin tx History of mild carotid stenosis, nonobstructive disease History of noncompliance with medications and medical instructions Plan: Continue current card regimen Risk factor mod reviewed Again advised to quit smoking Med compliance advised I reviewed and discussed with him in detail his card findings and interventions undertaken and treatment plan Outpt f/u is advised DAMARIS BERNAL MD FACP FACC CCDS Jan 06, 2018 08:37
[2018-01-06] MEDS ORDERED: ASPI-999 PO (08:40)
[2018-01-06] MEDS ORDERED: CLOP75TA28 PO (08:40)
--- NOTE | 2018-01-06 08:42 | Discharge Inst-Cardiology ---
Discharge Inst-Cardiac Discharge Medications New Medications: Aspirin (Aspirin) 81 Mg Tab.chew 81 MG PO DAILY for 90 Days, #90 TAB 3 Refills Clopidogrel Bisulfate (Clopidogrel) 75 Mg Tablet 75 MG PO DAILY for 90 Days, #90 TAB 3 Refills Continued Medications: Amlodipine Besylate (Amlodipine Besylate) 10 Mg Tablet 10 MG PO DAILY, TAB LAST FILLED 11/12/17 #30 Atorvastatin Calcium (Atorvastatin Calcium) 20 Mg Tablet 40 MG PO HS, TAB TAKES 2 (20 MG) TABLETS Diphenhydramine HCl (Sleep Aid) 25 Mg Tablet 50 MG PO HS PRN for SLEEP, TAB TAKES 2 (25 MG) TABLETS Gabapentin (Gabapentin) 600 Mg Tablet 600 MG PO TID, TAB LAST FILLED 08/18/17 #90 Hydrocodone/Acetaminophen (Hydrocodone-Acetamin 7.5-325) 1 Each Tablet 1 TAB PO Q6H PRN for PAIN-MODERATE Lisinopril (Lisinopril) 40 Mg Tablet 40 MG PO DAILY, TAB LAST FILLED 11/12/17 #30 Nebivolol HCl (Bystolic) 20 Mg Tablet 20 MG PO DAILY, TAB Nitroglycerin (Nitrostat) 0.4 Mg Tab.subl 0.4 MG SL UD PRN for CHEST PAIN, TAB Discontinued Medications: Doxazosin Mesylate (Doxazosin Mesylate) 8 Mg Tablet 8 MG PO BID Patient Instructions Patient Instructions: NO SMOKING DAMARIS MCGARRY MD FACP FAC CCDS Jan 06, 2018 08:41
--- NOTE | 2018-01-06 08:42 | Discharge Inst-Post CATH ---
Discharge Inst-CATH Post Cardiac Cath D/C Inst Follow Up/Plan F/u with Dr Bernal next week CARDIAC CATH DISCHARGE INSTRUCTIONS *Hold Metformin for 48 hours post heart cath. ACTIVITY * Go Home directly and rest. * Limit activity of the leg (or wrist if it was used) for 7 days including aerobics, swimming, jogging, bicycling, etc. * Restrict stair-climbing for 7 days if possible, if not, climb up with your non -cath leg, then bring together on the same step. * Avoid lifting, pushing, pulling or excessive movement of the affected extremity for 7 days. * Customary sexual activity may be resumed after 2 days-use caution not to use a position that strains or causes pain to the affected extremity. * No driving for 24 hours. * NO SMOKING. * Avoid straining for bowel movements for 7 days. * Gentle walking on level ground is allowed. * Returning to work will depend on the type of procedure and the results. Your doctor will discuss this with you. CALL YOUR DOCTOR FOR ANY OF THE FOLLOWING: *If bleeding from the puncture site occurs- Apply gentle pressure to site with clean cloth and call your doctor or EMS. * If a knot or lump forms under the skin, increases in size, or causes pain. * If bruising appears to be worsening or moving further down your leg instead of disappearing. * Temperature above 101 F. CARE OF YOUR GROIN INCISION; * Bruising or purple discoloration of the skin near the puncture site is common. * You may shower only, no bathtub bathing for 5 days. Be careful to avoid slipping as your leg may feel stiff. * If a closure device was used on your femoral artery, please see the attached guide regarding care of the device and your leg. * REMOVE the dressing from your groin the next day after your procedure in the shower. CARE OF YOUR WRIST INCISION; * Bruising or purple discoloration of the skin near the puncture site is common. * You may shower. * DO NOT submerge wrist. * Remove dressing in 24 hours. DAMARIS BERNAL MD FACP [facility] CCDS Jan 06, 2018 08:42
[2018-01-06] MEDS: CARVEDILOL 12.5 MG (COREG) TABLET PO SCH (08:44)
[2018-01-06] MEDS: NICOTINE 21 MG (NICODERM) PATCH TD SCH (08:44)
--- NOTE | 2018-01-06 08:45 | Cardiology Discharge Summary ---
Diagnosis/Chief Complaint Date of Admission Jan 02, 2018 at 16:50 Date of Discharge 01/06/18 Final/Discharge Diagnosis CAD - Cardiac cath of 01-03-[address] Flores (R radial and R fem access): Subtotal occlusion of the right coronary artery, treated with 3 Alpine Xience stents 2.75 x 28 ostial/prox, 2.5 x 28 mid, and 2.5 x 33 distal; moderate disease in distal RCA. Moderate to severe proximal/ostial LAD and mod to mod- sev prox/mid stenoses of BINTA. Prominent left ventricle with mild diffuse left ventricular hypokinesia, ejection fraction 45%. Card cath 01-05-[address] Bernal ( R fem access): 90-95% prox/ostial LAD stenosis treated with Alp Xience 3x23 mm stent with good results; 60% mid to distal LAD not intervened on History of ventricular fibrillation and cardiac arrest in January 2016 with prolonged hospitalization in [place], another episode occurred on December 30, 2017 for which he received an appropriate shock. S/p ICD (single ch VDD) on 04/10/16, after cardiac cath by Dr Dr Aguilera at [facility] on 02/27/16 was reported to have shown moderate, noncritical CAD and LVEF approx 40%. The device is functioning normally on interrogation of Aug 2017 History of hypertension, difficult to control with history of noncompliance with medication, questionable history of pheochromocytoma with elevated epinephrine and norepinephrine in 24 hour urine collection, patient was referred for endocrinology evaluation. History of renal artery stenosis mild to moderate by angiogram done by Dr. Bernal Chronic kidney disease stage 2 to 3 Chronic tobacco use History of TIA reported to have an episode in 2011. No recent episodes. Hyperlipidemia - statin tx History of mild carotid stenosis, nonobstructive disease History of noncompliance with medications and medical instructions Chief Complaint/HPI Chief Complaint/HPI For condition at discharge, please refer to our progress note of today's date BP is much improved after cor interventions; doxazosin has been d/c'd Outpat f/u is advised Discharge Summary Procedures Card cath and cor interventions Hospital Course Pending Labs Laboratory Tests 01/06/18 03:55: White Blood Count 9.0, Red Blood Count 4.94, Hemoglobin 15.2, Hematocrit 45, Mean Corpuscular Volume 91, Mean Corpuscular Hemoglobin 31, Mean Corpuscular Hemoglobin Concent 34, Red Cell Distribution Width 13.8, Platelet Count 363, Mean Platelet Volume 9.2, Neutrophils (%) (Auto) 55, Lymphocytes (%) (Auto) 31, Monocytes (%) (Auto) 11, Eosinophils (%) (Auto) 2, Basophils (%) (Auto) 0, Neutrophils # (Auto) 5.0, Lymphocytes # (Auto) 2.8, Monocytes # (Auto) 1.0, Eosinophils # (Auto) 0.2, Basophils # (Auto) 0.0, Prothrombin Time 12.9, INR Comment 1.0, Activated Partial Thromboplast Time 29, Sodium Level 140, Potassium Level 4.0, Chloride Level 108, Carbon Dioxide Level 22, Anion Gap 10, Blood Urea Nitrogen 21, Creatinine 1.23, Estimat Glomerular Filtration Rate 60, BUN/Creatinine Ratio 17, Glucose Level 110, Calcium Level 9.2, Total Bilirubin 0.4, Aspartate Amino Transf (AST/SGOT) 12, Alanine Aminotransferase (ALT/SGPT) 25, Alkaline Phosphatase 89, Total Protein 6.7, Albumin 4.0 Discussion & Recommendations Home Medications Reviewed patient Home Medication Reconciliation performed by pharmacy medication reconciliations home appliance technician and/or nursing. Patients Allergies have been reviewed. Discharge Home Medications: Reviewed and agree with Discharge Medication list on patient's Discharge Instruction sheet Instructions to patient/family F/u with Dr Bernal next week Clinical Quality Measures DVT/VTE Risk/Contraindication: Risk Factor Score Per Nursin RFS Level Per Nursing on Admit: 2=Moderate DAMARIS BERNAL MD FACP FAC CCDS Jan 06, 2018 08:45
[2018-01-06] MEDS: GABAPENTIN 600 MG (NEURONTIN) TAB PO SCH (08:46)
[2018-01-06] MEDS: lisINopril 40 MG (PRINIVIL) TABLET PO SCH (08:46)
[2018-01-06] MEDS: amLODIPine 10 MG (NORVASC) TAB PO SCH (08:47)
[2018-01-06] MEDS: NICOTINE PATCH REMOVAL TP SCH (08:47)
[2018-01-06] MEDS: CLOPIDOGREL 75 MG (PLAVIX) TABLET PO SCH (08:50)
[2018-01-06] MEDS: ASPIRIN E.C. 81 MG (ECOTRIN) TAB PO SCH (08:51)
--- NOTE | 2018-01-06 09:04 | CARDIAC CATHETERIZATION ---
DATE OF SERVICE: 01/05/2018 CORONARY INTERVENTION REPORT: The patient is a 57-year-old man who has had a history of cardiac arrest. Following most recent episode of ventricular fibrillation, from which he was appropriately resuscitated by his defibrillator, he underwent cardiac catheterization on 01/03/2018, which showed multivessel coronary artery disease. On 01/03/2018, he underwent multiple stent placements in a subtotally occluded right coronary artery with good results. He was also noted to have ostial and proximal left anterior descending artery stenosis for which he comes in for intervention today. Informed consent was obtained. DESCRIPTION OF PROCEDURE: He was brought to the cardiac catheterization laboratory in a fasting state. Right groin was prepared and draped in usual sterile fashion. Lidocaine 1% was used as local anesthesia. Modified Seldinger technique was used to advance a 7-Singaporean sheath in the right femoral artery. A 7-Singaporean JL4 guide catheter was used to engage the left coronary artery. We gave 8000 units of intravenous heparin and double bolus of Integrilin during the procedure. We advanced a BMW wire with moderate difficulty across the ostial and proximal lesion in the left anterior descending artery and the tip was placed in the distal vessel. We advanced a choice floppy wire into the left circumflex artery, obtuse marginal system and the tip was placed in the distal vessel. The left circumflex artery was wired because the left anterior descending artery lesion extends to the ostium of the left anterior descending artery and we wanted to protect the left circumflex, in case of complication. We carried out balloon angioplasty of the ostium and proximal left anterior descending artery with Emerge 2.5 x 30 mm balloon, which reduced the stenosis from approximately 95% to approximately 50%. The balloon was removed. We advanced Alpine Xience 3.0 x 23 mm stent. This was carefully positioned to cover the ostial and proximal left anterior descending artery without extending into the left anterior descending artery. The stent was deployed at 14 atmospheres. Subsequent angiography revealed 0% residual stenosis at the previous site of up to 95% stenosis in the ostial/proximal left anterior descending artery. The mid to distal left anterior descending artery has approximately 60% stenosis, which was not intervened on. The angioplasty equipment was removed. Angiography of the right femoral artery was carried out through the sheath. Mynx was used to achieve hemostasis. The patient tolerated the procedure well. CONCLUSIONS: Successful balloon angioplasty followed by drug-eluting stenting of the ostial and proximal left anterior descending artery. Marginizeine Xience 3.0 x 23 mm stent was used.
--- NOTE | 2018-01-07 22:55 | Discharge Summary ---
Diagnosis/Chief Complaint Date of Admission 01/03/2018 Date of Discharge 01/06/2018 Admission Diagnosis Admission Diagnosis Chest pain Defibrillator discharge Multivessel CAD CKD stage II HLD HTN Tobacco Abuse Discharge Diagnosis see above Chief Complaint/HPI Chief Complaint/HPI This is a 57 yo male with hx of CAD s/p cardiac arrest following AMI. 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 He does not remember the details of the event. He was contacted by Dr. Bernal's office and told that his defibrillator had discharge. Pt went to [facility] ER and left AMA and game to ER. He reports intermittent chest pain for the past couple of weeks. He has been admitted with plans for heart cath today by Dr. Flores. Discharge Summary-Simple/Stand Procedures Card cath and cor interventions Consultations Dr Flores and Dr Bernal Cardiology Discharge Physical Examination Allergies: Coded Allergies: clonidine (Verified Adverse Reaction, Unknown, 09/28/16) CATAPRESS PATCH HAS RED AREA AT SITE. Vitals & I&Os Vital Sign - Last 12Hours Date Time Temp Pulse Resp B/P (MAP) Pulse Ox O2 Delivery O2 Flow Rate FiO2 01/06/18 10:47 01/06/18 08:44 Room Air 01/06/18 07:00 97.4 65 20 98 General Appearance: Alert, Oriented X3, Cooperative, No Acute Distress HEENT: Mucous Memb Moist/[place] Respiratory: Clear to Auscultation, Normal Air Movement Cardiovascular: Regular Rate, No Murmurs Abdominal: Normal Bowel Sounds, Soft, No Tenderness, No Hepatosplenomegaly, No Masses Extremities: No Edema, No Tenderness/Swelling Skin: No Rashes Neuro: Normal Speech, Strength at 5/5 X4 Ext, Sensation Intact, Cranial Nerves 3-12 NL Psych/Mental Status: Mental Status NL, Mood NL Hospital Course See final discharge diagnosis. Discussion & Recommendations 57 yo M with known h/o Severe CAD with h/o Cardiac arrest after AMI. Presented to ER with chest pain x 12 hrs. Upon arrival was seen by Sandra and taken to helper animal laboratory with stent placement. Patient then was observed in ICU and taken back to helper animal laboratory 2 days later for additional intervention by Dr Bernal. Patient has known CKD and Cr remained stable after contrast. He was continued on Statin and ASA. Patient has defibrillator in place. We discussed the importance of cessation given his CAD history. Patient has follow up with cardiology next week with possible 3rd intervention at that time. Patient discharged home with close follow up with PCP at [facility] Discharge Condition at discharge Guarded Instructions to patient/family Please see electronic discharge instructions given to patient. Discharge Medications Reviewed and agree with Discharge Medication list on patient's Discharge Instruction sheet Clinical Quality Measures DVT/VTE Risk/Contraindication: Risk Factor Score Per Nursin RFS Level Per Nursing on Admit: 2=Moderate POLINA BELTRAN MD Jan 07, 2018 22:55
== END 2018-01-06 10:47 | disposition home or self-care (01) ==
LOC: EDUNIT# 14:08 → ER 14:09 → ICU 16:24 → UNDOADMOB 16:24 → ICU 16:50 → CATH 16:50 → ICU 16:55 → CATH 01-06 10:47 → UNDODISOB 01-06 10:47
PROVIDERS: ATTEND Family Medicine
DX: I25.10 Atherosclerotic heart disease of native coronary artery without angina pectoris (principal); I25.5 Ischemic cardiomyopathy; I49.01 Ventricular fibrillation; I13.0 Hypertensive heart and chronic kidney disease with heart failure and stage 1 through stage 4 chronic kidney disease, or unspecified chronic kidney disease; I50.22 Chronic systolic (congestive) heart failure; N18.2 Chronic kidney disease, stage 2 (mild); E78.5 Hyperlipidemia, unspecified; I70.1 Atherosclerosis of renal artery; R55 Syncope and collapse; F17.210 Nicotine dependence, cigarettes, uncomplicated; I25.2 Old myocardial infarction; Z86.73 Personal history of transient ischemic attack (TIA), and cerebral infarction without residual deficits; Z95.810 Presence of automatic (implantable) cardiac defibrillator; Z79.82 Long term (current) use of aspirin; Z79.899 Other long term (current) drug therapy
CPT/HCPCS: 36415; 71045; 80048; 80053; 80061; 83735; 83874; 84484; 85025; 85027; 85610; 85730; 93005; 93041; 93458

== ENCOUNTER 2018-03-30 07:30 | Day surgery (SDC) | payer OTHER ==
[2018-03-30] VITALS (11 sets, daily range): BP systolic 137–173; BP diastolic 76–101
[~2018-03-30 07:30] MED LIST changes: +DOXA8TAB73 PO; +GABA600T2 PO; +HYDR-3816 PO
[2018-03-30] MEDS ORDERED: NS IV 1000 ML 1,000 ML ONE (07:36)
[2018-03-30] MEDS ORDERED: HEParin (CATH LAB) 2,000 ML IV ONE (07:36)
[2018-03-30] MEDS ORDERED: LIDOCAINE 1% INJ 20 ML 20 ML VIAL ONE (07:36)
[2018-03-30] MEDS ORDERED: NS IV 1000 ML 1,000 ML IV SCH ×2 (07:45→09:05)
[2018-03-30 08:01] LABS: HEMOGLOBIN 16.2 G/DL (13.3-17.7); MEAN PLATELET VOLUME 9.2 FL (7.4-10.4); RED BLOOD COUNT 5.34 10^6/uL (4.35-5.85); RED CELL DISTRIBUTION WIDTH 14.9 % (10.0-14.5); WHITE BLOOD COUNT 9.8 10^3/uL (4.3-11.0)
[2018-03-30] MEDS ORDERED: AMLO10TA2 PO (08:14)
[2018-03-30] MEDS ORDERED: LISI40TA PO (08:15)
[2018-03-30] MEDS ORDERED: ATOR20TA66 PO (08:16)
[2018-03-30 08:18] LABS: PROTHROMBIN TIME PATIENT 12.8 SEC (12.2-14.7)
[2018-03-30] MEDS ORDERED: GABA600T2 PO (08:18)
[2018-03-30] MEDS ORDERED: DOXA2TAB2 PO (08:21)
[2018-03-30 08:22] LABS: ALBUMIN 4.4 GM/DL (3.2-4.5); BILIRUBIN,TOTAL 0.3 MG/DL (0.1-1.0); CALCIUM 9.2 MG/DL (8.5-10.1); CREATININE SERUM 1.31 MG/DL (0.60-1.30); POTASSIUM 4.3 MMOL/L (3.6-5.0); TOTAL PROTEIN 7.2 GM/DL (6.4-8.2)
[2018-03-30] MEDS ORDERED: CLOP75TA28 PO (08:22)
[2018-03-30] MEDS ORDERED: ASPI-586 PO (08:22)
[2018-03-30] MEDS ORDERED: fentaNYL INJECTION 100 MCG/2 ML AMP ONE (08:25)
[2018-03-30] MEDS ORDERED: diphenhydrAMINE 50 MG/ML INJ (BENADRYL) ONE (08:25)
[2018-03-30] MEDS ORDERED: MIDAZOLAM 5 MG/5 ML (VERSED) VIAL ONE (08:25)
--- NOTE | 2018-03-30 09:01 | Cardiac Procedure Note-CS/ASA ---
Pre-Procedure Note Pre-Op Procedure Note H&P Reviewed The H&P was reviewed, patient examined and no changes noted. Date H&P Reviewed: Mar 30, 2018 Time H&P Reviewed: 08:20 Conscious Sedation Pre-Proced Time Reviewed: 08:20 ASA Class: 3 Airway Mallampati Classification: ([place] appropriate class) I. II. III, IV Lungs Heart ASA score ASA 1: a normal healthy patient ASA 2: a patient with a mild systemic disease (mid diabetes, controlled hypertension, obesity ASA 3: a patient with a severe systemic disease that limits activity (angina , COPD, prior Myocardial infarction) ASA 4: a patient with an incapacitating disease that is a constant threat to life (CHF, renal failure) ASA 5: a moribund patient not expected to survive 24 hrs. (ruptured aneurysm) ASA 6: a declared brain patient whose organs are being harvested. For emergent operations, add the letter E after the classification Grade 2 Sedation Plan: Analgesia, Amnesia, Plan communicated to team members, Discussed options with patient/fam, Discussed risks with patient/fam Note The patient is an appropriate candidate to undergo the planned procedure, sedation, and anesthesia. The patient immediately re-assessed prior to indication. DAMARIS MCGARRY MD FACP FAC CCDS Mar 30, 2018 09:01
--- NOTE | 2018-03-30 09:05 | Discharge Inst-Post CATH ---
Discharge Inst-CATH Post Cardiac Cath D/C Inst Follow Up/Plan F/u with Dr Bernal in 6 weeks CARDIAC CATH DISCHARGE INSTRUCTIONS *Hold Metformin for 48 hours post heart cath. ACTIVITY * Go Home directly and rest. * Limit activity of the leg (or wrist if it was used) for 7 days including aerobics, swimming, jogging, bicycling, etc. * Restrict stair-climbing for 7 days if possible, if not, climb up with your non -cath leg, then bring together on the same step. * Avoid lifting, pushing, pulling or excessive movement of the affected extremity for 7 days. * Customary sexual activity may be resumed after 2 days-use caution not to use a position that strains or causes pain to the affected extremity. * No driving for 24 hours. * NO SMOKING. * Avoid straining for bowel movements for 7 days. * Gentle walking on level ground is allowed. * Returning to work will depend on the type of procedure and the results. Your doctor will discuss this with you. CALL YOUR DOCTOR FOR ANY OF THE FOLLOWING: *If bleeding from the puncture site occurs- Apply gentle pressure to site with clean cloth and call your doctor or EMS. * If a knot or lump forms under the skin, increases in size, or causes pain. * If bruising appears to be worsening or moving further down your leg instead of disappearing. * Temperature above 101 F. CARE OF YOUR GROIN INCISION; * Bruising or purple discoloration of the skin near the puncture site is common. * You may shower only, no bathtub bathing for 5 days. Be careful to avoid slipping as your leg may feel stiff. * If a closure device was used on your femoral artery, please see the attached guide regarding care of the device and your leg. * REMOVE the dressing from your groin the next day after your procedure in the shower. CARE OF YOUR WRIST INCISION; * Bruising or purple discoloration of the skin near the puncture site is common. * You may shower. * DO NOT submerge wrist. * Remove dressing in 24 hours. DAMARIS BERNAL MD [facility] CCDS Mar 30, 2018 09:05
--- NOTE | 2018-03-30 09:05 | Discharge Inst-Cardiology ---
Discharge Inst-Cardiac Discharge Medications Continued Medications: Amlodipine Besylate (Amlodipine Besylate) 10 Mg Tablet 10 MG PO DAILY, TAB Aspirin (Aspir 81) 81 Mg Tablet.dr 81 MG PO DAILY, TAB Atorvastatin Calcium (Atorvastatin Calcium) 20 Mg Tablet 20 MG PO DAILY, TAB Clopidogrel Bisulfate (Clopidogrel) 75 Mg Tablet 75 MG PO DAILY, TAB Diphenhydramine HCl (Sleep Aid) 25 Mg Tablet 50 MG PO HS PRN for SLEEP, TAB TAKES 2 (25 MG) TABLETS Doxazosin Mesylate (Doxazosin Mesylate) 2 Mg Tablet 2 MG PO HS, TAB Gabapentin (Gabapentin) 600 Mg Tablet 600 MG PO TID, TAB Hydrocodone/Acetaminophen (Hydrocodone-Acetamin 7.5-325) 1 Each Tablet 1 TAB PO Q6H PRN for PAIN-MODERATE Lisinopril (Lisinopril) 40 Mg Tablet 40 MG PO DAILY, TAB Nebivolol HCl (Bystolic) 20 Mg Tablet 20 MG PO DAILY, TAB Nitroglycerin (Nitrostat) 0.4 Mg Tab.subl 0.4 MG SL UD PRN for CHEST PAIN, TAB DAMARIS MCGARRY MD FACP FACC CCDS Mar 30, 2018 09:05
[2018-03-30] MEDS ORDERED: PATIENT MAY USE OWN MEDS, ALL PO SCH (09:15)
--- NOTE | 2018-04-15 22:35 | CARDIAC CATHETERIZATION ---
DATE OF SERVICE: 03/30/2018 CARDIAC CATHETERIZATION REPORT The patient is a 57-year-old man with known coronary artery disease, has been experiencing chest discomfort suggestive of angina. Cardiac catheterization was carried out after having obtained an informed consent. PROCEDURE: He was brought to the cardiac catheterization laboratory in a fasting state. The right groin was prepared and draped in the usual sterile fashion, 1% lidocaine with local anesthesia. Modified Seldinger technique was used to advance a 5-Fijian sheath in the right femoral artery, 5-Fijian JL4 catheter for left coronary angiography, 5-Fijian JR4 catheter was used for right coronary angiography, 5-Fijian pigtail catheter was used for left heart catheterization and left ventricular angiography. Angiography of the right femoral artery was carried out through the sheath. Mynx was used to achieve hemostasis following sheath removal. Overall, he tolerated the procedure well. HEMODYNAMICS: Left ventricular end-diastolic pressure following coronary angiography was 9 mmHg. There is no significant pressure gradient on pullback across the aortic valve. Ascending aortic pressure was 154/66 with a mean of 98 mmHg. CORONARY ANGIOGRAPHY: Left main coronary artery is free of significant disease. Left anterior descending artery has a patent stent in its proximal portion, known to be Alpine Xience 3.0 x 23 mm stent. The left anterior descending artery has diffuse moderate disease. Left circumflex artery has diffuse mild disease. Right coronary artery is dominant and has a patent stent in its proximal and mid portions that are known to be Alpine Xience 2.75 x 28, 2.5 x 28, and 2.5 x 33 mm stents. The distal right coronary artery has moderate disease. LEFT VENTRICULAR ANGIOGRAPHY: Left ventricular angiography was carried out in the right anterior oblique projection. There is diaphragmatic hypokinesis to akinesis. Left ejection fraction is approximately 50%. CONCLUSIONS: 1. Coronary artery disease, moderate, with patent stents in the proximal left anterior descending and proximal and mid right coronary arteries, as detailed above. 2. Hypokinesis to akinesis of the diaphragmatic wall of the left ventricle. 3. Global left ventricular ejection fraction is estimated at 50%. 4. Normal left ventricular end-diastolic pressure. Job ID: [id number] DocumentID: [id number] Dictated Date: 04/15/2018 20:12:36 Credentialing Coordinator Date: 04/15/2018 22:35:08 Dictated By: DAMARIS MCGARRY MD, MA, FACP, FACC,
== END 2018-03-30 12:18 | disposition home or self-care (01) ==
LOC: CATH 07:30 → SURG 09:19 → CATH 12:18
PROVIDERS: ATTEND Internal Medicine Cardiovascular Disease
DX: I25.10 Atherosclerotic heart disease of native coronary artery without angina pectoris (principal); I12.9 Hypertensive chronic kidney disease with stage 1 through stage 4 chronic kidney disease, or unspecified chronic kidney disease; N18.3 Chronic kidney disease, stage 3 (moderate); I70.1 Atherosclerosis of renal artery; E78.5 Hyperlipidemia, unspecified; F17.210 Nicotine dependence, cigarettes, uncomplicated; I25.2 Old myocardial infarction; Z79.82 Long term (current) use of aspirin; Z79.899 Other long term (current) drug therapy; Z95.810 Presence of automatic (implantable) cardiac defibrillator; Z95.5 Presence of coronary angioplasty implant and graft
CPT/HCPCS: 36415; 80053; 80061; 85027; 85610; 85730; 87081; 93005; 93458

== ENCOUNTER → 2018-04-19 | Outpatient (CLI) | payer OTHER ==
[~2018-04-19] MED LIST changes: +ASPI-586 PO; +IOHEXOL 350 MG/ML 100 ML (OMNIPAQUE 350) VIAL IV ONE; +NS 250 ML (IVPB) BAG IV ONE
[2018-04-19 12:01] LABS: BUN/CREATININE RATIO 11; CREATININE SERUM 1.14 MG/DL (0.60-1.30); GFR ESTIMATED > 60
--- NOTE | 2018-04-19 13:31 | Diagnostic Imaging Report ---
PROCEDURE: CT abdomen with contrast only. TECHNIQUE: Multiple contiguous axial images were obtained through the abdomen after the administration of intravenous contrast. INDICATION: Upper abdominal pain. FINDINGS: The heart size is normal. The lung bases are clear. The liver is normal in size without focal lesions. Gallbladder is unremarkable. There is no biliary ductal dilatation. Spleen is normal. The pancreas and adrenal glands are unremarkable. There is a small cyst projected off the superior pole of the right kidney. Left kidney is normal in appearance. Abdominal aorta is nonaneurysmal. Bowel gas pattern is nonspecific. There is no CT evidence of appendicitis. Bowel gas pattern is nonspecific. There is no free air. There is no ascites. No focal inflammatory changes. IMPRESSION: Tiny cyst projected off the superior pole of the right kidney. No other acute abnormality in the abdomen. Dictated by: Dictated on workstation # [id number]
== END ==
LOC: RAD 11:23
PROVIDERS: ATTEND Internal Medicine
DX: R10.13 Epigastric pain (principal); N18.3 Chronic kidney disease, stage 3 (moderate)
CPT/HCPCS: 36415; 74160; 82565; 84520

== ENCOUNTER → 2020-08-30 | Outpatient (CLI) | payer MEDICARE ==
[~2020-08-30] MED LIST changes: +AMLO-251 PO; -AMLO10TA2 PO; -GABA600T2 PO; +GBPN600T PO; +HYDR-34 PO; -HYDR-3816 PO; -IOHEXOL 350 MG/ML 100 ML (OMNIPAQUE 350) VIAL IV ONE; -METO-395 PO; +MTP100TCR PO; -NS 250 ML (IVPB) BAG IV ONE
== END ==
LOC: CARD 08:58
PROVIDERS: ATTEND Nurse Practitioner Family
DX: I25.10 Atherosclerotic heart disease of native coronary artery without angina pectoris (principal)
CPT/HCPCS: 93306

== ENCOUNTER → 2020-09-04 | Outpatient (CLI) | payer MEDICARE ==
[~2020-09-04] VITALS: Ht 182 cm; Wt 93.0 kg
[~2020-09-04] MED LIST changes: +CATHETER FLUSH 10 ML SYR IV PRN; +REGADENOSON 0.4 MG/5 ML SYR (LEXISCAN) IV ONE
[2020-09-04 09:18] VITALS: BP 193/110
--- NOTE | 2020-09-04 17:17 | STRESS TEST ---
DATE OF SERVICE: 09/04/2020 RESTING AND POST REGADENOSON TECHNETIUM-99M TETROFOSMIN SPECT CT IMAGING ORDERING PHYSICIAN: Alejandra López APRN PRIMARY PHYSICIAN: Dr. Boone. OTHER PHYSICIAN: Dr. Bernal. CLINICAL DIAGNOSES: Coronary artery disease. Baseline images were carried out after injection of 10.09 mCi of technetium-99m Tetrofosmin. This was followed by 0.4 mg Regadenoson and 30.7 mCi of technetium-99m Tetrofosmin for stress imaging. The electrocardiogram showed sinus rhythm at baseline. The electrocardiogram did not change significantly with the Regadenoson infusion. The patient noted mild shortness of breath following Regadenoson infusion, which resolved in a few minutes. Review of images at rest and following stress indicates an inferolateral perfusion defect that is partially transient. Gated images show impairment of global left ventricular systolic function with global hypokinesis that is somewhat more marked in the inferolateral wall. Left ventricular end diastolic volume is 125 mL. TID is absent (1.03). CONCLUSIONS: 1. This study is indicative of inferolateral infarction with a small to moderate amount of inferolateral ischemia. 2. Mild to moderate cardiomegaly. 3. Impairment of global left ventricular systolic function with an ejection fraction of 37%. 4. Global hypokinesis, more marked in the inferolateral wall. Job ID: [id number] DocumentID: [id number] Dictated Date: 09/04/2020 14:23:41 Watch Electrician Date: 09/04/2020 17:16:15 Dictated By: DAMARIS BERNAL MD, MA, FACP, FACC,
== END ==
LOC: CARD 08:15
PROVIDERS: ATTEND Nurse Practitioner Family
DX: I25.10 Atherosclerotic heart disease of native coronary artery without angina pectoris (principal); I51.7 Cardiomegaly; I51.89 Other ill-defined heart diseases; I25.9 Chronic ischemic heart disease, unspecified; I25.2 Old myocardial infarction
CPT/HCPCS: 78452; 93017; A9502

== ENCOUNTER 2020-09-11 09:00 | Day surgery (SDC) | payer MEDICARE ==
[~2020-09-11] VITALS: Ht 182 cm; Wt 93.0 kg
[2020-09-11] VITALS (9 sets, daily range): BP systolic 154–187; BP diastolic 74–96
[2020-09-11 07:30] LABS: HEMOGLOBIN 15.5 g/dL (13.3-17.7); WHITE BLOOD COUNT 10.3 10^3/uL (4.3-11.0)
[2020-09-11 07:48] LABS: ALANINE AMINOTRANSFERASE 21 U/L (0-55); ALBUMIN 4.1 GM/DL (3.2-4.5); ALKALINE PHOSPHATASE 87 U/L (40-136); BILIRUBIN,TOTAL 0.3 MG/DL (0.1-1.0); BUN/CREATININE RATIO 15; CALCIUM 8.5 MG/DL (8.5-10.1); CARBON DIOXIDE 20 MMOL/L (21-32); CHLORIDE 107 MMOL/L (98-107); CHOLESTEROL 258 MG/DL (< 200); CREATININE SERUM 1.15 MG/DL (0.60-1.30); GFR ESTIMATED > 60; GLUCOSE 130 MG/DL (70-105); HDL CHOLESTEROL 31 MG/DL (40-60); INR 0.9 (0.8-1.4); POTASSIUM 4.1 MMOL/L (3.6-5.0); PROTHROMBIN TIME PATIENT 12.2 SEC (12.2-14.7); SODIUM 140 MMOL/L (135-145); TRIGLYCERIDES 541 MG/DL (<150); VLDL CHOLESTEROL 108 MG/DL (5-40)
[~2020-09-11 09:00] MED LIST changes: -CATHETER FLUSH 10 ML SYR IV PRN; +HEParin (CATH LAB) 2,000 ML IV ONE; +LIDOCAINE 1% INJ 20 ML 20 ML VIAL ONE; +NS IV 1000 ML 1,000 ML IV SCH; +NS IV 1000 ML 1,000 ML ONE; +OMEP20CA18 PO; +QUET100T33 PO; +QUET50TA55 PO; -REGADENOSON 0.4 MG/5 ML SYR (LEXISCAN) IV ONE; +SERT100T8 PO; +TRAZ-227 PO
[2020-09-11] MEDS ORDERED: fentaNYL INJECTION 100 MCG/2 ML AMP ONE (09:16)
[2020-09-11] MEDS ORDERED: MIDAZOLAM 5 MG/5 ML (VERSED) VIAL ONE (09:16)
--- NOTE | 2020-09-11 10:18 | Cardiac Procedure Note-CS/ASA ---
Pre-Procedure Note Pre-Op Procedure Note H&P Reviewed The H&P was reviewed, patient examined and no changes noted. Date H&P Reviewed: Sep 11, 2020 Time H&P Reviewed: 09:45 Conscious Sedation Pre-Proced Time 09:45 ASA Score 3 For ASA 3 and 4: Consider anesthesia and medical clearance. Also, for patients with a history of failed moderate sedation consider anesthesia. Airway Lungs Heart ASA score ASA 1: a normal healthy patient ASA 2: a patient with a mild systemic disease (mid diabetes, controlled hypertension, obesity ASA 3: a patient with a severe systemic disease that limits activity (angina, COPD, prior Myocardial infarction) ASA 4: a patient with an incapacitating disease that is a constant threat to life (CHF, renal failure) ASA 5: a moribund patient not expected to survive 24 hrs. (ruptured aneurysm) ASA 6: a declared brain- patient whose organs are being harvested. For emergent operations, add the letter E after the classification Mallampati Classification Grade 2 Sedation Plan Analgesia, Amnesia, Plan communicated to team members, Discussed options with patient/fam, Discussed risks with patient/fam The patient is an appropriate candidate to undergo the planned procedure, sedation, and anesthesia. The patient immediately re-assessed prior to indication. DAMARIS MCGARRY MD FACP FAC CCDS Sep 11, 2020 10:18
--- NOTE | 2020-09-11 10:20 | Discharge Inst-Cardiology ---
Discharge Inst-Cardiac Discharge Medications Continued Medications: Aspirin (Aspir 81) 81 Mg Tablet.dr 81 MG PO DAILY, TAB Hydrocodone Bit/Acetaminophen (HYDROcodone/APAP 7.5/325 TAB) 1 Each Tablet 1 TAB PO Q6H PRN for PAIN-MODERATE Metoprolol Succinate (Toprol Xl) 200 Mg Tab 200 MG PO DAILY, TAB Nitroglycerin (Nitrostat) 0.4 Mg Tab.subl 0.4 MG SL UD PRN for CHEST PAIN, TAB Omeprazole (Omeprazole) 20 Mg Capsule.dr 20 MG PO DAILY, CAP Quetiapine Fumarate (Quetiapine Fumarate) 50 Mg Tablet 50 MG PO DAILY, TAB Quetiapine Fumarate (Quetiapine Fumarate) 100 Mg Tablet 100 MG PO HS, TAB Sertraline HCl (Sertraline HCl) 100 Mg Tablet 100 MG PO DAILY, TAB Trazodone HCl (Trazodone HCl) 100 Mg Tablet 100 MG PO HS, TAB DAMARIS MCGARRY MD FACP FACC CCDS Sep 11, 2020 10:20
--- NOTE | 2020-09-11 10:20 | Discharge Inst-Post CATH ---
Discharge Inst-CATH/EP Post Cardiac Cath/EP D/C Inst Follow Up/Plan F/u with Dr Bernal in 2 weeks ACTIVITY * Go Home directly and rest. * Limit activity of the leg (or wrist if it was used) for 7 days including aerobics, swimming, jogging, bicycling, etc. * Restrict stair-climbing for 7 days if possible, if not, climb up with your no n-cath leg, then bring together on the same step. * Avoid lifting, pushing, pulling or excessive movement of the affected ext remity for 7 days. * Customary sexual activity may be resumed after 2 days-use caution not to use a position that strains or causes pain to the affected extremity. * No driving for 24 hours. * NO SMOKING. * Avoid straining for bowel movements for 7 days. * Gentle walking on level ground is allowed. * Returning to work will depend on the type of procedure and the results. Your doctor will discuss this with you. CALL YOUR DOCTOR FOR ANY OF THE FOLLOWING: *If bleeding from the puncture site occurs- Apply gentle pressure to site with clean cloth and call your doctor or EMS. * If a knot or lump forms under the skin, increases in size, or causes pain. * If bruising appears to be worsening or moving further down your leg instead of disappearing. * Temperature above 101 F. CARE OF YOUR GROIN INCISION; * Bruising or purple discoloration of the skin near the puncture site is common. * You may shower only, no bathtub bathing for 5 days. Be careful to avoid slipping as your leg may feel stiff. * If a closure device was used on your femoral artery, please see the attached guide regarding care of the device and your leg. * Leave dressing on FOR 24 hours. CARE OF YOUR WRIST INCISION; * Bruising or purple discoloration of the skin near the puncture site is common. * You may shower. * DO NOT submerge wrist. * Leave dressing on FOR 24 hours. DAMARIS BERNAL MD FACP FAC CCDS Sep 11, 2020 10:20
--- NOTE | 2020-09-11 13:05 | NUR ---
pt ambulated down [place] with me. site still no hematoma noted, drsg dry intact. Iv DC cath intact, drsg applied.
--- NOTE | 2020-09-11 13:33 | CARDIAC CATHETERIZATION ---
DATE OF SERVICE: 09/11/2020 CARDIAC CATHETERIZATION REPORT This is a 59-year-old gentleman who is known to have coronary artery disease and has previously had coronary stenting. He recently underwent a myocardial perfusion imaging study in preparation for abdominal surgery. That showed inferior infarction with a moderate amount of tobias-infarct ischemia. Cardiac catheterization was recommended. Informed consent was obtained. Cardiac catheterization was carried out today after having obtained an informed consent. DESCRIPTION OF PROCEDURE: He was brought to the cardiac catheterization laboratory in a fasting state. The right groin was prepared and draped in the usual sterile fashion. Lidocaine 1% was used for local anesthesia. Modified Seldinger technique was used to advance a 5-[place] sheath in right femoral artery, 5-[place] JL4 catheter was used for left coronary angiography, 5-[place] JR4 catheter was used for right coronary angiography, 5-[place] pigtail catheter was used for left heart catheterization and left ventricular angiography. Pigtail catheter was then pulled back and removed. Angiography of the right femoral artery was carried out through the sheath. Mynx was used to achieve hemostasis. He tolerated the procedure well. HEMODYNAMICS: Left ventricular end-diastolic pressure following coronary angiography was 14 mmHg. There was no significant pressure gradient on pullback across the aortic valve. Ascending aortic pressure was 153/70 with a mean of 103 mmHg. LEFT VENTRICULAR ANGIOGRAPHY: Left ventricular angiography was carried out in the [place] projection only. There is hypokinesis to akinesis of the basal inferior wall. Left ventricular ejection fraction approximately 40% to 45%. CORONARY ANGIOGRAPHY: Coronary calcification is seen. Left main coronary artery does not exhibit significant disease. Left anterior descending artery has a patent stent in its ostial and proximal portion. This is known to be Alpine Xience 3.0 x 23 mm stent. The second diagonal branch, left anterior descending artery is very small caliber and has 80% ostial stenosis. This is not amenable to intervention on account of small vessel caliber. The mid right coronary artery, at the bifurcation with the third diagonal branch, has approximately 50% stenosis. The left circumflex artery exhibits near total ostial/proximal stenosis. This does not appear to be amenable to intervention. The rest of the left circumflex artery has mild to moderate diffuse disease. The right coronary artery exhibits a patent stent and has diffuse mild to moderate disease. The stent in the right coronary artery are known to be Alpine Xience 2.75 x 28, 2.5 x 28, and 2.5 x 33. CONCLUSIONS: 1. Coronary artery disease as detailed above. The stent in the ostial/mid left anterior descending artery (Alpine Xience 3.0 x 23 mm) and in the proximal, mid and distal right coronary artery (Alpine Xience 2.75 x 28, 2.5 x 28, 2.5 x 33) are patent. Small caliber second diagonal and first obtuse marginal have severe disease, but are not amenable to intervention. The rest of the coronary vessels have mild to moderate diffuse disease. 2. Hypokinesis to akinesis of the basal inferior wall of the left ventricle. 3. Impairment of left ventricular systolic function with ejection fraction of 40% to 45%. 4. Mild elevation of left ventricular end-diastolic pressure. DISCUSSION AND RECOMMENDATIONS: Based on results of the study, it appears appropriate to continue a conservative approach. Risk factor modification has been reviewed. Current regimen is being continued. Outpatient followup is advised. Job ID: [id number] DocumentID: [id number] Dictated Date: 09/11/2020 10:16:02 Medical Transcription Supervisor Date: 09/11/2020 13:32:50 Dictated By: DAMARIS MCGARRY MD, MA, FACP, FACC,
== END 2020-09-11 13:35 | disposition home or self-care (01) ==
LOC: CATH 09:00
PROVIDERS: ATTEND Internal Medicine Cardiovascular Disease
DX: I25.10 Atherosclerotic heart disease of native coronary artery without angina pectoris (principal); I65.23 Occlusion and stenosis of bilateral carotid arteries; E27.5 Adrenomedullary hyperfunction; E87.1 Hypo-osmolality and hyponatremia; J96.00 Acute respiratory failure, unspecified whether with hypoxia or hypercapnia; G93.1 Anoxic brain damage, not elsewhere classified; E78.00 Pure hypercholesterolemia, unspecified; I12.9 Hypertensive chronic kidney disease with stage 1 through stage 4 chronic kidney disease, or unspecified chronic kidney disease; N18.30 Chronic kidney disease, stage 3 unspecified; I70.1 Atherosclerosis of renal artery; E78.2 Mixed hyperlipidemia; F17.210 Nicotine dependence, cigarettes, uncomplicated; Z79.82 Long term (current) use of aspirin; Z79.899 Other long term (current) drug therapy; Z88.8 Allergy status to other drugs, medicaments and biological substances; Z88.5 Allergy status to narcotic agent; Z86.73 Personal history of transient ischemic attack (TIA), and cerebral infarction without residual deficits; Z86.74 Personal history of sudden cardiac arrest; Z95.810 Presence of automatic (implantable) cardiac defibrillator; Z95.5 Presence of coronary angioplasty implant and graft
CPT/HCPCS: 80053; 80061; 85027; 85610; 85730; 87081; 93458; C1760; C1894; 36415

== ENCOUNTER 2020-10-09 05:31 | Outpatient (RCR) | payer MEDICARE ==
[~2020-10-09] VITALS: Ht 182 cm; Wt 93.0 kg
[~2020-10-09 05:31] MED LIST changes: -HEParin (CATH LAB) 2,000 ML IV ONE; -LIDOCAINE 1% INJ 20 ML 20 ML VIAL ONE; -NS IV 1000 ML 1,000 ML IV SCH; -NS IV 1000 ML 1,000 ML ONE
[2020-10-11] MEDS ORDERED: HYDR-34 PO (10:14)
== END 2020-10-09 09:40 | disposition home or self-care (01) ==
LOC: PREOP 05:31
PROVIDERS: ATTEND Surgery
DX: Z01.812 Encounter for preprocedural laboratory examination (principal); K82.1 Hydrops of gallbladder; Z20.822 Contact with and (suspected) exposure to COVID-19
CPT/HCPCS: 87635

== ENCOUNTER 2020-10-11 07:12 | Day surgery (SDC) | payer MEDICARE ==
[~2020-10-11] VITALS: Ht 182 cm; Wt 93.0 kg
[2020-10-11] VITALS (11 sets, daily range): BP systolic 131–192; BP diastolic 68–101
[2020-10-11] MEDS ORDERED: ROCURONIUM 10 MG/ML 5 ML SYRINGE IV ONE (07:38)
[2020-10-11] MEDS ORDERED: ONDANSETRON 4 MG/2 ML (SDV) Z0FRAN ONE (07:38)
[2020-10-11] MEDS ORDERED: proPOfol 200 MG/20 ML (DIPRIVAN) VIAL IV ONE (07:38)
[2020-10-11] MEDS ORDERED: LIDOCAINE PF 2% 5 ML (XYLOCAINE) VIAL ONE (07:38)
[2020-10-11] MEDS ORDERED: SEVOFLURANE (ULTANE) 15 ML INHAL SOLN ONE ×2 (07:38→09:48)
[2020-10-11] MEDS ORDERED: MIDAZOLAM 2 MG/2 ML (VERSED) VIAL ONE (07:38)
[2020-10-11] MEDS ORDERED: fentaNYL INJECTION 100 MCG/2 ML AMP ONE (07:38)
[2020-10-11] MEDS ORDERED: IOPAMIDOL 61% 30 ML (ISOVUE 300) VIAL ONE (08:00)
[2020-10-11] MEDS ORDERED: LIDOCAINE/EPI 1%-1:100,000 (XYLOCAINE) 50 ML ONE (08:01)
[2020-10-11] MEDS: LACTATED RINGERS 1,000 ML IV PRN ×2 (08:05→10:42)
[2020-10-11] MEDS ORDERED: ceFAZolin 2 GM IV Premixed 50 ML IV ONE (08:15)
[2020-10-11] MEDS ORDERED: GLYCOPYRROLATE 0.2 MG/ML (ROBINUL) 2 ML VIAL ONE (09:49)
[2020-10-11] MEDS ORDERED: NEOSTIGMINE 3 MG/3 ML VIAL ONE (09:49)
--- NOTE | 2020-10-11 10:13 | Progress Note-Post Operative ---
Post-Operative Progess Note Surgeon (s)/Vice President Fixed Income (s) Surgeon MANDY CHARLTON DO Vice President Fixed Income: Dr. Florence to assist in retraction dissection and closure Pre-Operative Diagnosis right upper quadrant pain, hydrops gallbladder Post-Operative Diagnosis same Procedure & Operative Findings Date of Procedure 10/11/20 Procedure Performed/Findings PROCEDURE: Laparoscopic cholecystectomy with intraoperative cholangiogram. COMPLICATIONS: None. PROCEDURE: The patient was taken to the operating suite and was prepped and draped in sterile fashion. A surgical pause was performed. Just superior to the umbilicus, a 12 mm incision was made. Dissection was taken down to the fascia, which was then scored and grasped with a Cali and the abdomen was then entered. A 0 Vicryl suture was placed in a [id number]-gn-nzoca fashion and a [place] trocar was placed and secured. Pneumoperitoneum was achieved. A 5mm trochar place in the subxyphoid and 2 in the right upper quadrant. The gallbladder was then grasped and elevated. Adhesions taken down. The cystic duct, and cystic artery were then dissected out. Clip was placed on the distal portion of the cystic duct which was then partially transected. An arrow catheter was inserted into the duct. The cholangiogram was then performed. No filing defects and contrast made its way into the duodenum. Catheter removed. Clips were placed on proximal portion of the cystic duct and then the duct was then transected. Clips were placed along the proximal and distal portion of the cystic artery which was then transected. Hook cautery was used to dissect the gallbladder from the gallbladder fossa achieving hemostasis. The gallbladder was placed in an Endobag and removed through the 12 mm trocar site. The abdomen was then reinspected. Copious amounts of irrigation were used to irrigate the abdomen and there were no signs of active bleeding. Hemostasis had been achieved. The 12 mm fascial defect was then closed with 0 Vicryl suture that had been placed in a [id number] fashion. The abdomen was then desufflated, the trocars were removed. The abdomen was then washed and dried. The skin was then closed using 4-0 Monocryl in a subcuticular fashion. The abdomen was washed and dried and Skin Affix was place over incisions. Patient tolerated the procedure well without any complications and was taken to the recovery room in stable condition. Anesthesia Type general Estimated Blood Loss Estimated blood loss (mL): minimal Specimens/Packing Specimens Removed gallbladder MANDY CHARLTON DO Oct 11, 2020 10:13
[2020-10-11] MEDS ORDERED: HYDR-34 PO (10:14)
[2020-10-11] MEDS ORDERED: ONDANSETRON 4 MG/2 ML (SDV) Z0FRAN IVP PRN (10:15)
[2020-10-11] MEDS ORDERED: HYDROmorphone 2 MG/ML VIAL (DILAUDID) IV ONE (10:15)
--- NOTE | 2020-10-11 10:16 | Discharge Inst-Simple/Standard ---
Discharge Inst-Standard Discharge Medications New, Converted or Re-Newed RX: RX on Chart Patient Instructions/Follow Up Plan of Care/Instructions/FU: 2 weeks [place]elia Activity as Tolerated: No Discharge Diet: Regular Diet Other Inst to Patient Follow up Appt: Make appointment for 2 weeks. Instructions: No lifting greater than 10 pounds. No strenuous activity. May shower in 24 hours, no tub bath or soaking. Use incentive spirometer at home as directed. No Smoking Skin/Wound Care: You have special glue over incision, it will fall off on it's own. Symptoms to Report: Appetite Changes, Extremity Discoloration, Numbness/Tingling, Swelling Increased, Bleeding Excessive, Eyesight Changes, Pain Increased, Urine Color Change, Constipation(Persistent), Fever over 101 degree F, Pain/Pressure in ches t, Urinating Difficulty, Cough Up/Vomit Blood, Heart Beat Irreg/Pounding, Pain/Pressure in jaw, Vaginal Bleeding Increase, Cramps in feet or legs, Lightheadedness, Pain/Pressure in shoulder, Diarrhea(Persistent), Memory Changes Suddenly, Questions/Concerns, Weight gain consecutive days, Dizziness/Fainting, Nausea/Vomiting, Shortness of Breath, Weight gain over 2 pounds. If eyes or skin turn yellow notify physician. If questions or concerns contact your physician Or seek help at emergency department. MANDY CHARLTON DO Oct 11, 2020 10:16
[2020-10-11] MEDS: morphine INJ 10 MG/ML 1ML (SYR OR VIAL) IVP ONE ×2 (10:42→10:46)
--- NOTE | 2020-10-11 11:16 | Diagnostic Imaging Report ---
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 12.9 seconds of fluoroscopy time was utilized. 63 spot images of the right upper quadrant were obtained. There are laparoscopic devices in place. There has been opacification of the common bile duct via a cystic duct catheter. There is no definite defect within the common bile duct to suggest retained calculus and contrast is seen extending into the small bowel. IMPRESSION: Fluoroscopic assistance was provided for Dr. Gilbert. Dictated by: Dictated on workstation # [id number]
--- NOTE | 2020-10-11 11:57 | Anesthesia-General Post-Op ---
General Patient Condition Mental Status/LOC: Same as Preop Cardiovascular: Satisfactory Nausea/Vomiting: Absent Respiratory: Satisfactory Pain: Controlled Complications: Absent Post Op Complications Complications None Follow Up Care/Instructions Patient Instructions None needed. Anesthesia/Patient Condition Patient Condition Patient is doing well, no complaints, stable vital signs, no apparent adverse anesthesia problems. No complications reported per nursing. DENIS YE CRNA Oct 11, 2020 11:57
== END 2020-10-11 12:20 | disposition home or self-care (01) ==
LOC: SDC 07:12
PROVIDERS: ATTEND Surgery
DX: K81.1 Chronic cholecystitis (principal); K82.1 Hydrops of gallbladder; I10 Essential (primary) hypertension; G43.909 Migraine, unspecified, not intractable, without status migrainosus; F41.9 Anxiety disorder, unspecified; F32.9 Major depressive disorder, single episode, unspecified; J44.9 Chronic obstructive pulmonary disease, unspecified; I25.110 Atherosclerotic heart disease of native coronary artery with unstable angina pectoris; E78.5 Hyperlipidemia, unspecified; M19.90 Unspecified osteoarthritis, unspecified site; E66.9 Obesity, unspecified; Z68.28 Body mass index [BMI] 28.0-28.9, adult; Z79.899 Other long term (current) drug therapy; Z88.8 Allergy status to other drugs, medicaments and biological substances; Z86.73 Personal history of transient ischemic attack (TIA), and cerebral infarction without residual deficits; Z95.5 Presence of coronary angioplasty implant and graft
CPT/HCPCS: 76000; 87081

== ENCOUNTER 2021-04-07 13:47 | Inpatient (IN) | payer MEDICARE ==
[~2021-04-07] VITALS: Ht 182.9 cm; Wt 97.4 kg
[~2021-04-07 13:47] MED LIST changes: -LISI-552 PO; +LISI20TA26 PO; +LISI40TA9 PO; +QUET50TA22 PO; -QUET50TA55 PO; +SERT-414 PO; -SERT100T8 PO
[2021-04-07] MEDS ORDERED: NITROGLYCERIN 0.4 MG SL TABS BTL 25'S SL ONE (14:04)
[2021-04-07] MEDS ORDERED: CLOPIDOGREL 300 MG (PLAVIX) TABLET PO ONE ×3 (14:07→15:06)
[2021-04-07 14:10] LABS: BASOPHILS # (AUTO) 0.1 10^3/uL (0.0-0.1); BASOPHILS % (AUTO) 1 % (0-10); EOSINOPHILS # (AUTO) 0.2 10^3/uL (0.0-0.3); EOSINOPHILS % (AUTO) 2 % (0-10); HEMATOCRIT 47 % (40-54); HEMOGLOBIN 15.7 g/dL (13.3-17.7); LYMPHOCYTES # (AUTO) 6.6 10^3/uL (1.0-4.0); LYMPHOCYTES % (AUTO) 51 % (12-44); MEAN CORPUSCULAR HEMOGLOBIN 30 pg (25-34); MEAN CORPUSCULAR HGB CONC 33 g/dL (32-36); MEAN CORPUSCULAR VOLUME 91 fL (80-99); MEAN PLATELET VOLUME 9.3 fL (9.0-12.2); MONOCYTES % (AUTO) 8 % (0-12); NEUTROPHILS # (AUTO) 5.2 10^3/uL (1.8-7.8); NEUTROPHILS % (AUTO) 40 % (42-75); PLATELET COUNT 332 10^3/uL (130-400); WHITE BLOOD COUNT 13.1 10^3/uL (4.3-11.0)
--- NOTE | 2021-04-07 14:13 | ED Chest Pain ---
General Chief Complaint: Cardiac/General Problems Stated Complaint: STEMI Nursing Triage Note: EMS CALLED IN ANTERIOR AMI, PT HAS CARD HX, PAIN STARTED ABOUT 1200, TOOK 2 NITOR AT HOME THAT MAY HAVE BEEN OLD, EMS GAVE 2 MORE NITRO IN ROUTE TO ER, 324 ASA, MORPHINE 5 MG WITH 2.5 MG GIVEN IN THE ER BY EMS. HYPERTENSIVE FOR EMS AND 198/148 ON ARRIVAL TO ER. UPPER CENTER CHEST PAIN. Source: patient Exam Limitations: no limitations History of Present Illness Date Seen by Provider: Apr 07, 2021 Time Seen by Provider: 13:56 Initial Comments Here with report of chest pain. STEMI activation from the field for anterior ST elevation. Patient states that he had chest pain onset around noon and then called EMS around 1330. They arrived and evaluated. Patient had taken 2 nitro at home but did not have any change in symptoms EMS gave aspirin 324 mg p.o. as well as 2 more nitro sublingual's which did help. They did note the ST elevation in the anterior leads. Patient does have history of heart attack several years ago and had stents placed. He is under the care of Dr. Bernal and [facility]. Patient thought he was on Plavix but he does not appear to be by his med list. States pain is central and radiates to the neck. Pain did improve some with nitroglycerin. He is quite hypertensive at 200/100 on arrival. EMS did give morphine 5 mg IV in route and repeated 2.5 mg IV on arrival. Patient denies nausea or vomiting but is sweating. Timing/Duration: 1-3 hours Severity/Quality: moderate, severe, pressure Location: central Radiation: neck Activities at Onset: none Prior CP/Workup: cardiac cath, heart attack Modifying Factors: improves with nitroglycerin, improves with rest ASA po LIFE CARE PLANNER: Yes NTG SL LIFE CARE PLANNER: Yes Associated Symptoms: diaphoresis; No nausea/vomiting, No shortness of breath Allergies and Home Medications Allergies Coded Allergies: clonidine (Verified Adverse Reaction, Unknown, 09/28/16) CATAPRESS PATCH HAS RED AREA AT SITE. Home Medications Aspirin 81 Mg Tablet.dr, 81 MG PO DAILY, (Reported) Hydrocodone Bit/Acetaminophen 1 Each Tablet, 1 TAB PO Q6H PRN for PAIN-MODERATE Prescribed by: MANDY CHARLTON on 10/11/20 1014 Metoprolol Succinate 200 Mg Tab, 200 MG PO DAILY, (Reported) Nitroglycerin 0.4 Mg Tab.subl, 0.4 MG SL UD PRN for CHEST PAIN, (Reported) Omeprazole 20 Mg Capsule.dr, 20 MG PO DAILY, (Reported) Quetiapine Fumarate 50 Mg Tablet, 50 MG PO DAILY, (Reported) Quetiapine Fumarate 100 Mg Tablet, 100 MG PO HS, (Reported) Patient Home Medication List Home Medication List Reviewed: Yes Review of Systems Review of Systems Constitutional: see HPI; No chills, No fever EENTM: No Symptoms Reported Respiratory: Denies Cough, Denies Shortness of Air Cardiovascular: Chest Pain; Denies Edema Gastrointestinal: Denies Nausea, Denies Vomiting Genitourinary: No Symptoms Reported Musculoskeletal: No back pain; neck pain Skin: no symptoms reported All Other Systems Reviewed Negative Unless Noted: Yes Past Isdbguj-Dkkdsc-Zvxmbn Hx Patient Social History Tobacco Use?: Yes Tobacco type used: Cigarettes Smoking Status: Current Everyday Smoker Substance use?: No Alcohol Use?: Yes Alcohol type: Wine Alcohol Frequency: Once in a while Immunizations Up To Date Tetanus Booster (TDap): Unknown Seasonal Allergies Seasonal Allergies: No Past Medical History Surgeries: Yes (BACK SURGERY ( ANTERIOR APPROACH) , CARPAL TUNNEL) Adenoidectomy, Cardiac, Coronary Stent, Defibrillator, Orthopedic, Pacemaker, Tonsillectomy, Vasectomy Respiratory: No Currently Using CPAP: No Currently Using BIPAP: No Cardiac: Yes (heart catheter May 2015 with moderate disease-cardiac arrest with MT) Coronary Artery Disease, Heart Attack, High Cholesterol, Hypertension Neurological: Yes Headaches /Migraines, TIA Reproductive Disorders: No Sexually Transmitted Disease: No HIV/AIDS: No Genitourinary: No Gastrointestinal: Yes Pancreatitis Musculoskeletal: Yes (BACK PAIN, BACK SURGERY, CARPAL TUNNEL SURGERY) Arthritis, Chronic Back Pain Endocrine: No HEENT: No Loss of Vision: Denies Hearing Impairment: Denies Cancer: No Psychosocial: Yes Anxiety, Depression Integumentary: No Blood Disorders: No Adverse Reaction/Blood Tranf: No Family Medical History Reviewed Nursing Family Hx Cardiovascular disease No Pertinent Family Hx Physical Exam Vital Signs Vital Signs - First Documented 04/07/21 04/07/21 13:56 13:57 Temp 34.2 Pulse 66 Resp 22 B/P (MAP) 198/148 (165) Pulse Ox 96 O2 Delivery Nasal Cannula O2 Flow Rate 2.00 Capillary Refill : Height, Weight, BMI Height: 6'0.00" Weight: 203lbs. 0.0oz. 92.942963ib; 28.00 BMI Method:Stated General Appearance: WD/WN, Moderate Distress HEENT: PERRL/EOMI, Pharynx Normal Neck: Non Tender, Supple Respiratory: No Respiratory Distress, Crackles (Moderate left base) Cardiovascular: Regular Rate, Rhythm, No Murmur Gastrointestinal: Non Tender, Soft Extremity: Normal Range of Motion, Non Tender Neurologic/Psychiatric: Alert, Oriented x3 Skin: Normal Color, Warm/Dry Procedures/Interventions Date of ETT Placement: February 24, 2016 Time of ETT Placement: 1314 Progress/Results/Core Measures Results/Orders Vital Signs/I&O 04/07/21 04/07/21 13:56 13:57 Temp 34.2 Pulse 66 Resp 22 B/P (MAP) 198/148 (165) Pulse Ox 96 98 O2 Delivery Nasal Cannula Nasal Cannula O2 Flow Rate 2.00 2.00 Blood Pressure Mean: 165 Progress Progress Note : Progress Note STEMI activation from EMS. Seen and evaluated on arrival by EMS. IV established by EMS. Second IV ordered. Chest pain protocol initiated. I did discuss the case with nursing money room supervisor to activate the STEMI team at [address] Flores at [address]5. Dr. Flores in room on arrival. Initial evaluation completed. We will initiate nitroglycerin sublingual for markedly elevated blood pressure. Patient has unstable angina currently and he will take the patient to the [facility] due to severity of symptoms. This was discussed with the patient who agrees. Patient to go to [facility]. Plavix 300 mg p.o. ordered and given after records reviewed demonstrated patient is not being prescribed Plavix. Patient was unsure. To [facility] at 1420. Patient did receive 2 nitroglycerin sublingual and pain down to 4 out of 10 now. Initial ECG Impression Date: Apr 07, 2021 Initial ECG Impression Time: 13:57 Initial ECG Rate: 64 Initial ECG Rhythm: Normal Sinus Comment Sinus rhythm with normal axis. Borderline ST depression in the lateral leads w ith borderline ST elevation in the anterior leads. ST elevation component is similar to 03/30/2018 although a little bit more pronounced. EKG reviewed with cardiology, Dr. Flores. Departure Communication (Admissions) Time/Spoke to Admitting Phy: 13:45 Impression Primary Impression: Unstable angina Disposition: ADMITTED INPATIENT Condition: Stable Admissions Decision to Admit Reason: Admit from ER (General) Decision to Admit/Date: Apr 07, 2021 Time/Decision to Admit Time: 14:00 Departure-Patient Inst. Referrals: MARGARITA BELLA MD (PCP/Family) Primary Care Physician SHAHAB DELGADO MD Apr 07, 2021 14:12
[2021-04-07] MEDS ORDERED: NITROGLYCERIN 0.4 MG SL TABS BTL 25'S SL PRN (14:15)
--- NOTE | 2021-04-07 14:17 | Cardiology History & Physical ---
HPI-Cardiology Cardiology Consultation Date of Consultation 04/07/21 Date of Admission Time Seen by Provider: 14:12 Indication: Chest pain HPI 60 years old gentleman with extensive coronary artery disease, multiple intervention in the past, hypertension and hyperlipidemia. Started to have chest pain around noon today, did not improve after nitroglycerin called EMS, he was given multiple doses of nitroglycerin and morphine, still having significant chest pain in the retrosternal area radiating to the neck and jaw. Having some shortness of breath. No palpitation. PMH-Cardiology Immunizations Up To Date Tetanus Booster (DTap): Unknown Date of Pneumonia Vaccine: Jun 30, 2017 Date of Influenza Vaccine: Jul 11, 2020 Seasonal Allergies Seasonal Allergies: No Surgeries Yes (BACK SURGERY ( ANTERIOR APPROACH) , CARPAL TUNNEL) Tonsillectomy, Orthopedic Respiratory No Cardiovascular Yes (heart catheter May 2015 with moderate disease-cardiac arrest with [place]) Heart Attack, High Cholesterol, Hypertension, Coronary Artery Disease Neurological Yes Headaches /Migraines, TIA Reproductive System Hx Reproductive Disorders: No Sexually Transmitted Disease: No HIV/AIDS: No Genitourinary No Gastrointestinal Yes Pancreatitis Musculoskeletal Yes (BACK PAIN, BACK SURGERY, CARPAL TUNNEL SURGERY) Arthritis, Chronic Back Pain Endocrine No HEENT No Loss of Vision: Denies Hearing Impairment: Denies Cancer No Psychosocial Yes Anxiety, Depression Integumentary No Blood Transfusions No Adverse Rxn to Transfusion: No Social History Patient Social History Marrital Status: Smoking: Current every day smoker Dip or chew tobacco?: No Have you traveled recently?: Yes Family Hx Significant Family History: No Pertinent Family Hx Other Discussed below Family History: Cardiovascular disease ROS-Cardiology Review of Systems General: No Chills, No Night Sweats, No Fatigue, No Malaise, No Appetite HEENT: No Head Aches, No Visual Changes, No Eye Pain, No Ear Pain, No Dysphasia, No Sinus Congestion, No Post Nasal Drip, No Sore Throat Pulmonary: Dyspnea; No Cough, No Pleuritic Chest Pain Cardiovascular: Chest Pain; No: Palpitations, Orthopnea, Paroxysmal Noc. Dyspnea, Edema, Lt Headedness Gastrointestinal: No: Nausea, Vomiting, Abdominal Pain, Diarrhea, Constipation, Melena, Hematochezia Genitourinary: No Dysuria, No Frequency, No Incontinence, No Hematuria, No Retention Musculoskeletal: No: neck pain, shoulder pain, arm pain, back pain, hand pain, leg pain, foot pain Neurological: No: Weakness, Numbness, Incoordination, Change in speech, Confusion, Seizures Home Medications & Allergies Allergies: Coded Allergies: clonidine (Verified Adverse Reaction, Unknown, 09/28/16) CATAPRESS PATCH HAS RED AREA AT SITE. Home Medication List Reviewed: Yes Exam-Cardiology Vital Signs Vital Signs Date Time Temp Pulse Resp B/P (MAP) Pulse Ox O2 Delivery O2 Flow Rate FiO2 04/07/21 14:19 34.2 57 22 167/102 (165) 98 Nasal Cannula 2.00 Exam General Appearance: Alert, Oriented X3, Cooperative, No Acute Distress HEENT: Atraumatic, PERRLA Respiratory: Clear to Auscultation, Normal Air Movement Cardiovascular: Regular Rate, Normal S1, Normal S2, No Murmurs Abdominal: Normal Bowel Sounds, Soft, No Tenderness, No Hepatosplenomegaly, No Masses Extremities: No Clubbing, No Cyanosis, No Edema, Normal Pulses, No Tenderness/Swelling Skin: No Rashes, No Breakdown, No Significant Lesion Neuro: Normal Gait, Normal Speech, Strength at 5/5 X4 Ext, Normal Tone, Sensation Intact Psych/Mental Status: Mental Status NL, Mood NL Results Labs Labs Laboratory Tests 04/07/21 14:00: White Blood Count 13.1H, Red Blood Count 5.19, Hemoglobin 15.7, Hematocrit 47, Mean Corpuscular Volume 91, Mean Corpuscular Hemoglobin 30, Mean Corpuscular Hemoglobin Concent 33, Red Cell Distribution Width 14.6H, Platelet Count 332, Mean Platelet Volume 9.3, Immature Granulocyte % (Auto) 0, Neutrophils (%) (Auto) 40L, Lymphocytes (%) (Auto) 51H, Monocytes (%) (Auto) 8, Eosinophils (%) (Auto) 2, Basophils (%) (Auto) 1, Neutrophils # (Auto) 5.2, Lymphocytes # (Auto) 6.6H, Monocytes # (Auto) 1.0, Eosinophils # (Auto) 0.2, Basophils # (Auto) 0.1, Immature Granulocyte # (Auto) 0.1 04/07/21 14:05: Glucometer 148H 04/07/21 14:18: Prothrombin Time 13.0, INR Comment 1.0, Activated Partial Thromboplast Time 28, D-Dimer < 0.27, Sodium Level 138, Potassium Level 4.1, Chloride Level 107, Carbon Dioxide Level 20L, Anion Gap 11, Blood Urea Nitrogen 18, Creatinine 1.24, Estimat Glomerular Filtration Rate 59, BUN/Creatinine Ratio 15, Glucose Level 146H, Calcium Level 8.4L, Corrected Calcium 8.2L, Magnesium Level 1.9, Total Bilirubin 0.6, Aspartate Amino Transf (AST/SGOT) 124H, Alanine Aminotransferase (ALT/SGPT) 165H, Alkaline Phosphatase 119, Myoglobin 64.7, Troponin I < 0.028, Total Protein 6.9, Albumin 4.2 A/P-Cardiology Admission Diagnosis Acute myocardial infarction Coronary artery disease Hypertensive emergency Hyperlipidemia Admission Status: Inpatient Order (span 2 midnights) Reason for Inpatient Admission: Acute myocardial infarction Assessment/Plan Acute myocardial infarction, mild ST elevation in the anterior leads, no significant change compared to be his baseline, having significantly active chest pain, planning to proceed with emergency cardiac catheterization. Coronary artery disease, extensive disease, had a cardiac catheterization in 2017 with subtotal occlusion of the right coronary artery underwent 3 Alpine stents to the right coronary artery with good results, 2 days later had another intervention by Dr. Murray for severe ostial/proximal LAD stenosis had Alpine stent 3 x 23 mm with good results. Last cardiac catheterization was done in August [address] Murray showing patent stent in the proximal/ostial LAD known to be Alpine 3 x 23 mm, the right coronary artery has 3 stents Alpine 2.75 x 28, 2.5 x 28, 2.5 x 33 that are patent with good results, planning to proceed with emergency cardiac catheterization Congestive heart failure, acute on chronic left ventricular systolic dysfunction, ischemic cardiomyopathy, ejection fraction 30% History of ventricular fibrillation and cardiac arrest in January 2016 with prolonged hospitalization in [place], another episode occurred on December 30, 2017, had ICD implanted by Dr. Aguilera in March 2016. Hypertension, severe hypertension at this time, will start beta-blockers and restart medication and monitor tolerance and response Hyperlipidemia, starting on aggressive statin Chronic kidney disease stage II-III, followed and managed by primary care physician Santino, educated on smoking cessation History of moderate renal artery stenosis. History of TIA in 2011. Carotid stenosis, last ultrasound was reported as mild disease nonobstructive disease Status post cholecystectomy done last month. YORDY MOSES MD Apr 07, 2021 14:17
--- NOTE | 2021-04-07 14:18 | Conscious Sedation/ASA ---
Conscious Sedation Pre-Proced Time 14:17 ASA Score 3 For ASA 3 and 4: Consider anesthesia and medical clearance. Also, for patients with a history of failed moderate sedation consider anesthesia. Airway Lungs Heart ASA score ASA 1: a normal healthy patient ASA 2: a patient with a mild systemic disease (mid diabetes, controlled hypertension, obesity x ASA 3: a patient with a severe systemic disease that limits activity (angina, COPD, prior Myocardial infarction) ASA 4: a patient with an incapacitating disease that is a constant threat to life (CHF, renal failure) ASA 5: a moribund patient not expected to survive 24 hrs. (ruptured aneurysm) ASA 6: a declared brain- patient whose organs are being harvested. For emergent operations, add the letter E after the classification Mallampati Classification Grade 3 Sedation Plan Analgesia, Amnesia, Plan communicated to team members, Discussed options with patient/fam, Discussed risks with patient/fam The patient is an appropriate candidate to undergo the planned procedure, sedation, and anesthesia. The patient immediately re-assessed prior to indication. YORDY MOSES MD Apr 07, 2021 14:18
[2021-04-07 14:19] VITALS: BP 167/102
--- NOTE | 2021-04-07 14:28 | Diagnostic Imaging Report ---
INDICATION: Chest pain. Comparison made with prior examination of 01/02/2018. FINDINGS: There is cardiomegaly and mild venous congestion. No pleural effusion or pneumothorax. Mediastinum unremarkable. Pacemaker overlies left hemithorax. IMPRESSION: Cardiomegaly and mild central pulmonary venous congestion. Dictated by: Dictated on workstation # [id number]
[2021-04-07 14:45] LABS: ALBUMIN 4.2 GM/DL (3.2-4.5)
[2021-04-07 14:46] LABS: POTASSIUM 4.1 MMOL/L (3.6-5.0)
[2021-04-07 14:47] LABS: CALCIUM 8.4 MG/DL (8.5-10.1)
[2021-04-07 14:48] LABS: TOTAL PROTEIN 6.9 GM/DL (6.4-8.2)
[2021-04-07 14:50] LABS: BILIRUBIN,TOTAL 0.6 MG/DL (0.1-1.0)
[2021-04-07 14:52] LABS: CREATININE SERUM 1.24 MG/DL (0.60-1.30)
[2021-04-07 14:54] LABS: MAGNESIUM 1.9 MG/DL (1.6-2.4)
[2021-04-07] MEDS ORDERED: PATIENT MAY USE OWN MEDS, ALL PO SCH (15:15)
--- NOTE | 2021-04-07 15:17 | Cardiac Cath Report ---
Cardiac Cath Report Physician (s)/Sales Assistant (s) Physician YORDY MOSES MD Pre-Procedure Diagnosis Pre-Procedure Diagnosis: Acute myocardial infarction Post-Procedure Note Procedure Start Date: Apr 07, 2021 Name of Procedure: Cardiac catheterization Acute emergency stenting to the mid and distal LAD Left ventriculogram Findings/Procedure Note PROCEDURE NOTE: 60 years old gentleman with extensive coronary artery disease, multiple stents, admitted with acute chest pain and mild ST elevation in the anterior leads, having severe chest pain did not respond to nitroglycerin and morphine. Emergency cardiac catheterization was activated. After explaining the procedure to the patient, all pros and cons were explained, all questions were answered. The patient signed the consent and then he was placed on the cardiac catheterization laboratory. Groin was prepped SL fashion local anesthesia was used. Sheath placed in the artery. Abel right and left catheter were used to access the coronary system. Patient has 2 segment of severe stenosis in the mid and distal LAD, the second diagonal artery has subtotal occlusion, very small artery not amendable to intervention, the third diagonal artery has severe ostial stenosis. FL 3.5 guide was advanced to the left coronary system, 6000 units of heparin were given, BMW wire was advanced and parked in the distal LAD. Balloon angioplasty initiated with 2.5 x 20 mm balloon to the distal and mid LAD, door to balloon time and reestablishment of flow was 45 minutes. Then I proceeded with stenting the distal LAD using Niyah 2.5 x 15 mm expanded to 2.7 mm with excellent results, the mid LAD lesion was just beyond the old stent, and new Niyah 3 x 15 mm deployed under 16 xavi expanding to 3.2 mm with excellent results, beyond that area there was some haziness noted at the end of the procedure, I reintroduced the wire and advanced the stent balloon and did multiple 3.0 gentle inflation, showing improvement in that haziness. Pigtail catheter advanced to the left ventricular cavity and left ventriculogram was done. At the end of the procedure the sheath was removed. Closure device was deployed FINDINGS: Hemodynamics LV 122/8, end-diastolic pressure of 8 Aorta 122/66 mean of 86 ANATOMY: Left Main has mild disease nonobstructive disease Left Anterior Descending is known to have ostial/proximal stent, had mild ostial LAD stenosis that was present in August 2020. Beyond the stent there is an area of severe stenosis successful balloon angioplasty and stenting using Niyah 3 x 15 mm expanded to 3.2 mm with excellent results, beyond that area there was some haziness and balloon angioplasty was done with improvement. In the distal LAD there was severe stenosis, balloon angioplasty and deployment of Niyah 2.5 x 15 mm expanded to 2.71 mm with excellent results. The second diagonal artery is subtotally occluded, very small artery, improved after intracoronary nitroglycerin, not amendable to intervention. The third diagonal artery has severe ostial stenosis, small to moderate in size not amendable to intervention. Left Circumflex is moderate in size with mild to moderate disease in the midportion nonobstructive disease Right Coronary Artery has multiple stents, patent stents in the proximal mid and distal, mild to moderate disease nonobstructive disease LV Gram was done showing dilated left ventricle with diffuse hypokinesia, ejection fraction 30% CONCLUSION: 1. Acute myocardial infarction with subtotal mid and distal LAD, door to balloon time 45 minutes 2. Successful deployment of mid LAD stent using Niyah 3.0 x 15 mm expanded to 3.2 mm, successful deployment to the distal LAD stent using Niyah 2.5 x 15 mm expanded to 2.71 mm with excellent results 3. Severe stenosis at the second diagonal artery/subtotal occlusion improved with nitroglycerin, very small artery not amendable to intervention 4. Severe stenosis of the third diagonal artery, small to moderate in size not amendable to intervention 5. Mild to moderate disease in the circumflex artery nonobstructive disease 6. Patent stents in the proximal, mid and distal right coronary artery with mild to moderate disease in the distal right coronary artery nonobstructive disease 7. Dilated left ventricle with severe diffuse left ventricular hypokinesia, EF 30% DISCUSSION AND RECOMMENDATION: Patient was loaded with aspirin and 300 mg of Plavix, restarted lisinopril 40 mg and Toprol-XL 200 mg, added Lipitor 80 mg and Protonix 40 mg daily. Educated on smoking cessation Anesthesia Type: Conscious Sedation Estimated blood loss (mL): 25 ml Contrast Amount: 167 ml Total Radiation Dose: 797 mGy Post-Procedure Diagnosis Post-operative diagnosis: Acute myocardial infarction Coronary artery disease Congestive heart failure, acute on chronic left ventricular systolic dysfunction, ischemic cardiomyopathy Hypertension Hyperlipidemia YORDY MOSES MD Apr 07, 2021 15:17
--- NOTE | 2021-04-07 15:53 | Tele-ICU Consult ---
History of Present Illness History of Present Illness Date Seen by Provider: Apr 07, 2021 Time Seen by Provider: 15:30 Date of Admission Patient acknowledgedin this virtual visit which was conducted using real time audio/video. Thank you for asking us to see this patient. HPC: Recent events: Unstable angina, returned from CCL w 2 LAD stents. PMH:CAD w previous stents, CHF, isch CMP, htn., HL SH: smoking history currently FH: Non-contributory ROS: limite, but currently asymptomatic PE: VSS HR 57 sinus BP 145/80 RR 10 O2 sat 99% on NC HEENT: No obvious masses, adenopathy or JVD. Chest: clear to auscultation. CV: RRR S1 S2 No murmur or added sounds. Abd: Non-tender. Bowel sounds resent. : Unremarkable.. PARTS REMOVER/psychiatric: Alert and oriented, grossly intact. No obvious focal findings. Extremities: No edema. Skin: unremarkable. Results: Elevated WCC 13.1. otherwise unremarkable. A/P: Available chart/ vitals / labs / Images reviewed. Video assessment done using teleICU camera, rest of exam as per RN Respiratory: Continue present management with Monitor for recurring pain. Contiue PPi, ASA, Bbl., plavix. Critical Care: critically ill patient. Discussed with RN. Asked RN to reach out to eICU if any questions or concerns later. Time spent with patient/coordination of care with other health professionals (mins):23 Reason for Visit: Chest pain History of Present Illness See free text. Allergies and Home Medications Allergies Coded Allergies: clonidine (Verified Adverse Reaction, Unknown, 09/28/16) CATAPRESS PATCH HAS RED AREA AT SITE. Home Medications Aspirin 81 Mg Tablet.dr, 81 MG PO DAILY, (Reported) Hydrocodone Bit/Acetaminophen 1 Each Tablet, 1 TAB PO Q6H PRN for PAIN-MODERATE Prescribed by: MANDY GILBERT on 10/11/20 1014 Metoprolol Succinate 200 Mg Tab, 200 MG PO DAILY, (Reported) Nitroglycerin 0.4 Mg Tab.subl, 0.4 MG SL UD PRN for CHEST PAIN, (Reported) Omeprazole 20 Mg Capsule.dr, 20 MG PO DAILY, (Reported) Quetiapine Fumarate 50 Mg Tablet, 50 MG PO DAILY, (Reported) Quetiapine Fumarate 100 Mg Tablet, 100 MG PO HS, (Reported) Past Medical/Social/Family Hx Patient Social History Marrital Status: Tobacco Use?: Yes Tobacco type used: Cigarettes Smoking Status: Current Everyday Smoker Substance use?: No Alcohol Use?: Yes Alcohol type: Wine Alcohol Frequency: Once in a while Immunizations Up To Date First/Initial COVID19 Vaccinat: 01/11/21 Second COVID19 Vaccination Timo: 02/08/21 Tetanus Booster (TDap): Unknown Hepatitis A: No Hepatitis B: No Date of Pneumonia Vaccine: Jun 30, 2017 Current Status Advance Directives: No Primary Language: Bulgarian Preferred Spoken Language: Bulgarian Implanted or Applied Medical D: Implantable cardioverter Past Medical History Past Medical History 1. HTN 2. DJD 3. Headache 4. Tobaccoism 5. Hx alcohol and illicit drug use 6. Coronary Artery Disease 7. 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 Hyperlipidemia 9. Reported history of rectal bleeding with normal colonoscopy with [facility] 04/10 10. Prediabetes- HgA1C 6.2 10/11 11. hx of cardiac arrest 01/2016; defibrillator placed Past Surgical History 1. Left Carpal tunnel with median nerve transposition 2. Tonsillectomy 3. Back surgery 2004 4.Cardiac Cath 01/[address] Bernal demonstrating moderate coronary artery disease without intervention required. 5. Colonsocopy- [place] normal Review of Systems Constitutional: no symptoms reported EENTM: no symptoms reported Respiratory: no symptoms reported Cardiovascular: chest pain Gastrointestinal: no symptoms reported Genitourinary: no symptoms reported Musculoskeletal: no symptoms reported Skin: no symptoms reported Psychiatric/Neurological: No Symptoms Reported (See free text.) Sepsis Event Evaluation Sepsis Stage: Ruled Out Height, Weight, BMI Height: 6'0.00" Weight: 203lbs. 0.0oz. 92.180690lq; 28.00 BMI Method:Stated Exam Exam Patient acknowledged, consented, and participated in this virtual visit which was conducted using real time audio/video Vital Signs Date Time Temp Pulse Resp B/P (MAP) Pulse Ox O2 Delivery O2 Flow Rate FiO2 04/07/21 15:34 55 04/07/21 15:30 56 11 146/77 (100) 99 Nasal Cannula 2.00 04/07/21 15:15 55 135/77 (96) Nasal Cannula 2.00 04/07/21 14:19 34.2 57 22 167/102 (165) 98 Nasal Cannula 2.00 04/07/21 13:57 Nasal Cannula 2.00 04/07/21 13:57 34.2 66 22 198/148 (165) 98 Nasal Cannula 2.00 04/07/21 13:56 96 Nasal Cannula 2.00 Height & Weight Height: 6'0.00" Weight: 203lbs. 0.0oz. 92.596387eb; 28.00 BMI Method:Stated General Appearance: WD/WN, Moderate Distress HEENT: PERRL/EOMI, Pharynx Normal Neck: Non Tender, Supple Respiratory: No Respiratory Distress, Crackles (Moderate left base) Cardiovascular: Regular Rate, Rhythm, No Murmur Capillary Refill: Less Than 3 Seconds Extremity: Normal Range of Motion, Non Tender Neurologic/Psychiatric: Alert, Oriented x3 Skin: Normal Color, Warm/Dry Results Lab Laboratory Tests 04/07/21 14:00 04/07/21 14:18 Meds See free text. Radiology See free text. Procedures See free text. Assessment/Plan Assessment/Plan See free text. Critical Care: Critically Ill Patient Time spent on discussion(mins): 0 Diagnosis/Problems Problems/Diagonsis (1) HYPERTENSION Status: Acute (2) Chest pain Status: Acute (3) Hyperlipemia Status: Acute (4) Tobacco abuse Status: Chronic (5) CAD (coronary artery disease) Status: Chronic ANDREW SINGH MD Apr 07, 2021 15:53
[2021-04-07] MEDS: NS IV 1000 ML 1,000 ML IV SCH (17:38)
[2021-04-08] MEDS: NS IV 1000 ML 1,000 ML IV SCH (02:29)
[2021-04-08 03:10] LABS: HEMATOCRIT 44 % (40-54); HEMOGLOBIN 14.7 g/dL (13.3-17.7); MEAN CORPUSCULAR HEMOGLOBIN 30 pg (25-34); MEAN CORPUSCULAR HGB CONC 33 g/dL (32-36); MEAN CORPUSCULAR VOLUME 91 fL (80-99); MEAN PLATELET VOLUME 9.1 fL (9.0-12.2); PLATELET COUNT 285 10^3/uL (130-400); WHITE BLOOD COUNT 11.5 10^3/uL (4.3-11.0)
[2021-04-08 03:21] LABS: ALBUMIN 3.8 GM/DL (3.2-4.5); CHLORIDE 107 MMOL/L (98-107); POTASSIUM 4.2 MMOL/L (3.6-5.0); SODIUM 139 MMOL/L (135-145)
[2021-04-08 03:22] LABS: CALCIUM 8.5 MG/DL (8.5-10.1)
[2021-04-08 03:23] LABS: TRIGLYCERIDES 419 MG/DL (<150); VLDL CHOLESTEROL 84 MG/DL (5-40)
[2021-04-08 03:24] LABS: GLUCOSE 107 MG/DL (70-105); TOTAL PROTEIN 6.3 GM/DL (6.4-8.2)
[2021-04-08 03:25] LABS: CARBON DIOXIDE 20 MMOL/L (21-32)
[2021-04-08 03:26] LABS: BILIRUBIN,TOTAL 0.6 MG/DL (0.1-1.0)
[2021-04-08 03:27] LABS: ALKALINE PHOSPHATASE 107 U/L (40-136); CREATININE SERUM 1.14 MG/DL (0.60-1.30); GFR ESTIMATED > 60
[2021-04-08 03:28] LABS: CHOLESTEROL 242 MG/DL (< 200)
[2021-04-08 03:29] LABS: BUN/CREATININE RATIO 14
[2021-04-08 03:30] LABS: ALANINE AMINOTRANSFERASE 127 U/L (0-55); HDL CHOLESTEROL 30 MG/DL (40-60)
[2021-04-08] MEDS ORDERED: KCL 20 MEQ TAB (K-DUR) PO SCH (06:00)
[2021-04-08] MEDS ORDERED: MAGNESIUM 1 GM/100 ML IVPB 100 ML IV SCH (06:00)
[2021-04-08] MEDS ORDERED: POTASSIUM CL 10MEQ/50ML IVPB 50 ML IV SCH (06:00)
[2021-04-08] MEDS ORDERED: PANTOPRAZOLE 40 MG (PROTONIX) TAB PO SCH (09:00)
[2021-04-08] MEDS ORDERED: CLOPIDOGREL 75 MG (PLAVIX) TABLET PO SCH (09:00)
[2021-04-08] MEDS ORDERED: NITROGLYCERIN 0.4 MG SL TABS BTL 25'S SL PRN (09:00)
[2021-04-08] MEDS ORDERED: ASPIRIN E.C. 81 MG (ECOTRIN) TAB PO SCH (09:00)
[2021-04-08] MEDS ORDERED: meTOprolol SUCCINATE 100 MG (TOPROL XL) TAB PO SCH (09:00)
[2021-04-08] MEDS ORDERED: lisINopril 40 MG (PRINIVIL) TABLET PO SCH (09:00)
[2021-04-08] MEDS ORDERED: ATOR80TA76 PO (09:04)
[2021-04-08] MEDS ORDERED: LISI40TA9 PO (09:04)
[2021-04-08] MEDS ORDERED: CLOP75TA28 PO (09:04)
--- NOTE | 2021-04-08 09:07 | Discharge Inst-Post CATH ---
Discharge Inst-CATH/EP Problems Reviewed?: Yes Post Cardiac Cath/EP D/C Inst Follow Up/Plan Appointment with Dr. Bernal's office in 2 to 4 weeks <b>CARDIAC CATH/EP PROCEDURE DISCHARGE INSTRUCTIONS</b> ACTIVITY * Go Home directly and rest. * Limit activity of the leg (or wrist if it was used) for 7 days including ae robics, swimming, jogging, bicycling, etc. * Restrict stair-climbing for 7 days if possible, if not, climb up with your non-cath leg, then bring together on the same step. * Avoid lifting, pushing, pulling or excessive movement of the affected extrem ity for 7 days. * Customary sexual activity may be resumed after 2 days-use caution not to use a position that strains or causes pain to the affected extremity. * No driving for 24 hours. * NO SMOKING. * Avoid straining for bowel movements for 7 days. * Gentle walking on level ground is allowed. * Returning to work will depend on the type of procedure and the results. Your doctor will discuss this with you. CALL YOUR DOCTOR FOR ANY OF THE FOLLOWING: *If bleeding from the puncture site occurs- Apply gentle pressure to site with clean cloth and call your doctor or EMS. * If a knot or lump forms under the skin, increases in size, or causes pain. * If bruising appears to be worsening or moving further down your leg instead of disappearing. * Temperature above 101 F. CARE OF YOUR GROIN INCISION; * Bruising or purple discoloration of the skin near the puncture site is common. * You may shower only, no bathtub bathing for 5 days. Be careful to avoid slipping as your leg may feel stiff. * If a closure device was used on your femoral artery, please see the attached guide regarding care of the device and your leg. * Leave dressing on FOR 24 hours. CARE OF YOUR WRIST INCISION; * Bruising or purple discoloration of the skin near the puncture site is common. * You may shower. * DO NOT submerge wrist. * Leave dressing on FOR 24 hours. YORDY MOSES MD Apr 08, 2021 09:07
[2021-04-08] MEDS ORDERED: RELABEL FOR HOME USE MC SCH (09:15)
[2021-04-08] MEDS ORDERED: AMLO5TAB4 PO (09:42)
[2021-04-08] MEDS ORDERED: amLODIPine 5 MG (NORVASC) TAB PO SCH (09:45)
[2021-04-08] MEDS ORDERED: NITROGLYCERIN 0.4 MG SL TABS BTL 25'S SL SCH (09:45)
--- NOTE | 2021-04-08 09:47 | Cardiology Discharge Summary ---
Discharge Summary Hospital Course Problems Reviewed?: Yes Hospital Course Date of Admission: Admission Diagnosis : Family Physician/Provider: [place] MD Date of Discharge: 04/08/21 Discharge Diagnosis: [Acute ST elevation myocardial infarction in the anterior wall Coronary artery disease Congestive heart failure, acute on chronic left ventricular systolic dysfunction, ischemic cardiomyopathy, ejection fraction 30% Hypertension Hyperlipidemia] Hospital Course: [ Acute myocardial infarction, mild ST elevation in the anterior leads, patient underwent emergency cardiac catheterization with stenting to the LAD Coronary artery disease, extensive disease, had a cardiac catheterization in 2017 with subtotal occlusion of the right coronary artery underwent 3 Alpine stents to the right coronary artery with good results, 2 days later had another intervention by Dr. Murray for severe ostial/proximal LAD stenosis had Alpine stent 3 x 23 mm with good results. Last cardiac catheterization was done in August [address] Murray showing patent stent in the proximal/ostial LAD known to be Alpine 3 x 23 mm, the right coronary artery has 3 stents Alpine 2.75 x 28, 2.5 x 28, 2.5 x 33 that are patent with good results, Cardiac catheterization was carried out on April 07, 2021 showin. Acute myocardial infarction with subtotal mid and distal LAD, door to balloon time 45 minutes 2. Successful deployment of mid LAD stent using Niyah 3.0 x 15 mm expanded to 3.2 mm, successful deployment to the distal LAD stent using Niyah 2.5 x 15 mm expanded to 2.71 mm with excellent results 3. Severe stenosis at the second diagonal artery/subtotal occlusion improved with nitroglycerin, very small artery not amendable to intervention 4. Severe stenosis of the third diagonal artery, small to moderate in size not amendable to intervention 5. Mild to moderate disease in the circumflex artery nonobstructive disease 6. Patent stents in the proximal, mid and distal right coronary artery with mild to moderate disease in the distal right coronary artery nonobstructive disease 7. Dilated left ventricle with severe diffuse left ventricular hypokinesia, EF 30% Congestive heart failure, acute on chronic left ventricular systolic dysfunction, ischemic cardiomyopathy, ejection fraction 30%, continue to maximize medical therapy History of ventricular fibrillation and cardiac arrest in January 2016 with prolonged hospitalization in [place], another episode occurred on December 30, 2017, had ICD implanted by Dr. Aguilera in March 2016. Hypertension, severe hypertension at this time, restarted on his home medication, added Norvasc today due to elevated blood pressure again Hyperlipidemia, starting on aggressive statin Chronic kidney disease stage II-III, followed and managed by primary care physician Santino, educated on smoking cessation History of moderate renal artery stenosis. History of TIA in 2012. Carotid stenosis, last ultrasound was reported as mild disease nonobstructive disease Status post cholecystectomy done last month.] Labs and Pending Lab Test: Laboratory Tests 04/07/21 14:00: White Blood Count 13.1H, Red Blood Count 5.19, Hemoglobin 15.7, Hematocrit 47, Mean Corpuscular Volume 91, Mean Corpuscular Hemoglobin 30, Mean Corpuscular Hemoglobin Concent 33, Red Cell Distribution Width 14.6H, Platelet Count 332, Mean Platelet Volume 9.3, Immature Granulocyte % (Auto) 0, Neutrophils (%) (Auto) 40L, Lymphocytes (%) (Auto) 51H, Monocytes (%) (Auto) 8, Eosinophils (%) (Auto) 2, Basophils (%) (Auto) 1, Neutrophils # (Auto) 5.2, Lymphocytes # (Auto) 6.6H, Monocytes # (Auto) 1.0, Eosinophils # (Auto) 0.2, Basophils # (Auto) 0.1, Immature Granulocyte # (Auto) 0.1 04/07/21 14:05: Glucometer 148H 04/07/21 14:18: Prothrombin Time 13.0, INR Comment 1.0, Activated Partial Thromboplast Time 28, D-Dimer < 0.27, Sodium Level 138, Potassium Level 4.1, Chloride Level 107, Carbon Dioxide Level 20L, Anion Gap 11, Blood Urea Nitrogen 18, Creatinine 1.24, Estimat Glomerular Filtration Rate 59, BUN/Creatinine Ratio 15, Glucose Level 146H, Calcium Level 8.4L, Corrected Calcium 8.2L, Magnesium Level 1.9, Total Bilirubin 0.6, Aspartate Amino Transf (AST/SGOT) 124H, Alanine Aminotransferase (ALT/SGPT) 165H, Alkaline Phosphatase 119, Myoglobin 64.7, Troponin I < 0.028, Total Protein 6.9, Albumin 4.2 04/08/21 02:30: White Blood Count 11.5H, Red Blood Count 4.88, Hemoglobin 14.7, Hematocrit 44, Mean Corpuscular Volume 91, Mean Corpuscular Hemoglobin 30, Mean Corpuscular Hemoglobin Concent 33, Red Cell Distribution Width 13.9, Platelet Count 285, Mean Platelet Volume 9.1, Sodium Level 139, Potassium Level 4.2, Chloride Level 107, Carbon Dioxide Level 20L, Anion Gap 12, Blood Urea Nitrogen 16, Creatinine 1.14, Estimat Glomerular Filtration Rate > 60, BUN/Creatinine Ratio 14, Glucose Level 107H, Calcium Level 8.5, Corrected Calcium 8.7, Total Bilirubin 0.6, Aspartate Amino Transf (AST/SGOT) 73H, Alanine Aminotransferase (ALT/SGPT) 127H, Alkaline Phosphatase 107, Troponin I 4.750*H, Total Protein 6.3L, Albumin 3.8, Triglycerides Level 419H, Cholesterol Level 242H, LDL Cholesterol Direct 156H, VLDL Cholesterol 84H, HDL Cholesterol 30L Home Meds Active Norvasc (Amlodipine Besylate) 5 Mg Tablet 5 Mg PO DAILY Lisinopril 40 Mg Tablet 40 Mg PO DAILY Clopidogrel (Clopidogrel Bisulfate) 75 Mg Tablet 75 Mg PO DAILY Atorvastatin Calcium 80 Mg Tablet 80 Mg PO HS HYDROcodone/APAP 7.5/325 TAB (Acetaminophen/Hydrocodone Bitart) 1 Each Tablet 1 Tab PO Q6H PRN Reported Toprol Xl (Metoprolol Succinate) 200 Mg Tab 200 Mg PO DAILY Quetiapine Fumarate 100 Mg Tablet 100 Mg PO HS Quetiapine Fumarate 50 Mg Tablet 50 Mg PO DAILY Omeprazole 20 Mg Capsule.dr 20 Mg PO DAILY Aspir 81 (Aspirin) 81 Mg Tablet.dr 81 Mg PO DAILY Nitrostat (Nitroglycerin) 0.4 Mg Tab.subl 0.4 Mg SL UD PRN Assessment/Pt DC Instructions Patient was educated on compliance with medication Patient was educated on smoking cessation Appointment with Dr. Bernal's office in 2 to 4 weeks Discharge Diet: No Restrictions Discharge Physical Examination Allergies: Coded Allergies: clonidine (Verified Adverse Reaction, Unknown, 09/28/16) CATAPRESS PATCH HAS RED AREA AT SITE. General Appearance: No Apparent Distress, WD/WN HEENT: PERRL/EOMI, TMs Normal, Normal ENT Inspection, Pharynx Normal Respiratory: Chest Non Tender, Lungs Clear, Normal Breath Sounds, No Accessory Muscle Use, No Respiratory Distress Cardiovascular: Regular Rate, Rhythm, No Edema, No Gallop, No JVD, Normal Peripheral Pulses, Systolic Murmur Gastrointestinal: Normal Bowel Sounds, No Organomegaly, No Pulsatile Mass, Non Tender, Soft Extremity: Normal Capillary Refill, Normal Inspection, Normal Range of Motion, Non Tender, No Calf Tenderness Skin: Normal Color, Warm/Dry Neurologic/Psychiatric: Alert, Oriented x3, No Motor/Sensory Deficits, Normal 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
== END 2021-04-08 11:20 | disposition home or self-care (01) | DRG 246 ==
LOC: EDUNIT# 13:47 → ER 13:55 → CATH 13:57 → ICU 13:57 → CATH 15:27 → ICU 04-08 11:20
PROVIDERS: ADMIT Internal Medicine Cardiovascular Disease; ATTEND Internal Medicine Cardiovascular Disease
PROC: 027035Z Dilation of Coronary Artery, One Artery with Two Drug-eluting Intraluminal Devices, Percutaneous Approach (ICD-10-PCS; principal; 2021-04-07)
PROC: 4A023N7 Measurement of Cardiac Sampling and Pressure, Left Heart, Percutaneous Approach (ICD-10-PCS; 2021-04-07)
PROC: B2111ZZ Fluoroscopy of Multiple Coronary Arteries using Low Osmolar Contrast (ICD-10-PCS; 2021-04-07)
PROC: B2151ZZ Fluoroscopy of Left Heart using Low Osmolar Contrast (ICD-10-PCS; 2021-04-07)
DX: I21.02 ST elevation (STEMI) myocardial infarction involving left anterior descending coronary artery (principal); I50.23 Acute on chronic systolic (congestive) heart failure; I13.0 Hypertensive heart and chronic kidney disease with heart failure and stage 1 through stage 4 chronic kidney disease, or unspecified chronic kidney disease; I16.1 Hypertensive emergency; I25.110 Atherosclerotic heart disease of native coronary artery with unstable angina pectoris; I25.5 Ischemic cardiomyopathy; N18.30 Chronic kidney disease, stage 3 unspecified; E78.00 Pure hypercholesterolemia, unspecified; E78.5 Hyperlipidemia, unspecified; F41.9 Anxiety disorder, unspecified; F32.9 Major depressive disorder, single episode, unspecified; F17.210 Nicotine dependence, cigarettes, uncomplicated; Z95.5 Presence of coronary angioplasty implant and graft; I25.2 Old myocardial infarction; Z95.810 Presence of automatic (implantable) cardiac defibrillator; Z86.73 Personal history of transient ischemic attack (TIA), and cerebral infarction without residual deficits; Z79.82 Long term (current) use of aspirin
CPT/HCPCS: 36415; 71045; 80053; 80061; 82947; 83735; 83874; 84484; 85025; 85027; 85379; 85610; 85730; 87081; 93005; 93041; 93458

== ENCOUNTER → 2021-07-10 | Outpatient (CLI) | payer MEDICARE ==
[~2021-07-10] MED LIST changes: +AMLO5TAB4 PO; +ATOR80TA76 PO; -QUET50TA22 PO; +QUET50TA23 PO
== END ==
LOC: CARD 09:00
PROVIDERS: ATTEND Internal Medicine Cardiovascular Disease
DX: I51.7 Cardiomegaly (principal); I25.5 Ischemic cardiomyopathy
CPT/HCPCS: 93306

== ENCOUNTER 2021-11-10 10:31 | Emergency (ER) | payer MEDICARE ==
[~2021-11-10] VITALS: Ht 183 cm; Wt 100.0 kg
--- NOTE | 2021-11-10 11:56 | Diagnostic Imaging Report ---
CLINICAL INDICATIONS: Patient status post fall a week ago with anterior knee pain. EXAM: X-ray of the left knee, 3 views. COMPARISON: None. FINDINGS: There is no acute fracture or dislocation. There is prepatellar soft tissue swelling. There is no significant knee effusion. There is bony fusion of the tibiofibular region proximally. There is mild medial compartment narrowing and small spurs involving the medial compartment. IMPRESSION: 1: There is no acute fracture or dislocation. There is prepatellar soft tissue swelling. Dictated by: Dictated on workstation # [id number]
--- NOTE | 2021-11-10 12:18 | ED Lower Extremity ---
General Chief Complaint: Lower Extremity Stated Complaint: FELL FEW DAYS AGE AND HURT KNEE Nursing Triage Note: PT AMB TO RM 2 W C/O LEFT KNEE PAIN D/T FALLING ON ICE ON 10/31/2021. PT REPORTS HE FELL, LANDED ON LEFT KNEE AND ELBOW, GOT UP, THEN IMMEDIATELY FELL AGAIN ON L KNEE. PT DENIES ELBOW PAIN. KNEE PAIN WORSE W AMB AND BENDING. A&OX4. (BARBARA MADRIGAL) History of Present Illness Date Seen by Provider: Nov 10, 2021 Time Seen by Provider: 11:00 Initial Comments 61-year-old male presents for left anterior knee pain. He reports falling directly on it, this occurred on 10/31/2021. He has had no previous history of injuries to his left knee or surgeries. He has not taken any medicine for the pain or discomfort. He also reports landing on his left elbow but has no discomfort or complaints there. Onset: other Pain/Injury Location: left knee Method of Injury: fell (BARBARA MADRIGAL) Allergies and Home Medications Allergies Coded Allergies: clonidine (Verified Adverse Reaction, Unknown, 09/28/16) CATAPRESS PATCH HAS RED AREA AT SITE. Patient Home Medication List Home Medication List Reviewed: Yes (BARBARA MADRIGAL) Amlodipine Besylate (Norvasc) 5 Mg Tablet, 5 MG PO DAILY Prescribed by: YORDY MOSES on 04/08/21 0942 Aspirin (Aspir 81) 81 Mg Tablet.dr, 81 MG PO DAILY, (Reported) Entered as Reported by: ELIU SAVAGE on 03/30/18 0822 Atorvastatin Calcium (Atorvastatin Calcium) 80 Mg Tablet, 80 MG PO HS Prescribed by: YORDY MOSES on 04/08/21 0904 Clopidogrel Bisulfate (Clopidogrel) 75 Mg Tablet, 75 MG PO DAILY Prescribed by: YORDY MOSES on 04/08/21 0904 Hydrocodone Bit/Acetaminophen (HYDROcodone/APAP 7.5/325 TAB) 1 Each Tablet, 1 TAB PO Q6H PRN for PAIN-MODERATE Prescribed by: MANDY CHARLTON on 10/11/20 1014 Lisinopril (Lisinopril) 40 Mg Tablet, 40 MG PO DAILY Prescribed by: YORDY MOSES on 04/08/21 0904 Metoprolol Succinate (Toprol Xl) 200 Mg Tab, 200 MG PO DAILY, (Reported) Entered as Reported by: DANIEL GEORGE on 09/11/20 0759 Nitroglycerin (Nitrostat) 0.4 Mg Tab.subl, 0.4 MG SL UD PRN for CHEST PAIN, (Reported) Entered as Reported by: KIET MONROE on 04/04/16 1014 Omeprazole (Omeprazole) 20 Mg Capsule.dr, 20 MG PO DAILY, (Reported) Entered as Reported by: DANIEL GEORGE on 09/11/20 075 Quetiapine Fumarate (Quetiapine Fumarate) 50 Mg Tablet, 50 MG PO DAILY, (Reported) Entered as Reported by: DANIEL GEORGE on 09/11/20 075 Quetiapine Fumarate (Quetiapine Fumarate) 100 Mg Tablet, 100 MG PO HS, (Reported) Entered as Reported by: DANIEL GEORGE on 09/11/20758 Review of Systems Constitutional: no symptoms reported, see HPI Musculoskeletal: see HPI, joint pain (Left knee) (BARBARA MADRIGAL) All Other Systems Reviewed Negative Unless Noted: Yes (BARBARA MADRIGAL) Past Pchkoic-Vvklqa-Nxvlvw Hx Patient Social History Tobacco Use?: Yes Tobacco type used: Cigarettes Smoking Status: Current Everyday Smoker Use of E-Cig and/or Vaping dev: No Substance use?: No Alcohol Use?: No (BARBARA MADRIGAL) Immunizations Up To Date Tetanus Booster (TDap): Unknown Influenza Vaccine Up-to-Date: Yes; Up-to-Date First/Initial COVID19 Vaccinat: 01/11/2021 Second COVID19 Vaccination Timo: 02/08/2021 COVID19 Vaccine [employer] 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 (BARBARA MADRIGAL) Seasonal Allergies Seasonal Allergies: No (BRABARA MADRIGAL) Past Medical History Surgeries: Yes (BACK SURGERY ( ANTERIOR APPROACH) , CARPAL TUNNEL) Adenoidectomy, Cardiac, Coronary Stent, Defibrillator, Orthopedic, Pacemaker, Tonsillectomy, Vasectomy Respiratory: No Currently Using CPAP: No Currently Using BIPAP: No Cardiac: Yes (heart catheter May 2015 with moderate disease-cardiac arrest with AK) Coronary Artery Disease, Heart Attack, High Cholesterol, Hypertension Neurological: Yes Headaches /Migraines, TIA Reproductive Disorders: No Sexually Transmitted Disease: No HIV/AIDS: No Genitourinary: No Gastrointestinal: Yes Pancreatitis Musculoskeletal: Yes (BACK PAIN, BACK SURGERY, CARPAL TUNNEL SURGERY) Arthritis, Chronic Back Pain Endocrine: No HEENT: No Loss of Vision: Denies Hearing Impairment: Denies Cancer: No Psychosocial: Yes Anxiety, Depression Integumentary: No Blood Disorders: No Adverse Reaction/Blood Tranf: No (BARBARA MADRIGAL) Family Medical History Reviewed Nursing Family Hx (BARBARA MADRIGAL) Cardiovascular disease No Pertinent Family Hx (BARBARA MADRIGAL) Physical Exam Vital Signs Vital Signs - First Documented 11/10/21 11:03 Temp 36.7 Pulse 63 Resp 20 B/P (MAP) 185/103 (130) Pulse Ox 97 O2 Delivery Room Air (ROBBIE ALDANA MD) Vital Signs Capillary Refill : Less Than 3 Seconds (BARBARA MADRIGAL) Height, Weight, BMI Height: 6'0.00" Weight: 203lbs. 0.0oz. 92.785335gg; 29.00 BMI Method:Stated General Appearance: WD/WN, no apparent distress Cardiovascular: normal peripheral pulses, regular rate, rhythm Respiratory: chest non-tender, lungs clear, normal breath sounds Knees: left knee normal inspection, left knee normal range of motion, left knee bone tenderness (Patella and pes anserine bursa), left knee soft tissue tenderness (Anterior), left knee swelling (Trace) Neurologic/Psychiatric: no motor/sensory deficits, alert, normal mood/affect, oriented x 3 Skin: normal color, warm/dry (BARBARA MADRIGAL) Procedures/Interventions Date of ETT Placement: February 24, 2016 Time of ETT Placement: 1314 (BARBARA MADRIGAL) Progress/Results/Core Measures Results/Orders Vital Signs/I&O 11/10/21 11/10/21 11:03 12:32 Temp 36.7 Pulse 63 65 Resp 20 20 B/P (MAP) 185/103 (130) 145/89 Pulse Ox 97 97 O2 Delivery Room Air Room Air (ROBBIE ALDANA MD) Blood Pressure Mean: 130 Diagnostic Imaging Diagonstic Imaging: Xray Plain Films/CT/US/NM/MRI: knee Comments NAME: DALE SANDY MED REC#: [id number] PT STATUS: REG ER : 1960 PHYSICIAN: BARBARA MADRIGAL ADMIT DATE: 11/10/21/ER Draft Date of Exam:11/10/21 KNEE, LEFT, 3 VIEWS CLINICAL INDICATIONS: Patient status post fall a week ago with anterior knee pain. EXAM: X-ray of the left knee, 3 views. COMPARISON: None. FINDINGS: There is no acute fracture or dislocation. There is prepatellar soft tissue swelling. There is no significant knee effusion. There is bony fusion of the tibiofibular region proximally. There is mild medial compartment narrowing and small spurs involving the medial compartment. IMPRESSION: 1: There is no acute fracture or dislocation. There is prepatellar soft tissue swelling. Dictated on workstation # [id number] Dict: 11/10/21 1143 Trans: 11/10/21 1155 [facility] [id number] Interpreted by: CRISS URIAS MD Electronically signed by: (BARBARA MADRIGAL) Departure Impression Primary Impression: Fall Qualified Codes: W19.XXXA - Unspecified fall, initial encounter Additional Impressions: Knee pain Qualified Codes: M25.562 - Pain in left knee Contusion of left knee Qualified Codes: S80.02XA - Contusion of left knee, initial encounter Disposition: HOME, SELF-CARE Condition: Improved Departure-Patient Inst. Decision time for Depature: 12:05 (BARBARA MADRIGAL) Referrals: MARGARITA BELLA MD (PCP/Family) Primary Care Physician Patient Instructions: Knee Sprain (DC), Contusion (DC) Add. Discharge Instructions: Apply ice pack to the left knee for 20 minutes every 2 hours while awake. Activity as tolerated. Take Aleve, 2 tablets in the morning with food and 2 tablets in the evening with food. Continue taking all home medications. Follow-up with Dr. Lang if symptoms are not improving or worsen. Return to the emergency department for new, urgent healthcare needs. All discharge instructions reviewed with patient and/or family. Voiced understa nding. ATTENDING PHYSICIAN NOTE: I was physically present as attending physician in the emergency department during the care of this patient, but I was not directly involved in the decision making or delivery of care for this patient. (ROBBIE ALDANA MD) Copy Copies To 1: MARGARITA BELLA MD, AMY ARNP Nov 10, 2021 12:18 ROBBIE ALDANA MD Nov 10, 2021 19:33
[2021-11-10 12:32] VITALS: BP 145/89
== END 2021-11-10 12:32 | disposition home or self-care (01) ==
LOC: EDUNIT# 10:31 → ER 10:35
DX: S80.02XA Contusion of left knee, initial encounter (principal); I25.2 Old myocardial infarction; I10 Essential (primary) hypertension; F32.9 Major depressive disorder, single episode, unspecified; E78.00 Pure hypercholesterolemia, unspecified; I25.10 Atherosclerotic heart disease of native coronary artery without angina pectoris; G89.29 Other chronic pain; M54.9 Dorsalgia, unspecified; F17.210 Nicotine dependence, cigarettes, uncomplicated; Z86.73 Personal history of transient ischemic attack (TIA), and cerebral infarction without residual deficits; Z79.01 Long term (current) use of anticoagulants; Z79.82 Long term (current) use of aspirin; Z79.899 Other long term (current) drug therapy; Z79.891 Long term (current) use of opiate analgesic; W00.9XXA Unspecified fall due to ice and snow, initial encounter
CPT/HCPCS: 73562

== ENCOUNTER → 2022-07-02 | Outpatient (CLI) | payer MEDICARE ==
[~2022-07-02] MED LIST changes: -TRIA1CAP4 PO; +TRIA1CAP84 PO
--- NOTE | 2022-07-02 09:04 | Diagnostic Imaging Report ---
INDICATION: Abnormal liver function test. TECHNIQUE: Ultrasound of the liver and right upper quadrant was performed in the routine fashion. FINDINGS: The liver shows normal echogenicity without focal lesion. The portal vein is patent with hepatopetal flow. The patient has had previous cholecystectomy. The common bile duct measures 1 cm. The pancreas is partially obscured due to overlying gas. The visualized portions of the aorta and IVC are normal. The right kidney measures 10.1 cm in length and appears unremarkable. There is no ascites. IMPRESSION: No focal liver lesion is seen. The common bile duct is mildly prominent but this can be due to the post operative state post cholecystectomy. There is no intrahepatic biliary dilatation. There is no ascites. No other abnormal finding is seen. Dictated by: Dictated on workstation # [id number]
== END ==
LOC: RAD 07:56
PROVIDERS: ATTEND Internal Medicine
DX: R94.5 Abnormal results of liver function studies (principal)
CPT/HCPCS: 76705